=== PATIENT | female | born 1930 | race Caucasian/White ===

== ENCOUNTER 2017-05-03 09:48 | Inpatient (IN) | payer OTHER, MEDICARE ==
[~2017-05-03] VITALS: Ht 149.9 cm; Wt 62.9 kg
[~2017-05-03 09:48] MED LIST: ASCA500 PO; ASPI325T4 PO; CHOL100027 PO; CITRACAL PO; CRANPOW PO; CZR50 PO; FURO20TA PO; HYDCR1 TOP; HYDR2.5T PO; KOMBIGLYZE PO; METO100T44 PO; MULT-506 PO; OMEP20CA9 PO; SULF800T23 PO; ZNTT/150 PO; [UNRECOGNIZED DRUG - OTHER] PO; [UNRECOGNIZED DRUG - OTHER] TOP
[2017-05-03] MEDS ORDERED: SODIUM CHLORIDE 0.9% 1000ML 1,000 ML IV STA (10:29)
[2017-05-03] MEDS ORDERED: ACETAMINOPHEN 500 MG TAB PO STA (10:29)
--- NOTE | 2017-05-03 10:30 | EMERGENCY ROOM VISIT NOTE ---
History Report prepared by Marcelino: Kyle Nguyễn Under the Supervision of: Dr. Les Candelaria M.D. First contact with patient: 10:08 Chief Complaint: FALL Stated Complaint: FALL/KNEE PAIN History of Present Illness The patient is an 87 year old female who presents to the Emergency Room with complaints of a sudden mechanical fall that occurred last night. Per the nursing staff, the patient fell and then laid in the bathroom all night. The patient states that she has pain in her knees, but notes that she has a history of arthritis in her knees. The patient says that she laid on her left shoulder overnight after landing on that shoulder onto the floor. She adds that she has a history of rotator cuff surgery on that shoulder, and normally has pain with movement of the shoulder, but what is abnormal today is that she has pain in the shoulder without movement. She notes that she also hit the left side of the back of her head on the fall during the fall as well, and has a laceration there , per the nursing staff. Per the patient's family, the patient has had a bladder infection for 6 weeks, and has been having to go to the bathroom multiple times overnight. The patient had a recent ultrasound which revealed hydronephrosis, and the family is trying to get the patient in to see a urologist later this month. She was noted to have a fever again this week, and she recently had her antibiotic changed. Per the patient's family, the patient looks "more yellow" in appearance today. The patient adds that her back hurts and her abdomen feels "full". She is not on any blood thinners. Source of History: patient, family, nursing staff Onset: Last night Position: other (global - fall) Quality: other (mechanical) Timing: other (sudden) Associated Symptoms: + fevers (this week), + back pain, + urinary symptoms ( for 6 weeks), No abdominal pain (but feels full) Note: Associated symptoms: Left shoulder pain. Bilateral knee pain. Head laceration. Looks "more yellow" today. Review of Systems See HPI for pertinent positives and negatives. A total of ten systems were reviewed and were otherwise negative. Past Medical & Surgical Medical Problems: (1) Diab Kia Wo Compl, Type Ii Or Unspec Type, Not Uncntrld (2) Hyperlipidemia Nec/Nos (3) Hypertension Nos (4) Methicillin Resistant Staphylococcus Aureus Elsewhere/Nos (5) Osteoarthros Nos-Unspec (6) Osteoporosis Nos (7) Urin Tract Infection Nos Family History Family history omitted secondary to patient's advanced age. Social History Smoking Status: Never Smoker Alcohol Use: none Housing Status: assisted living Occupation Status: retired Current/Historical Medications Scheduled Artificial Tear Solution (Artificial Tears), 1 DROPS OP QID Ascorbic Acid (Ascorbic Acid), 500 MG PO DAILY Aspirin (Aspirin Ec), 81 MG PO DAILY Atenolol (Tenormin), 25 MG PO BID Cholecalciferol (Vitamin D3), 1 TAB PO DAILY Cranberry (Vaccinium Macrocarp (Cranberry), 1 CAP PO TID Cyclosporine (Ophth) (Restasis), 1 DROP OPB BID Digoxin (Digoxin), 1 TAB PO HS Estrogens, Conjugated (Premarin), 0.625 MG TOP HS Losartan Potassium (Cozaar), 50 MG PO DAILY Metoprolol Succ (Toprol Xl) (Toprol-Xl ), 1.5 TAB PO BID Multivitamin (Multivitamin), 1 TAB PO DAILY Phenazopyridine HCl (Phenazopyridine HCl), 1 TAB PO TID Ranitidine Hcl (Zantac), 150 MG PO HS Saxagliptin-Metformin HCl (Kombiglyze Xr), 1 TAB PO QPM Sulfa/Trimethoprim (Bactrim Ds 800MG/160MG), 1 TAB PO BID Scheduled PRN Diphenoxylate/Atropine (Lomotil), 1 TAB PO BID PRN for Diarrhea [Cheratussin Ac], 10 ML PO Q4H PRN for Cough Allergies Coded Allergies: Cephalosporins (Verified Allergy, Intermediate, KEFLEX = HIVES, 05/03/17) Penicillins (Verified Allergy, Mild, HIVES, 05/03/17) JACKY Inhibitors (Verified Allergy, Unknown, Unknown, 05/03/17) Adhesives (Verified Allergy, Unknown, 0, 05/03/17) Amoxicillin (Verified Allergy, Unknown, Unknown, 05/03/17) CI Pigment Blue 63 (Verified Allergy, Unknown, Unknown, 05/03/17) Cephalexin (Verified Allergy, Unknown, Unknown, 05/03/17) Duloxetine (Verified Allergy, Unknown, Unknown, 05/03/17) Gabapentin (Verified Allergy, Unknown, Unknown, 05/03/17) Lisinopril (Verified Allergy, Unknown, Unknown, 05/03/17) Penicillin V (Verified Allergy, Unknown, ., 05/03/17) Simvastatin (Verified Allergy, Unknown, Unknown, 05/03/17) Yellow Dyes (Non-tartrazine) (Verified Allergy, Unknown, Unknown, 05/03/17) PER PATIENT, SHE EATS YELLOW CANDY Dairy (Verified Adverse Reaction, Unknown, diarrhea, 05/03/17) Lettuce (Verified Adverse Reaction, Unknown, diarrhea, 05/03/17) "salads" Physical Exam Vital Signs Date Time Temp Pulse Resp B/P (MAP) Pulse Ox O2 Delivery O2 Flow Rate FiO2 05/03/17 15:29 71 14 101/54 94 Room Air 05/03/17 14:00 72 18 96/41 93 Room Air 05/03/17 13:04 78 20 99/55 94 Room Air 05/03/17 11:49 62 16 115/53 95 Room Air 05/03/17 11:27 88 05/03/17 09:50 36.7 94 18 132/69 95 Room Air Physical Exam GENERAL: Awake, alert, uncomfortable-appearing, in no distress HENT: Linear abrasion to posterior scalp. Oropharynx dry mm, otherwise unremarkable. EYES: Normal conjunctiva. Sclera non-icteric. NECK: Supple. No nuchal rigidity. FROM. No JVD. RESPIRATORY: Clear to auscultation. CARDIAC: Regular rate, normal rhythm. Extremities warm and well perfused. Pulses equal. ABDOMEN: Soft, non-distended. Mild suprapubic discomfort but no tenderness, no peritoneal signs. No rebound or guarding. No masses. RECTAL: Deferred. BACK: Mild CTLspine tenderness, no stepoff. MUSCULOSKELETAL: Mild tenderness and erythema to the left shoulder with mild pain with range of motion, but otherwise full range of motion. LOWER EXTREMITIES: Tenderness with passive and active range of motion of the left knee with mild effusion. Full range of motion of hips bilaterally. NEURO: Normal sensorium. No sensory or motor deficits noted. SKIN: No rash or jaundice noted. Medical Decision & Procedures ER Provider Diagnostic Interpretation: Radiology results as stated below per my review and radiologist interpretation: CT OF THE ABDOMEN AND PELVIS WITH CONTRAST CLINICAL HISTORY: Pain following fall. COMPARISON STUDY: CT of the abdomen and pelvis October 05, 2009 and abdominal ultrasound April 30, 2017. TECHNIQUE: Following IV administration of 92 mL of Optiray-320, axial images of the abdomen and pelvis were obtained from the lung bases to the proximal femurs. Images were reviewed in the axial, sagittal, and coronal planes. IV contrast was administered without complication. A dose lowering technique was utilized adhering to the principles of ALARA. FINDINGS: There is no evidence of traumatic injury to the liver, spleen, adrenal glands, kidneys or pancreas. A few left renal cysts are noted. A subcapsular hypodense right hepatic lobe lesion is unchanged since CT of October 05, 2009. This is benign. No hemoperitoneum or pneumoperitoneum is present. Dilatation of the left renal pelvis is similar to exam of October 05, 2009. Of note, there is marked asymmetric wall thickening of the right aspect of the bladder. There is gas within the bladder as well as calcifications along the right aspect of the bladder wall. There is mild infiltration adjacent to the bladder. No abdominal or pelvic lymphadenopathy is present. There is no acute lumbar spine or pelvic fracture. IMPRESSION: 1. No acute traumatic findings within the abdomen or pelvis. 2. Asymmetric right bladder wall thickening with associated calcifications. This could be due to a urothelial malignancy or urinary tract infection. This could be correlated with cystoscopy. Minimal infiltration adjacent to the bladder. Trace gas within the bladder which may be related to recent instrumentation. 3. Moderate dilatation of the left renal pelvis which is similar to exam of October 05, 2009 and is likely chronic. Electronically signed by: Giuseppe Clemens M.D. 05/03/2017 12:40 PM Dictated Date/Time: 05/03/2017 12:[address] OF THE CERVICAL SPINE WITHOUT CONTRAST CLINICAL HISTORY: Neck pain following fall. COMPARISON STUDY: No previous studies for comparison. TECHNIQUE: Helical axial images of the cervical spine were obtained without IV contrast. Sagittal and coronal reconstructions were viewed. A dose lowering technique was utilized adhering to the principles of ALARA. FINDINGS: Alignment of the cervical spine is anatomic. The craniocervical junction is intact. There is no acute cervical spine fracture. There is severe multilevel degenerative disc disease and facet arthrosis of the cervical spine. There is no prevertebral edema. Chest CT will be reported separately. IMPRESSION: 1. No acute cervical spine fracture or subluxation. 2. Severe multilevel degenerative disc disease and facet arthrosis of the cervical spine. Electronically signed by: Giuseppe Clemens M.D. 05/03/2017 12:20 PM Dictated Date/Time: 05/03/2017 12:[address] OF THE CHEST WITH IV CONTRAST CLINICAL HISTORY: Fall. COMPARISON STUDY: Chest radiograph May 28, 2012 and May 03, 2017. TECHNIQUE: Following IV administration of 92 mL of Optiray-320, helical axial images of the chest were obtained. Sagittal and coronal reconstructions were viewed as well as maximal intensity projections on an independent 3-D workstation. A dose lowering technique was utilized adhering to the principles of ALARA. FINDINGS: There is no evidence of traumatic injury to the thoracic aorta. The heart is moderately enlarged. A large hiatal hernia is noted. No pneumothorax or pleural effusion is present. Lungs are suboptimally assessed due to respiratory motion. Groundglass opacities within the lower lobe suggest atelectasis. No acute thoracic spine or rib fracture is identified although sensitivity for detection of rib fractures is diminished given motion artifact on this exam. There is no thoracic lymphadenopathy. The abdomen and pelvis will be reported separately. IMPRESSION: 1. No acute traumatic findings within the chest however sensitivity for detection of rib fractures diminished given motion artifact. 2. Large hiatal hernia. Electronically signed by: Giuseppe Clemens M.D. 05/03/2017 12:28 PM Dictated Date/Time: 05/03/2017 12:20 PM CHEST ONE VIEW PORTABLE CLINICAL HISTORY: Weakness. Fall. COMPARISON STUDY: Chest radiograph May 28, 2012. FINDINGS: A large hiatal hernia is noted. Cardiomegaly is unchanged. There is no pneumothorax or pleural effusion. Mild left basilar opacity suggest atelectasis. IMPRESSION: 1. No acute findings. 2. Large hiatal hernia. Electronically signed by: Giuseppe Clemens M.D. 05/03/2017 11:48 AM Dictated Date/Time: 05/03/2017 11:[address] OF THE HEAD WITHOUT CONTRAST CLINICAL HISTORY: Fall with head injury. COMPARISON STUDY: Head CT March 29, 2011 and MRI of the brain March 31, 2011. TECHNIQUE: Helical axial images of the head were obtained without IV contrast. Automated exposure control was utilized for the study. A dose lowering technique was utilized adhering to the principles of ALARA. FINDINGS: No acute intracranial hemorrhage, midline shift or mass affect is present. Ventricular system is stable. Basilar cisterns are patent. There are no extra-axial collections. White matter hypodensity suggests small vessel disease. 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 There is a small left posterior scalp contusion with no calvarial fracture. Right sphenoid sinus is partially opacified. This is unchanged and likely chronic. IMPRESSION: 1. No acute intracranial findings. 2. Small left posterior scalp contusion with no calvarial fracture. Electronically signed by: Giuseppe Clemens M.D. 05/03/2017 12:16 PM Dictated Date/Time: 05/03/2017 12:13 PM L HUMERUS MIN 2 VIEWS ROUTINE CLINICAL HISTORY: Left arm pain following fall. COMPARISON: None FINDINGS: Elevation of the left humeral head is chronic. Alignment of the left elbow is anatomic. There is spurring of the olecranon at the insertion of the triceps. There is no acute fracture of the left humerus. There is no left elbow joint effusion. IMPRESSION: No acute fracture of the left humerus. Electronically signed by: Giuseppe Clemens M.D. 05/03/2017 11:51 AM Dictated Date/Time: 05/03/2017 11:49 AM L KNEE 3 VIEWS CLINICAL HISTORY: Left knee pain following fall. COMPARISON: None FINDINGS: Alignment of the left knee is anatomic. There is no fracture or joint effusion. There is extensive chondrocalcinosis with marked patellofemoral compartment joint space narrowing. IMPRESSION: 1. No acute fracture. 2. 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 Electronically signed by: Giuseppe Clemens M.D. 05/03/2017 11:53 AM Dictated Date/Time: 05/03/2017 11:52 AM R KNEE 3 VIEWS CLINICAL HISTORY: Right knee pain following fall. COMPARISON: None FINDINGS: Alignment of the right knee is anatomic. There is no fracture or definite joint effusion. There is extensive chondrocalcinosis. There is marked joint space narrowing within the patellofemoral compartment. IMPRESSION: 1. No acute fracture. 2. 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 Electronically signed by: Giuseppe Clemens M.D. 05/03/2017 11:52 AM Dictated Date/Time: 05/03/2017 11:[address] CLINICAL HISTORY: Pain following fall. COMPARISON STUDY: No previous studies for comparison. FINDINGS: Mild rightward curvature of the lumbar spine is noted. No acute lumbar spine fracture is identified. There is moderate to severe multilevel degenerative disc disease and facet arthrosis of the lumbar spine. IMPRESSION: 1. No lumbar spine fracture or subluxation. 2. Mild dextroscoliosis of the lumbar spine. 3. Moderate to severe multilevel degenerative disc disease and facet arthrosis of the lumbar spine. Electronically signed by: Giuseppe Clemens M.D. 05/03/2017 12:41 PM Dictated Date/Time: 05/03/2017 12:40 PM L SHOULDER MIN 2 VIEWS ROUTINE CLINICAL HISTORY: Left shoulder pain following fall. COMPARISON: None FINDINGS: No acute fracture is identified. There is evidence for a previous suspected distal left clavicular resection. There is moderate arthritis of the left shoulder. There is elevation of the left humeral head. IMPRESSION: No acute fracture or dislocation of the left shoulder. Electronically signed by: Giuseppe Clemens M.D. 05/03/2017 11:49 AM Dictated Date/Time: 05/03/2017 11:[address] CLINICAL HISTORY: Pain following fall. COMPARISON STUDY: No previous studies for comparison. FINDINGS: Vertebral body heights are maintained. There is no acute thoracic spine fracture or subluxation. There is moderate multilevel disc space narrowing with osteophytosis of the thoracic spine. There is moderate multilevel facet arthrosis. Mild leftward curvature of the thoracolumbar junction is noted. IMPRESSION: No acute thoracic spine fracture or subluxation. Electronically signed by: Giuseppe Clemens M.D. 05/03/2017 12:31 PM Dictated Date/Time: 05/03/2017 12:28 PM Laboratory Results 05/03/17 10:45 Test 05/03/17 10:45 05/03/17 11:35 Anion Gap 8.0 mmol/L (3-11) Est Creatinine Clear Calc Drug Dose 38.0 ml/min Estimated GFR () 76.9 Estimated GFR (Non- 66.4 BUN/Creatinine Ratio 14.1 (10-20) Calcium Level 8.3 mg/dl (8.5-10.1) Total Bilirubin 0.7 mg/dl (0.2-1) Direct Bilirubin 0.2 mg/dl (0-0.2) Aspartate Amino Transf (AST/SGOT) 31 U/L (15-37) Alanine Aminotransferase (ALT/SGPT) 22 U/L (12-78) Alkaline Phosphatase 83 U/L (45-117) Total Creatine Kinase 96 U/L (26-192) Troponin I < 0.015 ng/ml (0-0.045) Total Protein 6.8 gm/dl (6.4-8.2) Albumin 3.2 gm/dl (3.4-5.0) Lipase 91 U/L (73-393) Urine Color YELLOW Urine Appearance CLEAR (CLEAR) Urine pH 7.5 (4.5-7.5) Urine Specific [place] 1.018 (1.000-1.030) Urine Protein NEG (NEG) Urine Glucose (UA) 3+ (NEG) Urine Ketones 1+ (NEG) Urine Occult Blood 3+ (NEG) Urine Nitrite NEG (NEG) Urine Bilirubin NEG (NEG) Urine Urobilinogen NEG (NEG) Urine Leukocyte Esterase SMALL (NEG) Urine WBC (Auto) >30 /hpf (0-5) Urine RBC (Auto) >30 /hpf (0-4) Urine Hyaline Casts (Auto) 5-10 /lpf (0-5) Urine Epithelial Cells (Auto) 5-10 /lpf (0-5) Urine Bacteria (Auto) 2+ (NEG) Urine Yeast (Auto) (NONE PRSENT) Laboratory results reviewed by me Medications Administered Medications (Trade) Dose Ordered Sig/Zoë Route Start Time Stop Time Status Last Admin Dose Admin Sodium Chloride 1,000 ml @ 999 mls/hr Q1H1M STAT IV 05/03/17 10:29 05/03/17 11:29 DC 05/03/17 11:14 999 MLS/HR Acetaminophen (Tylenol Tab) 1,000 mg NOW STAT PO 05/03/17 10:29 05/03/17 10:35 DC 05/03/17 11:40 1,000 MG Aztreonam 2000 mg/ Dextrose 110 ml @ 110 mls/hr NOW STAT IV 05/03/17 14:22 05/03/17 15:21 DC 05/03/17 14:43 110 MLS/HR Vancomycin HCl 1500 mg/Sodium Chloride 530 ml @ 200 mls/hr NOW STAT IV 05/03/17 14:23 05/03/17 17:01 DC 05/03/17 15:28 200 MLS/HR Sodium Chloride 1,000 ml @ 125 mls/hr Q8H IV 05/03/17 16:30 06/02/17 16:29 05/03/17 18:40 80 MLS/HR Acetaminophen (Tylenol Tab) 650 mg Q4H PRN PO 05/03/17 16:30 06/02/17 16:29 05/03/17 20:58 650 MG Procedure Location: occipital scalp Total length: 10cm Complexity: simple Verbal consent was obtained after the risks and benefits were explained, including but not limited to bleeding, scarring, infection, pain, and bone/joint /nerve damage. At this time, the risks of the procedure are less than the risks of NOT performing the procedure. A time out was taken and the correct patient and site identified. The skin was prepped with betadine. The target area was anesthetized with 1 ml of 1% lidocaine with epinephrine. Copious irrigation was performed using NS. The skin was re-prepped with betadine and a sterile field set. The wound was explored for foreign bodies and none found. Examination revealed no injury to deep structures such as tendons, bone, or significant blood vessels. Debridement was not performed. The wound edges were approximated using 7, mady. Hemostasis and excellent approximation was achieved. Detailed wound care instructions and signs and symptoms of infection reviewed with the patient. No complications and the patient tolerated the procedure well. ECG Indication: other (trauma) Rate (beats per minute): 87 Rhythm: sinus rhythm (with marked sinus arrhythmia) Findings: no acute ischemic change, other (normal axis) Change: no significant change (from 05/28/12) ED Course 1018: The patient was evaluated in room B6. A complete history and physical exam was performed. 1029: Ordered Tylenol Tab 1000 mg PO, NSS 1000 ml @ 999 mls/hr IV. 1415: Upon reexamination, the patient was resting comfortably. I discussed the test results and treatment plan with her and her family. They expressed understanding and agreement. The patient will be evaluated for further management. 1422: Ordered Aztreonam 2000 mg/Dextrose 110 ml @ 110 mls/hr IV. 1423: Ordered Vancomycin HCl 1000 mg/Sodium Chloride 530 ml @ 200 mls/hr IV. 1429: I discussed the patient with Dr. Armand Terry pastor - he will evaluate the patient for further treatment. Medical Decision I reviewed the patient's past medical history, medications, and the nursing notes as described above. Etiologies such as fracture, dislocation, intra-abdominal, pneumothorax, intrathoracic , intracranial, neurologic, as well as other traumatic pathologies were entertained. The patient is a 87-year-old woman who presents emergency department after a presumed mechanical fall when the patient had severe knee pain the setting of chronic arthritis falling and hitting the back of her head and laying on her left side overnight per history of present illness. The patient had CT scans of her head chest abdomen pelvis as well as CTL spine were negative for acute findings. Patient did have a positive UTI c/w bladder wall thickening on CT . Patient has an extensive history of antibiotic allergies thus case was discussed with pharmacy and recommending aztreonam and vancomycin. WBC 12 and lactate 2.2. Lactate most likely elevated 2/2 prolonged down-time. CPK unremarkable. Will need trending labs and continued IVF hydration. Patient otherwise hemodynamically stable. Linear abrasion to occipital scalp with persistent oozing thus stapled for additional hemostasis with good effect. Case discussed with Mara Wyman hospitalist, who will admit the patient for further management. Medication Reconcilliation Current Medication List: was personally reviewed by me Blood Pressure Screening Patient's blood pressure: Normal blood pressure Consults Time Called: 1420 Consulting Physician: Dr. Armand Terry pastor Returned Call: [phone] I discussed the patient with Dr. Armand Terry pastor - he will evaluate the patient for further treatment. Impression Primary Impression: UTI (urinary tract infection) Additional Impression: Elevated lactic acid level Critical Care I have personally spent greater than 35 minutes of critical care time in the direct management of this patient. This includes bedside care, interpretation of diagnostic studies, and testing, discussion with consultants, patient, and family members, and other required patient management activities. This 35 minutes is in excess of all separately billable procedures. Scribe Attestation The scribe's documentation has been prepared under my direction and personally reviewed by me in its entirety. I confirm that the note above accurately reflects all work, treatment, procedures, and medical decision making performed by me. Departure Information Dispostion Being Evaluated By Hospitalist Referrals Flores Cosme M.D. (PCP) Patient Instructions My [facility] Problem Qualifiers
[2017-05-03] MEDS ORDERED: OPTIRAY 320 IV PRN (10:45)
[2017-05-03 11:00] LABS: HEMATOCRIT 39.2 % (37-47); MEAN CORPUSCULAR HEMOGLOBIN 28.9 pg (25-34); MEAN CORPUSCULAR HGB CONC 33.7 g/dl (32-36); MEAN PLATELET VOLUME 9.4 fL (7.4-10.4); PLATELET COUNT 123 K/uL (130-400); RED BLOOD COUNT 4.56 M/uL (4.2-5.4); WHITE BLOOD COUNT 12.38 K/uL (4.8-10.8)
[2017-05-03 11:19] LABS: BASO % 0.1 %; BASO ABS # 0.01 K/uL (0-0.2); COMPLETE YES; EOS % 0.5 %; IG% 0.2 %; LYMPH % 4.2 %; LYMPH ABS # 0.52 K/uL (1.2-3.4); MONO % 4.4 %; NEUT % 90.6 %
[2017-05-03 11:22] LABS: ALT/SGPT 22 U/L (12-78); BLOOD UREA NITROGEN 11 mg/dl (7-18); BUN/CREATININE RATIO 14.1 (10-20); CALCIUM 8.3 mg/dl (8.5-10.1); CARBON DIOXIDE 28 mmol/L (21-32); CHLORIDE 96 mmol/L (98-107); CREATININE 0.79 mg/dl (0.60-1.20); GLUCOSE 239 mg/dl (70-99); POTASSIUM 3.6 mmol/L (3.5-5.1); SODIUM 132 mmol/L (136-145)
[2017-05-03 11:27] LABS: ALKALINE PHOSPHATASE 83 U/L (45-117); AST/SGOT 31 U/L (15-37)
[2017-05-03] MEDS ORDERED: FURO-85 PO (11:34)
[2017-05-03] MEDS ORDERED: ATEN-173 PO (11:34)
[2017-05-03] MEDS ORDERED: MULT-506 PO (11:34)
[2017-05-03] MEDS ORDERED: PRLSR20 PO (11:34)
[2017-05-03] MEDS ORDERED: ASCO500T16 PO (11:34)
[2017-05-03] MEDS ORDERED: RANI150T3 PO (11:34)
[2017-05-03] MEDS ORDERED: CRAN500C2 PO (11:34)
[2017-05-03] MEDS ORDERED: CHERATUSSIN AC PO (11:34)
[2017-05-03] MEDS ORDERED: PHEN-1043 PO (11:34)
[2017-05-03] MEDS ORDERED: METO100T44 PO (11:34)
[2017-05-03] MEDS ORDERED: SAXA1TAB5 PO (11:34)
[2017-05-03] MEDS ORDERED: ASPI81TA28 PO (11:34)
[2017-05-03] MEDS ORDERED: CHOL1000 PO (11:34)
[2017-05-03] MEDS ORDERED: LOSA100T65 PO (11:34)
--- NOTE | 2017-05-03 11:49 | DIAGNOSTIC IMAGING REPORT ---
CHEST ONE VIEW PORTABLE CLINICAL HISTORY: Weakness. Fall. COMPARISON STUDY: Chest radiograph May 28, 2012. FINDINGS: A large hiatal hernia is noted. Cardiomegaly is unchanged. There is no pneumothorax or pleural effusion. Mild left basilar opacity suggest atelectasis. IMPRESSION: 1. No acute findings. 2. Large hiatal hernia. Electronically signed by: Giuseppe Clemens M.D. 05/03/2017 11:48 AM Dictated Date/Time: 05/03/2017 11:45 AM
--- NOTE | 2017-05-03 11:50 | DIAGNOSTIC IMAGING REPORT ---
L SHOULDER MIN 2 VIEWS ROUTINE CLINICAL HISTORY: Left shoulder pain following fall. COMPARISON: None FINDINGS: No acute fracture is identified. There is evidence for a previous suspected distal left clavicular resection. There is moderate arthritis of the left shoulder. There is elevation of the left humeral head. IMPRESSION: No acute fracture or dislocation of the left shoulder. Electronically signed by: Giuseppe Clemens M.D. 05/03/2017 11:49 AM Dictated Date/Time: 05/03/2017 11:48 AM
--- NOTE | 2017-05-03 11:52 | DIAGNOSTIC IMAGING REPORT ---
L HUMERUS MIN 2 VIEWS ROUTINE CLINICAL HISTORY: Left arm pain following fall. COMPARISON: None FINDINGS: Elevation of the left humeral head is chronic. Alignment of the left elbow is anatomic. There is spurring of the olecranon at the insertion of the triceps. There is no acute fracture of the left humerus. There is no left elbow joint effusion. IMPRESSION: No acute fracture of the left humerus. Electronically signed by: Giuseppe Clemens M.D. 05/03/2017 11:51 AM Dictated Date/Time: 05/03/2017 11:49 AM
[2017-05-03 11:53] LABS: URINE APPEARANCE CLEAR (CLEAR); URINE BILIRUBIN NEG (NEG); URINE COLOR YELLOW; URINE NITRITE NEG (NEG); URINE PH 7.5 (4.5-7.5); URINE SPECIFIC GRAVITY 1.018 (1.000-1.030); UROBILINOGEN NEG (NEG)
--- NOTE | 2017-05-03 11:53 | DIAGNOSTIC IMAGING REPORT ---
R KNEE 3 VIEWS CLINICAL HISTORY: Right knee pain following fall. COMPARISON: None FINDINGS: Alignment of the right knee is anatomic. There is no fracture or definite joint effusion. There is extensive chondrocalcinosis. There is marked joint space narrowing within the patellofemoral compartment. IMPRESSION: 1. No acute fracture. 2. 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 Electronically signed by: Giuseppe Clemens M.D. 05/03/2017 11:52 AM Dictated Date/Time: 05/03/2017 11:51 AM
--- NOTE | 2017-05-03 11:54 | DIAGNOSTIC IMAGING REPORT ---
L KNEE 3 VIEWS CLINICAL HISTORY: Left knee pain following fall. COMPARISON: None FINDINGS: Alignment of the left knee is anatomic. There is no fracture or joint effusion. There is extensive chondrocalcinosis with marked patellofemoral compartment joint space narrowing. IMPRESSION: 1. No acute fracture. 2. 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 Electronically signed by: Giuseppe Clemens M.D. 05/03/2017 11:53 AM Dictated Date/Time: 05/03/2017 11:52 AM
[2017-05-03 12:07] LABS: MANUAL MICROSCOPIC REQUIRED? NO; REVIEW REQ? YES; SULFASALICYLIC ACID NEG (NEG)
--- NOTE | 2017-05-03 12:17 | DIAGNOSTIC IMAGING REPORT ---
CT OF THE HEAD WITHOUT CONTRAST CLINICAL HISTORY: Fall with head injury. COMPARISON STUDY: Head CT March 29, 2011 and MRI of the brain March 31, 2011. TECHNIQUE: Helical axial images of the head were obtained without IV contrast. Automated exposure control was utilized for the study. A dose lowering technique was utilized adhering to the principles of ALARA. FINDINGS: No acute intracranial hemorrhage, midline shift or mass affect is present. Ventricular system is stable. Basilar cisterns are patent. There are no extra-axial collections. White matter hypodensity suggests small vessel disease. 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 There is a small left posterior scalp contusion with no calvarial fracture. Right sphenoid sinus is partially opacified. This is unchanged and likely chronic. IMPRESSION: 1. No acute intracranial findings. 2. Small left posterior scalp contusion with no calvarial fracture. Electronically signed by: Giuseppe Clemens M.D. 05/03/2017 12:16 PM Dictated Date/Time: 05/03/2017 12:13 PM
--- NOTE | 2017-05-03 12:21 | DIAGNOSTIC IMAGING REPORT ---
CT OF THE CERVICAL SPINE WITHOUT CONTRAST CLINICAL HISTORY: Neck pain following fall. COMPARISON STUDY: No previous studies for comparison. TECHNIQUE: Helical axial images of the cervical spine were obtained without IV contrast. Sagittal and coronal reconstructions were viewed. A dose lowering technique was utilized adhering to the principles of ALARA. FINDINGS: Alignment of the cervical spine is anatomic. The craniocervical junction is intact. There is no acute cervical spine fracture. There is severe multilevel degenerative disc disease and facet arthrosis of the cervical spine. There is no prevertebral edema. Chest CT will be reported separately. IMPRESSION: 1. No acute cervical spine fracture or subluxation. 2. Severe multilevel degenerative disc disease and facet arthrosis of the cervical spine. Electronically signed by: Giuseppe Clemens M.D. 05/03/2017 12:20 PM Dictated Date/Time: 05/03/2017 12:16 PM
--- NOTE | 2017-05-03 12:29 | DIAGNOSTIC IMAGING REPORT ---
CT OF THE CHEST WITH IV CONTRAST CLINICAL HISTORY: Fall. COMPARISON STUDY: Chest radiograph May 28, 2012 and May 03, 2017. TECHNIQUE: Following IV administration of 92 mL of Optiray-320, helical axial images of the chest were obtained. Sagittal and coronal reconstructions were viewed as well as maximal intensity projections on an independent 3-D workstation. A dose lowering technique was utilized adhering to the principles of ALARA. FINDINGS: There is no evidence of traumatic injury to the thoracic aorta. The heart is moderately enlarged. A large hiatal hernia is noted. No pneumothorax or pleural effusion is present. Lungs are suboptimally assessed due to respiratory motion. Groundglass opacities within the lower lobe suggest atelectasis. No acute thoracic spine or rib fracture is identified although sensitivity for detection of rib fractures is diminished given motion artifact on this exam. There is no thoracic lymphadenopathy. The abdomen and pelvis will be reported separately. IMPRESSION: 1. No acute traumatic findings within the chest however sensitivity for detection of rib fractures diminished given motion artifact. 2. Large hiatal hernia. Electronically signed by: Giuseppe Clemens M.D. 05/03/2017 12:28 PM Dictated Date/Time: 05/03/2017 12:20 PM
--- NOTE | 2017-05-03 12:32 | DIAGNOSTIC IMAGING REPORT ---
THORACIC SPINE CT CLINICAL HISTORY: Pain following fall. COMPARISON STUDY: No previous studies for comparison. FINDINGS: Vertebral body heights are maintained. There is no acute thoracic spine fracture or subluxation. There is moderate multilevel disc space narrowing with osteophytosis of the thoracic spine. There is moderate multilevel facet arthrosis. Mild leftward curvature of the thoracolumbar junction is noted. IMPRESSION: No acute thoracic spine fracture or subluxation. Electronically signed by: Giuseppe Clemens M.D. 05/03/2017 12:31 PM Dictated Date/Time: 05/03/2017 12:28 PM
--- NOTE | 2017-05-03 12:41 | DIAGNOSTIC IMAGING REPORT ---
CT OF THE ABDOMEN AND PELVIS WITH CONTRAST CLINICAL HISTORY: Pain following fall. COMPARISON STUDY: CT of the abdomen and pelvis October 05, 2009 and abdominal ultrasound April 30, 2017. TECHNIQUE: Following IV administration of 92 mL of Optiray-320, axial images of the abdomen and pelvis were obtained from the lung bases to the proximal femurs. Images were reviewed in the axial, sagittal, and coronal planes. IV contrast was administered without complication. A dose lowering technique was utilized adhering to the principles of ALARA. FINDINGS: There is no evidence of traumatic injury to the liver, spleen, adrenal glands, kidneys or pancreas. A few left renal cysts are noted. A subcapsular hypodense right hepatic lobe lesion is unchanged since CT of October 05, 2009. This is benign. No hemoperitoneum or pneumoperitoneum is present. Dilatation of the left renal pelvis is similar to exam of October 05, 2009. Of note, there is marked asymmetric wall thickening of the right aspect of the bladder. There is gas within the bladder as well as calcifications along the right aspect of the bladder wall. There is mild infiltration adjacent to the bladder. No abdominal or pelvic lymphadenopathy is present. There is no acute lumbar spine or pelvic fracture. IMPRESSION: 1. No acute traumatic findings within the abdomen or pelvis. 2. Asymmetric right bladder wall thickening with associated calcifications. This could be due to a urothelial malignancy or urinary tract infection. This could be correlated with cystoscopy. Minimal infiltration adjacent to the bladder. Trace gas within the bladder which may be related to recent instrumentation. 3. Moderate dilatation of the left renal pelvis which is similar to exam of October 05, 2009 and is likely chronic. Electronically signed by: Giuseppe Clemens M.D. 05/03/2017 12:40 PM Dictated Date/Time: 05/03/2017 12:31 PM
--- NOTE | 2017-05-03 12:43 | DIAGNOSTIC IMAGING REPORT ---
LUMBAR SPINE CT CLINICAL HISTORY: Pain following fall. COMPARISON STUDY: No previous studies for comparison. FINDINGS: Mild rightward curvature of the lumbar spine is noted. No acute lumbar spine fracture is identified. There is moderate to severe multilevel degenerative disc disease and facet arthrosis of the lumbar spine. IMPRESSION: 1. No lumbar spine fracture or subluxation. 2. Mild dextroscoliosis of the lumbar spine. 3. Moderate to severe multilevel degenerative disc disease and facet arthrosis of the lumbar spine. Electronically signed by: Giuseppe Clemens M.D. 05/03/2017 12:41 PM Dictated Date/Time: 05/03/2017 12:40 PM
[2017-05-03] MEDS ORDERED: CYCL0.052 OPB (13:02)
[2017-05-03] MEDS ORDERED: ARTISOL12 OP (13:02)
[2017-05-03] MEDS ORDERED: PRMVC VAGRING (13:02)
[2017-05-03] MEDS ORDERED: LOSA50TA6 PO (13:02)
[2017-05-03] MEDS ORDERED: LNX25 PO (13:02)
[2017-05-03] MEDS ORDERED: DIPH-416 PO (13:02)
[2017-05-03] MEDS ORDERED: AZTREONAM 2000 MG in DEXTROSE 5% 100 ML IV STA (14:22)
[2017-05-03] MEDS ORDERED: VANCOMYCIN INJ 1,500 MG in SODIUM CHLORIDE 0.9% 500ML 500 ML IV STA (14:23)
[2017-05-03] MEDS ORDERED: GLUCOSE 10 TABS/TUBE PO PRN (16:30)
[2017-05-03] MEDS ORDERED: GLUCAGON FOR INJ 1 MG VIAL SQ PRN (16:30)
[2017-05-03] MEDS ORDERED: DEXTROSE 50% 50 ML SYR IV PRN (16:30)
[2017-05-03] MEDS ORDERED: DIPHENOXYLATE/ATROPINE 2.5/0.025MG TAB PO PRN (16:30)
[2017-05-03] MEDS ORDERED: GLUCOSE 40% GEL 15 GM TUBE PO PRN (16:30)
[2017-05-03 16:55] VITALS: BP 117/76; PULSE 73; TEMP 36.7; O2SAT 97; Ht 149.9 cm; Wt 62.9 kg
[2017-05-03 17:03] LABS: BASO % 0.3 %; BASO ABS # 0.03 K/uL (0-0.2); COMPLETE YES; EOS % 2.2 %; HEMATOCRIT 36.6 % (37-47); IG% 0.2 %; LYMPH % 8.7 %; LYMPH ABS # 0.99 K/uL (1.2-3.4); MEAN CELL VOLUME 86.3 fL (80-100); MEAN CORPUSCULAR HEMOGLOBIN 29.7 pg (25-34); MEAN CORPUSCULAR HGB CONC 34.4 g/dl (32-36); MEAN PLATELET VOLUME 9.2 fL (7.4-10.4); MONO % 9.6 %; PLATELET COUNT 133 K/uL (130-400); RED BLOOD COUNT 4.24 M/uL (4.2-5.4); WHITE BLOOD COUNT 11.42 K/uL (4.8-10.8)
[2017-05-03] MEDS ORDERED: LIDOCAINE/EPINEPHRINE 1% 20 ML VIAL ONE (17:22)
[2017-05-03] MEDS: SODIUM CHLORIDE 0.9% 1000ML 1,000 ML IV SCH (18:40)
--- NOTE | 2017-05-03 18:58 | Pharmacy Progress Note ---
Pharmacy Abx Initial Consult Date of Service May 03, 2017. Pharmacy Dosing Scope Date of Consult: 05/03/17 Consultation requested by: Dr. Acuna Pharmacy is consulted to initiate vancomycin IV dosing therapy, order appropriate labs and adjust drug dose/frequency. Subjective The patient is a 87 year old female admitted on May 03, 2017 at 16:32. Objective Height (Feet): 4 Height (Inches): 11.00 Weight (Kilograms): 58.100 Vital Signs (Past 12Hrs) Vital Signs Past 12 Hours Date Time Temp Pulse Resp B/P (MAP) Pulse Ox O2 Delivery O2 Flow Rate FiO2 05/03/17 17:59 70 16 117/60 96 05/03/17 16:55 36.7 73 18 117/76 97 Room Air 05/03/17 16:52 69 18 109/59 97 Room Air 05/03/17 15:29 71 14 101/54 94 Room Air 05/03/17 14:00 72 18 96/41 93 Room Air 05/03/17 13:04 78 20 99/55 94 Room Air 05/03/17 11:49 62 16 115/53 95 Room Air 05/03/17 11:27 88 05/03/17 09:50 36.7 94 18 132/69 95 Room Air Lab Results (24Hrs) Laboratory Tests (24 Hours) Test 05/03/17 10:45 05/03/17 16:54 Total Creatine Kinase 96 U/L (26-192) Lactic Acid Level 3.5 mmol/L (0.4-2.0) *H White Blood Count 11.42 K/uL (4.8-10.8) H Red Blood Count 4.24 M/uL (4.2-5.4) Hemoglobin 12.6 g/dL (12.0-16.0) Hematocrit 36.6 % (37-47) L Mean Corpuscular Volume 86.3 fL (80-100) Mean Corpuscular Hemoglobin 29.7 pg (25-34) Mean Corpuscular Hemoglobin Concent 34.4 g/dl (32-36) Platelet Count 133 K/uL (130-400) Mean Platelet Volume 9.2 fL (7.4-10.4) Neutrophils (%) (Auto) 79.0 % Lymphocytes (%) (Auto) 8.7 % Monocytes (%) (Auto) 9.6 % Eosinophils (%) (Auto) 2.2 % Basophils (%) (Auto) 0.3 % Neutrophils # (Auto) 9.03 K/uL (1.4-6.5) H Lymphocytes # (Auto) 0.99 K/uL (1.2-3.4) L Monocytes # (Auto) 1.10 K/uL (0.11-0.59) H Eosinophils # (Auto) 0.25 K/uL (0-0.5) Basophils # (Auto) 0.03 K/uL (0-0.2) Micro Results Date/Time Source Procedure Growth Status 05/03/17 11:35 Urine,Catheterized Urine Culture Pending Received Risk Factors for Resistance * Resident in a shelter or extended-care facility * History of infection with a multidrug-resistant organism: MRSA * Antimicrobial use within the last 90 days (currently on Bactrim PO) Assessment & Plan Assessment 87 year old female admitted with UTI. She has a PMH of DM and currently has hydronephrosis. Plan vancomycin for treatment of complicated UTI Vancomycin IV * Loading dose: 1500 mg (26 mg/kg) * Maintenance dose: 1000 mg IV (17 mg/kg) every 18 hours * Goal trough level for UTI complicated : 10 to 15 mcg/mL (may be as high as 15- 20 mcg/mL if MRSA is isolated) * Trough/Random level ordered for 05/05/17 (prior to third dose to ensure no accumulation) * A less than traditional dose has been selected due to likelihood of underdosing in elderly, thin females. Pharmacy will continue to follow and will adjust dose/frequency as necessary. Thank you.
[2017-05-03] MEDS ORDERED: VANCOMYCIN CONSULT ACTIVE PRN (19:00)
[2017-05-03] MEDS ORDERED: NON-FORMULARY MEDICATION (Cranberry (Vaccinium Macrocarp (Cranberry) 1 CAP) PO SCH (20:00)
[2017-05-03] MEDS: INSULIN ASPART 100 UNITS/ML 3 ML PEN SC SCH (20:48)
[2017-05-03] MEDS: AZTREONAM IV 2,000 MG in DEXTROSE 5% 100ML 100 ML IV SCH (20:49)
[2017-05-03] MEDS: METOPROLOL SUCC 50MG EXT REL TAB PO SCH (20:50)
[2017-05-03] MEDS: RANITIDINE HCL 150 MG TAB PO SCH (20:50)
[2017-05-03] MEDS: ARTIFICIAL TEARS OP SOLN OP SCH ×2 (20:51)
[2017-05-03] MEDS: PHENAZOPYRIDINE HCL 200 MG TAB PO SCH (20:51)
[2017-05-03] MEDS: DIGOXIN 0.25 MG TAB PO SCH (20:51)
[2017-05-03] MEDS: ACETAMINOPHEN 325 MG TAB PO PRN (20:58)
[2017-05-03 21:01] VITALS: BP 132/82; PULSE 81
--- NOTE | 2017-05-03 21:56 | History and Physical ---
History & Physical Date & Time of Service: May 03, 2017 at 21:07 Chief Complaint: Elevated Lactic Acid Level, Uti Primary Care Physician: Flores Cosme M.D. History of Present Illness Source: patient, family, clinic records, hospital records This is an 87 year old female with a PMH of HTN, valvular heart disease, Sjogren 's syndrome, DM2, osteoarthritis, and a 6 week history of recurrent UTI symptoms - presents secondary to a fall. Patient states that she is at [facility] - she attempted to get up last evening due to urinary frequency. States that her knees felt weak and painful and because of that, she fell and hit the back of her head. She states that she did not want to bother anyone and did not get up right away. She is unsure of how long she was laying down on the ground for. When she was found she had a laceration on the back of her head and she had L shoulder pain. She was sent to the ER for further evaluation. Upon presentation, she had no acute fractures. Laceration on the scalp noted. She has some trouble with L shoulder movement due to pain. Denies b/l knee pain currently. Main complaint currently is urinary frequency and dysuria x 6weeks. 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 (5) Osteoarthros Nos-Unspec Status: Chronic (6) Osteoporosis Nos Status: Chronic (7) Urin Tract Infection Nos Status: Resolved Social History Smoking Status: Never Smoker Occupational Status: retired Immunizations History of Influenza Vaccine: Yes Influenza Vaccine Date: Mar 07, 2009 History of Tetanus Vaccine?: Unknown History of Pneumococcal: Yes History of Hepatitis B Vaccine: No Multi-Drug Resistant Organisms History of MDRO: Yes Type of MDRO: MRSA Allergies Coded Allergies: Cephalosporins (Verified Allergy, Intermediate, KEFLEX = HIVES, 05/03/17) Penicillins (Verified Allergy, Mild, HIVES, 05/03/17) JACKY Inhibitors (Verified Allergy, Unknown, Unknown, 05/03/17) Adhesives (Verified Allergy, Unknown, 0, 05/03/17) Amoxicillin (Verified Allergy, Unknown, Unknown, 05/03/17) CI Pigment Blue 63 (Verified Allergy, Unknown, Unknown, 05/03/17) Cephalexin (Verified Allergy, Unknown, Unknown, 05/03/17) Duloxetine (Verified Allergy, Unknown, Unknown, 05/03/17) Gabapentin (Verified Allergy, Unknown, Unknown, 05/03/17) Lisinopril (Verified Allergy, Unknown, Unknown, 05/03/17) Penicillin V (Verified Allergy, Unknown, ., 05/03/17) Simvastatin (Verified Allergy, Unknown, Unknown, 05/03/17) Yellow Dyes (Non-tartrazine) (Verified Allergy, Unknown, Unknown, 05/03/17) PER PATIENT, SHE EATS YELLOW CANDY Dairy (Verified Adverse Reaction, Unknown, diarrhea, 05/03/17) Lettuce (Verified Adverse Reaction, Unknown, diarrhea, 05/03/17) "salads" Home Medications Scheduled Artificial Tear Solution (Artificial Tears), 1 DROPS OP QID Ascorbic Acid (Ascorbic Acid), 500 MG PO DAILY Aspirin (Aspirin Ec), 81 MG PO DAILY Atenolol (Tenormin), 25 MG PO BID Cholecalciferol (Vitamin D3), 1 TAB PO DAILY Cranberry (Vaccinium Macrocarp (Cranberry), 1 CAP PO TID Cyclosporine (Ophth) (Restasis), 1 DROP OPB BID Digoxin (Digoxin), 1 TAB PO HS Estrogens, Conjugated (Premarin), 0.625 MG TOP HS Losartan Potassium (Cozaar), 50 MG PO DAILY Metoprolol Succ (Toprol Xl) (Toprol-Xl ), 1.5 TAB PO BID Multivitamin (Multivitamin), 1 TAB PO DAILY Phenazopyridine HCl (Phenazopyridine HCl), 1 TAB PO TID Ranitidine Hcl (Zantac), 150 MG PO HS Saxagliptin-Metformin HCl (Kombiglyze Xr), 1 TAB PO QPM Sulfa/Trimethoprim (Bactrim Ds 800MG/160MG), 1 TAB PO BID Scheduled PRN Diphenoxylate/Atropine (Lomotil), 1 TAB PO BID PRN for Diarrhea [Cheratussin Ac], 10 ML PO Q4H PRN for Cough Review of Systems Constitutional: + weakness, No fever, No chills Eyes: No worsening of vision ENT: No hearing loss Respiratory: No cough, No sputum, No wheezing, No shortness of breath, No dyspnea on exertion, No dyspnea at rest, No hemoptysis Cardiovascular: No chest pain, No edema, No palpitations Abdomen: No pain, No nausea, No vomiting, No diarrhea, No constipation, No GI bleeding Musculoskeletal: + joint pain (b/l knee, L shoulder) Genitourinary - Female: + dysuria, + urinary frequency, + urinary urgency, + urinary incontinence, No urinary retention, No hematuria Neurologic: + weakness, + balance problems, No numbness/tingling, No vertigo Psychiatric: No depression symptoms Endocrine: No fatigue Hematologic / Lymphatic: No abnormal bleeding/bruising Integumentary: No rash Allergic / Immunologic: No environmental allergies, No seasonal allergies Physical Exam Vital Signs Date Time Temp Pulse Resp B/P (MAP) Pulse Ox O2 Delivery O2 Flow Rate FiO2 05/03/17 21:01 81 132/82 (99) 05/03/17 20:51 70 05/03/17 17:59 70 16 117/60 96 05/03/17 16:55 36.7 73 18 117/76 97 Room Air 05/03/17 16:52 69 18 109/59 97 Room Air 05/03/17 15:29 71 14 101/54 94 Room Air 05/03/17 14:00 72 18 96/41 93 Room Air 05/03/17 13:04 78 20 99/55 94 Room Air 05/03/17 11:49 62 16 115/53 95 Room Air 05/03/17 11:27 88 05/03/17 09:50 36.7 94 18 132/69 95 Room Air General Appearance: no apparent distress Head: normocephalic, + pertinent finding (+posterior scalp laceration) Eyes: normal inspection, PERRL, EOMI ENT: normal ENT inspection, hearing grossly normal Neck: supple Respiratory/Chest: chest non-tender, lungs clear, normal breath sounds, no respiratory distress, no accessory muscle use Cardiovascular: regular rate, rhythm, + systolic murmur (+4/6 systolic ejection murmur) Abdomen/GI: normal bowel sounds, non tender, soft Back: normal inspection, no CVA tenderness, no muscle spasm, normal range of motion Extremities/Musculoskelatal: normal inspection, no calf tenderness, normal capillary refill, no pedal edema, normal range of motion Neurologic/Psych: outreach educator II-XII nml as tested, no motor/sensory deficits, alert, normal mood/affect, oriented x 3 Skin: normal color Lymphatic: no adenopathy Diagnostics Laboratory Results Results Past 24 Hours Test 05/03/17 10:45 05/03/17 11:00 05/03/17 11:35 05/03/17 16:54 Range/Units White Blood Count 12.38 11.42 4.8-10.8 K/uL Red Blood Count 4.56 4.24 4.2-5.4 M/uL Hemoglobin 13.2 12.6 12.0-16.0 g/dL Hematocrit 39.2 36.6 37-47 % Mean Corpuscular Volume 86.0 86.3 80-100 fL Mean Corpuscular Hemoglobin 28.9 29.7 25-34 pg Mean Corpuscular Hemoglobin Concent 33.7 34.4 32-36 g/dl Platelet Count 123 133 130-400 K/uL Mean Platelet Volume 9.4 9.2 7.4-10.4 fL Neutrophils (%) (Auto) 90.6 79.0 % Lymphocytes (%) (Auto) 4.2 8.7 % Monocytes (%) (Auto) 4.4 9.6 % Eosinophils (%) (Auto) 0.5 2.2 % Basophils (%) (Auto) 0.1 0.3 % Neutrophils # (Auto) 11.21 9.03 1.4-6.5 K/uL Lymphocytes # (Auto) 0.52 0.99 1.2-3.4 K/uL Monocytes # (Auto) 0.55 1.10 0.11-0.59 K/uL Eosinophils # (Auto) 0.06 0.25 0-0.5 K/uL Basophils # (Auto) 0.01 0.03 0-0.2 K/uL RDW Standard Deviation 43.7 44.2 36.4-46.3 fL RDW Coefficient of Variation 14.0 14.0 11.5-14.5 % Immature Granulocyte % (Auto) 0.2 0.2 % Immature Granulocyte # (Auto) 0.03 0.02 0.00-0.02 K/uL Sodium Level 132 136-145 mmol/L Potassium Level 3.6 3.5-5.1 mmol/L Chloride Level 96 98-107 mmol/L Carbon Dioxide Level 28 21-32 mmol/L Anion Gap 8.0 3-11 mmol/L Blood Urea Nitrogen 11 7-18 mg/dl Creatinine 0.79 0.60-1.20 mg/dl Est Creatinine Clear Calc Drug Dose 38.0 ml/min Estimated GFR () 76.9 Estimated GFR (Non- 66.4 BUN/Creatinine Ratio 14.1 10-20 Random Glucose 239 70-99 mg/dl Calcium Level 8.3 8.5-10.1 mg/dl Total Bilirubin 0.7 0.2-1 mg/dl Direct Bilirubin 0.2 0-0.2 mg/dl Aspartate Amino Transf (AST/SGOT) 31 15-37 U/L Alanine Aminotransferase (ALT/SGPT) 22 12-78 U/L Alkaline Phosphatase 83 45-117 U/L Total Creatine Kinase 96 26-192 U/L Troponin I < 0.015 0-0.045 ng/ml Total Protein 6.8 6.4-8.2 gm/dl Albumin 3.2 3.4-5.0 gm/dl Lipase 91 73-393 U/L Lactic Acid Level 2.2 3.5 0.4-2.0 mmol/L Urine Color YELLOW Urine Appearance CLEAR CLEAR Urine pH 7.5 4.5-7.5 Urine Specific [place] 1.018 1.000-1.030 Urine Protein NEG NEG Urine Glucose (UA) 3+ NEG Urine Ketones 1+ NEG Urine Occult Blood 3+ NEG Urine Nitrite NEG NEG Urine Bilirubin NEG NEG Urine Urobilinogen NEG NEG Urine Leukocyte Esterase SMALL NEG Urine WBC (Auto) >30 0-5 /hpf Urine RBC (Auto) >30 0-4 /hpf Urine Hyaline Casts (Auto) 5-10 0-5 /lpf Urine Epithelial Cells (Auto) 5-10 0-5 /lpf Urine Bacteria (Auto) 2+ NEG Urine Yeast (Auto) NONE PRSENT Test 05/03/17 20:18 Range/Units Bedside Glucose 176 70-90 mg/dl Microbiology Results 05/03/17 Urine Culture, Received Pending Diagnostic Radiology CT OF THE ABDOMEN AND PELVIS WITH CONTRAST CLINICAL HISTORY: Pain following fall. COMPARISON STUDY: CT of the abdomen and pelvis October 05, 2009 and abdominal ultrasound April 30, 2017. TECHNIQUE: Following IV administration of 92 mL of Optiray-320, axial images of the abdomen and pelvis were obtained from the lung bases to the proximal femurs. Images were reviewed in the axial, sagittal, and coronal planes. IV contrast was administered without complication. A dose lowering technique was utilized adhering to the principles of ALARA. FINDINGS: There is no evidence of traumatic injury to the liver, spleen, adrenal glands, kidneys or pancreas. A few left renal cysts are noted. A subcapsular hypodense right hepatic lobe lesion is unchanged since CT of October 05, 2009. This is benign. No hemoperitoneum or pneumoperitoneum is present. Dilatation of the left renal pelvis is similar to exam of October 05, 2009. Of note, there is marked asymmetric wall thickening of the right aspect of the bladder. There is gas within the bladder as well as calcifications along the right aspect of the bladder wall. There is mild infiltration adjacent to the bladder. No abdominal or pelvic lymphadenopathy is present. There is no acute lumbar spine or pelvic fracture. IMPRESSION: 1. No acute traumatic findings within the abdomen or pelvis. 2. Asymmetric right bladder wall thickening with associated calcifications. This could be due to a urothelial malignancy or urinary tract infection. This could be correlated with cystoscopy. Minimal infiltration adjacent to the bladder. Trace gas within the bladder which may be related to recent instrumentation. 3. Moderate dilatation of the left renal pelvis which is similar to exam of October 05, 2009 and is likely chronic. CHEST ONE VIEW PORTABLE CLINICAL HISTORY: Weakness. Fall. COMPARISON STUDY: Chest radiograph May 28, 2012. FINDINGS: A large hiatal hernia is noted. Cardiomegaly is unchanged. There is no pneumothorax or pleural effusion. Mild left basilar opacity suggest atelectasis. IMPRESSION: 1. No acute findings. 2. Large hiatal hernia. CT OF THE CHEST WITH IV CONTRAST CLINICAL HISTORY: Fall. COMPARISON STUDY: Chest radiograph May 28, 2012 and May 03, 2017. TECHNIQUE: Following IV administration of 92 mL of Optiray-320, helical axial images of the chest were obtained. Sagittal and coronal reconstructions were viewed as well as maximal intensity projections on an independent 3-D workstation. A dose lowering technique was utilized adhering to the principles of ALARA. FINDINGS: There is no evidence of traumatic injury to the thoracic aorta. The heart is moderately enlarged. A large hiatal hernia is noted. No pneumothorax or pleural effusion is present. Lungs are suboptimally assessed due to respiratory motion. Groundglass opacities within the lower lobe suggest atelectasis. No acute thoracic spine or rib fracture is identified although sensitivity for detection of rib fractures is diminished given motion artifact on this exam. There is no thoracic lymphadenopathy. The abdomen and pelvis will be reported separately. IMPRESSION: 1. No acute traumatic findings within the chest however sensitivity for detection of rib fractures diminished given motion artifact. 2. Large hiatal hernia. CT OF THE HEAD WITHOUT CONTRAST CLINICAL HISTORY: Fall with head injury. COMPARISON STUDY: Head CT March 29, 2011 and MRI of the brain March 31, 2011. TECHNIQUE: Helical axial images of the head were obtained without IV contrast. Automated exposure control was utilized for the study. A dose lowering technique was utilized adhering to the principles of ALARA. FINDINGS: No acute intracranial hemorrhage, midline shift or mass affect is present. Ventricular system is stable. Basilar cisterns are patent. There are no extra-axial collections. White matter hypodensity suggests small vessel disease. 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 There is a small left posterior scalp contusion with no calvarial fracture. Right sphenoid sinus is partially opacified. This is unchanged and likely chronic. IMPRESSION: 1. No acute intracranial findings. 2. Small left posterior scalp contusion with no calvarial fracture. EKG Sinus rhythm with marked sinus arrhythmia ST & T wave abnormality, consider inferior ischemia Impression Assessment and Plan This is an 87 year old female with a PMH of HTN, valvular heart disease, Sjogren 's syndrome, DM2, osteoarthritis, and a 6 week history of recurrent UTI symptoms - presents secondary to a fall. status post Fall patient presented with fall due to b/l knee weakness and joint pain imaging of the cervical, thoracic, lumbar spine - no acute fractures no acute humeral/shoulder disease b/l knee radiographs suggest possible pseudogout at this time, I'll order PT/OT CM discharge planning for possible rehab at [facility] Recurrent UTI patient has had urinary frequency, which may have contributed to her fall she has to get up multiple times at night to urinate as per patient, she had an appointment with [facility] later this month; but would like to see them now has failed multiple outpatient abx. will start Azactam and Vancomycin due to multiple allergies possible cystoscopy as outpatient; urology consulted continue IVFs and check lactic acid q4 hours for now Posterior Scalp Laceration patient has seven mady placed by ED physician otherwise, Head CT negative Valvular Heart Disease significant murmur noted on exam patient is on digoxin - no rhythm disorders found on hx. - possibly for heart failure secondary to valvular disease will continue current medications DM2 hold oral agents, start sliding scale HTN continue metoprolol, if BP stable, may consider tapering this off to prevent syncopal episodes DVT ppx SCDs (posterior scalp laceration) FULL CODE Advanced Directives Existing Living Will: Yes Existing Power of Chief Internal Auditor: Yes VTE Prophylaxis VTE Risk Assessment Done? Y/N: Yes Risk Level: Moderate
[2017-05-04] VITALS (10 sets, daily range): BP systolic 83–120; BP diastolic 50–68; PULSE 64–142; TEMP 36.4–37; O2SAT 91–96
[2017-05-04] MEDS: SODIUM CHLORIDE 0.9% 1000ML 1,000 ML IV SCH ×2 (03:48→15:29)
[2017-05-04] MEDS: AZTREONAM IV 2,000 MG in DEXTROSE 5% 100ML 100 ML IV SCH ×3 (03:49→20:20)
[2017-05-04 04:16] LABS: HEMATOCRIT 35.9 % (37-47); MEAN CELL VOLUME 86.5 fL (80-100); MEAN CORPUSCULAR HEMOGLOBIN 29.2 pg (25-34); MEAN CORPUSCULAR HGB CONC 33.7 g/dl (32-36); MEAN PLATELET VOLUME 9.4 fL (7.4-10.4); PLATELET COUNT 133 K/uL (130-400); RED BLOOD COUNT 4.15 M/uL (4.2-5.4); WHITE BLOOD COUNT 12.18 K/uL (4.8-10.8)
[2017-05-04 04:35] LABS: BUN/CREATININE RATIO 14.7 (10-20); CALCIUM 7.9 mg/dl (8.5-10.1); CREATININE 0.71 mg/dl (0.60-1.20); MAGNESIUM 1.6 mg/dl (1.8-2.4); POTASSIUM 4.1 mmol/L (3.5-5.1)
[2017-05-04 05:01] LABS: BASO % 0.1 %; BASO ABS # 0.01 K/uL (0-0.2); COMPLETE YES; EOS % 4.2 %; IG% 0.3 %; LYMPH % 11.3 %; LYMPH ABS # 1.38 K/uL (1.2-3.4); MONO % 7.2 %; NEUT % 76.9 %
[2017-05-04] MEDS: ACETAMINOPHEN 325 MG TAB PO PRN ×3 (08:15→17:15)
[2017-05-04] MEDS: PHENAZOPYRIDINE HCL 200 MG TAB PO SCH ×3 (08:15→20:23)
[2017-05-04] MEDS: LOSARTAN POTASSIUM 50 MG TAB PO SCH (08:16)
[2017-05-04] MEDS: MULTIVITAMIN TAB PO SCH (08:16)
[2017-05-04] MEDS: ASPIRIN 81 MG ECTAB PO SCH (08:17)
[2017-05-04] MEDS: ARTIFICIAL TEARS OP SOLN OP SCH ×8 (09:07→20:22)
[2017-05-04] MEDS: METOPROLOL SUCC 50MG EXT REL TAB PO SCH ×2 (09:07→20:22)
[2017-05-04] MEDS: INSULIN ASPART 100 UNITS/ML 3 ML PEN SC SCH ×4 (09:11→20:32)
[2017-05-04] MEDS: VANCOMYCIN INJ 1,000 MG in SODIUM CHLORIDE 0.9% 250ML 250 ML IV SCH (10:32)
--- NOTE | 2017-05-04 13:26 | Urology Consultation ---
History General Date of Service: May 04, 2017. Chief Complaint: UTI, Frequent UTI, Fall with AMS Primary Care Physician: Flores Cosme M.D. Pt seen a urologist before?: No History of Present Illness Patient had fallen early yesterday morning. had AMS with LUTS and possibly UTI. Now improved voiding. Tolerating antibiotics. Severe left leg pain radiating to lower leg. Trouble ambulating. Monitoring closely and assisted ambulation to get around. Previously had a few years or intermittent frequent UTIs improved since starting herbal treatments. Had signifcant issues with latest UTIs, but improved during this hospitalization. Trauma imaging after fall shows thickening and calcification of right bladder wall suspicious appearance with chronic left sided hydro, unchanged from previous imaging. Laboratory Labs were reviewed and are within normal limits unless listed below. Labs are available in the chart and at [facility] Problem List Medical Problems: (1) Elevated lactic acid level Status: Acute (2) UTI (urinary tract infection) Status: Acute Past History diabetes, hypertension, osteoporosis Additional Comments: Fam, Surg, Med, and Soc history reviewed and pertinent values documented. Please see H&P for full report. Social History Hx Tobacco Use In Past Year?: No Occupation status: retired Immunizations History of Influenza Vaccine: Yes Influenza Vaccine Date: Mar 07, 2009 History of Tetanus Vaccine?: Unknown History of Pneumococcal: Yes History of Hepatitis B Vaccine: No History of MDRO Yes Type of MDRO: MRSA Allergies Coded Allergies: Cephalosporins (Verified Allergy, Intermediate, KEFLEX = HIVES, 05/03/17) Penicillins (Verified Allergy, Mild, HIVES, 05/03/17) JACKY Inhibitors (Verified Allergy, Unknown, Unknown, 05/03/17) Adhesives (Verified Allergy, Unknown, 0, 05/03/17) Amoxicillin (Verified Allergy, Unknown, Unknown, 05/03/17) CI Pigment Blue 63 (Verified Allergy, Unknown, Unknown, 05/03/17) Cephalexin (Verified Allergy, Unknown, Unknown, 05/03/17) Duloxetine (Verified Allergy, Unknown, Unknown, 05/03/17) Gabapentin (Verified Allergy, Unknown, Unknown, 05/03/17) Lisinopril (Verified Allergy, Unknown, Unknown, 05/03/17) Penicillin V (Verified Allergy, Unknown, ., 05/03/17) Simvastatin (Verified Allergy, Unknown, Unknown, 05/03/17) Yellow Dyes (Non-tartrazine) (Verified Allergy, Unknown, Unknown, 05/03/17) PER PATIENT, SHE EATS YELLOW CANDY Dairy (Verified Adverse Reaction, Unknown, diarrhea, 05/03/17) Lettuce (Verified Adverse Reaction, Unknown, diarrhea, 05/03/17) "salads" Medications Home Medications: Home Meds and Scripts Medications Dose Route/Sig Max Daily Dose Days Date Category Dose Instructions Artificial Tears (Artificial Tear Solution) 1 Negar Negar 1 Drops OP QID 05/03/17 Reported Lomotil (Diphenoxylate HCl/Atropine) Tab 1 Tab PO BID PRN 05/03/17 Reported Restasis (Cyclosporine (Ophth)) 0.05 % Emu 1 Drop OPB BID 05/03/17 Reported Premarin (Estrogens, Conjugated) 14 Appln/30 Gm Cr 0.625 Mg TOP HS 05/03/17 Reported Cozaar (Losartan Potassium) 50 Mg Tab 50 Mg PO DAILY 05/03/17 Reported Digoxin 0.25 Mg Tab 1 Tab PO HS 05/03/17 Reported Bactrim Ds 800MG/160MG (Trimethoprim/Sulfamethoxazole) Tab 1 Tab PO BID 7 05/03/17 Reported ENDS 05-09-17 Kombiglyze Xr (Saxagliptin-Metformin HCl) 1 Tab Tab 1 Tab PO QPM 05/03/17 Reported (ONGLYZA BRAND) Cranberry (Cranberry (Vaccinium Macrocarp) 500 Mg Cap 1 Cap PO TID 05/03/17 Reported Toprol-Xl (Metoprolol Succinate) 100 Mg Tabcr 1.5 Tab PO BID 05/03/17 Reported Zantac (Ranitidine HCl) 150 Mg Tab 150 Mg PO HS 05/03/17 Reported Multivitamin (Multivitamins) Tab 1 Tab PO DAILY 05/03/17 Reported Vitamin D3 (Cholecalciferol) 1,000 Unit Tab 1 Tab PO DAILY 05/03/17 Reported Ascorbic Acid 500 Mg Tab 500 Mg PO DAILY 05/03/17 Reported Aspirin Ec (Aspirin) 81 Mg Tab 81 Mg PO DAILY 05/03/17 Reported [Cheratussin Ac] 10 Ml PO Q4H PRN 05/03/17 Reported Phenazopyridine HCl 200 Mg Tab 1 Tab PO TID 05/03/17 Reported NEEDED Tenormin (Atenolol) 25 Mg Tab 25 Mg PO BID 05/03/17 Reported NEEDED FOR HEART PALPITATIONS Inpatient Medications: Current Inpatient Medications Medications (Trade) Dose Ordered Sig/Zoë Route Start Time Stop Time Status Last Admin Dose Admin Ioversol (Optiray 320) 100 ml UD PRN IV 05/03/17 10:45 05/07/17 10:44 Aztreonam 2000 mg/ Dextrose 110 ml @ 100 mls/hr Q8H IV 05/03/17 20:00 05/13/17 16:29 05/04/17 12:57 100 MLS/HR Vancomycin HCl 1000 mg/Sodium Chloride 270 ml @ 125 mls/hr Q18H IV 05/04/17 10:00 05/13/17 23:59 05/04/17 10:32 125 MLS/HR Sodium Chloride 1,000 ml @ 125 mls/hr Q8H IV 05/03/17 16:30 06/02/17 16:29 05/04/17 03:48 125 MLS/HR Aspirin (Ecotrin Tab) 81 mg DAILY PO 05/04/17 08:00 06/03/17 08:59 05/04/17 08:17 81 MG Digoxin (Lanoxin Tab) 0.25 mg DAILY@1600 PO 05/03/17 21:00 06/02/17 20:59 05/03/17 20:51 0.25 MG Diphenoxylate HCl/ Atropine (Lomotil Tab) 1 tab BID PRN PO 05/03/17 16:30 06/02/17 16:29 Losartan Potassium (coZAAR TAB) 50 mg DAILY PO 05/04/17 08:00 06/03/17 08:59 05/04/17 08:16 50 MG Metoprolol Succinate (Toprol Xl Tab) 150 mg BID PO 05/03/17 20:00 06/02/17 20:59 05/04/17 09:07 150 MG Multivitamins (Multivitamin Tab) 1 tab DAILY PO 05/04/17 08:00 06/03/17 08:59 05/04/17 08:16 1 TAB Phenazopyridine HCl (Pyridium Tab) 200 mg TID PO 05/03/17 20:00 06/02/17 20:59 05/04/17 08:15 200 MG Ranitidine HCl (zANTac TAB) 150 mg HS PO 05/03/17 21:00 06/02/17 20:59 05/03/17 20:50 150 MG Artificial Tears (Artificial Tears) 1 drops QID OP 05/03/17 20:00 06/02/17 20:59 05/04/17 12:55 1 DROPS Acetaminophen (Tylenol Tab) 650 mg Q4H PRN PO 05/03/17 16:30 06/02/17 16:29 05/04/17 12:56 650 MG Insulin Aspart (novoLOG ASPART) SLIDING SCALE If C... ACHS SC 05/03/17 21:00 06/02/17 20:59 05/04/17 13:05 1 UNITS Glucose (Glucose 40% Gel) 15-30 GRAMS 15 GRAMS... UD PRN PO 05/03/17 16:30 06/02/17 16:29 Glucose (Glucose Chew Tab) 4-8 Tablets 4 Tabl... UD PRN PO 05/03/17 16:30 06/02/17 16:29 Dextrose (Dextrose 50% 50ML Syringe) 25-50ML OF 50% DW IV FOR... UD PRN IV 05/03/17 16:30 06/02/17 16:29 Glucagon (Glucagon Inj) 1 mg UD PRN SQ 05/03/17 16:30 06/02/17 16:29 Vancomycin HCl (Consult) 1 ea UD PRN N/A 05/03/17 19:00 06/02/17 18:59 Review of Systems Review of Systems All Other Systems: Reviewed and Negative (All reviewed. Pertinent pos and negs in HPI) Physical Exam Vital Signs: Vital Signs Past 12 Hours Date Time Temp Pulse Resp B/P (MAP) Pulse Ox O2 Delivery O2 Flow Rate FiO2 05/04/17 08:15 Room Air 05/04/17 07:36 37.0 78 20 120/68 (85) 93 Nasal Cannula 3.0 Physical Exam: General Appearance: WD/WN, no apparent distress Eyes: bilateral eyes normal inspection ENT: normal ENT inspection Neck: no JVD Respiratory/Chest: no respiratory distress, no accessory muscle use Cardiovascular: regular rate, rhythm Gastrointestinal: Abdomen: normal abdomen Extremities: normal inspection, no pedal edema, no calf tenderness Neurologic/Psychiatric: consumer educator II-XII nml as tested, no motor/sensory deficits, alert, normal mood/affect, oriented x 3 Skin: normal color, warm/dry Lymphatic: no adenopathy Assessment & Plan Assessment & Plan 1. UTI 2. History of frequent UTI 3. Left [place], chronic 4. Bladder Lesion on imaging 5. Fall with injury left lower extremity. Patient has cystoscopy planned in few weeks. Currently supportive care from recent fall with injury and poor ambulation. On abx for UTI and other issues. WIll likely need biopsy/resection and assessment of bladder. Will schedule this after improvement of acute issues. Currently denies hematuria. Voiding well per patient without incontinence or other issues. Agree with supportive care and plan for outpatient workup.
[2017-05-04] MEDS ORDERED: DIGOXIN IV 125 MCG in SYRINGE 9.5 ML IV ONE ×2 (17:00→22:45)
[2017-05-04 17:41] LABS: HEMATOCRIT 36.7 % (37-47); MEAN CELL VOLUME 86.2 fL (80-100); MEAN CORPUSCULAR HEMOGLOBIN 28.6 pg (25-34); MEAN CORPUSCULAR HGB CONC 33.2 g/dl (32-36); MEAN PLATELET VOLUME 9.5 fL (7.4-10.4); PLATELET COUNT 142 K/uL (130-400); RED BLOOD COUNT 4.26 M/uL (4.2-5.4); WHITE BLOOD COUNT 16.41 K/uL (4.8-10.8)
[2017-05-04 17:51] LABS: INR 1.1 (0.9-1.1); PARTIAL THROMBOPLASTIN RATIO 1.2; PROTHROMBIN TIME (PATIENT) 11.4 SECONDS (9.0-12.0)
[2017-05-04] MEDS: DIGOXIN 0.25 MG TAB PO SCH (17:59)
[2017-05-04 18:05] LABS: BUN/CREATININE RATIO 19.4 (10-20); CALCIUM 7.4 mg/dl (8.5-10.1); CREATININE 0.74 mg/dl (0.60-1.20); MAGNESIUM 1.5 mg/dl (1.8-2.4); POTASSIUM 3.2 mmol/L (3.5-5.1)
[2017-05-04] MEDS ORDERED: POTASSIUM CHLORIDE 20 MEQ TABCR PO STA (18:07)
[2017-05-04] MEDS ORDERED: METOPROLOL TARTRATE 1 MG/ML VIAL IV ONE (18:15)
--- NOTE | 2017-05-04 18:36 | Progress Note ---
Medicine Progress Note Date & Time of Visit: May 04, 2017 at 18:13 . Subjective Noted to be tachycardic at 16:15. Experiencing some upper back pain which she attributes to the fall. No chest pain or palpitations. No cough or SOB. Has some hiccoughs. No nausea, vomiting, diarrhea. No dysuria. . Objective Last 8 Hrs Date Time Temp Pulse Resp B/P (MAP) Pulse Ox O2 Delivery O2 Flow Rate FiO2 05/04/17 17:50 36.5 124 16 97/60 (72) 92 Nasal Cannula 2.0 05/04/17 17:27 36.6 142 22 91 3.0 05/04/17 16:59 142 05/04/17 16:15 139 98/66 (77) 05/04/17 16:15 Room Air 05/04/17 15:08 36.6 64 22 83/56 (65) 91 Room Air Physical Exam: General- lying in bed, annoyed by hiccoughs, no distress Neck- + JVD Lungs- clear to auscultation; no respiratory distress Heart- irregular, tachycardic, III/ systolic murmur base + LSB, no gallop appreciated Abdomen- + BS, soft, nontender Extremities- no pretibial edema or calf tenderness Neuro- alert . Laboratory Results: Last 24 Hours Test 05/03/17 20:18 05/03/17 23:50 05/04/17 04:05 05/04/17 07:56 Bedside Glucose 176 mg/dl Lactic Acid Level 1.5 mmol/L 1.8 mmol/L 1.4 mmol/L White Blood Count 12.18 K/uL Red Blood Count 4.15 M/uL Hemoglobin 12.1 g/dL Hematocrit 35.9 % Mean Corpuscular Volume 86.5 fL Mean Corpuscular Hemoglobin 29.2 pg Mean Corpuscular Hemoglobin Concent 33.7 g/dl Platelet Count 133 K/uL Mean Platelet Volume 9.4 fL Neutrophils (%) (Auto) 76.9 % Lymphocytes (%) (Auto) 11.3 % Monocytes (%) (Auto) 7.2 % Eosinophils (%) (Auto) 4.2 % Basophils (%) (Auto) 0.1 % Neutrophils # (Auto) 9.36 K/uL Lymphocytes # (Auto) 1.38 K/uL Monocytes # (Auto) 0.88 K/uL Eosinophils # (Auto) 0.51 K/uL Basophils # (Auto) 0.01 K/uL RDW Standard Deviation 44.8 fL RDW Coefficient of Variation 14.1 % Immature Granulocyte % (Auto) 0.3 % Immature Granulocyte # (Auto) 0.04 K/uL Red Blood Cell Morphology Unremarkable Sodium Level 133 mmol/L Potassium Level 4.1 mmol/L Chloride Level 102 mmol/L Carbon Dioxide Level 27 mmol/L Anion Gap 4.0 mmol/L Blood Urea Nitrogen 11 mg/dl Creatinine 0.71 mg/dl Est Creatinine Clear Calc Drug Dose 41.7 ml/min Estimated GFR () 87.5 Estimated GFR (Non- 75.5 BUN/Creatinine Ratio 14.7 Random Glucose 157 mg/dl Calcium Level 7.9 mg/dl Magnesium Level 1.6 mg/dl Test 05/04/17 08:03 05/04/17 11:24 05/04/17 16:41 05/04/17 17:29 Bedside Glucose 182 mg/dl 171 mg/dl 221 mg/dl White Blood Count 16.41 K/uL Red Blood Count 4.26 M/uL Hemoglobin 12.2 g/dL Hematocrit 36.7 % Mean Corpuscular Volume 86.2 fL Mean Corpuscular Hemoglobin 28.6 pg Mean Corpuscular Hemoglobin Concent 33.2 g/dl RDW Standard Deviation 44.9 fL RDW Coefficient of Variation 14.2 % Platelet Count 142 K/uL Mean Platelet Volume 9.5 fL Prothrombin Time 11.4 SECONDS Prothromb Time International Ratio 1.1 Activated Partial Thromboplast Time 30.7 SECONDS Partial Thromboplastin Ratio 1.2 Sodium Level 130 mmol/L Potassium Level 3.2 mmol/L Chloride Level 100 mmol/L Carbon Dioxide Level 22 mmol/L Anion Gap 8.0 mmol/L Blood Urea Nitrogen 14 mg/dl Creatinine 0.74 mg/dl Est Creatinine Clear Calc Drug Dose 40.0 ml/min Estimated GFR () 83.2 Estimated GFR (Non- 71.8 BUN/Creatinine Ratio 19.4 Random Glucose 203 mg/dl Calcium Level 7.4 mg/dl Magnesium Level 1.5 mg/dl Total Creatine Kinase 105 U/L Creatine Kinase MB 1.1 ng/ml Creatine Kinase MB Ratio 1.0 Troponin I 0.016 ng/ml Diagnostic Imaging: EKG performed at 16:27 reviewed and demonstrated AF at 140 / minute, slight ST depression inferolaterally, inverted and biphasic T-waves inferolaterally. . Assessment & Plan URINARY TRACT INFECTION / CHRONIC LEFT HYDRONEPHROSIS / BLADDER LESION Urine culture growing gram negative bacilli and alpha Strep. Urology consulted. Continue IV vancomycin and aztreonam. Eventual cystoscopy anticipated. ATRIAL FIBRILLATION WITH RAPID VENTRICULAR RESPONSE Apparent prior history of AF. Now in AF with vent rate of 140 / min. K and Mg low. Transferred to telemetry unit for monitoring. Correct hypokalemia and hypomagnesemia. IV digoxin and metoprolol for rate control. No anticoagulation due to hematuria and closed head injury. HYPOKALEMIA K = 3.2. Replace. Follow. HYPOMAGNESEMIA Mg = 1.5. Replace. Follow. DM TYPE 2 Random glucose as high as 221. Check Hgb A1C. Lantus / NovoLog per protocol. SCALP LACERATION [place] to be removed in 7 days. FALL PT / OT. VTE PROPHYLAXIS No anticoagulants because of hematuria. SCD's. Ambulate as able. DISPOSITION Expected return to [facility] under the care of Dr. Cosme. Arvin Strauss given update by phone. . Consultants: Urology- Dr. Jin. . Current Inpatient Medications: Current Inpatient Medications Medications (Trade) Dose Ordered Sig/Zoë Route Start Time Stop Time Status Last Admin Dose Admin Ioversol (Optiray 320) 100 ml UD PRN IV 05/03/17 10:45 05/07/17 10:44 Aztreonam 2000 mg/ Dextrose 110 ml @ 100 mls/hr Q8H IV 05/03/17 20:00 05/13/17 16:29 05/04/17 12:57 100 MLS/HR Vancomycin HCl 1000 mg/Sodium Chloride 270 ml @ 125 mls/hr Q18H IV 05/04/17 10:00 05/13/17 23:59 05/04/17 10:32 125 MLS/HR Aspirin (Ecotrin Tab) 81 mg DAILY PO 05/04/17 08:00 06/03/17 08:59 05/04/17 08:17 81 MG Digoxin (Lanoxin Tab) 0.25 mg DAILY@1600 PO 05/03/17 21:00 06/02/17 20:59 Future Hold 05/03/17 20:51 0.25 MG Diphenoxylate HCl/ Atropine (Lomotil Tab) 1 tab BID PRN PO 05/03/17 16:30 06/02/17 16:29 Losartan Potassium (coZAAR TAB) 50 mg DAILY PO 05/04/17 08:00 06/03/17 08:59 05/04/17 08:16 50 MG Metoprolol Succinate (Toprol Xl Tab) 150 mg BID PO 05/03/17 20:00 06/02/17 20:59 05/04/17 09:07 150 MG Multivitamins (Multivitamin Tab) 1 tab DAILY PO 05/04/17 08:00 06/03/17 08:59 05/04/17 08:16 1 TAB Phenazopyridine HCl (Pyridium Tab) 200 mg TID PO 05/03/17 20:00 06/02/17 20:59 05/04/17 14:34 200 MG Ranitidine HCl (zANTac TAB) 150 mg HS PO 05/03/17 21:00 06/02/17 20:59 05/03/17 20:50 150 MG Artificial Tears (Artificial Tears) 1 drops QID OP 05/03/17 20:00 06/02/17 20:59 05/04/17 17:20 1 DROPS Acetaminophen (Tylenol Tab) 650 mg Q4H PRN PO 05/03/17 16:30 06/02/17 16:29 05/04/17 17:15 650 MG Insulin Aspart (novoLOG ASPART) SLIDING SCALE If C... ACHS SC 05/03/17 21:00 06/02/17 20:59 05/04/17 18:02 6 UNITS Glucose (Glucose 40% Gel) 15-30 GRAMS 15 GRAMS... UD PRN PO 05/03/17 16:30 06/02/17 16:29 Glucose (Glucose Chew Tab) 4-8 Tablets 4 Tabl... UD PRN PO 05/03/17 16:30 06/02/17 16:29 Dextrose (Dextrose 50% 50ML Syringe) 25-50ML OF 50% DW IV FOR... UD PRN IV 05/03/17 16:30 06/02/17 16:29 Glucagon (Glucagon Inj) 1 mg UD PRN SQ 05/03/17 16:30 06/02/17 16:29 Vancomycin HCl (Consult) 1 ea UD PRN N/A 05/03/17 19:00 06/02/17 18:59 Metoprolol Tartrate (Lopressor Iv) 2.5 mg NOW ONCE IV 05/04/17 18:15 05/04/17 18:16 UNV Magnesium Sulfate 1 gm/Prmx 100 ml @ 100 mls/hr NOW STAT IV 05/04/17 18:06 05/04/17 19:05 UNV Potassium Chloride (Klor-Con M10) 40 meq NOW STAT PO 05/04/17 18:07 05/04/17 18:08 UNV
[2017-05-04] MEDS ORDERED: MAGNESIUM SULFATE 1GM / D5W 1 GM in PREMIXED IN D5W 100 ML IV ONE (19:00)
[2017-05-04] MEDS ORDERED: SODIUM CHLORIDE 0.9% IV SCH (20:00)
[2017-05-04] MEDS ORDERED: POTASSIUM CHLORIDE IV SCH (20:00)
[2017-05-04] MEDS: RANITIDINE HCL 150 MG TAB PO SCH (20:23)
[2017-05-04] MEDS: INSULIN GLARGINE SOLOSTAR 100 UNITS/ML 3 ML PEN SC SCH (20:33)
--- NOTE | 2017-05-04 20:37 | DIAGNOSTIC IMAGING REPORT ---
CHEST ONE VIEW PORTABLE HISTORY: 87 years-old Female atrial fib acute atrial fibrillation COMPARISON: Chest CT and chest radiograph 05/03/2017 TECHNIQUE: Portable AP view of the chest FINDINGS: Cardiac silhouette is again mildly enlarged. Large hiatal hernia. No overt pulmonary edema. Subsegmental bibasilar right perihilar opacities are noted. No pneumothorax or pleural effusion. Bones of the chest appear grossly intact. IMPRESSION: 1. Cardiomegaly without overt pulmonary edema. 2. Hazy right perihilar and bibasilar opacities suggest atelectasis or less likely pneumonitis. 3. Large hiatal hernia. The above report was generated using voice recognition software. It may contain grammatical, syntax or spelling errors. Electronically signed by: Paoc Paul M.D. 05/04/2017 8:35 PM Dictated Date/Time: 05/04/2017 8:33 PM
[2017-05-04] MEDS: TRAMADOL HCL 50 MG TAB PO PRN (20:39)
[2017-05-04] MEDS ORDERED: ALUMINUM/MAGNESIUM/SIMETH (MAALOX MAX) 30 ML UDC PO PRN (22:15)
[2017-05-04] MEDS: HYDROmorphone INJ 0.5 MG/0.5 ML SYR IV PRN (22:58)
[2017-05-05] VITALS (10 sets, daily range): BP systolic 111–129; BP diastolic 48–71; PULSE 70–83; TEMP 36.3–36.9; O2SAT 92–97
[2017-05-05] MEDS ORDERED: VANCOMYCIN TROUGH ONE (03:30)
[2017-05-05 04:00] LABS: BUN/CREATININE RATIO 26.8 (10-20); CALCIUM 7.6 mg/dl (8.5-10.1); CREATININE 0.6 mg/dl (0.60-1.20); MAGNESIUM 1.9 mg/dl (1.8-2.4); POTASSIUM 3.6 mmol/L (3.5-5.1)
[2017-05-05] MEDS: HYDROmorphone INJ 0.5 MG/0.5 ML SYR IV PRN ×5 (04:00→22:30)
[2017-05-05 04:05] LABS: CKMB/CK RATIO 1.7 (0-3.0)
[2017-05-05] MEDS: AZTREONAM IV 2,000 MG in DEXTROSE 5% 100ML 100 ML IV SCH ×3 (04:59→20:23)
[2017-05-05] MEDS: VANCOMYCIN INJ 1,000 MG in SODIUM CHLORIDE 0.9% 250ML 250 ML IV SCH ×2 (05:54→12:15)
[2017-05-05 07:32] LABS: ESTIMATED AVERAGE GLUCOSE 180 mg/dl; HA1C FLAG Normal (Normal)
[2017-05-05] MEDS: ARTIFICIAL TEARS OP SOLN OP SCH ×8 (08:05→20:23)
[2017-05-05] MEDS: METOPROLOL SUCC 50MG EXT REL TAB PO SCH ×2 (08:05→20:25)
[2017-05-05] MEDS: INSULIN GLARGINE SOLOSTAR 100 UNITS/ML 3 ML PEN SC SCH ×2 (08:08→21:14)
[2017-05-05] MEDS: INSULIN ASPART 100 UNITS/ML 3 ML PEN SC SCH ×4 (08:08→21:13)
[2017-05-05] MEDS: ASPIRIN 81 MG ECTAB PO SCH (08:36)
[2017-05-05] MEDS: DIGOXIN 0.25 MG TAB PO SCH (08:36)
[2017-05-05] MEDS: LOSARTAN POTASSIUM 50 MG TAB PO SCH (08:36)
[2017-05-05] MEDS: PHENAZOPYRIDINE HCL 200 MG TAB PO SCH ×3 (08:36→20:24)
[2017-05-05] MEDS: MULTIVITAMIN TAB PO SCH (08:37)
--- NOTE | 2017-05-05 10:01 | Progress Note ---
Subjective Date of Service: May 05, 2017. Subjective Pt evaluation today including: conversation w/ patient, chart review, lab review Voiding: no voiding problems 87 yo female with bladder mass. UC&S growing e coli. Chao sensitive. Currently on Vancomycin and aztreonam. She reports Pyridium has helped with her dysuria. Gross hematuria last week has resolved. She notes an episode of chest pain last night. This has resolved. ? indigestion. Chest x-ray showing possible atelactasis. Problem List Medical Problems: (1) Elevated lactic acid level Status: Acute (2) UTI (urinary tract infection) Status: Acute Review of Systems Constitutional: No fever, No chills Respiratory: No shortness of breath Cardiac: No chest pain Abdomen: No pain, No nausea, No vomiting Female : No dysuria, No hematuria Heme: No abnormal bleeding/bruising Objective Vital Signs Date Time Temp Pulse Resp B/P (MAP) Pulse Ox O2 Delivery O2 Flow Rate FiO2 05/05/17 08:36 83 05/05/17 08:00 92 Nasal Cannula 3.0 30 05/05/17 07:53 36.8 82 20 115/48 (70) 92 Nasal Cannula 3.0 05/05/17 04:00 36.9 77 22 111/56 (74) 96 Nasal Cannula 8.0 30 Humidified Oxygen 05/05/17 04:00 96 Nasal Cannula 3.0 05/05/17 00:00 96 Nasal Cannula 3.0 05/04/17 23:51 36.4 78 18 106/50 (68) 94 Nasal Cannula 3.0 05/04/17 22:57 85 05/04/17 20:00 96 Nasal Cannula 3.0 05/04/17 19:17 36.6 103 22 84/50 (61) 92 Nasal Cannula 2.0 05/04/17 19:01 114 93/63 05/04/17 17:50 36.5 124 16 97/60 (72) 92 Nasal Cannula 2.0 05/04/17 17:27 36.6 142 22 91 3.0 05/04/17 16:59 142 05/04/17 16:15 139 98/66 (77) 05/04/17 16:15 Room Air 05/04/17 15:08 36.6 64 22 83/56 (65) 91 Room Air Physical Exam General Appearance: no apparent distress Eyes: normal inspection ENT: hearing grossly normal Neck: no JVD Respiratory/Chest: no respiratory distress, no accessory muscle use Cardiovascular: no JVD Extremities: normal inspection Neurologic/Psychiatric: alert, normal mood/affect, oriented x 3 Skin: normal color Laboratory Results Last 24 Hours Test 05/04/17 11:24 05/04/17 16:41 05/04/17 17:29 05/04/17 20:22 Bedside Glucose 171 mg/dl 221 mg/dl 221 mg/dl White Blood Count 16.41 K/uL Red Blood Count 4.26 M/uL Hemoglobin 12.2 g/dL Hematocrit 36.7 % Mean Corpuscular Volume 86.2 fL Mean Corpuscular Hemoglobin 28.6 pg Mean Corpuscular Hemoglobin Concent 33.2 g/dl RDW Standard Deviation 44.9 fL RDW Coefficient of Variation 14.2 % Platelet Count 142 K/uL Mean Platelet Volume 9.5 fL Prothrombin Time 11.4 SECONDS Prothromb Time International Ratio 1.1 Activated Partial Thromboplast Time 30.7 SECONDS Partial Thromboplastin Ratio 1.2 Sodium Level 130 mmol/L Potassium Level 3.2 mmol/L Chloride Level 100 mmol/L Carbon Dioxide Level 22 mmol/L Anion Gap 8.0 mmol/L Blood Urea Nitrogen 14 mg/dl Creatinine 0.74 mg/dl Est Creatinine Clear Calc Drug Dose 40.0 ml/min Estimated GFR () 83.2 Estimated GFR (Non- 71.8 BUN/Creatinine Ratio 19.4 Random Glucose 203 mg/dl Calcium Level 7.4 mg/dl Magnesium Level 1.5 mg/dl Total Creatine Kinase 105 U/L Creatine Kinase MB 1.1 ng/ml Creatine Kinase MB Ratio 1.0 Troponin I 0.016 ng/ml Test 05/05/17 03:26 05/05/17 06:38 Sodium Level 132 mmol/L Potassium Level 3.6 mmol/L Chloride Level 102 mmol/L Carbon Dioxide Level 24 mmol/L Anion Gap 6.0 mmol/L Blood Urea Nitrogen 16 mg/dl Creatinine 0.60 mg/dl Est Creatinine Clear Calc Drug Dose 49.3 ml/min Estimated GFR () 93.7 Estimated GFR (Non- 80.8 BUN/Creatinine Ratio 26.8 Random Glucose 179 mg/dl Calcium Level 7.6 mg/dl Magnesium Level 1.9 mg/dl Total Creatine Kinase 66 U/L Creatine Kinase MB 1.1 ng/ml Creatine Kinase MB Ratio 1.7 Troponin I 0.019 ng/ml Vancomycin Level Trough 6.6 mcg/ml Digoxin Level 1.5 ng/ml Bedside Glucose 174 mg/dl Assessment and Plan A/P: Bladder mass, UTI Recommend transitioning the pt to 2 weeks of oral abx such as Cipro or Bactrim DS prior to d/c home. Will plan for outpatient f/u with Dr. Louis next week on 05-12 to schedule TURBT for her bladder mass. No further management at this time. Recall PRN issues. Thanks for allowing us to participate in this pt's care.
[2017-05-05 11:30] LABS: BUN/CREATININE RATIO 31.6 (10-20); CALCIUM 7.8 mg/dl (8.5-10.1); CREATININE 0.55 mg/dl (0.60-1.20); MAGNESIUM 1.9 mg/dl (1.8-2.4); POTASSIUM 3.7 mmol/L (3.5-5.1)
--- NOTE | 2017-05-05 11:34 | Pharmacy Progress Note ---
Pharmacy Abx Dose Short Note Date of Service May 05, 2017. Assessment & Plan Assessment 87 year old female receiving vancomycin/azactam for treatment of UTI. 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 It is noted per Dr. Greco note that patient will most likely be transitioned to PO abx such as bactrim or cipro upon discharge. Day # 3 of antimicrobial therapy. Plan Vancomycin * Trough level of 6.6 mcg/mL is subtherapeutic, but most likely not at steady state * Change to 1000 mg IV every 14 hours * Goal trough level for UTI : 10 to 15 mcg/mL * Trough or random level will be ordered tomorrow as necessary Pharmacy will continue to follow and will adjust dose/frequency as necessary. Thank you.
--- NOTE | 2017-05-05 13:11 | ECHOCARDIOGRAM REPORT ---
*NOTICE TO RECEIVING LIBERTARIAN AGENCY This information is strictly Confidential and protected under [place] law. [place] law prohibits you from making any further disclosure of this information unless further disclosure is expressly permitted by the written consent of the person to whom it pertains or is authorized by law. A general authorization for the release of medical or other information is not sufficient for this purpose. Hospital accepts no responsibility if the information is made available to any other person, INCLUDING THE PATIENT. Interpretation Summary * Name: QUINTON ANGELO Study Date: 05/05/2017 07:06 AM BP: 111/56 mmHg * Patient Location: C.2E\S\E210\S\1 HR: 77 * : 1930 (M/d/yyyy) Gender: Female Height: 59 in * Age: 87 yrs Ethnicity: CA Weight: 128 lb * Ordering Physician: Barber Bhakta * Referring Physician: Self, Referred * Performed By: Beverly Castaneda RDCS * * Reason For Study: Murmurs, atrial fibrillation * BSA: 1.5 m2 * -- Conclusions -- * The left ventricle is normal in size. * There is mild concentric left ventricular hypertrophy. * The left ventricular wall motion is normal. * Ejection Fraction = 65-70%. * The left atrium is mildly dilated. * The aortic valve leaflets are moderately calcified * Moderate to severe valvular aortic stenosis. * There is mild mitral regurgitation. * There is trace tricuspid regurgitation. * Right ventricular systolic pressure is elevated at 40-50mmHg. Procedure Details * A complete two-dimensional transthoracic echocardiogram was performed (2D, M-mode, Doppler and color flow Doppler). Left Ventricle * The left ventricle is normal in size. * There is mild concentric left ventricular hypertrophy. * Ejection Fraction = 65-70%. * Left ventricular systolic function is normal. * The left ventricular wall motion is normal. Right Ventricle * The right ventricle is normal in size and function. Atria * The left atrium is mildly dilated. * Right atrial size is normal. * No ASD detected; PFO is not assessed. Mitral Valve * There is moderate mitral annular calcification. * There is no mitral valve stenosis. * There is mild mitral regurgitation. Tricuspid Valve * The tricuspid valve is normal. * There is no tricuspid stenosis. * There is trace tricuspid regurgitation. * Right ventricular systolic pressure is elevated at 40-50mmHg. Aortic Valve * The aortic valve is trileaflet. * The aortic valve leaflets are moderately calcified * Moderate to severe valvular aortic stenosis. * No aortic regurgitation is present. Pulmonic Valve * The pulmonic valve is not well visualized. Great Vessels * The aortic root is normal size. Pericardium/Pleural * There is no pericardial effusion. Great Vessels * Dilated inferior vena cava with reduced collapsability with sniff indicates an elevated right atrial pressure of 15 mmHg MMode 2D Measurements and Calculations IVSd 1.1 cm LVIDd 3.0 cm LVIDs 2.0 cm LVPWd 0.99 cm IVS/LVPW 1.1 FS 34.3 % EDV(Teich) 35.0 ml ESV(Teich) 12.3 ml EF(Teich) 64.9 % EDV(cubed) 27.0 ml ESV(cubed) 7.7 ml EF(cubed) 71.6 % LV mass(C)d 84.7 grams LV mass(C)dI 55.5 grams/m\S\2 SV(Teich) 22.7 ml SI(Teich) 14.9 ml/m\S\2 SV(cubed) 19.3 ml SI(cubed) 12.7 ml/m\S\2 Ao root diam 2.9 cm Ao root area 6.4 cm\S\2 ACS 0.98 cm LA dimension 2.7 cm asc Aorta Diam 2.8 cm LA/Ao 0.96 LVOT diam 2.0 cm LVOT area 3.2 cm\S\2 LVAd ap4 19.3 cm\S\2 LVLd ap4 6.8 cm EDV(MOD-sp4) 45.6 ml EDV(sp4-el) 46.9 ml LVAs ap4 9.3 cm\S\2 LVLs ap4 4.9 cm ESV(MOD-sp4) 15.0 ml ESV(sp4-el) 15.0 ml EF(MOD-sp4) 67.1 % EF(sp4-el) 68.0 % LVAd ap2 19.5 cm\S\2 LVLd ap2 7.0 cm EDV(MOD-sp2) 45.6 ml EDV(sp2-el) 46.1 ml LVAs ap2 10.5 cm\S\2 LVLs ap2 5.7 cm ESV(MOD-sp2) 16.3 ml ESV(sp2-el) 16.4 ml EF(MOD-sp2) 64.3 % EF(sp2-el) 64.4 % LVLd %diff 3.0 % EDV(MOD-bp) 45.8 ml LVLs %diff 13.2 % ESV(MOD-bp) 16.7 ml EF(MOD-bp) 63.6 % SV(MOD-sp4) 30.6 ml SI(MOD-sp4) 20.0 ml/m\S\2 SV(MOD-sp2) 29.3 ml SI(MOD-sp2) 19.2 ml/m\S\2 SV(MOD-bp) 29.1 ml SI(MOD-bp) 19.1 ml/m\S\2 SV(sp4-el) 31.9 ml SI(sp4-el) 20.9 ml/m\S\2 SV(sp2-el) 29.7 ml SI(sp2-el) 19.5 ml/m\S\2 Doppler Measurements and Calculations MV E max jorgito 147.7 cm/sec MV A max jorgito 109.9 cm/sec MV E/A 1.3 MV dec time 0.21 sec Ao V2 max 323.6 cm/sec Ao max PG 41.9 mmHg Ao max PG (full) 37.9 mmHg Ao V2 mean 224.0 cm/sec Ao mean PG 23.4 mmHg Ao V2 VTI 67.1 cm KASSIE(V,A) 0.98 cm\S\2 KASSIE(V,D) 0.98 cm\S\2 LV V1 max PG 4.0 mmHg LV V1 max 100.1 cm/sec SV(Ao) 428.1 ml SI(Ao) 280.7 ml/m\S\2 PA V2 max 95.0 cm/sec PA max PG 3.6 mmHg PA acc slope 1278.1 cm/sec\S\2 PA acc time 0.06 sec TR max jorgito 304.8 cm/sec PA pr(Accel) 50.5 mmHg
[2017-05-05] MEDS: ALUMINUM/MAGNESIUM/SIMETH (MAALOX MAX) 30 ML UDC PO PRN ×2 (16:20→20:23)
[2017-05-05] MEDS: OXYCODONE HCL IR 5 MG TAB (IMMEDIATE RELEASE) PO PRN (16:39)
[2017-05-05] MEDS ORDERED: LANSOPRAZOLE SOLUTAB 30 MG PO ONE (17:15)
--- NOTE | 2017-05-05 20:19 | Progress Note ---
Medicine Progress Note Date & Time of Visit: May 05, 2017 at 16:15 . Subjective Converted to NSR last night. No chest pain or SOB. Experiencing indigestion- chronic problem. No nausea or vomiting. No diarrhea. Experiencing urinary frequency and incontinence. No dysuria. Uncomfortable due to injuries from fall. . Objective Last 8 Hrs Date Time Temp Pulse Resp B/P (MAP) Pulse Ox O2 Delivery O2 Flow Rate FiO2 05/05/17 16:00 92 Nasal Cannula 3.0 05/05/17 15:50 36.3 81 16 123/58 (79) 94 Nasal Cannula 3.0 Physical Exam: General- lying in bed, no acute distress Neck- + JVD Lungs- clear to auscultation; no respiratory distress Heart- RRR, III/ systolic murmur base + LSB, no gallop appreciated Abdomen- + BS, soft, nontender Extremities- no pretibial edema or calf tenderness Neuro- alert . Laboratory Results: Last 24 Hours Test 05/04/17 20:22 05/05/17 03:26 05/05/17 06:38 05/05/17 10:57 Bedside Glucose 221 mg/dl 174 mg/dl Sodium Level 132 mmol/L 129 mmol/L Potassium Level 3.6 mmol/L 3.7 mmol/L Chloride Level 102 mmol/L 100 mmol/L Carbon Dioxide Level 24 mmol/L 23 mmol/L Anion Gap 6.0 mmol/L 6.0 mmol/L Blood Urea Nitrogen 16 mg/dl 17 mg/dl Creatinine 0.60 mg/dl 0.55 mg/dl Est Creatinine Clear Calc Drug Dose 49.3 ml/min 56.0 ml/min Estimated GFR () 93.7 96.4 Estimated GFR (Non- 80.8 83.2 BUN/Creatinine Ratio 26.8 31.6 Random Glucose 179 mg/dl 208 mg/dl Calcium Level 7.6 mg/dl 7.8 mg/dl Magnesium Level 1.9 mg/dl 1.9 mg/dl Total Creatine Kinase 66 U/L Creatine Kinase MB 1.1 ng/ml Creatine Kinase MB Ratio 1.7 Troponin I 0.019 ng/ml Vancomycin Level Trough 6.6 mcg/ml Digoxin Level 1.5 ng/ml Test 05/05/17 11:14 05/05/17 16:34 Bedside Glucose 202 mg/dl 272 mg/dl Date/Time Source Procedure Growth Status 12/10/17 20:45 Nasal MRSA DNA Surveillance Screen - Final Specimen Negative for MRSA by DNA Probe Complete Other Studies: EKG performed at 08:20 reviewed and demonstrated NSR at 80 / minute, PAC's, T- wave flattening inferolaterally. . Assessment & Plan URINARY TRACT INFECTION (present on admission) / CHRONIC LEFT HYDRONEPHROSIS / BLADDER LESION Initially received IV vancomycin and aztreonam. Urine culture growing E coli and alpha Strep. Urology consulted. Eventual cystoscopy anticipated. DC vancomycin. Continue aztreonam. Tentatively transition to oral therapy tomorrow. Allergic to penicillin and cephalosporins. Will opt for ciprofloxacin 250 mg BID. ATRIAL FIBRILLATION WITH RAPID VENTRICULAR RESPONSE History of AF and SVT. Developed AF with vent rate of 140 / min yesterday. K and Mg low. Received KCl and MgSO4, IV digoxin. Converted to NSR. Continue metoprolol. No anticoagulation due to hematuria and closed head injury. AORTIC STENOSIS Has systolic murmur. Echo demonstrates moderate - severe aortic stenosis. HYPOKALEMIA K as low as 3.2. Received replacement. K today = 3.7. Follow. HYPOMAGNESEMIA Mg as low as 1.5. Replaced. Mg today = 1.9. Follow. DM TYPE 2 Random glucose as high as 221. Hgb A1C = 7.9. FBS today = 174. Lantus / NovoLog per protocol. SCALP LACERATION Janes to be removed in 7 days. FALL PT / OT. GERD Has frequent symptoms, worse since ranitidine dose decreased. Continue ranitidine HS. Add morning dose of PPI. URINARY FREQUENCY / INCONTINENCE Hope to avoid Valerio catheter if able. Symptoms should improve with treatment of UTI. VTE PROPHYLAXIS No anticoagulants because of hematuria. SCD's. Ambulate as able. DISPOSITION Expected return to [facility] under the care of Dr. Cosme. Usually resides in personal care. Will probably need short term skilled care at [facility] before returning to personal care. Urology follow-up with Dr. Louis. Son Carlos A visiting and given update. . Consultants: Urology- Dr. Jin. . Procedures: CT head CT cervical / thoracic / lumbar spine CT chest CT abdomen + pelvis echo cardiac monitoring IV meds PT OT . Current Inpatient Medications: Current Inpatient Medications Medications (Trade) Dose Ordered Sig/Zoë Route Start Time Stop Time Status Last Admin Dose Admin Ioversol (Optiray 320) 100 ml UD PRN IV 05/03/17 10:45 05/07/17 10:44 Aztreonam 2000 mg/ Dextrose 110 ml @ 100 mls/hr Q8H IV 05/03/17 20:00 05/13/17 16:29 05/05/17 11:53 100 MLS/HR Aspirin (Ecotrin Tab) 81 mg DAILY PO 05/04/17 08:00 06/03/17 08:59 05/05/17 08:36 81 MG Digoxin (Lanoxin Tab) 0.25 mg DAILY@1600 PO 05/03/17 21:00 06/02/17 20:59 Future Hold 05/05/17 08:36 0.25 MG Diphenoxylate HCl/ Atropine (Lomotil Tab) 1 tab BID PRN PO 05/03/17 16:30 06/02/17 16:29 Losartan Potassium (coZAAR TAB) 50 mg DAILY PO 05/04/17 08:00 06/03/17 08:59 05/05/17 08:36 50 MG Metoprolol Succinate (Toprol Xl Tab) 150 mg BID PO 05/03/17 20:00 06/02/17 20:59 05/05/17 08:05 150 MG Multivitamins (Multivitamin Tab) 1 tab DAILY PO 05/04/17 08:00 06/03/17 08:59 05/05/17 08:37 1 TAB Phenazopyridine HCl (Pyridium Tab) 200 mg TID PO 05/03/17 20:00 06/02/17 20:59 05/05/17 14:01 200 MG Ranitidine HCl (zANTac TAB) 150 mg HS PO 05/03/17 21:00 06/02/17 20:59 05/04/17 20:23 150 MG Artificial Tears (Artificial Tears) 1 drops QID OP 05/03/17 20:00 06/02/17 20:59 05/05/17 16:50 1 DROPS Acetaminophen (Tylenol Tab) 650 mg Q4H PRN PO 05/03/17 16:30 06/02/17 16:29 05/04/17 17:15 650 MG Insulin Aspart (novoLOG ASPART) SLIDING SCALE If C... ACHS SC 05/03/17 21:00 06/02/17 20:59 05/05/17 16:50 7 UNITS Glucose (Glucose 40% Gel) 15-30 GRAMS 15 GRAMS... UD PRN PO 05/03/17 16:30 06/02/17 16:29 Glucose (Glucose Chew Tab) 4-8 Tablets 4 Tabl... UD PRN PO 05/03/17 16:30 06/02/17 16:29 Dextrose (Dextrose 50% 50ML Syringe) 25-50ML OF 50% DW IV FOR... UD PRN IV 05/03/17 16:30 06/02/17 16:29 Glucagon (Glucagon Inj) 1 mg UD PRN SQ 05/03/17 16:30 06/02/17 16:29 Vancomycin HCl (Consult) 1 ea UD PRN N/A 05/03/17 19:00 06/02/17 18:59 Insulin Glargine (Lantus Solostar Pen) 10 units BID SC 05/04/17 21:00 06/03/17 20:59 05/05/17 08:08 10 UNITS Tramadol HCl (Ultram Tab) 25 mg Q4H PRN PO 05/04/17 19:30 06/03/17 19:29 05/04/17 20:39 25 MG Hydromorphone HCl (Dilaudid Inj) 0.25 mg Q2H PRN IV 05/04/17 22:15 05/18/17 22:14 05/05/17 11:53 0.25 MG Oxycodone HCl (Roxicodone Immediate Rel Tab) 5 mg Q6H PRN PO 05/04/17 22:15 05/18/17 22:14 05/05/17 16:39 5 MG Vancomycin HCl 1000 mg/Sodium Chloride 270 ml @ 125 mls/hr Q14H IV 05/05/17 12:00 05/15/17 11:59 05/05/17 12:15 125 MLS/HR Al Hydrox/Mg Hydrox/Simethicone (Maalox Max Susp) 15 ml Q4H PRN PO 05/05/17 16:15 06/03/17 22:14 05/05/17 16:20 15 ML
[2017-05-05] MEDS: RANITIDINE HCL 150 MG TAB PO SCH (20:24)
[2017-05-06] VITALS (8 sets, daily range): BP systolic 99–121; BP diastolic 47–68; PULSE 73–90; TEMP 36.3–36.8; O2SAT 90–97
[2017-05-06] MEDS: VANCOMYCIN INJ 1,000 MG in SODIUM CHLORIDE 0.9% 250ML 250 ML IV SCH (02:17)
[2017-05-06] MEDS: HYDROmorphone INJ 0.5 MG/0.5 ML SYR IV PRN (02:33)
[2017-05-06 06:28] LABS: HEMATOCRIT 32.6 % (37-47); MEAN CELL VOLUME 86.9 fL (80-100); MEAN CORPUSCULAR HEMOGLOBIN 28.5 pg (25-34); MEAN CORPUSCULAR HGB CONC 32.8 g/dl (32-36); MEAN PLATELET VOLUME 9.5 fL (7.4-10.4); PLATELET COUNT 162 K/uL (130-400); RED BLOOD COUNT 3.75 M/uL (4.2-5.4); WHITE BLOOD COUNT 14.06 K/uL (4.8-10.8)
[2017-05-06 06:51] LABS: BUN/CREATININE RATIO 35.7 (10-20); CALCIUM 8.3 mg/dl (8.5-10.1); CREATININE 0.51 mg/dl (0.60-1.20); MAGNESIUM 2.1 mg/dl (1.8-2.4)
[2017-05-06] MEDS: PHENAZOPYRIDINE HCL 200 MG TAB PO SCH ×3 (09:09→20:48)
[2017-05-06] MEDS: MULTIVITAMIN TAB PO SCH (09:09)
[2017-05-06] MEDS: ASPIRIN 81 MG ECTAB PO SCH (09:09)
[2017-05-06] MEDS: ARTIFICIAL TEARS OP SOLN OP SCH ×8 (09:11→20:47)
[2017-05-06] MEDS: INSULIN ASPART 100 UNITS/ML 3 ML PEN SC SCH ×4 (09:14→20:53)
[2017-05-06] MEDS: INSULIN GLARGINE SOLOSTAR 100 UNITS/ML 3 ML PEN SC SCH (09:14)
[2017-05-06] MEDS: OXYCODONE HCL IR 5 MG TAB (IMMEDIATE RELEASE) PO PRN (09:37)
[2017-05-06] MEDS: MAGNESIUM OXIDE 400 MG TAB PO SCH ×2 (09:41→20:48)
[2017-05-06] MEDS: CIPROFLOXACIN 250 MG TAB PO SCH ×2 (09:41→20:48)
[2017-05-06] MEDS: PANTOprazole SOD 40 MG TAB PO SCH (09:41)
[2017-05-06] MEDS ORDERED: CALCIUM CARBONATE 500 MG CHEWABLE PO PRN (10:15)
[2017-05-06] MEDS ORDERED: PHARMACY GLYCEMIC MGMT CONSULT SCH (10:41)
--- NOTE | 2017-05-06 10:45 | Progress Note ---
Medicine Progress Note Date & Time of Visit: May 06, 2017 at 10:20. Subjective 87 yo F s/p fall on her L side prior to arrival and found to have a UTI. -generalized pain all over -generalized abdominal pain 2/2/ vomiting up her pills this morning. She reports significant heartburn. Denies nausea currently -no diarrhea -no fever or chills -states that UTI symptoms have cleared up -very stiff overall and requiring max assist to transfer in room. -Cards team evaluating her for RVR overnight and for her severe . Objective Last 8 Hrs Date Time Temp Pulse Resp B/P (MAP) Pulse Ox O2 Delivery O2 Flow Rate FiO2 05/06/17 08:00 Nasal Cannula 2.0 05/06/17 07:59 36.5 73 18 112/47 (68) 94 Nasal Cannula 2.0 05/06/17 04:00 97 Nasal Cannula 3.0 05/06/17 03:49 36.3 74 16 112/54 (73) 94 Nasal Cannula 3.0 Physical Exam: GEN: WNWD, in mild distress 2/2 pain, alert and appropriate HEENT: NC/AT, normal sclerae, MMM CARDIO: reg rate, 3/6 ROBERT LUNGS: CTA bilaterally-diminished breath sounds throughout, no crackles, rales or wheezes ABD: soft, generalized tenderness to palpation, non-distended, no rebound or guarding, +BS EXTREMITY: RP and DP palpable 2+ bilat, no LE swelling or edema, extremities are warm and well-perfused. Significant restriction in ROM of L knee, R knee flexion OK. No overt knee effusion noted. LLE calf TTP noted. NEURO: CN 2-12 grossly intact, sensation intact throughout MUSC: 5/5 strength throughout, no gross focal deficits. Somewhat limited exam 2 /2 pain/stiffness SKIN: warm and dry Laboratory Results: 05/06/17 06:10 05/06/17 06:10 Test 05/03/17 10:45 05/03/17 11:35 05/04/17 04:05 05/04/17 07:56 Total Bilirubin 0.7 mg/dl (0.2-1) Direct Bilirubin 0.2 mg/dl (0-0.2) Aspartate Amino Transf (AST/SGOT) 31 U/L (15-37) Alanine Aminotransferase (ALT/SGPT) 22 U/L (12-78) Alkaline Phosphatase 83 U/L (45-117) Total Protein 6.8 gm/dl (6.4-8.2) Albumin 3.2 gm/dl (3.4-5.0) Lipase 91 U/L (73-393) Urine Color YELLOW Urine Appearance CLEAR (CLEAR) Urine pH 7.5 (4.5-7.5) Urine Specific [place] 1.018 (1.000-1.030) Urine Protein NEG (NEG) Urine Glucose (UA) 3+ (NEG) Urine Ketones 1+ (NEG) Urine Occult Blood 3+ (NEG) Urine Nitrite NEG (NEG) Urine Bilirubin NEG (NEG) Urine Urobilinogen NEG (NEG) Urine Leukocyte Esterase SMALL (NEG) Urine WBC (Auto) >30 /hpf (0-5) Urine RBC (Auto) >30 /hpf (0-4) Urine Hyaline Casts (Auto) 5-10 /lpf (0-5) Urine Epithelial Cells (Auto) 5-10 /lpf (0-5) Urine Bacteria (Auto) 2+ (NEG) Urine Yeast (Auto) (NONE PRSENT) Immature Granulocyte % (Auto) 0.3 % White Blood Count 12.18 K/uL (4.8-10.8) Red Blood Count 4.15 M/uL (4.2-5.4) Hemoglobin 12.1 g/dL (12.0-16.0) Hematocrit 35.9 % (37-47) Mean Corpuscular Volume 86.5 fL (80-100) Mean Corpuscular Hemoglobin 29.2 pg (25-34) Mean Corpuscular Hemoglobin Concent 33.7 g/dl (32-36) Platelet Count 133 K/uL (130-400) Mean Platelet Volume 9.4 fL (7.4-10.4) Neutrophils (%) (Auto) 76.9 % Lymphocytes (%) (Auto) 11.3 % Monocytes (%) (Auto) 7.2 % Eosinophils (%) (Auto) 4.2 % Basophils (%) (Auto) 0.1 % Neutrophils # (Auto) 9.36 K/uL (1.4-6.5) Lymphocytes # (Auto) 1.38 K/uL (1.2-3.4) Monocytes # (Auto) 0.88 K/uL (0.11-0.59) Eosinophils # (Auto) 0.51 K/uL (0-0.5) Basophils # (Auto) 0.01 K/uL (0-0.2) Immature Granulocyte # (Auto) 0.04 K/uL (0.00-0.02) Red Blood Cell Morphology Unremarkable Estimated Average Glucose 180 mg/dl Hemoglobin A1c 7.9 % (4.5-5.6) Lactic Acid Level 1.4 mmol/L (0.4-2.0) Test 05/04/17 17:29 05/05/17 03:26 05/06/17 06:10 05/06/17 06:49 Prothrombin Time 11.4 SECONDS (9.0-12.0) Prothromb Time International Ratio 1.1 (0.9-1.1) Activated Partial Thromboplast Time 30.7 SECONDS (21.0-31.0) Partial Thromboplastin Ratio 1.2 Total Creatine Kinase 66 U/L (26-192) Creatine Kinase MB 1.1 ng/ml (0.5-3.6) Creatine Kinase MB Ratio 1.7 (0-3.0) Troponin I 0.019 ng/ml (0-0.045) Vancomycin Level Trough 6.6 mcg/ml (SEE COMMENT) Digoxin Level 1.5 ng/ml (0.8-2.0) Red Blood Count 3.75 M/uL (4.2-5.4) Mean Corpuscular Volume 86.9 fL (80-100) Mean Corpuscular Hemoglobin 28.5 pg (25-34) Mean Corpuscular Hemoglobin Concent 32.8 g/dl (32-36) RDW Standard Deviation 45.9 fL (36.4-46.3) RDW Coefficient of Variation 14.5 % (11.5-14.5) Mean Platelet Volume 9.5 fL (7.4-10.4) Anion Gap 4.0 mmol/L (3-11) Est Creatinine Clear Calc Drug Dose 59.6 ml/min Estimated GFR () 98.8 Estimated GFR (Non- 85.3 BUN/Creatinine Ratio 35.7 (10-20) Calcium Level 8.3 mg/dl (8.5-10.1) Magnesium Level 2.1 mg/dl (1.8-2.4) Bedside Glucose 183 mg/dl (70-90) Date/Time Source Procedure Growth Status 05/04/17 20:45 Nasal MRSA DNA Surveillance Screen - Final Specimen Negative for MRSA by DNA Probe Complete 05/03/17 11:35 Urine,Catheterized Urine Culture - Final Escherichia Coli Alpha Strep. Not Enterococcus Complete Last 24 Hours Test 05/05/17 10:57 05/05/17 11:14 05/05/17 16:34 05/05/17 20:30 Sodium Level 129 mmol/L Potassium Level 3.7 mmol/L Chloride Level 100 mmol/L Carbon Dioxide Level 23 mmol/L Anion Gap 6.0 mmol/L Blood Urea Nitrogen 17 mg/dl Creatinine 0.55 mg/dl Est Creatinine Clear Calc Drug Dose 56.0 ml/min Estimated GFR () 96.4 Estimated GFR (Non- 83.2 BUN/Creatinine Ratio 31.6 Random Glucose 208 mg/dl Calcium Level 7.8 mg/dl Magnesium Level 1.9 mg/dl Bedside Glucose 202 mg/dl 272 mg/dl 214 mg/dl Test 05/06/17 06:10 05/06/17 06:49 White Blood Count 14.06 K/uL Red Blood Count 3.75 M/uL Hemoglobin 10.7 g/dL Hematocrit 32.6 % Mean Corpuscular Volume 86.9 fL Mean Corpuscular Hemoglobin 28.5 pg Mean Corpuscular Hemoglobin Concent 32.8 g/dl RDW Standard Deviation 45.9 fL RDW Coefficient of Variation 14.5 % Platelet Count 162 K/uL Mean Platelet Volume 9.5 fL Sodium Level 130 mmol/L Potassium Level 4.0 mmol/L Chloride Level 100 mmol/L Carbon Dioxide Level 26 mmol/L Anion Gap 4.0 mmol/L Blood Urea Nitrogen 18 mg/dl Creatinine 0.51 mg/dl Est Creatinine Clear Calc Drug Dose 59.6 ml/min Estimated GFR () 98.8 Estimated GFR (Non- 85.3 BUN/Creatinine Ratio 35.7 Random Glucose 178 mg/dl Calcium Level 8.3 mg/dl Magnesium Level 2.1 mg/dl Bedside Glucose 183 mg/dl Assessment & Plan 87 yo F s/p fall on her L side prior to arrival and found to have a UTI. 1. UTI-present on admission. Initially received Vanc and Aztreonam. UCx growing E coli and alpha strep. Abx changed to Cipro BID. Chronic L hydronephrosis also noted on imaging and evidence of a bladder wall thickening which is concerning for urothelial malignancy. Urology has been consulted and will follow with cystoscopy as outpatient. 2. Afib with RVR-pt with a history of AF and SVT who went into RVR this admission. She is on digoxin. Cards consulted and planning to switch to amio. Cont Toprol and Losartan. Cont cardiac monitoring for now. Not on anticoagulation as outpatient. 3. Aortic stenosis-systolic murmur on exam. Per TTE, mod-sev present. Apprec Cards input. 4. Electrolyte abnormality-hypoK and hypoMg both resolved today with replacement. 5. DMII-glucose elevated >180 as inpatient. Consulting glycemic pharmacist for assistance. A1C 7.9. Cont Lantus/Novolog ISS with carb coverage with any changes per pharmacist. Of note, pt reports not eating much. 6. Scalp laceration-instructions for mady to be removed in 7 days. Wound looks clean, dry and without erythema. 7. s/p fall-poss related to UTI presence vs OA of knees. Pt having increased pain and stiffness in her L knee this morning with restricted ROM. Started scheduled Tylenol to be punctuated with Tramadol as needed. She is likely very sore from her fall. 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 If pain persists with immobility, may need to consider soft tissue injury from her fall. For now, will cont with good pain control round the clock and keep attempting PT/OT daily. 8. Leg pain-L calf very tender, however, L knee is tender and stiff. No overt effusion is present. Will obtain LE U/s to rule out DVT and start scheduled Tylenol as above. Of note, she is frequently falling asleep while I speak to her and recently had some narcotics. I am using the Tylenol to minimize the narcotic use. 9. GERD-pt with breakthrough heartburn presently. Stopping ranitidine for issues with tachyphylaxis. PPI was started daily overnight which I agree with. Tums for breakthrough as this is something that works for her at home. DVT proph-Lovenox Full Code Dispo-Expected return to [facility] under the care of Dr. Cosme. Usually resides in personal care. Will probably need short term skilled care at [facility] before returning to personal care. Urology follow-up with Dr. Louis. Alma Estevez DO [facility] Hospitalist Consultants: Urology- Dr. Jin. LinnetteShady Current Inpatient Medications: Current Inpatient Medications Medications (Trade) Dose Ordered Sig/Zoë Route Start Time Stop Time Status Last Admin Dose Admin Ioversol (Optiray 320) 100 ml UD PRN IV 05/03/17 10:45 05/07/17 10:44 Aspirin (Ecotrin Tab) 81 mg DAILY PO 05/04/17 08:00 06/03/17 08:59 05/06/17 09:09 81 MG Digoxin (Lanoxin Tab) 0.25 mg DAILY@1600 PO 05/03/17 21:00 06/02/17 20:59 Future hold 05/05/17 08:36 0.25 MG Diphenoxylate HCl/ Atropine (Lomotil Tab) 1 tab BID PRN PO 05/03/17 16:30 06/02/17 16:29 Losartan Potassium (coZAAR TAB) 50 mg DAILY PO 05/04/17 08:00 06/03/17 08:59 05/05/17 08:36 50 MG Metoprolol Succinate (Toprol Xl Tab) 150 mg BID PO 05/03/17 20:00 06/02/17 20:59 05/05/17 20:25 150 MG Multivitamins (Multivitamin Tab) 1 tab DAILY PO 05/04/17 08:00 06/03/17 08:59 05/06/17 09:09 1 TAB Phenazopyridine HCl (Pyridium Tab) 200 mg TID PO 05/03/17 20:00 06/02/17 20:59 05/06/17 09:09 200 MG Ranitidine HCl (zANTac TAB) 150 mg HS PO 05/03/17 21:00 06/02/17 20:59 05/05/17 20:24 150 MG Artificial Tears (Artificial Tears) 1 drops QID OP 05/03/17 20:00 06/02/17 20:59 05/06/17 09:11 1 DROPS Acetaminophen (Tylenol Tab) 650 mg Q4H PRN PO 05/03/17 16:30 06/02/17 16:29 05/04/17 17:15 650 MG Insulin Aspart (novoLOG ASPART) SLIDING SCALE If C... ACHS SC 05/03/17 21:00 06/02/17 20:59 05/06/17 09:14 2 UNITS Glucose (Glucose 40% Gel) 15-30 GRAMS 15 GRAMS... UD PRN PO 05/03/17 16:30 06/02/17 16:29 Glucose (Glucose Chew Tab) 4-8 Tablets 4 Tabl... UD PRN PO 05/03/17 16:30 06/02/17 16:29 Dextrose (Dextrose 50% 50ML Syringe) 25-50ML OF 50% DW IV FOR... UD PRN IV 05/03/17 16:30 06/02/17 16:29 Glucagon (Glucagon Inj) 1 mg UD PRN SQ 05/03/17 16:30 06/02/17 16:29 Insulin Glargine (Lantus Solostar Pen) 10 units BID SC 05/04/17 21:00 06/03/17 20:59 05/06/17 09:14 10 UNITS Tramadol HCl (Ultram Tab) 25 mg Q4H PRN PO 05/04/17 19:30 06/03/17 19:29 05/04/17 20:39 25 MG Hydromorphone HCl (Dilaudid Inj) 0.25 mg Q2H PRN IV 05/04/17 22:15 05/18/17 22:14 05/06/17 02:33 0.25 MG Oxycodone HCl (Roxicodone Immediate Rel Tab) 5 mg Q6H PRN PO 05/04/17 22:15 05/18/17 22:14 05/06/17 09:37 5 MG Al Hydrox/Mg Hydrox/Simethicone (Maalox Max Susp) 15 ml Q4H PRN PO 05/05/17 16:15 06/03/17 22:14 05/05/17 20:23 15 ML Ciprofloxacin (Ciprofloxacin Tab) 250 mg BID PO 05/06/17 09:00 05/11/17 08:59 05/06/17 09:41 250 MG Magnesium Oxide (Mag-Ox Tab) 400 mg BID PO 05/06/17 09:00 06/05/17 08:59 05/06/17 09:41 400 MG Pantoprazole Sodium (Protonix Tab) 40 mg QAM PO 05/06/17 09:00 1/11/18 08:59 05/06/17 09:41 40 MG Enteral Nutritional Formula (Boost Glucose Control) 1 can BIDM PO 05/06/17 16:45 06/05/17 16:44 UNV
[2017-05-06] MEDS: LOSARTAN POTASSIUM 50 MG TAB PO SCH (10:59)
[2017-05-06] MEDS: METOPROLOL SUCC 50MG EXT REL TAB PO SCH ×2 (10:59→20:57)
--- NOTE | 2017-05-06 11:01 | Cardiology Consultation ---
Cardiology Consultation Date of Consultation: May 06, 2017 Requesting Physician: Livia Attending Gas Desulfurizer: Shady (Brent Hickman PA-C) History of Present Illness Ms. Scanlon is a very pleasant 87 year old female who is being seen at the request of Dr. Bhakta. Reasons for cardiology consultation include symptomatic paroxysmal atrial fibrillation with a rapid ventricular response and aortic stenosis. Ms. Scanlon was admitted through the emergency room on 05/03/2017 after a fall in the evening of 05/02/2017 with resultant scalp laceration requiring mady. Workup as revealed a UTI with chronic left hydronephrosis and a bladder lesion with eventual cystoscopy. Yesterday she was observed to be in atrial fibrillation with a rapid ventricular response, symptomatic, in the setting of hypokalemia and hypomagnesemia. Potassium and magnesium were supplemented and was she given IV digoxin with conversion back to sinus rhythm. Echocardiography this admission has revealed moderate to severe aortic stenosis with normal left ventricular systolic function, mild concentric left ventricular hypertrophy. The patient notes a longstanding history of paroxysmal tachypalpitations. History today is suggestive of SVT and PAF. She is chronically prescribed Toprol XL 150 mg twice a day along with digoxin 250 mcg/day and PRN atenolol. She does not recall ever seeing a Gas Desulfurizer. She denies history of CAD, NC, or CHF. (Brent Hickman PA-C) Past Medical/Surgical History Problem List: Medical Problems: (1) Diab Kia Wo Compl, Type Ii Or Unspec Type, Not Uncntrld (2) Hyperlipidemia Nec/Nos (3) Hypertension Nos (4) Methicillin Resistant Staphylococcus Aureus Elsewhere/Nos (5) Osteoarthros Nos-Unspec (6) Osteoporosis Nos (7) Urin Tract Infection Nos (Brent Hickman PA-C) Family History Father with CAD. Mother young with lung cancer. (Brent Hickman PA-C) Social History Nonsmoker. Occasional alcoholic drink. No illegal drug use. more than 30 years ago. One son who resides in [place]. Retired [employer]. Resident of [facility] x 13 years. (Brent Hickman PA-C) Review Of Systems General: No current fever or chills. HEENT: + Headache. + Head trauma. Cardiovascular: Mild chest pain and dyspnea associated with tachypalpitations. JUNG. + Peripheral edema. No orthopnea or PND. No syncope. Pulmonary: No hemoptysis. Gastrointestinal: GERD. + Nausea. No vomiting. Skin: No rash. Musculoskeletal: Severe diffuse arthritic pain. Rheumatological: Sjogren syndrome. Endocrine: T2DM. Neuropathy Neurological: Denies history of TIA, CVA, or seizures Complete review of systems is as stated above, negative, or noncontributory. (Brent Hickman PA-C) Allergies Coded Allergies: Cephalosporins (Verified Allergy, Intermediate, KEFLEX = HIVES, 05/03/17) Penicillins (Verified Allergy, Mild, HIVES, 05/03/17) JACKY Inhibitors (Verified Allergy, Unknown, Unknown, 05/03/17) Adhesives (Verified Allergy, Unknown, 0, 05/03/17) Amoxicillin (Verified Allergy, Unknown, Unknown, 05/03/17) CI Pigment Blue 63 (Verified Allergy, Unknown, Unknown, 05/03/17) Cephalexin (Verified Allergy, Unknown, Unknown, 05/03/17) Duloxetine (Verified Allergy, Unknown, Unknown, 05/03/17) Gabapentin (Verified Allergy, Unknown, Unknown, 05/03/17) Lisinopril (Verified Allergy, Unknown, Unknown, 05/03/17) Penicillin V (Verified Allergy, Unknown, ., 05/03/17) Simvastatin (Verified Allergy, Unknown, Unknown, 05/03/17) Yellow Dyes (Non-tartrazine) (Verified Allergy, Unknown, Unknown, 05/03/17) PER PATIENT, SHE EATS YELLOW CANDY Dairy (Verified Adverse Reaction, Unknown, diarrhea, 05/03/17) Lettuce (Verified Adverse Reaction, Unknown, diarrhea, 05/03/17) "salads" Medications Reported Home Medications Medications Dose Route/Sig Max Daily Dose Days Date Category Dose Instructions Artificial Tears (Artificial Tear Solution) 1 Negar Negar 1 Drops OP QID 05/03/17 Reported Lomotil (Diphenoxylate HCl/Atropine) Tab 1 Tab PO BID PRN 05/03/17 Reported Restasis (Cyclosporine (Ophth)) 0.05 % Emu 1 Drop OPB BID 05/03/17 Reported Premarin (Estrogens, Conjugated) 14 Appln/30 Gm Cr 0.625 Mg TOP HS 05/03/17 Reported Cozaar (Losartan Potassium) 50 Mg Tab 50 Mg PO DAILY 05/03/17 Reported Digoxin 0.25 Mg Tab 1 Tab PO HS 05/03/17 Reported Bactrim Ds 800MG/160MG (Trimethoprim/Sulfamethoxazole) Tab 1 Tab PO BID 7 05/03/17 Reported ENDS 05-09-17 Kombiglyze Xr (Saxagliptin-Metformin HCl) 1 Tab Tab 1 Tab PO QPM 05/03/17 Reported (ONGLYZA BRAND) Cranberry (Cranberry (Vaccinium Macrocarp) 500 Mg Cap 1 Cap PO TID 05/03/17 Reported Toprol-Xl (Metoprolol Succinate) 100 Mg Tabcr 1.5 Tab PO BID 05/03/17 Reported Zantac (Ranitidine HCl) 150 Mg Tab 150 Mg PO HS 05/03/17 Reported Multivitamin (Multivitamins) Tab 1 Tab PO DAILY 05/03/17 Reported Vitamin D3 (Cholecalciferol) 1,000 Unit Tab 1 Tab PO DAILY 05/03/17 Reported Ascorbic Acid 500 Mg Tab 500 Mg PO DAILY 05/03/17 Reported Aspirin Ec (Aspirin) 81 Mg Tab 81 Mg PO DAILY 05/03/17 Reported [Cheratussin Ac] 10 Ml PO Q4H PRN 05/03/17 Reported Phenazopyridine HCl 200 Mg Tab 1 Tab PO TID 05/03/17 Reported NEEDED Tenormin (Atenolol) 25 Mg Tab 25 Mg PO BID 05/03/17 Reported NEEDED FOR HEART PALPITATIONS (Brent Hickman PA-C) Physical Exam Vital Signs (Last 8hrs): Last 8 Hrs Date Time Temp Pulse Resp B/P (MAP) Pulse Ox O2 Delivery O2 Flow Rate FiO2 05/06/17 08:00 Nasal Cannula 2.0 05/06/17 07:59 36.5 73 18 112/47 (68) 94 Nasal Cannula 2.0 05/06/17 04:00 97 Nasal Cannula 3.0 05/06/17 03:49 36.3 74 16 112/54 (73) 94 Nasal Cannula 3.0 General Appearance: Alert and Oriented x3. NAD. HEENT: Normocephalic PER. EOMI. Conjunctiva and sclera clear Neck: Transmitted systolic murmur versus bilateral carotid bruits. No JVD. No HJD. Respiratory: Diminished but clear to auscultation bilaterally. No w/r/r. Cardiovascular: Regular at 84 bpm. Grade III/ systolic ejection murmur. No diastolic murmur. No rub. PMI is nondisplaced. Abdomen: Normal bowel sounds, soft nontender. no abdominal bruits. Extremities: Mild edema. Chronic changes. No clubbing. No cyanosis. Distal pulses 1/4 bilaterally. Neuro: No focal deficits. Psychiatric: Normal affect. (Brent Hickman PA-C) Data Last 24 Hours Test 05/05/17 10:57 05/05/17 11:14 05/05/17 16:34 05/05/17 20:30 Sodium Level 129 mmol/L Potassium Level 3.7 mmol/L Chloride Level 100 mmol/L Carbon Dioxide Level 23 mmol/L Anion Gap 6.0 mmol/L Blood Urea Nitrogen 17 mg/dl Creatinine 0.55 mg/dl Est Creatinine Clear Calc Drug Dose 56.0 ml/min Estimated GFR () 96.4 Estimated GFR (Non- 83.2 BUN/Creatinine Ratio 31.6 Random Glucose 208 mg/dl Calcium Level 7.8 mg/dl Magnesium Level 1.9 mg/dl Bedside Glucose 202 mg/dl 272 mg/dl 214 mg/dl Test 05/06/17 06:10 05/06/17 06:49 White Blood Count 14.06 K/uL Red Blood Count 3.75 M/uL Hemoglobin 10.7 g/dL Hematocrit 32.6 % Mean Corpuscular Volume 86.9 fL Mean Corpuscular Hemoglobin 28.5 pg Mean Corpuscular Hemoglobin Concent 32.8 g/dl RDW Standard Deviation 45.9 fL RDW Coefficient of Variation 14.5 % Platelet Count 162 K/uL Mean Platelet Volume 9.5 fL Sodium Level 130 mmol/L Potassium Level 4.0 mmol/L Chloride Level 100 mmol/L Carbon Dioxide Level 26 mmol/L Anion Gap 4.0 mmol/L Blood Urea Nitrogen 18 mg/dl Creatinine 0.51 mg/dl Est Creatinine Clear Calc Drug Dose 59.6 ml/min Estimated GFR () 98.8 Estimated GFR (Non- 85.3 BUN/Creatinine Ratio 35.7 Random Glucose 178 mg/dl Calcium Level 8.3 mg/dl Magnesium Level 2.1 mg/dl Bedside Glucose 183 mg/dl EKG dated and timed 03-MAY-2017 @ 11:05:41: Sinus rhythm at 87 bpm with premature atrial complexes, ST & T wave abnormality, consider inferior ischemia. When compared with ECG of 28-MAY-2012 16:49, non-specific change in ST segment in Inferior leads. T wave inversion now evident in Inferior leads. T wave inversion now evident in Anterior leads. QT/QTc: 318/382 ms. EKG dated and timed 04-MAY-2017 @ 16:27:05: Atrial fibrillation with rapid ventricular response (143 bpm). Low voltage QRS. Nonspecific ST and T wave abnormality. When compared with ECG of 03-MAY-2017 11:05, atrial fibrillation has replaced sinus rhythm. Vent. rate has increased BY 56 BPM. T wave inversion no longer evident in Anterior leads. EKG dated and timed 05-MAY-2017 @ 08:20:52: Sinus rhythm at 81 bpm with occasional premature atrial complexes, low voltage QRS, nonspecific ST and T wave abnormality. When compared with ECG of 04-MAY-2017 16:27, sinus rhythm has replaced atrial fibrillation. Vent. rate has decreased BY 62 BPM. Nonspecific T wave abnormality, worse in Anterior leads. May 05, 2017 TTE Interpretation Summary ([facility], Dr. Caruso): The left ventricle is normal in size. There is mild concentric left ventricular hypertrophy. The left ventricular wall motion is normal. Ejection Fraction = 65- 70%. The left atrium is mildly dilated. The aortic valve leaflets are moderately calcified. Moderate to severe valvular aortic stenosis. There is mild mitral regurgitation. There is trace tricuspid regurgitation. Right ventricular systolic pressure is elevated at 40-50mmHg Telemetry: Currently sinus at 88 bpm. Paroxysmal atrial fibrillation and probably atrial flutter at 150 bpm observed. No significant bradyarrhythmias or pauses. (Brent Hickman PA-C) Assessment & Plan Symptomatic paroxysmal atrial fibrillation and probable atrial flutter with a rapid ventricular response Risks of anticoagulation, at least currently, are greater than the benefit despite the CHADS2 Score of 3 out of 6. Patient with significant arthritis, ambulatory dysfunction, recent mechanical fall with resultant scalp laceration, and hematuria with a bladder lesion with pending evaluation. Moderate to severe senile calcific aortic valve stenosis Preserved left ventricular systolic function Hypertension RECOMMENDATIONS/PLAN: Continue Toprol XL at 150 mg twice a day Check baseline LFT's and TFT's Add oral amiodarone for rate and rhythm control. Benefits, use, and risks discussed with patient and son. No anticoagulation at this point. See above, current risks are greater than the benefit. Discontinue digoxin, hopefully aided GI symptoms, given the addition of amiodarone Reduce Losartan dosing given intermittent hypotension, moderate to severe aortic stenosis Maintain telemetry EKG in the AM (Brent Hickman PA-C) Patient seen and examined. Plan as above discussed in detail with patient and son. History of paroxysmal atrial fibrillation with breakthrough events with rapid ventricular response rates despite extensive drug regimen. In the setting of identified aortic stenosis, will plan on trialing antiarrhythmic regimen as above, Likely titrate down metoprolol as well Don Caruso MD (Don Caruso,MMeghan.)
[2017-05-06] MEDS: ACETAMINOPHEN 500 MG TAB PO SCH ×2 (13:03→20:49)
--- NOTE | 2017-05-06 14:05 | DIAGNOSTIC IMAGING REPORT ---
BILATERAL LOWER EXTREMITY VENOUS DOPPLER HISTORY: Acute pain of the lower extremities with concern for deep venous thrombosis immobility,pain in calves, concern for DVT COMPARISON STUDY: None. FINDINGS: There is normal compressibility, flow, and augmentation within the bilateral lower extremity deep venous systems. There is limited visualization of the bilateral calf veins. IMPRESSION: No sonographic evidence of deep venous thrombosis within the right or left lower extremity. Electronically signed by: Paco Paul M.D. 05/06/2017 2:03 PM Dictated Date/Time: 05/06/2017 2:02 PM
[2017-05-06] MEDS: AMIODARONE 200 MG TAB PO SCH ×2 (14:28→20:48)
--- NOTE | 2017-05-06 14:36 | Pharmacy Progress Note ---
Glycemic Control Intl Consult Date of Service May 06, 2017. Scope Glycemic Pharmacist consulted by Alma Estevez on 05/06/17 for glycemic control and to write orders per [facility] inpatient glycemic control protocol Objective Weight (Kilograms): 61.500 Accuchecks BSG (last 24hrs): Test 05/05/17 16:34 05/05/17 20:30 05/06/17 06:10 05/06/17 06:49 Bedside Glucose 272 mg/dl (70-90) 214 mg/dl (70-90) 183 mg/dl (70-90) Random Glucose 178 mg/dl (70-99) Test 05/06/17 11:35 Bedside Glucose 206 mg/dl (70-90) Laboratory Data (last 24hrs) Test 05/06/17 06:10 Anion Gap 4.0 mmol/L BUN/Creatinine Ratio 35.7 Blood Urea Nitrogen 18 mg/dl Creatinine 0.51 mg/dl Potassium Level 4.0 mmol/L Sodium Level 130 mmol/L White Blood Count 14.06 K/uL HbA1c Test 05/04/17 04:05 Hemoglobin A1c 7.9 % (4.5-5.6) H Recent Pertinent Medications Outpatient Anti-diabetic Regimen: * saxagliptin/metformin nightly The patient is currently receiving: * Basal insulin: Lantus 10 units every 12 hours * Correctional Insulin: Novolog Correction per scale ACHS Goal Range: Low 100 mg/dL - High 160 mg/dL Correction Factor: 25 mg/dL/unit * Prandial insulin: Per carb ratio of 1 unit per 15 grams CHO consumed Risk Factors for Insulin Resistance: * Infection: recurrent utis * Diet: Was on a regular diet, switched to Type II diet Assessment & Plan ASSESSMENT: * Patient getting ~20 units basal, 15 units prandial per day with mealtime hyperglycemia. Will tighten goal range and carb ratio coverage and add a lantus scale. PLAN FOR INPATIENT GLYCEMIC CONTROL: * Holding outpatient oral diabetes medications * Basal insulin with LANTUS scale SQ * If BSG >200 give 13 units * If BSG < 200 give 10 units * Correctional Insulin with NOVOLOG / REGULAR per scale ACHS or Q6hrs while NPO * Goal Range: Low 100 mg/dL - High 140 mg/dL * Correction Factor: 25 mg/dL/unit * Nutritional / Prandial insulin per carb ratio of 1 unit per 13 grams CHO consumed * Please note that the plan above was derived based on current level of insulin resistance and hospital stress. These recommendations are appropriate for inpatient admission only. Plan of care upon discharge will need to be reassessed to avoid potential outpatient hypo/hyperglycemia. Thank you.
[2017-05-06] MEDS: BOOST GLUCOSE CONTROL PO SCH (16:45)
[2017-05-06] MEDS ORDERED: INSULIN GLARGINE SOLOSTAR 100 UNITS/ML 3 ML PEN SC SCH (21:00)
[2017-05-07] VITALS (7 sets, daily range): BP systolic 93–134; BP diastolic 46–80; PULSE 63–74; TEMP 36.2–36.7; O2SAT 90–96
[2017-05-07] MEDS: ACETAMINOPHEN 500 MG TAB PO SCH ×3 (05:45→21:00)
[2017-05-07 06:12] LABS: HEMATOCRIT 32.8 % (37-47); MEAN CELL VOLUME 87.2 fL (80-100); MEAN CORPUSCULAR HEMOGLOBIN 28.7 pg (25-34); MEAN CORPUSCULAR HGB CONC 32.9 g/dl (32-36); MEAN PLATELET VOLUME 9.3 fL (7.4-10.4); PLATELET COUNT 172 K/uL (130-400); RED BLOOD COUNT 3.76 M/uL (4.2-5.4); WHITE BLOOD COUNT 11.83 K/uL (4.8-10.8)
[2017-05-07 07:04] LABS: BUN/CREATININE RATIO 31.7 (10-20); CALCIUM 8.2 mg/dl (8.5-10.1); CREATININE 0.48 mg/dl (0.60-1.20); POTASSIUM 3.7 mmol/L (3.5-5.1)
--- NOTE | 2017-05-07 08:50 | Cardiology Follow-Up ---
Subjective General Date of Service: May 07, 2017. Chief Complaint: PAF Pt evaluation today including: conversation w/ patient, physical exam, chart review, lab review, review of studies, review of inpatient medication list History of Present Illness Patient seen and examined. Chart, medications, and telemetry reviewed Didn't sleep well last night. Tired this AM. + (Chronic) indigestion. + (Chronic ) Knee pain. Urinary incontinence. No chest pain. No palpitations. No new or worsening dyspnea. EKG dated and timed 07-MAY-2017 @ 07:01:01 revealed normal sinus rhythm at 67 bpm with nonspecific T wave abnormality, and a QT/QTc of 358/378 ms. Telemetry: Sinus at 62 bpm. Very rare atrial and ventricular ectopy. No significant bradycardia. No pauses. No atrial fibrillation/flutter. Allergies Coded Allergies: Cephalosporins (Verified Allergy, Intermediate, KEFLEX = HIVES, 05/03/17) Penicillins (Verified Allergy, Mild, HIVES, 05/03/17) JACKY Inhibitors (Verified Allergy, Unknown, Unknown, 05/03/17) Adhesives (Verified Allergy, Unknown, 0, 05/03/17) Amoxicillin (Verified Allergy, Unknown, Unknown, 05/03/17) CI Pigment Blue 63 (Verified Allergy, Unknown, Unknown, 05/03/17) Cephalexin (Verified Allergy, Unknown, Unknown, 05/03/17) Duloxetine (Verified Allergy, Unknown, Unknown, 05/03/17) Gabapentin (Verified Allergy, Unknown, Unknown, 05/03/17) Lisinopril (Verified Allergy, Unknown, Unknown, 05/03/17) Penicillin V (Verified Allergy, Unknown, ., 05/03/17) Simvastatin (Verified Allergy, Unknown, Unknown, 05/03/17) Yellow Dyes (Non-tartrazine) (Verified Allergy, Unknown, Unknown, 05/03/17) PER PATIENT, SHE EATS YELLOW CANDY Lactose. (Verified Adverse Reaction, Unknown, GI SYMPTOMS, 05/07/17) Social History Hx Tobacco Use In Past Year?: No Hx Alcohol Use - Type And Amou: Yes (rum and coke) Hx Substance Use - Type And Am: No Problem List Medical Problems: (1) Elevated lactic acid level Status: Acute (2) UTI (urinary tract infection) Status: Acute Physical Exam Vital Signs Last Vital Signs Documentation Date Time Temp Pulse Resp B/P (MAP) Pulse Ox O2 Delivery O2 Flow Rate FiO2 05/07/17 07:40 36.7 65 22 134/64 (87) 95 Nasal Cannula 2.0 05/05/17 08:00 30 Physical Exam Constitutional: Level of Distress: NAD Psychiatric: Mental Status: lethargic Orientation: to time, to place, to person Memory: recent memory normal, remote memory normal Head: normocephalic, atraumatic Eyes: Pupils: PERRLA ENMT: pertinent finding (Mucous membranes are dry) Neck: pertinent finding (Normal JVP. No HJR) Lungs: Respiratory effort: no dyspnea Auscultation: no wheezing, no rales/crackles, no rhonchi, deminished air movement Cardiovascular: Heart Auscultation: RRR, no rubs, II/ ROBERT Peripheral Pulses: Radial Pulse: normal on the left, normal on the right Dorsalis Pedis Pulse: decreased on the left, decreased on the right Abdomen: Bowel Sounds: normal Inspection & Palpation: soft Liver: non-tender Extremities: no cyanosis, no clubbing, edema (Minimal) Neurologic: Cranial Nerves: grossly intact Assessment and Plan Assessment and Plan Symptomatic paroxysmal atrial fibrillation (and possible atrial flutter) with a rapid ventricular response. CHADS2 Score of 3 out of 6. Moderate to severe senile calcific aortic valve stenosis Preserved left ventricular systolic function Hypertension Patient with significant arthritis, ambulatory dysfunction, recent mechanical fall with resultant scalp laceration, and hematuria/bladder lesion. RECOMMENDATIONS/PLAN: Decrease metoprolol succinate to 100 mg twice a day Continue amiodarone as presently prescribed, discharging on 200 mg twice a day when a suitable candidate. Anticoagulation risks, currently, are felt to be greater than the benefit. Note: Digoxin discontinued this admission. Losartan dosing reduced this admission given the intermittent hypotension and aortic stenosis. Cardiology follow-up in [place] ([facility], Later [facility]). Patient seen and examined. Arrhythmias improved , plan as above. Don Caruso MD Laboratory Results Last 24 Hours Test 05/06/17 11:17 05/06/17 11:35 05/06/17 16:00 05/06/17 20:04 Thyroid Stimulating Hormone (TSH) 1.060 uIu/ml Bedside Glucose 206 mg/dl 229 mg/dl 205 mg/dl Test 05/07/17 05:53 05/07/17 07:06 White Blood Count 11.83 K/uL Red Blood Count 3.76 M/uL Hemoglobin 10.8 g/dL Hematocrit 32.8 % Mean Corpuscular Volume 87.2 fL Mean Corpuscular Hemoglobin 28.7 pg Mean Corpuscular Hemoglobin Concent 32.9 g/dl RDW Standard Deviation 46.8 fL RDW Coefficient of Variation 14.7 % Platelet Count 172 K/uL Mean Platelet Volume 9.3 fL Sodium Level 133 mmol/L Potassium Level 3.7 mmol/L Chloride Level 100 mmol/L Carbon Dioxide Level 27 mmol/L Anion Gap 6.0 mmol/L Blood Urea Nitrogen 15 mg/dl Creatinine 0.48 mg/dl Est Creatinine Clear Calc Drug Dose 64.3 ml/min Estimated GFR () 100.8 Estimated GFR (Non- 87.0 BUN/Creatinine Ratio 31.7 Random Glucose 163 mg/dl Calcium Level 8.2 mg/dl Chemistry Specimen Hemolysis Bedside Glucose 161 mg/dl
[2017-05-07] MEDS ORDERED: INSULIN GLARGINE SOLOSTAR 100 UNITS/ML 3 ML PEN SC ONE (09:00)
[2017-05-07] MEDS ORDERED: LOSARTAN POTASSIUM 50 MG TAB PO SCH (09:00)
[2017-05-07] MEDS: ARTIFICIAL TEARS OP SOLN OP SCH ×10 (09:39→20:51)
[2017-05-07] MEDS: AMIODARONE 200 MG TAB PO SCH ×3 (09:40→20:52)
[2017-05-07] MEDS: METOPROLOL SUCC 50MG EXT REL TAB PO SCH (09:40)
[2017-05-07] MEDS: PHENAZOPYRIDINE HCL 200 MG TAB PO SCH ×3 (09:40→20:51)
[2017-05-07] MEDS: CIPROFLOXACIN 250 MG TAB PO SCH ×2 (09:42→20:52)
[2017-05-07] MEDS: BOOST GLUCOSE CONTROL PO SCH ×3 (09:43→16:57)
[2017-05-07] MEDS: PANTOprazole SOD 40 MG TAB PO SCH (09:44)
[2017-05-07] MEDS: MULTIVITAMIN TAB PO SCH (09:44)
[2017-05-07] MEDS: ASPIRIN 81 MG ECTAB PO SCH (09:44)
[2017-05-07] MEDS: MAGNESIUM OXIDE 400 MG TAB PO SCH ×2 (09:46→20:51)
[2017-05-07] MEDS: INSULIN ASPART 100 UNITS/ML 3 ML PEN SC SCH ×4 (09:59→20:56)
[2017-05-07] MEDS: ENOXAPARIN 40 MG/0.4 ML SYR SQ SCH (10:00)
--- NOTE | 2017-05-07 10:12 | Progress Note ---
Medicine Progress Note Date & Time of Visit: May 07, 2017 at 10:03. Subjective 87 yo F s/p fall on her L side prior to arrival and found to have a UTI. Pt reports less soreness in her upper body and back today. She also reports some improvement in her L knee pain on the scheduled Tylenol. Tolerating PO. She is very fatigued today as she didn't get much sleep overnight. She is in sinus rhythm today and started amio yesterday with no issues. Per Cards they will decrease her BB today. -denies chest pain, shortness of breath Objective Last 8 Hrs Date Time Temp Pulse Resp B/P (MAP) Pulse Ox O2 Delivery O2 Flow Rate FiO2 05/07/17 08:00 Nasal Cannula 2.0 05/07/17 07:40 36.7 65 22 134/64 (87) 95 Nasal Cannula 2.0 05/07/17 04:00 Nasal Cannula 2.0 05/07/17 03:19 36.5 66 20 110/61 (77) 96 Nasal Cannula 2.0 Physical Exam: GEN: WNWD, NAD, alert and appropriate HEENT: scalp lac small, mady in place, no drainage or surrounding erythema, normal sclerae, MMM CARDIO: reg rate, 3/6 ROBERT LUNGS: CTA bilaterally-diminished breath sounds throughout, no crackles, rales or wheezes ABD: soft, generalized tenderness to palpation, non-distended, no rebound or guarding, +BS EXTREMITY: RP and DP palpable 2+ bilat, no LE swelling or edema, extremities are warm and well-perfused. Significant restriction in ROM of L knee, R knee flexion OK. No overt knee effusion noted. LLE calf TTP noted. NEURO: CN 2-12 grossly intact, sensation intact throughout [facility]: general deconditioning. SKIN: warm and dry Laboratory Results: 05/07/17 05:53 05/07/17 05:53 Test 05/03/17 10:45 05/03/17 11:35 05/04/17 04:05 05/04/17 07:56 Total Bilirubin 0.7 mg/dl (0.2-1) Direct Bilirubin 0.2 mg/dl (0-0.2) Aspartate Amino Transf (AST/SGOT) 31 U/L (15-37) Alanine Aminotransferase (ALT/SGPT) 22 U/L (12-78) Alkaline Phosphatase 83 U/L (45-117) Total Protein 6.8 gm/dl (6.4-8.2) Albumin 3.2 gm/dl (3.4-5.0) Lipase 91 U/L (73-393) Urine Color YELLOW Urine Appearance CLEAR (CLEAR) Urine pH 7.5 (4.5-7.5) Urine Specific [place] 1.018 (1.000-1.030) Urine Protein NEG (NEG) Urine Glucose (UA) 3+ (NEG) Urine Ketones 1+ (NEG) Urine Occult Blood 3+ (NEG) Urine Nitrite NEG (NEG) Urine Bilirubin NEG (NEG) Urine Urobilinogen NEG (NEG) Urine Leukocyte Esterase SMALL (NEG) Urine WBC (Auto) >30 /hpf (0-5) Urine RBC (Auto) >30 /hpf (0-4) Urine Hyaline Casts (Auto) 5-10 /lpf (0-5) Urine Epithelial Cells (Auto) 5-10 /lpf (0-5) Urine Bacteria (Auto) 2+ (NEG) Urine Yeast (Auto) (NONE PRSENT) Immature Granulocyte % (Auto) 0.3 % White Blood Count 12.18 K/uL (4.8-10.8) Red Blood Count 4.15 M/uL (4.2-5.4) Hemoglobin 12.1 g/dL (12.0-16.0) Hematocrit 35.9 % (37-47) Mean Corpuscular Volume 86.5 fL (80-100) Mean Corpuscular Hemoglobin 29.2 pg (25-34) Mean Corpuscular Hemoglobin Concent 33.7 g/dl (32-36) Platelet Count 133 K/uL (130-400) Mean Platelet Volume 9.4 fL (7.4-10.4) Neutrophils (%) (Auto) 76.9 % Lymphocytes (%) (Auto) 11.3 % Monocytes (%) (Auto) 7.2 % Eosinophils (%) (Auto) 4.2 % Basophils (%) (Auto) 0.1 % Neutrophils # (Auto) 9.36 K/uL (1.4-6.5) Lymphocytes # (Auto) 1.38 K/uL (1.2-3.4) Monocytes # (Auto) 0.88 K/uL (0.11-0.59) Eosinophils # (Auto) 0.51 K/uL (0-0.5) Basophils # (Auto) 0.01 K/uL (0-0.2) Immature Granulocyte # (Auto) 0.04 K/uL (0.00-0.02) Red Blood Cell Morphology Unremarkable Estimated Average Glucose 180 mg/dl Hemoglobin A1c 7.9 % (4.5-5.6) Lactic Acid Level 1.4 mmol/L (0.4-2.0) Test 05/04/17 17:29 05/05/17 03:26 05/06/17 06:10 05/06/17 11:17 Prothrombin Time 11.4 SECONDS (9.0-12.0) Prothromb Time International Ratio 1.1 (0.9-1.1) Activated Partial Thromboplast Time 30.7 SECONDS (21.0-31.0) Partial Thromboplastin Ratio 1.2 Total Creatine Kinase 66 U/L (26-192) Creatine Kinase MB 1.1 ng/ml (0.5-3.6) Creatine Kinase MB Ratio 1.7 (0-3.0) Troponin I 0.019 ng/ml (0-0.045) Vancomycin Level Trough 6.6 mcg/ml (SEE COMMENT) Digoxin Level 1.5 ng/ml (0.8-2.0) Magnesium Level 2.1 mg/dl (1.8-2.4) Thyroid Stimulating Hormone (TSH) 1.060 uIu/ml (0.300-4.500) Test 05/07/17 05:53 05/07/17 07:06 Red Blood Count 3.76 M/uL (4.2-5.4) Mean Corpuscular Volume 87.2 fL (80-100) Mean Corpuscular Hemoglobin 28.7 pg (25-34) Mean Corpuscular Hemoglobin Concent 32.9 g/dl (32-36) RDW Standard Deviation 46.8 fL (36.4-46.3) RDW Coefficient of Variation 14.7 % (11.5-14.5) Mean Platelet Volume 9.3 fL (7.4-10.4) Anion Gap 6.0 mmol/L (3-11) Est Creatinine Clear Calc Drug Dose 64.3 ml/min Estimated GFR () 100.8 Estimated GFR (Non- 87.0 BUN/Creatinine Ratio 31.7 (10-20) Calcium Level 8.2 mg/dl (8.5-10.1) Chemistry Specimen Hemolysis Bedside Glucose 161 mg/dl (70-90) Date/Time Source Procedure Growth Status 05/04/17 20:45 Nasal MRSA DNA Surveillance Screen - Final Specimen Negative for MRSA by DNA Probe Complete 05/03/17 11:35 Urine,Catheterized Urine Culture - Final Escherichia Coli Alpha Strep. Not Enterococcus Complete Last 24 Hours Test 05/06/17 11:17 05/06/17 11:35 05/06/17 16:00 05/06/17 20:04 Thyroid Stimulating Hormone (TSH) 1.060 uIu/ml Bedside Glucose 206 mg/dl 229 mg/dl 205 mg/dl Test 05/07/17 05:53 05/07/17 07:06 White Blood Count 11.83 K/uL Red Blood Count 3.76 M/uL Hemoglobin 10.8 g/dL Hematocrit 32.8 % Mean Corpuscular Volume 87.2 fL Mean Corpuscular Hemoglobin 28.7 pg Mean Corpuscular Hemoglobin Concent 32.9 g/dl RDW Standard Deviation 46.8 fL RDW Coefficient of Variation 14.7 % Platelet Count 172 K/uL Mean Platelet Volume 9.3 fL Sodium Level 133 mmol/L Potassium Level 3.7 mmol/L Chloride Level 100 mmol/L Carbon Dioxide Level 27 mmol/L Anion Gap 6.0 mmol/L Blood Urea Nitrogen 15 mg/dl Creatinine 0.48 mg/dl Est Creatinine Clear Calc Drug Dose 64.3 ml/min Estimated GFR () 100.8 Estimated GFR (Non- 87.0 BUN/Creatinine Ratio 31.7 Random Glucose 163 mg/dl Calcium Level 8.2 mg/dl Chemistry Specimen Hemolysis Bedside Glucose 161 mg/dl Assessment & Plan 87 yo F s/p fall on her L side prior to arrival and found to have a UTI. Pt reports less soreness in her upper body and back today. She also reports some improvement in her L knee pain on the scheduled Tylenol. Tolerating PO. She is very fatigued today as she didn't get much sleep overnight. She is in sinus rhythm today and started amio yesterday with no issues. Per Cards they will decrease her BB today. 1. UTI-present on admission. Initially received Vanc and Aztreonam. UCx growing E coli and alpha strep. Abx changed to Cipro BID. Chronic L hydronephrosis also noted on imaging and evidence of a bladder wall thickening which is concerning for urothelial malignancy. Urology has been consulted and will follow with cystoscopy as outpatient. 2. Afib with RVR-pt with a history of AF and SVT who went into RVR this admission. She is currently in sinus rhythm today. Dig was stopped yesterday and amio was started. Cont Toprol at reduced dose and Losartan. Cont cardiac monitoring for now. Not on anticoagulation as outpatient. 3. Aortic stenosis-systolic murmur on exam. Per TTE, mod-sev present. Apprec Cards input. 4. DMII- A1C 7.9. Cont Lantus/Novolog ISS with carb coverage. Improved control overnight. Apprec pharmacist management. 5. Scalp laceration-instructions for mady to be removed in 7 days. Wound looks clean, dry and without erythema. 6. s/p fall-poss related to UTI presence vs OA of knees. Pt having increased pain and stiffness in her L knee this morning with restricted ROM. Started scheduled Tylenol to be punctuated with Tramadol as needed. She is likely very sore from her fall and this is improved today. 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 If pain persists with immobility, may need to consider soft tissue injury from her fall. For now, will cont with good pain control round the clock and keep attempting PT/OT daily. 7. Leg pain-L calf very tender, however, L knee is tender and stiff. No overt effusion is present. Will obtain LE U/s to rule out DVT and start scheduled Tylenol as above. Of note, she is frequently falling asleep while I speak to her and recently had some narcotics. I am using the Tylenol to minimize the narcotic use. 8. GERD-pt with breakthrough heartburn presently. Stopped ranitidine for issues with tachyphylaxis. PPI was started daily. Tums or Maalox for breakthrough as this is something that works for her at home. Nurse will assist with instructing patient to sit upright for at least 30 minutes after eating. DVT proph-Lovenox Full Code Dispo-Expected return to [facility] under the care of Dr. Cosme. Usually resides in personal care. Will probably need short term skilled care at [facility] before returning to personal care. Urology follow-up with Dr. Louis for consideration of outpatient cystoscopy. [facility] Consultants: Urology- Dr. Jin. [place] Current Inpatient Medications: Current Inpatient Medications Medications (Trade) Dose Ordered Sig/Zoë Route Start Time Stop Time Status Last Admin Dose Admin Ioversol (Optiray 320) 100 ml UD PRN IV 05/03/17 10:45 05/07/17 10:44 Aspirin (Ecotrin Tab) 81 mg DAILY PO 05/04/17 08:00 06/03/17 08:59 05/07/17 09:44 81 MG Diphenoxylate HCl/ Atropine (Lomotil Tab) 1 tab BID PRN PO 05/03/17 16:30 06/02/17 16:29 Multivitamins (Multivitamin Tab) 1 tab DAILY PO 05/04/17 08:00 06/03/17 08:59 05/07/17 09:44 1 TAB Phenazopyridine HCl (Pyridium Tab) 200 mg TID PO 05/03/17 20:00 06/02/17 20:59 05/07/17 09:40 200 MG Artificial Tears (Artificial Tears) 1 drops QID OP 05/03/17 20:00 06/02/17 20:59 05/07/17 09:39 1 DROPS Insulin Aspart (novoLOG ASPART) SLIDING SCALE If C... ACHS SC 05/03/17 21:00 06/02/17 20:59 05/07/17 09:59 6 UNITS Glucose (Glucose 40% Gel) 15-30 GRAMS 15 GRAMS... UD PRN PO 05/03/17 16:30 06/02/17 16:29 Glucose (Glucose Chew Tab) 4-8 Tablets 4 Tabl... UD PRN PO 05/03/17 16:30 06/02/17 16:29 Dextrose (Dextrose 50% 50ML Syringe) 25-50ML OF 50% DW IV FOR... UD PRN IV 05/03/17 16:30 06/02/17 16:29 Glucagon (Glucagon Inj) 1 mg UD PRN SQ 05/03/17 16:30 06/02/17 16:29 Tramadol HCl (Ultram Tab) 25 mg Q4H PRN PO 05/04/17 19:30 06/03/17 19:29 05/04/17 20:39 25 MG Hydromorphone HCl (Dilaudid Inj) 0.25 mg Q2H PRN IV 05/04/17 22:15 05/18/17 22:14 05/06/17 02:33 0.25 MG Al Hydrox/Mg Hydrox/Simethicone (Maalox Max Susp) 15 ml Q4H PRN PO 05/05/17 16:15 06/03/17 22:14 05/05/17 20:23 15 ML Ciprofloxacin (Ciprofloxacin Tab) 250 mg BID PO 05/06/17 09:00 05/11/17 08:59 05/07/17 09:42 250 MG Magnesium Oxide (Mag-Ox Tab) 400 mg BID PO 05/06/17 09:00 06/05/17 08:59 05/07/17 09:46 400 MG Pantoprazole Sodium (Protonix Tab) 40 mg QAM PO 05/06/17 09:00 06/05/17 08:59 05/07/17 09:44 40 MG Enteral Nutritional Formula (Boost Glucose Control) 1 can BIDM PO 05/06/17 16:45 06/05/17 16:44 05/07/17 09:43 1 CAN Calcium Carbonate (Tums Chew Tab) 500 mg QID PRN PO 05/06/17 10:15 06/05/17 10:14 Acetaminophen (Tylenol Tab) 1,000 mg Q8 PO 05/06/17 14:00 06/05/17 13:59 05/07/17 05:45 1,000 MG Enoxaparin Sodium (Lovenox Inj) 40 mg QAM SQ 05/07/17 09:00 06/06/17 08:59 05/07/17 10:00 40 MG Miscellaneous Information (Consult Glycemic Management Pharmacy) 1 ea UD N/A 05/06/17 10:41 06/05/17 10:40 Losartan Potassium (coZAAR TAB) 25 mg DAILY PO 05/07/17 09:00 06/03/17 08:59 05/07/17 09:45 25 MG Amiodarone HCl (Cordarone Tab) 200 mg TID PO 05/06/17 14:00 06/05/17 13:59 05/07/17 09:40 200 MG Insulin Glargine (Lantus Solostar Pen) SEE PROTOCOL BID SC 05/06/17 21:00 06/05/17 20:59 Future Hold 05/06/17 20:53 13 UNITS Metoprolol Succinate (Toprol Xl Tab) 100 mg BID PO 05/07/17 21:00 06/02/17 20:59 05/07/17 09:40 100 MG
[2017-05-07] MEDS ORDERED: POLYETHYLENE (MIRALAX) 17 GM PACK PO ONE (12:22)
[2017-05-07] MEDS ORDERED: POLYETHYLENE (MIRALAX) 17 GM PACK PO PRN (12:30)
--- NOTE | 2017-05-07 13:40 | Pharmacy Progress Note ---
Glycemic: Assessment & Plan Date of Service May 07, 2017. Assessment & Plan The patient is currently receiving 40 units of insulin per day. BSGs ranging 161 - 229 mg/dl over the past 24hrs. Increased basal needs last night and this morning. Lunch BSG noted to be elevated, but breakfast appeared to be given late and lunch sugar drawn early, thus likely falsely elevated. Will tighten carb ratio slightly. * Basal insulin: Lantus 10 units if BSG <180; 13 units if BSG > 180 * Correctional Insulin: Novolog Correction per scale ACHS Goal Range: Low 100 mg/dL - High 140 mg/dL Correction Factor: 25 mg/dL/unit * Prandial insulin: Per carb ratio of 1 unit per 12 grams CHO consumed Pharmacy will continue to monitor patient daily and write orders per [facility] inpatient glycemic control protocol. Thanks. * Please note that the plan above was derived based on current level of insulin resistance and hospital stress. These recommendations are appropriate for inpatient admission only. Plan of care upon discharge will need to be reassessed to avoid potential outpatient hypo/hyperglycemia.
[2017-05-07] MEDS: TRAMADOL HCL 50 MG TAB PO PRN ×2 (16:57→21:04)
[2017-05-07] MEDS ORDERED: INSULIN GLARGINE SOLOSTAR 100 UNITS/ML 3 ML PEN SC SCH (21:00)
[2017-05-08] VITALS (9 sets, daily range): BP systolic 73–132; BP diastolic 55–75; PULSE 63–75; TEMP 36.4–36.8; O2SAT 90–96
[2017-05-08] MEDS: ACETAMINOPHEN 500 MG TAB PO SCH ×3 (06:05→22:16)
[2017-05-08] MEDS: ARTIFICIAL TEARS OP SOLN OP SCH ×8 (09:01→21:02)
[2017-05-08] MEDS: BOOST GLUCOSE CONTROL PO SCH ×3 (09:01→17:00)
[2017-05-08] MEDS: AMIODARONE 200 MG TAB PO SCH ×2 (09:01→21:04)
[2017-05-08] MEDS: METOPROLOL SUCC 50MG EXT REL TAB PO SCH ×2 (09:02→21:03)
[2017-05-08] MEDS: ASPIRIN 81 MG ECTAB PO SCH (09:02)
[2017-05-08] MEDS: ENOXAPARIN 40 MG/0.4 ML SYR SQ SCH (09:02)
[2017-05-08] MEDS: MAGNESIUM OXIDE 400 MG TAB PO SCH ×2 (09:03→21:04)
[2017-05-08] MEDS: PANTOprazole SOD 40 MG TAB PO SCH (09:03)
[2017-05-08] MEDS: MULTIVITAMIN TAB PO SCH (09:03)
[2017-05-08] MEDS: PHENAZOPYRIDINE HCL 200 MG TAB PO SCH ×2 (09:04→14:00)
[2017-05-08] MEDS: CIPROFLOXACIN 250 MG TAB PO SCH ×2 (09:04→21:02)
[2017-05-08] MEDS: INSULIN GLARGINE SOLOSTAR 100 UNITS/ML 3 ML PEN SC SCH ×2 (09:10→21:14)
[2017-05-08] MEDS: INSULIN ASPART 100 UNITS/ML 3 ML PEN SC SCH ×4 (09:10→21:00)
--- NOTE | 2017-05-08 09:14 | Cardiology Follow-Up ---
Subjective General Date of Service: May 08, 2017. Chief Complaint: PAF Pt evaluation today including: conversation w/ patient, physical exam, chart review, lab review, review of studies, review of inpatient medication list History of Present Illness Patient seen and examined. Chart, medications, and telemetry reviewed Coughing spell last night. Slept better. Chronic knee pain. Denies chest pain, palpitations, new or worsening dyspnea. Telemetry: Sinus. Very rare ectopy in singles only. No significant bradycardia. No pauses. No further atrial fibrillation/flutter. EKG: Pending. Allergies Coded Allergies: Cephalosporins (Verified Allergy, Intermediate, KEFLEX = HIVES, 05/03/17) Penicillins (Verified Allergy, Mild, HIVES, 05/03/17) JACKY Inhibitors (Verified Allergy, Unknown, Unknown, 05/03/17) Adhesives (Verified Allergy, Unknown, 0, 05/03/17) Amoxicillin (Verified Allergy, Unknown, Unknown, 05/03/17) CI Pigment Blue 63 (Verified Allergy, Unknown, Unknown, 05/03/17) Cephalexin (Verified Allergy, Unknown, Unknown, 05/03/17) Duloxetine (Verified Allergy, Unknown, Unknown, 05/03/17) Gabapentin (Verified Allergy, Unknown, Unknown, 05/03/17) Lisinopril (Verified Allergy, Unknown, Unknown, 05/03/17) Penicillin V (Verified Allergy, Unknown, ., 05/03/17) Simvastatin (Verified Allergy, Unknown, Unknown, 05/03/17) Yellow Dyes (Non-tartrazine) (Verified Allergy, Unknown, Unknown, 05/03/17) PER PATIENT, SHE EATS YELLOW CANDY Lactose. (Verified Adverse Reaction, Unknown, GI SYMPTOMS, 05/07/17) Social History Hx Tobacco Use In Past Year?: No Hx Alcohol Use - Type And Amou: Yes (rum and coke) Hx Substance Use - Type And Am: No Problem List Medical Problems: (1) Elevated lactic acid level Status: Acute (2) UTI (urinary tract infection) Status: Acute Physical Exam Vital Signs Last Vital Signs Documentation Date Time Temp Pulse Resp B/P (MAP) Pulse Ox O2 Delivery O2 Flow Rate FiO2 05/08/17 08:00 Room Air 05/08/17 07:34 36.5 63 17 109/55 (73) 96 2.0 05/05/17 08:00 30 Physical Exam Constitutional: Level of Distress: NAD Psychiatric: Mental Status: lethargic Orientation: to time, to place, to person Memory: recent memory normal, remote memory normal Head: normocephalic, atraumatic Eyes: Pupils: PERRLA ENMT: pertinent finding (Mucous membranes are dry) Neck: pertinent finding (Normal JVP. No HJR) Lungs: Respiratory effort: no dyspnea Auscultation: no wheezing, no rales/crackles, no rhonchi, deminished air movement Cardiovascular: Heart Auscultation: RRR, no rubs, II/ ROBERT Peripheral Pulses: Radial Pulse: normal on the left, normal on the right Dorsalis Pedis Pulse: decreased on the left, decreased on the right Abdomen: Bowel Sounds: normal Inspection & Palpation: soft Liver: non-tender Extremities: no cyanosis, no clubbing, edema (Minimal) Neurologic: Cranial Nerves: grossly intact Assessment and Plan Assessment and Plan Symptomatic paroxysmal atrial fibrillation (and possible atrial flutter) with a rapid ventricular response. CHADS2 Score of 3 out of 6. Moderate to severe senile calcific aortic valve stenosis Preserved left ventricular systolic function History of hypertension with intermittent hypotension observed throughout her hospitalization. Patient with significant arthritis, ambulatory dysfunction, recent mechanical fall with resultant scalp laceration, and hematuria/bladder lesion. RECOMMENDATIONS/PLAN: Discontinue Losartan secondary to intermittent hypotension, aortic stenosis Decrease amiodarone to 200 mg twice a day Continue Toprol XL at 100 mg twice a day (dose reduced this admission) Anticoagulation risks, currently, are felt to be greater than the benefit. Notes: Digoxin, Losartan, and PRN Atenolol discontinued this admission. Toprol XL reduced this admission. Cardiology follow-up in [place] on 05/15/2017 @ 11:45 PM Patient seen and examined, rhythm stable plans as above with outpatient follow arranged Discussed in detail with patient and son Don Caruso MD Laboratory Results Last 24 Hours Test 05/07/17 10:33 05/07/17 15:50 05/07/17 20:16 05/08/17 06:18 Bedside Glucose 215 mg/dl 152 mg/dl 173 mg/dl 127 mg/dl
--- NOTE | 2017-05-08 14:30 | Pharmacy Progress Note ---
Glycemic: Assessment & Plan Date of Service May 08, 2017. Assessment & Plan The patient is currently receiving 42 units of insulin per day. BSGs ranging 127 - 215 mg/dl over the past 24hrs. Patient doing well with ~23 units of lantus. Will schedule a fixed dose rather than scale. * Basal insulin: Lantus 11 units every 12 hours * Correctional Insulin: Novolog Correction per scale ACHS Goal Range: Low 100 mg/dL - High 140 mg/dL Correction Factor: 25 mg/dL/unit * Prandial insulin: Per carb ratio of 1 unit per 12 grams CHO consumed Pharmacy will continue to monitor patient daily and write orders per [facility] inpatient glycemic control protocol. Thanks. * Please note that the plan above was derived based on current level of insulin resistance and hospital stress. These recommendations are appropriate for inpatient admission only. Plan of care upon discharge will need to be reassessed to avoid potential outpatient hypo/hyperglycemia.
--- NOTE | 2017-05-08 21:46 | Progress Note ---
Medicine Progress Note Date & Time of Visit: May 08, 2017 at 15:37. Subjective 87 yo F s/p fall on her L side prior to arrival and found to have a UTI. Pt is drastically improved today with improved control of pain that is minimal. She states the Tylenol is helping. She was able to complete PT today and is up and out of bed and in good spirits. She is tolerating PO. She denies UTI symptoms. Family is present. Cards meds adjusted with good response and no concerning events on telemetry overnight. Objective Last 8 Hrs Date Time Temp Pulse Resp B/P (MAP) Pulse Ox O2 Delivery O2 Flow Rate FiO2 05/08/17 12: 36.5 64 20 99/60 (73) 92 Room Air 05/08/17 08:00 Room Air Physical Exam: GEN: WNWD, NAD, alert and appropriate HEENT: scalp lac small, mady in place, no drainage or surrounding erythema, normal sclerae, MMM CARDIO: reg rate, 3/6 ROBERT LUNGS: CTA bilaterally-diminished breath sounds throughout, no crackles, rales or wheezes ABD: soft, generalized tenderness to palpation, non-distended, no rebound or guarding, +BS EXTREMITY: RP and DP palpable 2+ bilat, no LE swelling or edema, extremities are warm and well-perfused. Improved ROM of L knee, R knee flexion OK. No overt knee effusion noted. NEURO: CN 2-12 grossly intact, sensation intact throughout MUSC: general deconditioning. SKIN: warm and dry Laboratory Results: 05/07/17 05:53 05/07/17 05:53 Test 05/03/17 10:45 05/03/17 11:35 05/04/17 04:05 05/04/17 07:56 Total Bilirubin 0.7 mg/dl (0.2-1) Direct Bilirubin 0.2 mg/dl (0-0.2) Aspartate Amino Transf (AST/SGOT) 31 U/L (15-37) Alanine Aminotransferase (ALT/SGPT) 22 U/L (12-78) Alkaline Phosphatase 83 U/L (45-117) Total Protein 6.8 gm/dl (6.4-8.2) Albumin 3.2 gm/dl (3.4-5.0) Lipase 91 U/L (73-393) Urine Color YELLOW Urine Appearance CLEAR (CLEAR) Urine pH 7.5 (4.5-7.5) Urine Specific Garrett 1.018 (1.000-1.030) Urine Protein NEG (NEG) Urine Glucose (UA) 3+ (NEG) Urine Ketones 1+ (NEG) Urine Occult Blood 3+ (NEG) Urine Nitrite NEG (NEG) Urine Bilirubin NEG (NEG) Urine Urobilinogen NEG (NEG) Urine Leukocyte Esterase SMALL (NEG) Urine WBC (Auto) >30 /hpf (0-5) Urine RBC (Auto) >30 /hpf (0-4) Urine Hyaline Casts (Auto) 5-10 /lpf (0-5) Urine Epithelial Cells (Auto) 5-10 /lpf (0-5) Urine Bacteria (Auto) 2+ (NEG) Urine Yeast (Auto) (NONE PRSENT) Immature Granulocyte % (Auto) 0.3 % White Blood Count 12.18 K/uL (4.8-10.8) Red Blood Count 4.15 M/uL (4.2-5.4) Hemoglobin 12.1 g/dL (12.0-16.0) Hematocrit 35.9 % (37-47) Mean Corpuscular Volume 86.5 fL (80-100) Mean Corpuscular Hemoglobin 29.2 pg (25-34) Mean Corpuscular Hemoglobin Concent 33.7 g/dl (32-36) Platelet Count 133 K/uL (130-400) Mean Platelet Volume 9.4 fL (7.4-10.4) Neutrophils (%) (Auto) 76.9 % Lymphocytes (%) (Auto) 11.3 % Monocytes (%) (Auto) 7.2 % Eosinophils (%) (Auto) 4.2 % Basophils (%) (Auto) 0.1 % Neutrophils # (Auto) 9.36 K/uL (1.4-6.5) Lymphocytes # (Auto) 1.38 K/uL (1.2-3.4) Monocytes # (Auto) 0.88 K/uL (0.11-0.59) Eosinophils # (Auto) 0.51 K/uL (0-0.5) Basophils # (Auto) 0.01 K/uL (0-0.2) Immature Granulocyte # (Auto) 0.04 K/uL (0.00-0.02) Red Blood Cell Morphology Unremarkable Estimated Average Glucose 180 mg/dl Hemoglobin A1c 7.9 % (4.5-5.6) Lactic Acid Level 1.4 mmol/L (0.4-2.0) Test 05/04/17 17:29 05/05/17 03:26 05/06/17 06:10 05/06/17 11:17 Prothrombin Time 11.4 SECONDS (9.0-12.0) Prothromb Time International Ratio 1.1 (0.9-1.1) Activated Partial Thromboplast Time 30.7 SECONDS (21.0-31.0) Partial Thromboplastin Ratio 1.2 Total Creatine Kinase 66 U/L (26-192) Creatine Kinase MB 1.1 ng/ml (0.5-3.6) Creatine Kinase MB Ratio 1.7 (0-3.0) Troponin I 0.019 ng/ml (0-0.045) Vancomycin Level Trough 6.6 mcg/ml (SEE COMMENT) Digoxin Level 1.5 ng/ml (0.8-2.0) Magnesium Level 2.1 mg/dl (1.8-2.4) Thyroid Stimulating Hormone (TSH) 1.060 uIu/ml (0.300-4.500) Test 05/07/17 05:53 05/08/17 20:01 Red Blood Count 3.76 M/uL (4.2-5.4) Mean Corpuscular Volume 87.2 fL (80-100) Mean Corpuscular Hemoglobin 28.7 pg (25-34) Mean Corpuscular Hemoglobin Concent 32.9 g/dl (32-36) RDW Standard Deviation 46.8 fL (36.4-46.3) RDW Coefficient of Variation 14.7 % (11.5-14.5) Mean Platelet Volume 9.3 fL (7.4-10.4) Anion Gap 6.0 mmol/L (3-11) Est Creatinine Clear Calc Drug Dose 64.3 ml/min Estimated GFR () 100.8 Estimated GFR (Non- 87.0 BUN/Creatinine Ratio 31.7 (10-20) Calcium Level 8.2 mg/dl (8.5-10.1) Chemistry Specimen Hemolysis Bedside Glucose 139 mg/dl (70-90) Date/Time Source Procedure Growth Status 05/04/17 20:45 Nasal MRSA DNA Surveillance Screen - Final Specimen Negative for MRSA by DNA Probe Complete 05/03/17 11:35 Urine,Catheterized Urine Culture - Final Escherichia Coli Alpha Strep. Not Enterococcus Complete Last 24 Hours Test 05/07/17 15:50 05/07/17 20:16 05/08/17 06:18 05/08/17 11:01 Bedside Glucose 152 mg/dl 173 mg/dl 127 mg/dl 177 mg/dl Assessment & Plan 87 yo F s/p fall on her L side prior to arrival and found to have a UTI. Pt is drastically improved today with improved control of pain that is minimal. She states the Tylenol is helping. She was able to complete PT today and is up and out of bed and in good spirits. She is tolerating PO. She denies UTI symptoms. Family is present. Cards meds adjusted with good response and no concerning events on telemetry overnight. 1. UTI-present on admission. Initially received Vanc and Aztreonam. UCx growing E coli and alpha strep. Abx changed to Cipro BID. Chronic L hydronephrosis also noted on imaging and evidence of a bladder wall thickening which is concerning for urothelial malignancy. Urology has been consulted and will follow with cystoscopy as outpatient. Will DC pyridium at this time. 2. Afib with RVR-pt with a history of AF and SVT who went into RVR this admission. She continues in sinus rhythm today. Dig d/c'd, amio started, toprol reduced. Not on anticoagulation as an outpatient. 3. Aortic stenosis-systolic murmur on exam. Per TTE, mod-sev present. Monitor periodically as outpatient. 4. DMII- A1C 7.9. Cont Lantus/Novolog ISS with carb coverage. Improved control overnight. Apprec pharmacist management. 5. Scalp laceration-instructions for mady to be removed in 7 days. Wound looks clean, dry and without erythema. May wash hair. 6. s/p fall-poss related to UTI presence vs OA of knees. Improved pain and ROM in her legs. Cont scheduled Tylenol to be punctuated with Tramadol as needed. She is likely very sore from her fall and this is improved today. 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 f/u as outpatient. PT/OT 7. Leg pain-improved. 8. GERD- Stopped ranitidine for issues with tachyphylaxis. PPI was started daily. Heartburn has resolved. Cont PPI and instructed pt to remain upright at least 30 minutes after meals. DVT proph-Lovenox Full Code Dispo-Expected return to [facility] under the care of Dr. Cosme. Usually resides in personal care. Will need short term skilled care at [facility] before returning to personal care. Urology follow-up with Dr. Louis for consideration of outpatient cystoscopy. Alma Estevez DO [facility] Hospitalist Consultants: Urology- Dr. Jin. [facility] Current Inpatient Medications: Current Inpatient Medications Medications (Trade) Dose Ordered Sig/Zoë Route Start Time Stop Time Status Last Admin Dose Admin Aspirin (Ecotrin Tab) 81 mg DAILY PO 05/04/17 08:00 06/03/17 08:59 05/08/17 09:02 81 MG Diphenoxylate HCl/ Atropine (Lomotil Tab) 1 tab BID PRN PO 05/03/17 16:30 06/02/17 16:29 Multivitamins (Multivitamin Tab) 1 tab DAILY PO 05/04/17 08:00 06/03/17 08:59 05/08/17 09:03 1 TAB Phenazopyridine HCl (Pyridium Tab) 200 mg TID PO 05/03/17 20:00 06/02/17 20:59 05/08/17 09:04 200 MG Artificial Tears (Artificial Tears) 1 drops QID OP 05/03/17 20:00 06/02/17 20:59 05/08/17 12:12 1 DROPS Insulin Aspart (novoLOG ASPART) SLIDING SCALE If C... ACHS SC 05/03/17 21:00 06/02/17 20:59 05/08/17 12:15 7 UNITS Glucose (Glucose 40% Gel) 15-30 GRAMS 15 GRAMS... UD PRN PO 05/03/17 16:30 06/02/17 16:29 Glucose (Glucose Chew Tab) 4-8 Tablets 4 Tabl... UD PRN PO 05/03/17 16:30 06/02/17 16:29 Dextrose (Dextrose 50% 50ML Syringe) 25-50ML OF 50% DW IV FOR... UD PRN IV 05/03/17 16:30 06/02/17 16:29 Glucagon (Glucagon Inj) 1 mg UD PRN SQ 05/03/17 16:30 06/02/17 16:29 Tramadol HCl (Ultram Tab) 25 mg Q4H PRN PO 05/04/17 19:30 06/03/17 19:29 05/07/17 21:04 25 MG Hydromorphone HCl (Dilaudid Inj) 0.25 mg Q2H PRN IV 05/04/17 22:15 05/18/17 22:14 05/06/17 02:33 0.25 MG Al Hydrox/Mg Hydrox/Simethicone (Maalox Max Susp) 15 ml Q4H PRN PO 05/05/17 16:15 06/03/17 22:14 05/05/17 20:23 15 ML Ciprofloxacin (Ciprofloxacin Tab) 250 mg BID PO 05/06/17 09:00 05/11/17 08:59 05/08/17 09:04 250 MG Magnesium Oxide (Mag-Ox Tab) 400 mg BID PO 05/06/17 09:00 06/05/17 08:59 05/08/17 09:03 400 MG Pantoprazole Sodium (Protonix Tab) 40 mg QAM PO 05/06/17 09:00 06/05/17 08:59 05/08/17 09:03 40 MG Enteral Nutritional Formula (Boost Glucose Control) 1 can BIDM PO 05/06/17 16:45 06/05/17 16:44 05/08/17 09:01 1 CAN Calcium Carbonate (Tums Chew Tab) 500 mg QID PRN PO 05/06/17 10:15 06/05/17 10:14 Acetaminophen (Tylenol Tab) 1,000 mg Q8 PO 05/06/17 14:00 06/05/17 13:59 05/08/17 06:05 1,000 MG Enoxaparin Sodium (Lovenox Inj) 40 mg QAM SQ 05/07/17 09:00 06/06/17 08:59 05/08/17 09:02 40 MG Miscellaneous Information (Consult Glycemic Management Pharmacy) 1 ea UD N/A 05/06/17 10:41 06/05/17 10:40 Metoprolol Succinate (Toprol Xl Tab) 100 mg BID PO 05/07/17 21:00 06/02/17 20:59 05/08/17 09:02 100 MG Polyethylene (Miralax Powder Packet) 17 gm DAILY PRN PO 05/07/17 12:30 06/06/17 12:29 Insulin Glargine (Lantus Solostar Pen) 11 units BID SC 05/08/17 09:00 06/07/17 08:59 05/08/17 09:10 11 UNITS Amiodarone HCl (Cordarone Tab) 200 mg BID PO 05/08/17 21:00 06/05/17 13:59
[2017-05-09] MEDS: ACETAMINOPHEN 500 MG TAB PO SCH (05:44)
[2017-05-09 07:39] VITALS: BP 141/63; PULSE 71; TEMP 36.6; O2SAT 90
[2017-05-09] MEDS: ARTIFICIAL TEARS OP SOLN OP SCH ×4 (07:40→12:34)
[2017-05-09] MEDS: MULTIVITAMIN TAB PO SCH (07:41)
[2017-05-09] MEDS: PANTOprazole SOD 40 MG TAB PO SCH (07:41)
[2017-05-09] MEDS: ASPIRIN 81 MG ECTAB PO SCH (07:41)
[2017-05-09] MEDS: CIPROFLOXACIN 250 MG TAB PO SCH (07:41)
[2017-05-09] MEDS: MAGNESIUM OXIDE 400 MG TAB PO SCH (07:42)
[2017-05-09] MEDS: AMIODARONE 200 MG TAB PO SCH (07:42)
[2017-05-09] MEDS: BOOST GLUCOSE CONTROL PO SCH (07:43)
[2017-05-09] MEDS: METOPROLOL SUCC 50MG EXT REL TAB PO SCH (07:43)
[2017-05-09] MEDS: ENOXAPARIN 40 MG/0.4 ML SYR SQ SCH (09:13)
[2017-05-09] MEDS: INSULIN ASPART 100 UNITS/ML 3 ML PEN SC SCH ×2 (09:18→12:33)
[2017-05-09] MEDS: INSULIN GLARGINE SOLOSTAR 100 UNITS/ML 3 ML PEN SC SCH (09:19)
--- NOTE | 2017-05-09 09:48 | Cardiology Follow-Up ---
Subjective General Date of Service: May 09, 2017. Chief Complaint: PAF Pt evaluation today including: conversation w/ patient, physical exam, chart review, lab review, review of studies, review of inpatient medication list History of Present Illness Patient seen and examined in 289 Bed 2. Chart and medications reviewed. Denies chest pain, palpitations, new or worsening dyspnea. Allergies Coded Allergies: Cephalosporins (Verified Allergy, Intermediate, KEFLEX = HIVES, 05/03/17) Penicillins (Verified Allergy, Mild, HIVES, 05/03/17) JACKY Inhibitors (Verified Allergy, Unknown, Unknown, 05/03/17) Adhesives (Verified Allergy, Unknown, 0, 05/03/17) Amoxicillin (Verified Allergy, Unknown, Unknown, 05/03/17) CI Pigment Blue 63 (Verified Allergy, Unknown, Unknown, 05/03/17) Cephalexin (Verified Allergy, Unknown, Unknown, 05/03/17) Duloxetine (Verified Allergy, Unknown, Unknown, 05/03/17) Gabapentin (Verified Allergy, Unknown, Unknown, 05/03/17) Lisinopril (Verified Allergy, Unknown, Unknown, 05/03/17) Penicillin V (Verified Allergy, Unknown, ., 05/03/17) Simvastatin (Verified Allergy, Unknown, Unknown, 05/03/17) Yellow Dyes (Non-tartrazine) (Verified Allergy, Unknown, Unknown, 05/03/17) PER PATIENT, SHE EATS YELLOW CANDY Lactose. (Verified Adverse Reaction, Unknown, GI SYMPTOMS, 05/07/17) Social History Hx Tobacco Use In Past Year?: No Hx Alcohol Use - Type And Amou: Yes (rum and coke) Hx Substance Use - Type And Am: No Problem List Medical Problems: (1) Elevated lactic acid level Status: Acute (2) UTI (urinary tract infection) Status: Acute Physical Exam Vital Signs Last Vital Signs Documentation Date Time Temp Pulse Resp B/P (MAP) Pulse Ox O2 Delivery O2 Flow Rate FiO2 05/09/17 07:39 36.6 71 22 141/63 (89) 90 Room Air 05/08/17 07:34 2.0 05/05/17 08:00 30 Physical Exam Constitutional: Level of Distress: NAD Psychiatric: Mental Status: active & alert Orientation: to time, to place, to person Memory: recent memory normal, remote memory normal Head: normocephalic, atraumatic Eyes: Pupils: PERRLA Neck: pertinent finding (Normal JVP. No HJR) Lungs: Respiratory effort: no dyspnea Auscultation: breath sounds normal, no wheezing, no rales/crackles, no rhonchi Cardiovascular: Heart Auscultation: RRR, no rubs, II/ ROBERT Peripheral Pulses: Radial Pulse: normal on the left, normal on the right Dorsalis Pedis Pulse: decreased on the left, decreased on the right Abdomen: Bowel Sounds: normal Inspection & Palpation: soft Liver: non-tender Extremities: no cyanosis, no edema, no clubbing Neurologic: Cranial Nerves: grossly intact Assessment and Plan Assessment and Plan Symptomatic paroxysmal atrial fibrillation (and possible atrial flutter) with a rapid ventricular response. CHADS2 Score of 3 out of 6. Moderate to severe senile calcific aortic valve stenosis Preserved left ventricular systolic function History of hypertension with intermittent hypotension observed throughout her hospitalization. Highest SBP reading this admission was 141 (thus far). Patient with arthritis, ambulatory dysfunction, recent mechanical fall with resultant scalp laceration, and hematuria/bladder lesion. RECOMMENDATIONS/PLAN: Continue Toprol XL at 100 mg twice a day (dose reduced this admission) Continue amiodarone at 200 mg twice a day, likely decreasing to once a day in ~ 1 month (new medication this admission) Anticoagulation risks are currently felt to be greater than the benefit. Losartan discontinued secondary to hypotension, aortic stenosis this admission Digoxin and PRN Atenolol discontinued this admission. Cardiology follow-up in [place] on 05/15/2017 @ 11:45 PM Will sign off. Please call if any questions or concerns. Laboratory Results Last 24 Hours Test 05/08/17 11:01 05/08/17 15:57 05/08/17 20:01 05/09/17 07:17 Bedside Glucose 177 mg/dl 103 mg/dl 139 mg/dl 122 mg/dl
[2017-05-09] MEDS ORDERED: TPRSR50 PO (11:33)
[2017-05-09] MEDS ORDERED: CRD200 PO (11:33)
[2017-05-09] MEDS ORDERED: PRT40 PO (11:33)
[2017-05-09] MEDS ORDERED: CIPR250T3 PO (11:33)
[2017-05-09] MEDS ORDERED: ACET-24 PO (11:33)
[2017-05-09] MEDS ORDERED: ULT50X PO (11:33)
--- NOTE | 2017-05-09 11:39 | Discharge Instructions ---
Discharge Instructions Date of Service May 09, 2017. Admission Reason for Admission: Elevated Lactic Acid Level, Uti Discharge Discharge Diagnosis / Problem: UTI, s/p [facility] Discharge Goals Goal(s): Prevent Disease Progression Activity Recommendations Activity Limitations: per Instructions/Follow-up section . Instructions / Follow-Up Instructions / Follow-Up Please take all medications as instructed, noting several changes listed. You have been switched to Protonix for control of your heartburn. It is important to take this medication every day. This is not a medication to take as needed for it to be effective. You have a follow-up appointment with [facility] Cardiology at the [place] location on 05/15 @ 1145am. It is recommended that you follow-up with Dr. Cosme within one week of discharge from rehab as a hospital follow-up. It will be important to re- evaluate the efficacy of the new medications you have been put on, as well as addressing any further issues with pain or restrictions with your left knee. Janes will need to be removed from your incision site within 7-10 days of being placed. A provider or approved staff member at [facility] may help with this. It is recommended that you follow-up with Urology as an outpatient for consideration of a cystoscopy based on the bladder wall findings on imaging while you were hospitalized. It was a pleasure taking care of you! Call if you have any questions or problems. You can reach a [facility] hospitalist on duty at [facility] 24 hours a day by calling [phone]. Take care of yourself. Alma Estevez, [facility] Hospitalist Current Hospital Diet Patient's current hospital diet: Diabetes Type 2 Diet, Low Lactose Diet Discharge Diet Recommended Diet: Diabetes Type 2 Diet, Low Lactose Diet Procedures Procedures Performed: None. Pending Studies Studies pending at discharge: no Laboratory Results Hemoglobin A1c Test 05/04/17 04:05 Range/Units Estimated Average Glucose 180 mg/dl Hemoglobin A1c 7.9 H 4.5-5.6 % Medical Emergencies . Who to Call and When: Medical Emergencies: If at any time you feel your situation is an emergency, please call 911 immediately. . Non-Emergent Contact Non-Emergency issues call your: Primary Care Provider . . "Provider Documentation" section prepared by Alma Estevez. . VTE Core Measure Inpt VTE Proph given/why not?: Enoxaparin (Lovenox)SQ
--- NOTE | 2017-05-09 11:44 | Discharge Summary ---
Discharge Summary Date of Service May 09, 2017. Discharge Summary Admission Date: May 03, 2017 at 16:32 Discharge Date: May 09, 2017 Discharge Disposition: long term facility Principal Diagnosis: s/p mechanical fall E coli UTI Afib with RVR Aortic stenosis DMII Scalp laceration s/p fall L knee pain GERD Procedures: None. Vaccinations: None. Consultations: Urology- Dr. Jin. Sarika Pending Studies/Follow-Up: see instructions below. Medication Reconciliation New Medications: Acetaminophen (Sb Non-Aspirin Extra Stre) 500 Mg Tab 1000 MG PO Q8 for 7 Days, #42 TAB Amiodarone HCl (Amiodarone HCl) 200 Mg Tab 200 MG PO BID for 30 Days, #60 TAB 1 Refill Ciprofloxacin (Cipro) 250 Mg Tab 250 MG PO BID for 1 Day, #1 TAB Last dose to be given at 2100 on 05/09 Metoprolol Succinate (Metoprolol Succinate ER) 50 Mg Tabcr 100 MG PO BID for 30 Days, #120 TAB 1 Refill Pantoprazole (Pantoprazole Sodium) 40 Mg Tab 40 MG PO QAM for 30 Days, #30 TAB 3 Refills Tramadol HCl (Tramadol HCl) 50 Mg Tab 50 MG PO Q6H PRN for Pain for 7 Days, #28 TAB Continued Medications: Artificial Tear Solution (Artificial Tears) 1 Negar Negar 1 DROPS OP QID, ML Ascorbic Acid (Ascorbic Acid) 500 Mg Tab 500 MG PO DAILY, TAB Aspirin (Aspirin Ec) 81 Mg Tab 81 MG PO DAILY Cholecalciferol (Vitamin D3) 1,000 Unit Tab 1 TAB PO DAILY, TAB Cranberry (Vaccinium Macrocarp (Cranberry) 500 Mg Cap 1 CAP PO TID Cyclosporine (Ophth) (Restasis) 0.05 % Emu 1 DROP OPB BID, BTL Diphenoxylate/Atropine (Lomotil) Tab 1 TAB PO BID PRN for Diarrhea, TAB Estrogens, Conjugated (Premarin) 14 Appln/30 Gm Cr 0.625 MG TOP HS Multivitamin (Multivitamin) Tab 1 TAB PO DAILY, TAB Phenazopyridine HCl (Phenazopyridine HCl) 200 Mg Tab 1 TAB PO TID NEEDED Saxagliptin-Metformin HCl (Kombiglyze Xr) 1 Tab Tab 1 TAB PO QPM (ONGLYZA BRAND) [Cheratussin Ac] () 10 ML PO Q4H PRN for Cough Discontinued Medications: Atenolol (Tenormin) 25 Mg Tab 25 MG PO BID, TAB NEEDED FOR HEART PALPITATIONS Digoxin (Digoxin) 0.25 Mg Tab 1 TAB PO HS Losartan Potassium (Cozaar) 50 Mg Tab 50 MG PO DAILY, TAB Metoprolol Succ (Toprol Xl) (Toprol-Xl ) 100 Mg Tabcr 1.5 TAB PO BID, TAB Ranitidine Hcl (Zantac) 150 Mg Tab 150 MG PO HS, TAB Sulfa/Trimethoprim (Bactrim Ds 800MG/160MG) Tab 1 TAB PO BID for 7 Days, #14 TAB ENDS 05-09-17 Admission Information HPI (per Admitting provider): This is an 87 year old female with a PMH of HTN, valvular heart disease, Sjogren 's syndrome, DM2, osteoarthritis, and a 6 week history of recurrent UTI symptoms - presents secondary to a fall. Patient states that she is at [facility] - she attempted to get up last evening due to urinary frequency. States that her knees felt weak and painful and because of that, she fell and hit the back of her head. She states that she did not want to bother anyone and did not get up right away. She is unsure of how long she was laying down on the ground for. When she was found she had a laceration on the back of her head and she had L shoulder pain. She was sent to the ER for further evaluation. Upon presentation, she had no acute fractures. Laceration on the scalp noted. She has some trouble with L shoulder movement due to pain. Denies b/l knee pain currently. Main complaint currently is urinary frequency and dysuria x 6weeks. Physical Exam (per Admitting): General Appearance: no apparent distress Head: normocephalic, + pertinent finding (+posterior scalp laceration) Eyes: normal inspection, PERRL, EOMI ENT: normal ENT inspection, hearing grossly normal Neck: supple Respiratory/Chest: chest non-tender, lungs clear, normal breath sounds, no respiratory distress, no accessory muscle use Cardiovascular: regular rate, rhythm, + systolic murmur (+4/6 systolic ejection murmur) Abdomen/GI: normal bowel sounds, non tender, soft Back: normal inspection, no CVA tenderness, no muscle spasm, normal range of motion Extremities/Musculoskelatal: normal inspection, no calf tenderness, normal capillary refill, no pedal edema, normal range of motion Neurologic/Psych: internet e commerce specialist II-XII nml as tested, no motor/sensory deficits, alert , normal mood/affect, oriented x 3 Skin: normal color Lymphatic: no adenopathy Hospital Course 87 yo F who suffered a fall and laid in her bathroom overnight presented to the ER and found to have a UTI (with reported UTI symptoms for 6 weeks prior) as well as knee pain. Xrays were performed and no acute fracture or dislocation was present. Aztreonam and Vancomycin were started. During her presumed mechanical fall, she had hit her head. She had CT scans of her head, chest, abdomen, pelvis and her C-spine all negative for acute findings. She did have bladder wall thickening on CT which will require outpatient Urology follow-up for consideration of cystoscopy. Urology did see her as an inpatient. WBC was 12 and lactate was 2/2 with lactate thought elevated 2/2 the prolonged time she was lying on the floor overnight. CPK was unremarkable. IVF hydration was started. She was otherwise hemodynamically stable. A linear abrasion was found on her occipital scalp wtih persistent oozing and was thus stapled fro additional hemostasis with good effect. She was admitted to the hospitalist service. For the next few days she remained bedridden because of soreness in her upper body and back as well as pain and swelling in her L knee. Scheduled Tylenol was started and after about 24 hours, she started to recover and perform with PT staff. She continued to ambulate and feel well the following day. She did have some noted atrial fibrillation with RVR which was symptomatic in the setting of hypokalemia and hypomagnesemia shortly after admission. Electrolytes were supplemented and she was given IV digoxin with conversion back to sinus rhythm. Echocardiography this admission revealed a mos -severe aortic stenosis with normal LV systolic function and mild concentric LVH. She was known to have a history of paroxysmal tachypalpitations suggestive of SVT and PAF. Cardiology was consulted and medications were adjusted to include starting amiodarone, decreasing Torpol XL, losartan discontinued 2/2 hypotension, and discontinuation of digoxin and PRN atenolol. On day of discharge she was mentating at baseline and was ambulating well. She was hemodynamically stable and was tolerating PO, Her L knee was improved regariding TTP and increased ROM and there was no erythema or effusion present. Her physical exam was otherwise unremarkable. She was sent to SNF for rehab in stable condition with close PCP, Cardiology and Urology follow-up. Total time spent on discharge = 60 minutes This includes examination of the patient, discharge planning, medication reconciliation, and communication with other providers. Discharge Instructions [facility] [address] [place] [address] Discharge Medical Patient Name: Mariel Scanlon Unit Number: [id number] Date of : 1930 Patient Status: Admitted Inpatient Attending Doctor: Alma Estevez DO DI: Medical v4 Discharge Instructions Date of Service May 09, 2017. Admission Reason for Admission: Elevated Lactic Acid Level, Uti Discharge Discharge Diagnosis / Problem: UTI, s/p mech fall Discharge Goals Goal(s): Prevent Disease Progression Activity Recommendations Activity Limitations: per Instructions/Follow-up section . Instructions / Follow-Up Instructions / Follow-Up Please take all medications as instructed, noting several changes listed. You have been switched to Protonix for control of your heartburn. It is important to take this medication every day. This is not a medication to take as needed for it to be effective. You have a follow-up appointment with [facility] Cardiology at the [place] location on 05/15 @ 1145am. It is recommended that you follow-up with Dr. Cosme within one week of discharge from rehab as a hospital follow-up. It will be important to re- evaluate the efficacy of the new medications you have been put on, as well as addressing any further issues with pain or restrictions with your left knee. [place] will need to be removed from your incision site within 7-10 days of being placed. A provider or approved staff member at [facility] may help with this. It is recommended that you follow-up with Urology as an outpatient for consideration of a cystoscopy based on the bladder wall findings on imaging while you were hospitalized. It was a pleasure taking care of you! Call if you have any questions or problems. You can reach a [facility] hospitalist on duty at [facility] 24 hours a day by calling [phone]. Take care of yourself. Alma Estevez DO [facility] Hospitalist Current Hospital Diet Patient's current hospital diet: Diabetes Type 2 Diet, Low Lactose Diet Discharge Diet Recommended Diet: Diabetes Type 2 Diet, Low Lactose Diet Procedures Procedures Performed: None. Pending Studies Studies pending at discharge: no Laboratory Results Hemoglobin A1c Test 05/04/17 04:05 Range/Units Estimated Average Glucose 180 mg/dl Hemoglobin A1c 7.9 H 4.5-5.6 % Medical Emergencies . Who to Call and When: Medical Emergencies: If at any time you feel your situation is an emergency, please call 911 immediately. . Non-Emergent Contact Non-Emergency issues call your: Primary Care Provider . . "Provider Documentation" section prepared by Alma Estevez. . VTE Core Measure Inpt VTE Proph given/why not?: Enoxaparin (Lovenox)SQ Additional Copies To Flores Cosme M.D.
[2017-05-09 12:11] VITALS: BP 141/63; PULSE 71; TEMP 36.6; O2SAT 90
== END 2017-05-09 13:40 | DRG 690 ==
LOC: EDBD 09:48 → C.EDB 09:49 → C.MS4W 16:32 → EDBEDREQ 17:15 → ENRESERV 17:25 → C.2E 05-04 17:40 → ENRESERV 05-08 15:57 → C.MED 05-08 16:36
PROVIDERS: ADMIT Family Medicine; ATTEND Hospitalist
PROC: 0HQ0XZZ Repair Scalp Skin, External Approach (ICD-10-PCS; principal; 2017-05-03)
DX: N39.0 Urinary tract infection, site not specified (principal); I48.92 Unspecified atrial flutter; B96.20 Unspecified Escherichia coli [E. coli] as the cause of diseases classified elsewhere; B95.4 Other streptococcus as the cause of diseases classified elsewhere; S01.01XA Laceration without foreign body of scalp, initial encounter; M25.512 Pain in left shoulder; N13.39 Other hydronephrosis; N32.9 Bladder disorder, unspecified; I35.0 Nonrheumatic aortic (valve) stenosis; M25.561 Pain in right knee; M25.562 Pain in left knee; I48.0 Paroxysmal atrial fibrillation; E87.6 Hypokalemia; E83.42 Hypomagnesemia; E11.9 Type 2 diabetes mellitus without complications; I11.9 Hypertensive heart disease without heart failure; E78.5 Hyperlipidemia, unspecified; K21.9 Gastro-esophageal reflux disease without esophagitis; M81.0 Age-related osteoporosis without current pathological fracture; Z79.899 Other long term (current) drug therapy; Z79.84 Long term (current) use of oral hypoglycemic drugs; Z79.82 Long term (current) use of aspirin; Z87.440 Personal history of urinary (tract) infections; Z86.14 Personal history of Methicillin resistant Staphylococcus aureus infection; W18.39XA Other fall on same level, initial encounter; Y92.192 Bathroom in other specified residential institution as the place of occurrence of the external cause; Y93.E8 Activity, other personal hygiene; Y99.8 Other external cause status

== ENCOUNTER 2017-05-12 16:02 | Inpatient (IN) | payer OTHER, MEDICARE ==
[~2017-05-12] VITALS: Ht 149.9 cm; Wt 56.8 kg
[~2017-05-12 16:02] MED LIST changes: +ACET-24 PO; +ARTISOL12 OP; -ASCA500 PO; +ASCO500T16 PO; -ASPI325T4 PO; +ASPI81TA28 PO; +CHERATUSSIN AC PO; +CHOL1000 PO; -CHOL100027 PO; +CIPR250T3 PO; -CITRACAL PO; +CRAN500C2 PO; -CRANPOW PO; +CRD200 PO; +CYCL0.052 OPB; -CZR50 PO; +DIPH-416 PO; -FURO20TA PO; -HYDCR1 TOP; -HYDR2.5T PO; -KOMBIGLYZE PO; -METO100T44 PO; -OMEP20CA9 PO; +PHEN-1043 PO; +PRMVC VAGRING; +PRT40 PO; +SAXA1TAB5 PO; -SULF800T23 PO; +TPRSR50 PO; +ULT50X PO; -ZNTT/150 PO; -[UNRECOGNIZED DRUG - OTHER] PO; -[UNRECOGNIZED DRUG - OTHER] TOP
[2017-05-12] MEDS ORDERED: METOPROLOL TARTRATE 1 MG/ML VIAL IV STA (16:22)
--- NOTE | 2017-05-12 16:43 | EMERGENCY ROOM VISIT NOTE ---
History Report prepared by Marcelino: Antony Constantino Under the Supervision of: Dr. Cristian Calabrese M.D. First contact with patient: 16:15 Chief Complaint: TACHYCARDIA Stated Complaint: FAST HEART RATE 125+, SWELLING IN LEGS, SOB History of Present Illness The patient is an 87 year old female who presents to the Emergency Room with complaints of worsening leg swelling beginning 3 days ago. Per daughter, the patient had a recent urinary infection. She notes that the patient fell one night while she was getting up to go to the bathroom. She reports that the patient was admitted to the hospital following the fall, and was discharged 3 days ago. The patient states that she noticed her legs swelling the night that she was discharged, and that the swelling has been worsening since. She also complains of SOB and heart racing, and notes that it feels like "something is pressing up against her." Per daughter, the patient saw a electro mechanical designer, Mr. Hickman, while she was in the hospital, and was given medication with improvement of her atrial fibrillation symptoms. She reports that the patient was seen by the urologist today, and was told to come to the emergency department. She states that the patient was put on amiodarone after being discharged from the hospital, which is a new medication for the patient. The patient states that she has a history of atrial fibrillation but does not take any blood thinners or water pills. She reports that she gained 15 pounds of fluid. Source of History: patient, family Onset: 3 days ago Position: leg (bilateral) Quality: other (edema) Timing: worsening Associated Symptoms: + SOB ("someone is pressing up against her") Note: She also complains of heart racing. Review of Systems See HPI for pertinent positives & negatives. A total of 10 systems reviewed and were otherwise negative. Past Medical & Surgical Medical Problems: (1) Atrial fibrillation (2) Diab Kia Wo Compl, Type Ii Or Unspec Type, Not Uncntrld (3) Hyperlipidemia Nec/Nos (4) Hypertension Nos (5) Methicillin Resistant Staphylococcus Aureus Elsewhere/Nos (6) Osteoarthros Nos-Unspec (7) Osteoporosis Nos (8) Urin Tract Infection Nos Family History No pertinent family history stated. Social History Smoking Status: Never Smoker Alcohol Use: none Marital Status: Housing Status: assisted living Occupation Status: retired Current/Historical Medications Scheduled Amiodarone Hcl (Cordarone), 200 MG PO BID Artificial Tear Solution (Artificial Tears), 1 DROPS OP QID Ascorbic Acid (Ascorbic Acid), 500 MG PO DAILY Aspirin (Aspirin Ec), 81 MG PO DAILY Cholecalciferol (Vitamin D3), 1,000 UNITS PO DAILY Cranberry (Vaccinium Macrocarp (Cranberry), 500 MG PO TID Cyclosporine (Ophth) (Restasis), 1 DROP OPB BID Estrogens, Conjugated (Premarin), 0.625 MG VAGRING HS Metoprolol Succinate (Metoprolol Succinate ER), 100 MG PO BID Multivitamin (Multivitamin), 1 TAB PO DAILY Pantoprazole (Protonix), 40 MG PO DAILY Phenazopyridine HCl (Phenazopyridine HCl), 1 TAB PO TID Saxagliptin-Metformin HCl (Kombiglyze Xr), 1 TAB PO QPM [Onglyza], 5 MG PO AMPM Scheduled PRN Acetaminophen (Tylenol), 500 MG PO Q8 PRN for Pain or Fever Diphenoxylate/Atropine (Lomotil), 1 TAB PO BID PRN for Diarrhea Tramadol HCl (Tramadol HCl), 50 MG PO Q6H PRN for Pain [Cheratussin Ac], 10 ML PO Q4H PRN for Cough Allergies Coded Allergies: Cephalosporins (Verified Allergy, Intermediate, KEFLEX = HIVES, 05/03/17) Penicillins (Verified Allergy, Mild, HIVES, 05/03/17) JACKY Inhibitors (Verified Allergy, Unknown, Unknown, 05/03/17) Adhesives (Verified Allergy, Unknown, 0, 05/03/17) Amoxicillin (Verified Allergy, Unknown, Unknown, 05/03/17) CI Pigment Blue 63 (Verified Allergy, Unknown, Unknown, 05/03/17) Cephalexin (Verified Allergy, Unknown, Unknown, 05/03/17) Duloxetine (Verified Allergy, Unknown, Unknown, 05/03/17) Gabapentin (Verified Allergy, Unknown, Unknown, 05/03/17) Lisinopril (Verified Allergy, Unknown, Unknown, 05/03/17) Penicillin V (Verified Allergy, Unknown, ., 05/03/17) Simvastatin (Verified Allergy, Unknown, Unknown, 05/03/17) Yellow Dyes (Non-tartrazine) (Verified Allergy, Unknown, Unknown, 05/03/17) PER PATIENT, SHE EATS YELLOW CANDY Lactose. (Verified Adverse Reaction, Unknown, GI SYMPTOMS, 05/07/17) Physical Exam Vital Signs Date Time Temp Pulse Resp B/P (MAP) Pulse Ox O2 Delivery O2 Flow Rate FiO2 05/12/17 17:40 65 140/63 94 Room Air 05/12/17 17:31 64 24 93 05/12/17 17:26 63 18 119/64 95 05/12/17 17:02 63 17 92 05/12/17 16:39 66 05/12/17 16:32 95 Room Air 05/12/17 16:32 66 18 124/65 95 Room Air 05/12/17 16:31 124/65 05/12/17 16:15 94 Room Air 05/12/17 16:10 36.4 116 18 120/60 94 Room Air Physical Exam GENERAL: Patient is in no acute distress. HEENT: No acute trauma, normocephalic atraumatic, mucous membranes moist, no nasal congestion, no scleral icterus. NECK: No stridor, no adenopathy, no meningismus, trachea is midline. LUNGS: Scattered crackles throughout both lung ram, no wheezing, breath sounds equal. HEART: 2/6 systolic murmur, regular rhythm, normal rate. ABDOMEN: Soft, nontender, bowel sounds positive, no hernias, no peritonitis. EXTREMITIES: No cyanosis, full range of motion of all the joints without pain or difficulty, no signs for acute trauma. Mild bilateral pedal edema. NEUROLOGIC: Oriented x 3, no acute motor or sensory deficits, no focal weakness. SKIN: No rash, no jaundice, no diaphoresis. Medical Decision & Procedures ER Provider Diagnostic Interpretation: Radiology results as stated below per my review and radiologist interpretation: CHEST ONE VIEW PORTABLE FINDINGS: Atherosclerosis of aortic arch. Cardiac silhouette mildly enlarged, unchanged. Stable slight interval decrease in pulmonary vascular prominence. However, interval increase in bibasilar opacities and bilateral small pleural effusions. No pneumothorax. Osseous structures normal. Hiatal hernia may be present. IMPRESSION: 1. Cardiomegaly with increased bibasilar opacities and small bilateral pleural effusions. This is concerning for developing pulmonary edema or aspiration. Electronically signed by: Carlos A Acevedo M.D. 05/12/2017 5:17 PM Laboratory Results 05/12/17 16:45 Red Blood Count 4.00, Mean Corpuscular Volume 87.8, Mean Corpuscular Hemoglobin 28.8, Mean Corpuscular Hemoglobin Concent 32.8, Mean Platelet Volume 8.6, Neutrophils (%) (Auto) 68.1, Lymphocytes (%) (Auto) 16.9, Monocytes (%) (Auto) 9.7, Eosinophils (%) (Auto) 3.5, Basophils (%) (Auto) 0.2, Neutrophils # (Auto) 8.27, Lymphocytes # (Auto) 2.05, Monocytes # (Auto) 1.18, Eosinophils # (Auto) 0.42, Basophils # (Auto) 0.03 05/12/17 16:45 Test 05/12/17 16:45 05/12/17 18:10 White Blood Count 12.14 K/uL (4.8-10.8) Red Blood Count 4.00 M/uL (4.2-5.4) Hemoglobin 11.5 g/dL (12.0-16.0) Hematocrit 35.1 % (37-47) Mean Corpuscular Volume 87.8 fL (80-100) Mean Corpuscular Hemoglobin 28.8 pg (25-34) Mean Corpuscular Hemoglobin Concent 32.8 g/dl (32-36) Platelet Count 321 K/uL (130-400) Mean Platelet Volume 8.6 fL (7.4-10.4) Neutrophils (%) (Auto) 68.1 % Lymphocytes (%) (Auto) 16.9 % Monocytes (%) (Auto) 9.7 % Eosinophils (%) (Auto) 3.5 % Basophils (%) (Auto) 0.2 % Neutrophils # (Auto) 8.27 K/uL (1.4-6.5) Lymphocytes # (Auto) 2.05 K/uL (1.2-3.4) Monocytes # (Auto) 1.18 K/uL (0.11-0.59) Eosinophils # (Auto) 0.42 K/uL (0-0.5) Basophils # (Auto) 0.03 K/uL (0-0.2) RDW Standard Deviation 47.3 fL (36.4-46.3) RDW Coefficient of Variation 15.0 % (11.5-14.5) Immature Granulocyte % (Auto) 1.6 % Immature Granulocyte # (Auto) 0.19 K/uL (0.00-0.02) Prothrombin Time 10.5 SECONDS (9.0-12.0) Prothromb Time International Ratio 1.0 (0.9-1.1) Activated Partial Thromboplast Time 25.3 SECONDS (21.0-31.0) Partial Thromboplastin Ratio 1.0 Anion Gap 8.0 mmol/L (3-11) Est Creatinine Clear Calc Drug Dose 51.8 ml/min Estimated GFR () 94.7 Estimated GFR (Non- 81.7 BUN/Creatinine Ratio 20.3 (10-20) Calcium Level 8.4 mg/dl (8.5-10.1) Magnesium Level 1.8 mg/dl (1.8-2.4) Total Bilirubin 0.7 mg/dl (0.2-1) Aspartate Amino Transf (AST/SGOT) 48 U/L (15-37) Alanine Aminotransferase (ALT/SGPT) 38 U/L (12-78) Alkaline Phosphatase 91 U/L (45-117) Troponin I < 0.015 ng/ml (0-0.045) Pro-B-Type Natriuretic Peptide 3612 pg/ml (0-1800) Total Protein 6.1 gm/dl (6.4-8.2) Albumin 2.6 gm/dl (3.4-5.0) Globulin 3.5 gm/dl (2.5-4.0) Albumin/Globulin Ratio 0.7 (0.9-2) Chemistry Specimen Hemolysis Laboratory results reviewed by me. Medications Administered Medications (Trade) Dose Ordered Sig/Zoë Route Start Time Stop Time Status Last Admin Dose Admin Furosemide (Lasix Inj) 40 mg NOW STAT IV 05/12/17 17:29 05/12/17 17:30 DC 05/12/17 17:42 40 MG ECG Indication: tachycardia Rate (beats per minute): 109 Rhythm: other (rapid afib) Findings: no acute ischemic change, no ectopy, other (Nonspecific T wave change diffusely ) ED Course 1618: The patient was evaluated in room C6. A complete history and physical exam was performed. 1631: I spoke to Dr. Raya - Cardiology, [facility]. He suggests that the patient stay in the hospital while her medication is changed. 1729: Furosemide 40mg IV 1742: Upon reexamination the patient is stable. I discussed results and treatment plan with the patient and her daughter. She and her family verbalizes agreement and understanding. I spoke with Dr. Patel [facility]. We discussed the patient's results and findings. The patient will be evaluated by Dr. Patel for further management. Medical Decision Differential diagnoses include: rapid afib, SVT, dehydration, electrolyte imbalance, renal failure, and CHF. There is a mild leukocytosis, this could be consistent with infection or the stress of her situation. No worrisome anemia. No significant electrolyte abnormality, kidney failure or hepatitis. There is no coagulopathy. EKG shows a rapid A. fib, no acute ischemia. Cardiac enzyme testing 1 is not consistent with acute cardiac injury. Chest x-ray shows some mild CHF. BNP is elevated consistent with fluid overload. The patient presents with leg edema, palpitations and some mild chest tightness/ shortness of breath. She was in A. fib upon arrival but spontaneously converted to a sinus rhythm during the time of my evaluation. The patient received IV Lasix. She has remained in a sinus rhythm. I did speak with Dr. Raya of cardiology, he recommended a hospital stay. I spoke with the on-call hospitalist and case management. The patient is aware of all her findings. Medication Reconcilliation Current Medication List: was personally reviewed by me Blood Pressure Screening Patient's blood pressure: Normal blood pressure Blood pressure disposition: Did not require urgent referral Consults Time Called: 1730 Consulting Physician: Dr. Patel - [facility] Returned Call: [phone] Discussed the patient's case. The patient will be evaluated for further management. Impression Primary Impression: Rapid atrial fibrillation Additional Impressions: Pedal edema CHF (congestive heart failure) Scribe Attestation The scribe's documentation has been prepared under my direction and personally reviewed by me in its entirety. I confirm that the note above accurately reflects all work, treatment, procedures, and medical decision making performed by me. Departure Information Dispostion Being Evaluated By Hospitalist Referrals Flores Cosme M.D. (PCP) Patient Instructions My [facility] Problem Qualifiers
[2017-05-12 17:00] LABS: BASO % 0.2 %; BASO ABS # 0.03 K/uL (0-0.2); COMPLETE YES; EOS % 3.5 %; HEMATOCRIT 35.1 % (37-47); IG% 1.6 %; LYMPH % 16.9 %; LYMPH ABS # 2.05 K/uL (1.2-3.4); MEAN CELL VOLUME 87.8 fL (80-100); MEAN CORPUSCULAR HEMOGLOBIN 28.8 pg (25-34); MEAN CORPUSCULAR HGB CONC 32.8 g/dl (32-36); MEAN PLATELET VOLUME 8.6 fL (7.4-10.4); MONO % 9.7 %; NEUT % 68.1 %; PLATELET COUNT 321 K/uL (130-400); WHITE BLOOD COUNT 12.14 K/uL (4.8-10.8)
[2017-05-12 17:11] LABS: PROTHROMBIN TIME (PATIENT) 10.5 SECONDS (9.0-12.0)
--- NOTE | 2017-05-12 17:18 | DIAGNOSTIC IMAGING REPORT ---
CHEST ONE VIEW PORTABLE CLINICAL HISTORY: 87 years-old Female presenting with EVALUATE RESPIRATORY DISTRESS.DYSPNEA. TECHNIQUE: Portable upright AP view of the chest was obtained. COMPARISON: 05/04/2017. FINDINGS: Atherosclerosis of aortic arch. Cardiac silhouette mildly enlarged, unchanged. Stable slight interval decrease in pulmonary vascular prominence. However, interval increase in bibasilar opacities and bilateral small pleural effusions. No pneumothorax. Osseous structures normal. Hiatal hernia may be present. IMPRESSION: 1. Cardiomegaly with increased bibasilar opacities and small bilateral pleural effusions. This is concerning for developing pulmonary edema or aspiration. Electronically signed by: Carlos A Acevedo M.D. 05/12/2017 5:17 PM Dictated Date/Time: 05/12/2017 5:15 PM
[2017-05-12 17:24] LABS: BLOOD UREA NITROGEN 12 mg/dl (7-18); CREATININE 0.58 mg/dl (0.60-1.20); GLUCOSE 177 mg/dl (70-99)
[2017-05-12 17:25] LABS: ALT/SGPT 38 U/L (12-78); BUN/CREATININE RATIO 20.3 (10-20); CALCIUM 8.4 mg/dl (8.5-10.1); CARBON DIOXIDE 27 mmol/L (21-32); CHLORIDE 102 mmol/L (98-107); MAGNESIUM 1.8 mg/dl (1.8-2.4); POTASSIUM 4.1 mmol/L (3.5-5.1); SODIUM 137 mmol/L (136-145)
[2017-05-12 17:28] LABS: ALB/GLOB RATIO 0.7 (0.9-2); ALKALINE PHOSPHATASE 91 U/L (45-117); AST/SGOT 48 U/L (15-37)
[2017-05-12] MEDS ORDERED: FUROSEMIDE 40 MG/4 ML VIAL IV STA (17:29)
[2017-05-12] MEDS ORDERED: AMIO200T4 PO (17:53)
[2017-05-12] MEDS ORDERED: METO100T44 PO (18:04)
[2017-05-12] MEDS ORDERED: TPRSR/100 PO (18:04)
[2017-05-12] MEDS ORDERED: ONGLYZA PO (18:09)
[2017-05-12] MEDS ORDERED: PANT40TA PO (18:11)
[2017-05-12] MEDS ORDERED: ACET-1256 PO (18:16)
[2017-05-12] MEDS ORDERED: TRAM-10 PO (18:19)
[2017-05-12 18:22] LABS: URINE APPEARANCE CLEAR (CLEAR); URINE BILIRUBIN NEG (NEG); URINE COLOR YELLOW; URINE EPITHELIAL CELL AUTO 20-30 /lpf (0-5); URINE NITRITE NEG (NEG); URINE PH 8.5 (4.5-7.5); URINE SPECIFIC GRAVITY 1.008 (1.000-1.030); UROBILINOGEN NEG (NEG); ZZUR CULT IF INDIC CLEAN CATCH NO
[2017-05-12 18:24] LABS: MANUAL MICROSCOPIC REQUIRED? NO; REVIEW REQ? NO
[2017-05-12] MEDS ORDERED: GLUCOSE 10 TABS/TUBE PO PRN (20:30)
[2017-05-12] MEDS ORDERED: GLUCOSE 40% GEL 15 GM TUBE PO PRN (20:30)
[2017-05-12] MEDS ORDERED: DEXTROSE 50% 50 ML SYR IV PRN (20:30)
[2017-05-12] MEDS ORDERED: TRAMADOL HCL 50 MG TAB PO PRN (20:30)
[2017-05-12] MEDS ORDERED: GLUCAGON FOR INJ 1 MG VIAL SQ PRN (20:30)
[2017-05-12 21:00] VITALS: BP 131/60; PULSE 63; TEMP 36.4; O2SAT 95; Ht 149.9 cm; Wt 56.8 kg
[2017-05-12] MEDS: INSULIN ASPART 100 UNITS/ML 3 ML PEN SC SCH (21:00)
--- NOTE | 2017-05-12 21:13 | History and Physical ---
History & Physical Date & Time of Service: May 12, 2017 at 20:00 Chief Complaint: Acute Exacerbation Of Congestive Heart Failure Primary Care Physician: Flores Cosme M.D. History of Present Illness Source: patient, family (son at bedside) This is an 87yo F [facility] resident with a PMH of paroxysmal A Fib, DM II, HTN , osteoarthritis and osteoporosis who presents with palpitations x 3 days. Patient was recently admitted from May.03- after patient fell 2/2 UTI. Patient sustained an occipital lac that was stapled but CT head was unremarkable. During admission, had episodes of symptomatic A Fib with RVR 2/2 electrolyte abnormalities. An echo was performed which showed moderate-severe aortic stenosis, normal LV systolic function and mild concentric LVH. FAROOQ Hickman evaluated patient and the following medication adjustments were made: amiodarone was initiated, Toprol XL was decreased, losartan was discontinued (2/ 2 hypotension), and digoxin and PRN atenolol were discontinued. Additionally, patient was found to have bladder wall thickening on CT, for which an out- patient cystoscopy was recommended. Patient was discharged to [facility] for rehab with scheduled follow-up with [facility] urology and [facility] cardiology. Over the last few days, patient endorses intermittent bouts of palpitations with associated SOB. Has also noticed a significant increase in LE swelling over the past few days with a reported 12 pound weight gain. Denies increased fluid or salt in her diet. Denies a history of CHF and does not take PO lasix. Has been taking amiodarone and metoprolol as per discharge instructions but was also given PRN atenolol at [facility] during the last 3 days without resolution of palpitations (which was discontinued at discharge per cardio note). Patient was at out-patient urology appt for cystoscopy today when she was found to be in symptomatic A Fib with a HR of 125. Was sent to ED for further evaluation. Currently, patient denies any lightheadedness, headache, fever, chills, CP, palpitations, abd pain, nausea, vomiting, dysuria. 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 Social History Smoking Status: Never Smoker Alcohol Use: none Marital Status: Housing status: half-way (in SNF rehab currently but resided in assisted living before ) Occupational Status: retired Immunizations History of Influenza Vaccine: Yes Influenza Vaccine Date: Mar 07, 2009 History of Tetanus Vaccine?: Unknown History of Pneumococcal: Yes History of Hepatitis B Vaccine: No Multi-Drug Resistant Organisms History of MDRO: Yes Type of MDRO: MRSA Allergies Coded Allergies: Cephalosporins (Verified Allergy, Intermediate, KEFLEX = HIVES, 05/03/17) Penicillins (Verified Allergy, Mild, HIVES, 05/03/17) JACKY Inhibitors (Verified Allergy, Unknown, Unknown, 05/03/17) Adhesives (Verified Allergy, Unknown, 0, 05/03/17) Amoxicillin (Verified Allergy, Unknown, Unknown, 05/03/17) CI Pigment Blue 63 (Verified Allergy, Unknown, Unknown, 05/03/17) Cephalexin (Verified Allergy, Unknown, Unknown, 05/03/17) Duloxetine (Verified Allergy, Unknown, Unknown, 05/03/17) Gabapentin (Verified Allergy, Unknown, Unknown, 05/03/17) Lisinopril (Verified Allergy, Unknown, Unknown, 05/03/17) Penicillin V (Verified Allergy, Unknown, ., 05/03/17) Simvastatin (Verified Allergy, Unknown, Unknown, 05/03/17) Yellow Dyes (Non-tartrazine) (Verified Allergy, Unknown, Unknown, 05/03/17) PER PATIENT, SHE EATS YELLOW CANDY Lactose. (Verified Adverse Reaction, Unknown, GI SYMPTOMS, 05/07/17) Home Medications Scheduled Amiodarone Hcl (Cordarone), 200 MG PO BID Artificial Tear Solution (Artificial Tears), 1 DROPS OP QID Ascorbic Acid (Ascorbic Acid), 500 MG PO DAILY Aspirin (Aspirin Ec), 81 MG PO DAILY Cholecalciferol (Vitamin D3), 1,000 UNITS PO DAILY Cranberry (Vaccinium Macrocarp (Cranberry), 500 MG PO TID Cyclosporine (Ophth) (Restasis), 1 DROP OPB BID Estrogens, Conjugated (Premarin), 0.625 MG VAGRING HS Metoprolol Succinate (Metoprolol Succinate ER), 100 MG PO BID Multivitamin (Multivitamin), 1 TAB PO DAILY Pantoprazole (Protonix), 40 MG PO DAILY [Onglyza], 5 MG PO AMPM Scheduled PRN Acetaminophen (Tylenol), 500 MG PO Q8 PRN for Pain or Fever Tramadol (Ultram), 50 MG PO Q8H PRN for Pain [Cheratussin Ac], 10 ML PO Q4H PRN for Cough Review of Systems Ten systems reviewed and negative except as noted in the HPI. Physical Exam Vital Signs Date Time Temp Pulse Resp B/P (MAP) Pulse Ox O2 Delivery O2 Flow Rate FiO2 05/12/17 20:37 66 17 128/53 91 05/12/17 19:35 64 18 131/59 92 Room Air 05/12/17 17:40 65 140/63 94 Room Air 05/12/17 17:31 64 24 93 05/12/17 17:26 63 18 119/64 95 05/12/17 17:02 63 17 92 05/12/17 16:39 66 05/12/17 16:32 95 Room Air 05/12/17 16:32 66 18 124/65 95 Room Air 05/12/17 16:31 124/65 05/12/17 16:15 94 Room Air 05/12/17 16:10 36.4 116 18 120/60 94 Room Air General Appearance: WD/WN, no apparent distress Head: normocephalic, atraumatic Eyes: normal inspection, PERRL, sclerae normal ENT: normal ENT inspection, hearing grossly normal, pharynx normal (moist mucous membranes ) Neck: supple, thyroid normal, trachea midline Respiratory/Chest: chest non-tender, normal breath sounds, no respiratory distress, no accessory muscle use, + crackles (bibasilar crackles ) Cardiovascular: regular rate, rhythm, + JVD, + systolic murmur (3/6 systolic ejection murmur heard throughout precordium ) Abdomen/GI: non tender, soft, no organomegaly Back: normal inspection Extremities/Musculoskelatal: no calf tenderness, + pertinent finding (2+ pitting edema bilaterally to knees with some excoriation noted on R anterior juarez. ) Neurologic/Psych: no motor/sensory deficits, alert, normal mood/affect, oriented x 3 Skin: normal color, warm/dry Diagnostics Laboratory Results Results Past 24 Hours Test 05/12/17 16:45 05/12/17 18:10 Range/Units White Blood Count 12.14 4.8-10.8 K/uL Red Blood Count 4.00 4.2-5.4 M/uL Hemoglobin 11.5 12.0-16.0 g/dL Hematocrit 35.1 37-47 % Mean Corpuscular Volume 87.8 80-100 fL Mean Corpuscular Hemoglobin 28.8 25-34 pg Mean Corpuscular Hemoglobin Concent 32.8 32-36 g/dl Platelet Count 321 130-400 K/uL Mean Platelet Volume 8.6 7.4-10.4 fL Neutrophils (%) (Auto) 68.1 % Lymphocytes (%) (Auto) 16.9 % Monocytes (%) (Auto) 9.7 % Eosinophils (%) (Auto) 3.5 % Basophils (%) (Auto) 0.2 % Neutrophils # (Auto) 8.27 1.4-6.5 K/uL Lymphocytes # (Auto) 2.05 1.2-3.4 K/uL Monocytes # (Auto) 1.18 0.11-0.59 K/uL Eosinophils # (Auto) 0.42 0-0.5 K/uL Basophils # (Auto) 0.03 0-0.2 K/uL RDW Standard Deviation 47.3 36.4-46.3 fL RDW Coefficient of Variation 15.0 11.5-14.5 % Immature Granulocyte % (Auto) 1.6 % Immature Granulocyte # (Auto) 0.19 0.00-0.02 K/uL Prothrombin Time 10.5 9.0-12.0 SECONDS Prothromb Time International Ratio 1.0 0.9-1.1 Activated Partial Thromboplast Time 25.3 21.0-31.0 SECONDS Partial Thromboplastin Ratio 1.0 Sodium Level 137 136-145 mmol/L Potassium Level 4.1 3.5-5.1 mmol/L Chloride Level 102 98-107 mmol/L Carbon Dioxide Level 27 21-32 mmol/L Anion Gap 8.0 3-11 mmol/L Blood Urea Nitrogen 12 7-18 mg/dl Creatinine 0.58 0.60-1.20 mg/dl Est Creatinine Clear Calc Drug Dose 51.8 ml/min Estimated GFR () 94.7 Estimated GFR (Non- 81.7 BUN/Creatinine Ratio 20.3 10-20 Random Glucose 177 70-99 mg/dl Calcium Level 8.4 8.5-10.1 mg/dl Magnesium Level 1.8 1.8-2.4 mg/dl Total Bilirubin 0.7 0.2-1 mg/dl Aspartate Amino Transf (AST/SGOT) 48 15-37 U/L Alanine Aminotransferase (ALT/SGPT) 38 12-78 U/L Alkaline Phosphatase 91 45-117 U/L Troponin I < 0.015 0-0.045 ng/ml Pro-B-Type Natriuretic Peptide 3612 0-1800 pg/ml Total Protein 6.1 6.4-8.2 gm/dl Albumin 2.6 3.4-5.0 gm/dl Globulin 3.5 2.5-4.0 gm/dl Albumin/Globulin Ratio 0.7 0.9-2 Chemistry Specimen Hemolysis Urine Color YELLOW Urine Appearance CLEAR CLEAR Urine pH 8.5 4.5-7.5 Urine Specific [place] 1.008 1.000-1.030 Urine Protein NEG NEG Urine Glucose (UA) NEG NEG Urine Ketones NEG NEG Urine Occult Blood 2+ NEG Urine Nitrite NEG NEG Urine Bilirubin NEG NEG Urine Urobilinogen NEG NEG Urine Leukocyte Esterase TRACE NEG Urine WBC (Auto) 5-10 0-5 /hpf Urine RBC (Auto) >30 0-4 /hpf Urine Hyaline Casts (Auto) 1-5 0-5 /lpf Urine Epithelial Cells (Auto) 20-30 0-5 /lpf Urine Bacteria (Auto) NEG NEG Diagnostic Radiology CXR: IMPRESSION: 1. Cardiomegaly with increased bibasilar opacities and small bilateral pleural effusions. This is concerning for developing pulmonary edema or aspiration. EKG Initial EKG at 16:22: Atrial fibrillation with rapid ventricular response at 109 bpm Nonspecific T wave abnormality Repeat EKG at 16:57: Normal sinus rhythm Nonspecific T wave abnormality Impression Assessment and Plan This is an 87yo F [facility] resident with a PMH of paroxysmal A Fib, DM II, HTN , HLD, osteoarthritis and osteoporosis who presents with palpitations x 3 days. Paroxysmal A Fib: -Initially in symptomatic A Fib with a HR of 109 -Resolved spontaneously -Was evaluated by Dr. Raya in ED -Increased amiodarone to 400mg BID -Cardio consulted for further recs -Continue home dose Toprol -Electrolytes all wnl -Monitor on telemetry Acute on chronic diastolic CHF: -Last echo (05/05/17) with moderate-severe , normal LV systolic function, mild concentric LVH -Likely 2/2 atrial fibrillation over the past few days -Endorses SOB, 15 pound weight gain -Given 40mg IV lasix in ED -Plan to continue 40mg IV daily -Cardio consulted -Low Na diet, strict Is&Os, daily weights Bladder wall thickening on CT abd/pelvis: -Noted on previous admission -Planned for out-patient cystoscopy to evaluate for mass -Was unable to have procedure today 2/2 A Fib -Was told she will have it performed while in-patient -Consulted [facility] DM II: -Hgb a1c of 8.2 in Feb 2017 -Held home agents -SSI while in-patient -BG checks AC HS HTN: -Normotensive -Cont metoprolol OA: -Cont tramadol PRN Osteoporosis: -Cont Vit D DVT Ppx: Heparin SQ Code status: DNR per discussion with patient PCP: Ba Dispo: Discharge planning ordered for return to [facility]. Patient seen in collaboration with Dr. Gardner. Please see addendum. Agree with above h and p. Briefly 87F presents with palpitations and weight gain and lower extremity edema. a/p PAF converted spontaneously amiodarone dose increased home Toprol xl cardiology consulted Acute diastolic chf iv Lasix close monitor Level of Care Telemetry Resuscitation Status DO NOT RESUSCITATE VTE Prophylaxis VTE Risk Assessment Done? Y/N: Yes Risk Level: Moderate Given or contraindicated: Unfractionated heparin SQ Social Service Consult Lives in [facility]
[2017-05-12] MEDS: RESTASIS~ORDER AWAITING ACTION SCH (21:30)
[2017-05-12] MEDS: AMIODARONE 200 MG TAB PO SCH (21:49)
[2017-05-12] MEDS: HEPARIN SOD 5000 UNIT/0.5 ML CARP SQ SCH (21:51)
[2017-05-12] MEDS: ARTIFICIAL TEARS OP SOLN OPB SCH ×2 (21:56)
[2017-05-12] MEDS: METOPROLOL SUCC 50MG EXT REL TAB PO SCH (22:00)
[2017-05-12 23:53] VITALS: BP 121/67; PULSE 62; TEMP 36.5; O2SAT 97
[2017-05-13] VITALS (7 sets, daily range): BP systolic 107–161; BP diastolic 57–79; PULSE 59–69; TEMP 36.6–37; O2SAT 92–95
[2017-05-13 06:49] LABS: HEMATOCRIT 32.7 % (37-47); MEAN CELL VOLUME 88.1 fL (80-100); MEAN CORPUSCULAR HEMOGLOBIN 28.8 pg (25-34); MEAN CORPUSCULAR HGB CONC 32.7 g/dl (32-36); MEAN PLATELET VOLUME 8.6 fL (7.4-10.4); PLATELET COUNT 286 K/uL (130-400); RED BLOOD COUNT 3.71 M/uL (4.2-5.4); WHITE BLOOD COUNT 11.11 K/uL (4.8-10.8)
[2017-05-13 06:56] LABS: PROTHROMBIN TIME (PATIENT) 10.7 SECONDS (9.0-12.0)
[2017-05-13 07:22] LABS: BUN/CREATININE RATIO 21.5 (10-20); CALCIUM 8.3 mg/dl (8.5-10.1); CREATININE 0.54 mg/dl (0.60-1.20); MAGNESIUM 1.8 mg/dl (1.8-2.4); POTASSIUM 3.5 mmol/L (3.5-5.1)
[2017-05-13] MEDS: INSULIN ASPART 100 UNITS/ML 3 ML PEN SC SCH ×4 (07:50→20:27)
[2017-05-13] MEDS: HEPARIN SOD 5000 UNIT/0.5 ML CARP SQ SCH ×2 (07:51→21:04)
[2017-05-13] MEDS: RESTASIS~ORDER AWAITING ACTION SCH ×3 (08:00→16:00)
[2017-05-13] MEDS: ARTIFICIAL TEARS OP SOLN OPB SCH ×8 (08:54→20:56)
[2017-05-13] MEDS: FUROSEMIDE INJ 40 MG in SYRINGE 0 ML IV SCH (08:54)
[2017-05-13] MEDS: ASPIRIN 81 MG ECTAB PO SCH (08:55)
[2017-05-13] MEDS: PANTOprazole SOD 40 MG TAB PO SCH (08:55)
[2017-05-13] MEDS: CHOLECALCIFEROL 1000 INTER.UNIT TAB PO SCH (08:55)
[2017-05-13] MEDS: METOPROLOL SUCC 50MG EXT REL TAB PO SCH ×2 (08:55→21:00)
[2017-05-13] MEDS: ASCORBIC ACID 500 MG TAB PO SCH (08:55)
[2017-05-13] MEDS: AMIODARONE 200 MG TAB PO SCH ×2 (08:55→20:57)
--- NOTE | 2017-05-13 09:35 | CARDIOLOGY CONSULTATION ---
DATE OF CONSULTATION: 05/13/2017 DATE OF CONSULTATION: 05/13/2017 CONSULTATION REQUESTED BY: Dr. Calabrese. REASON FOR CONSULTATION: Atrial fibrillation with rapid ventricular response. HISTORY OF PRESENT ILLNESS: Mrs. Scanlon is a very pleasant 87-year-old woman who presented to [facility] Emergency Department on 05/12/2017 from her urologist's office where she reported to be in atrial fibrillation with rapid ventricular response. The patient was recently admitted to [facility] on May 03 to the for a complicated urinary tract infection, new onset paroxysmal atrial fibrillation. At that time the patient was seen by cardiology and started on amiodarone for rhythm control. She was also deemed not a Coumadin candidate due to recurrent falls. She was then discharged back to her long term, but she states that once returning to the long term she started having recurrent episodes of palpitations. She states that she would just feel her heart fluttering in her chest. This would be associated with some shortness of breath, but again the symptoms seemed to wax and wane over the next few days. During the same time she also developed lower extremity edema and gained approximately 15 pounds of fluid. Again she was seen as an outpatient by Dr. Louis on the , she was found to be in AFib and transported to [facility]. I discussed the case with Dr. Calabrese in the Emergency Room Department, the patient spontaneously converted in the ER; however I recommended she be admitted for antiarrhythmic titration and I increased her amiodarone to 400 mg b.i.d. The patient states that since being admitted, she feels much better. She has not had any recurrent palpitations or shortness of breath. She has been given a dose of Lasix and diuresed well and overall she feels well. PAST SURGICAL HISTORY: Denies. PAST MEDICAL ILLNESSES: 1. Diabetes. 2. Paroxysmal atrial fibrillation, deemed not a Coumadin candidate due to recurrent falls. 3. Hyperlipidemia. 4. Hypertension. 5. Osteoarthritis. 6. Osteoporosis. 7. Recurrent urinary tract infections. FAMILY HISTORY: Noncontributory given the patient's age. SOCIAL HISTORY: The patient denies any alcohol, tobacco or recreational drug use. She is for 30 years. 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 She currently resides at [facility] for the last 13 years. REVIEW OF SYSTEMS: As per HPI, all other review of systems reviewed and negative at this time. ALLERGIES: 1. CEPHALOSPORINS. 2. PENICILLIN. 3. JACKY INHIBITORS. 4. ADHESIVES. 5. AMOXICILLIN. 6. PIGMENT BLUE 63. 7. CEPHALOSPORINS. 8. DULOXETINE. 9. GABAPENTIN. 10. LISINOPRIL. 11. PENICILLIN V. 12. SIMVASTATIN. 13. YELLOW DYES. 14. DAIRY. 15. LETTUCE. PHYSICAL EXAMINATION: VITALS: Temperature 36.9, pulse 62, respiratory rate 12, blood pressure 125/73. GENERAL: Awake, alert, oriented x3 in no acute distress. HEAD, EYES, EARS, NOSE, AND THROAT: Normocephalic, atraumatic. Pupils equal, round, and reactive to light and accommodation. Extraocular muscles intact. Anicteric sclerae. Moist mucous membranes. NECK: No JVD, no bruit. CARDIOVASCULAR: Regular. Positive S4. Normal S1 and S2. No S3. A harsh 4/6 mid to late systolic ejection murmur greatest at the right sternal border second intercostal space with radiation to the bilateral carotids. No rubs. PULMONARY: Clear to auscultation bilaterally. No rales, rhonchi, or wheezing. ABDOMEN: Bowel sounds x4, soft. No rebound, guarding, tenderness. No organomegaly. EXTREMITIES: Trace bilateral lower extremity pitting edema. No clubbing or cyanosis. +2 pedal pulses bilaterally. SKIN: Warm and dry. TEST RESULTS: A 2D echocardiogram performed 05/05/2017 was read as normal left ventricular cavity size with mild concentric LVH, normal LV systolic function, EF 65-70%, mild left atrial enlargement, moderate aortic calcifications with moderate to severe valvular aortic stenosis, mild mitral regurgitation, trace tricuspid regurgitation, right ventricular systolic pressure is elevated at 40-50 mmHg. A 12-lead EKG performed in the Emergency Department upon arrival independently reviewed at this time shows atrial fibrillation with rapid ventricular response at 109 beats per minute. Follow-up EKG showed normal sinus rhythm. Telemetry monitoring since admission shows normal sinus rhythm without significant ectopy or arrhythmias, no recurrences of atrial fibrillation. LABORATORY STUDIES OF SIGNIFICANCE: Sodium 136, potassium 3.5, BUN 12, creatinine 0.5, magnesium of 1.8. IMPRESSIONS: 1. Symptomatic paroxysmal atrial fibrillation with rapid ventricular response. 2. Acute decompensated diastolic heart failure secondary to #1. 3. Moderate to severe aortic stenosis. RECOMMENDATIONS: It was my pleasure to see Mrs. Scanlon in reevaluation today. From a cardiac standpoint, given her symptoms with the atrial fibrillation I believe the most prudent course of action will be to maintain her on higher dose of amiodarone for the time being and continue her on her high dose Lopressor for rhythm control, again the patient is not an anticoagulation candidate, so should be maintained on aspirin only. Her electrolytes will be followed and corrected as necessary and I will give her potassium. She was given a dose of IV Lasix today and will follow her volume status clinically. We will continue to monitor her overnight and likely discharge to the long term in the a.m. should she be maintained in normal sinus rhythm.
[2017-05-13] MEDS ORDERED: MAGNESIUM OXIDE 400 MG TAB PO ONE (10:00)
[2017-05-13] MEDS ORDERED: POTASSIUM CHLORIDE 10 MEQ TABCR PO ONE (10:00)
--- NOTE | 2017-05-13 13:15 | Progress Note ---
Subjective Date of Service: May 13, 2017. Subjective Pt evaluation today including: conversation w/ patient, physical exam, chart review, lab review Voiding: no voiding problems Considerably improved overnight - tachycardia has resolved - dramatic improvement in the swelling of her lower extremities - denies hematuria or dysuria Problem List Medical Problems: (1) Elevated lactic acid level Status: Acute (2) UTI (urinary tract infection) Status: Acute Review of Systems Constitutional: No see HPI, No fever, No chills, No sweats, No weight loss, No weakness, No fatigue, No problem reported Objective Vital Signs Date Time Temp Pulse Resp B/P (MAP) Pulse Ox O2 Delivery O2 Flow Rate FiO2 05/13/17 12:00 Room Air 05/13/17 11:17 36.7 63 17 114/69 (84) 95 Room Air 05/13/17 10:21 69 94 05/13/17 08:00 Room Air 05/13/17 07:01 36.9 62 18 125/73 (90) 92 Room Air 05/13/17 04:10 36.9 69 17 161/79 (106) 92 Room Air 05/13/17 04:00 Room Air 05/13/17 00:00 Room Air 05/12/17 23:53 36.5 62 17 121/67 (85) 97 Room Air 05/12/17 21:00 36.4 63 18 131/60 95 Room Air 05/12/17 21:00 95 Room Air 05/12/17 20:37 66 17 128/53 91 05/12/17 19:35 64 18 131/59 92 Room Air 05/12/17 17:40 65 140/63 94 Room Air 05/12/17 17:31 64 24 93 05/12/17 17:26 63 18 119/64 95 05/12/17 17:02 63 17 92 05/12/17 16:39 66 05/12/17 16:32 95 Room Air 05/12/17 16:32 66 18 124/65 95 Room Air 05/12/17 16:31 124/65 05/12/17 16:15 94 Room Air 05/12/17 16:10 36.4 116 18 120/60 94 Room Air Physical Exam General Appearance: no apparent distress Eyes: normal inspection ENT: hearing grossly normal Neck: no adenopathy Respiratory/Chest: no respiratory distress, no accessory muscle use Cardiovascular: + pertinent finding (still with moderate edema. non-tachy) Abdomen: non tender, soft Extremities: normal inspection Neurologic/Psychiatric: no motor/sensory deficits, alert, normal mood/affect, oriented x 3 Skin: warm/dry Lymphatic: no adenopathy Laboratory Results Last 24 Hours Test 05/12/17 16:45 05/12/17 18:10 05/12/17 21:46 05/13/17 06:19 White Blood Count 12.14 K/uL Red Blood Count 4.00 M/uL Hemoglobin 11.5 g/dL Hematocrit 35.1 % Mean Corpuscular Volume 87.8 fL Mean Corpuscular Hemoglobin 28.8 pg Mean Corpuscular Hemoglobin Concent 32.8 g/dl Platelet Count 321 K/uL Mean Platelet Volume 8.6 fL Neutrophils (%) (Auto) 68.1 % Lymphocytes (%) (Auto) 16.9 % Monocytes (%) (Auto) 9.7 % Eosinophils (%) (Auto) 3.5 % Basophils (%) (Auto) 0.2 % Neutrophils # (Auto) 8.27 K/uL Lymphocytes # (Auto) 2.05 K/uL Monocytes # (Auto) 1.18 K/uL Eosinophils # (Auto) 0.42 K/uL Basophils # (Auto) 0.03 K/uL RDW Standard Deviation 47.3 fL RDW Coefficient of Variation 15.0 % Immature Granulocyte % (Auto) 1.6 % Immature Granulocyte # (Auto) 0.19 K/uL Prothrombin Time 10.5 SECONDS Prothromb Time International Ratio 1.0 Activated Partial Thromboplast Time 25.3 SECONDS Partial Thromboplastin Ratio 1.0 Sodium Level 137 mmol/L Potassium Level 4.1 mmol/L Chloride Level 102 mmol/L Carbon Dioxide Level 27 mmol/L Anion Gap 8.0 mmol/L Blood Urea Nitrogen 12 mg/dl Creatinine 0.58 mg/dl Est Creatinine Clear Calc Drug Dose 51.8 ml/min Estimated GFR () 94.7 Estimated GFR (Non- 81.7 BUN/Creatinine Ratio 20.3 Random Glucose 177 mg/dl Calcium Level 8.4 mg/dl Magnesium Level 1.8 mg/dl Total Bilirubin 0.7 mg/dl Aspartate Amino Transf (AST/SGOT) 48 U/L Alanine Aminotransferase (ALT/SGPT) 38 U/L Alkaline Phosphatase 91 U/L Troponin I < 0.015 ng/ml Pro-B-Type Natriuretic Peptide 3612 pg/ml Total Protein 6.1 gm/dl Albumin 2.6 gm/dl Globulin 3.5 gm/dl Albumin/Globulin Ratio 0.7 Chemistry Specimen Hemolysis Urine Color YELLOW Urine Appearance CLEAR Urine pH 8.5 Urine Specific [place] 1.008 Urine Protein NEG Urine Glucose (UA) NEG Urine Ketones NEG Urine Occult Blood 2+ Urine Nitrite NEG Urine Bilirubin NEG Urine Urobilinogen NEG Urine Leukocyte Esterase TRACE Urine WBC (Auto) 5-10 /hpf Urine RBC (Auto) >30 /hpf Urine Hyaline Casts (Auto) 1-5 /lpf Urine Epithelial Cells (Auto) 20-30 /lpf Urine Bacteria (Auto) NEG Bedside Glucose 150 mg/dl 156 mg/dl Test 05/13/17 06:24 05/13/17 11:26 White Blood Count 11.11 K/uL Red Blood Count 3.71 M/uL Hemoglobin 10.7 g/dL Hematocrit 32.7 % Mean Corpuscular Volume 88.1 fL Mean Corpuscular Hemoglobin 28.8 pg Mean Corpuscular Hemoglobin Concent 32.7 g/dl RDW Standard Deviation 47.1 fL RDW Coefficient of Variation 15.1 % Platelet Count 286 K/uL Mean Platelet Volume 8.6 fL Prothrombin Time 10.7 SECONDS Prothromb Time International Ratio 1.0 Activated Partial Thromboplast Time 26.6 SECONDS Partial Thromboplastin Ratio 1.0 Sodium Level 136 mmol/L Potassium Level 3.5 mmol/L Chloride Level 102 mmol/L Carbon Dioxide Level 29 mmol/L Anion Gap 5.0 mmol/L Blood Urea Nitrogen 12 mg/dl Creatinine 0.54 mg/dl Est Creatinine Clear Calc Drug Dose 55.5 ml/min Estimated GFR () 97.0 Estimated GFR (Non- 83.7 BUN/Creatinine Ratio 21.5 Random Glucose 144 mg/dl Calcium Level 8.3 mg/dl Magnesium Level 1.8 mg/dl Bedside Glucose 121 mg/dl Assessment and Plan CT findings highly concerning for bladder malignancy - she continues to have many competing co-morbidities that make a procedure under anesthesia somewhat suboptimal - we have discussed different options - I will plan for cystoscopy today (no anesthesia) - if there is a clear visual diagnosis of cancer and the cancer is determined to be unresectable, I will plan to communicate my findings to oncology and recommend treatment - if there is resectable cancer, we will consider the risks of a f/u procedure under anesthesia to try to address this - no need to be NPO - plan for cysto later today
--- NOTE | 2017-05-13 15:59 | [facility] Operative Report ---
Operative Report Operative Date May 13, 2017. Pre-Operative Diagnosis Hematuria Post-Operative Diagnosis Hematuria Procedure(s) Performed Flexible Cystoscopy Surgeon Dr. 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 Scanlon was brought to the operating room and placed in supine position where she was sterilely prepped and draped. Passed a flexible cystoscope performed a full inspection of the bladder. Of note, she is status post radiation and has a moderately contracted bladder. There was a large somewhat sessile tumor arising from the right lateral wall as well as the anterior wall of the bladder. There were calcifications protruding into the lumen of the bladder from the most superficial aspect of this tumor. There was healthy- appearing bladder wall around the lateral aspects of this tumor. It does not seem to involve the ureteral orifices. This may be largely resectable. At that time I withdrew the scope and concluded the case. She was taken back to her room in stable condition having tolerated the procedure very well. I attest to the content of the Intraoperative Record and any orders documented therein. Any exceptions are noted below.
--- NOTE | 2017-05-13 18:58 | Progress Note ---
Internal Med Progress Note Date of Service: May 13, 2017. Provider Documentation: SUBJECTIVE: feeling much better sob much improved slept fine afebrile ambulated in room fine OBJECTIVE: Vital Signs-as noted below Exam: General-alert and oriented. not in distress ENT-Normal hearing Neck-no neck masses Lungs-Cta b/l no wheezing or crackles Heart-S1 and S2 heard regular No murmurs Abdomen-Soft Bowel sounds present Non tender No distension Extremities-lower extremity edema improving No erythema Neuro-alert and awake moves extremities Lab data as noted below. ASSESSMENT & PLAN: This is an 87yo F [facility] resident with a PMH of paroxysmal A Fib, DM II, HTN , HLD, osteoarthritis and osteoporosis who presents with palpitations x 3 days. 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 HTN: on metoprolol OA: Cont tramadol PRN Osteoporosis: Vit D DVT Ppx: Heparin SQ Code status: DNR PCP: Ba Dispo: Discharge planning ordered for return to [facility] possible in 1-2 days Vital Signs: Date Time Temp Pulse Resp B/P (MAP) Pulse Ox O2 Delivery O2 Flow Rate FiO2 05/13/17 18:52 37.0 61 18 120/66 (84) 93 Room Air 05/13/17 16:17 36.6 59 18 107/57 (74) 94 Room Air 05/13/17 16:10 Room Air 05/13/17 15:51 64 16 97 Room Air 05/13/17 15:48 70 20 97 Room Air 05/13/17 15:45 68 18 97 Room Air 05/13/17 15:42 68 18 96 Room Air 05/13/17 12:00 Room Air 05/13/17 11:17 36.7 63 17 114/69 (84) 95 Room Air 05/13/17 10:21 69 94 05/13/17 08:00 Room Air 05/13/17 07:01 36.9 62 18 125/73 (90) 92 Room Air 05/13/17 04:10 36.9 69 17 161/79 (106) 92 Room Air 05/13/17 04:00 Room Air 05/13/17 00:00 Room Air 05/12/17 23:53 36.5 62 17 121/67 (85) 97 Room Air 05/12/17 21:00 36.4 63 18 131/60 95 Room Air 05/12/17 21:00 95 Room Air 05/12/17 20:37 66 17 128/53 91 05/12/17 19:35 64 18 131/59 92 Room Air Lab Results: Results Past 24 Hours Test 05/12/17 21:46 05/13/17 06:19 05/13/17 06:24 05/13/17 11:26 Range/Units Bedside Glucose 150 156 121 70-90 mg/dl White Blood Count 11.11 4.8-10.8 K/uL Red Blood Count 3.71 4.2-5.4 M/uL Hemoglobin 10.7 12.0-16.0 g/dL Hematocrit 32.7 37-47 % Mean Corpuscular Volume 88.1 80-100 fL Mean Corpuscular Hemoglobin 28.8 25-34 pg Mean Corpuscular Hemoglobin Concent 32.7 32-36 g/dl RDW Standard Deviation 47.1 36.4-46.3 fL RDW Coefficient of Variation 15.1 11.5-14.5 % Platelet Count 286 130-400 K/uL Mean Platelet Volume 8.6 7.4-10.4 fL Prothrombin Time 10.7 9.0-12.0 SECONDS Prothromb Time International Ratio 1.0 0.9-1.1 Activated Partial Thromboplast Time 26.6 21.0-31.0 SECONDS Partial Thromboplastin Ratio 1.0 Sodium Level 136 136-145 mmol/L Potassium Level 3.5 3.5-5.1 mmol/L Chloride Level 102 98-107 mmol/L Carbon Dioxide Level 29 21-32 mmol/L Anion Gap 5.0 3-11 mmol/L Blood Urea Nitrogen 12 7-18 mg/dl Creatinine 0.54 0.60-1.20 mg/dl Est Creatinine Clear Calc Drug Dose 55.5 ml/min Estimated GFR () 97.0 Estimated GFR (Non- 83.7 BUN/Creatinine Ratio 21.5 10-20 Random Glucose 144 70-99 mg/dl Calcium Level 8.3 8.5-10.1 mg/dl Magnesium Level 1.8 1.8-2.4 mg/dl Test 05/13/17 16:08 Range/Units Bedside Glucose 161 70-90 mg/dl
[2017-05-13] MEDS: POTASSIUM CHLORIDE 10 MEQ TABCR PO SCH (20:58)
[2017-05-14] MEDS: RESTASIS~ORDER AWAITING ACTION SCH
[2017-05-14 03:10] VITALS: BP 142/72; PULSE 61; TEMP 36.7; O2SAT 95
[2017-05-14 03:11] VITALS: BP 160/83; PULSE 56; TEMP 36.5; O2SAT 94
[2017-05-14] MEDS: INSULIN ASPART 100 UNITS/ML 3 ML PEN SC SCH ×2 (08:04→12:08)
[2017-05-14] MEDS: HEPARIN SOD 5000 UNIT/0.5 ML CARP SQ SCH (08:05)
[2017-05-14] MEDS: FUROSEMIDE INJ 40 MG in SYRINGE 0 ML IV SCH (08:06)
[2017-05-14] MEDS: ASCORBIC ACID 500 MG TAB PO SCH (08:07)
[2017-05-14] MEDS: POTASSIUM CHLORIDE 10 MEQ TABCR PO SCH (08:07)
[2017-05-14] MEDS: METOPROLOL SUCC 50MG EXT REL TAB PO SCH (08:07)
[2017-05-14] MEDS: PANTOprazole SOD 40 MG TAB PO SCH (08:07)
[2017-05-14] MEDS: CHOLECALCIFEROL 1000 INTER.UNIT TAB PO SCH (08:08)
[2017-05-14] MEDS: ARTIFICIAL TEARS OP SOLN OPB SCH ×4 (08:08→12:08)
[2017-05-14] MEDS: AMIODARONE 200 MG TAB PO SCH (08:08)
[2017-05-14] MEDS: ASPIRIN 81 MG ECTAB PO SCH (08:08)
[2017-05-14 08:22] LABS: BASO % 0.4 %; BASO ABS # 0.04 K/uL (0-0.2); COMPLETE YES; EOS % 4.3 %; HEMATOCRIT 35.6 % (37-47); IG% 1.1 %; LYMPH % 14.8 %; LYMPH ABS # 1.64 K/uL (1.2-3.4); MEAN CORPUSCULAR HEMOGLOBIN 28.8 pg (25-34); MEAN CORPUSCULAR HGB CONC 32.3 g/dl (32-36); MEAN PLATELET VOLUME 8.7 fL (7.4-10.4); NEUT % 68.4 %; PLATELET COUNT 299 K/uL (130-400); WHITE BLOOD COUNT 11.11 K/uL (4.8-10.8)
[2017-05-14 08:41] LABS: BUN/CREATININE RATIO 17.2 (10-20); CALCIUM 8.7 mg/dl (8.5-10.1); CREATININE 0.78 mg/dl (0.60-1.20); POTASSIUM 4.7 mmol/L (3.5-5.1)
[2017-05-14 08:54] VITALS: BP_SYST 120; BP_SYST 98; BP_DIAS 66; BP_DIAS 75; PULSE 84; PULSE 87; TEMP 36.7; O2SAT 95; O2SAT 96
[2017-05-14] MEDS ORDERED: MAGNESIUM OXIDE 400 MG TAB PO SCH (09:00)
--- NOTE | 2017-05-14 09:43 | Progress Note ---
Subjective Date of Service: May 14, 2017. Subjective Pt evaluation today including: conversation w/ patient, conversation w/ family , chart review, lab review Voiding: no voiding problems 87 yo female s/p cystoscopy. 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 Pt denies pain this morning. Voiding large amounts d/t diuretics, but denies any hematuria or dysuria. BLE has improved dramatically per the pt. Problem List Medical Problems: (1) Elevated lactic acid level Status: Acute (2) UTI (urinary tract infection) Status: Acute Review of Systems Constitutional: No fever, No chills Respiratory: No shortness of breath Cardiac: No chest pain Abdomen: No pain, No nausea, No vomiting Female : + urinary frequency, No dysuria, No hematuria Heme: No abnormal bleeding/bruising Objective Vital Signs Date Time Temp Pulse Resp B/P (MAP) Pulse Ox O2 Delivery O2 Flow Rate FiO2 05/14/17 08:54 36.7 87 18 120/75 (90) 95 05/14/17 08:00 Room Air 05/14/17 04:00 Room Air 05/14/17 03:11 36.5 56 22 160/83 (108) 94 Room Air 05/14/17 03:10 36.7 61 18 142/72 (95) 95 Room Air 05/14/17 00:01 Room Air 05/13/17 23:34 36.7 61 18 128/70 (89) 95 Room Air 05/13/17 20:00 Room Air 05/13/17 18:52 37.0 61 18 120/66 (84) 93 Room Air 05/13/17 16:17 36.6 59 18 107/57 (74) 94 Room Air 05/13/17 16:10 Room Air 05/13/17 15:51 64 16 97 Room Air 05/13/17 15:48 70 20 97 Room Air 05/13/17 15:45 68 18 97 Room Air 05/13/17 15:42 68 18 96 Room Air 05/13/17 12:00 Room Air 05/13/17 11:17 36.7 63 17 114/69 (84) 95 Room Air 05/13/17 10:21 69 94 Physical Exam General Appearance: no apparent distress Eyes: normal inspection ENT: hearing grossly normal Neck: no JVD Respiratory/Chest: no respiratory distress, no accessory muscle use Cardiovascular: no JVD Extremities: normal inspection Neurologic/Psychiatric: alert, normal mood/affect, oriented x 3 Skin: normal color Laboratory Results Last 24 Hours Test 05/13/17 11:26 05/13/17 16:08 05/13/17 20:03 05/14/17 06:41 Bedside Glucose 121 mg/dl 161 mg/dl 156 mg/dl 137 mg/dl Test 05/14/17 07:48 White Blood Count 11.11 K/uL Red Blood Count 4.00 M/uL Hemoglobin 11.5 g/dL Hematocrit 35.6 % Mean Corpuscular Volume 89.0 fL Mean Corpuscular Hemoglobin 28.8 pg Mean Corpuscular Hemoglobin Concent 32.3 g/dl Platelet Count 299 K/uL Mean Platelet Volume 8.7 fL Neutrophils (%) (Auto) 68.4 % Lymphocytes (%) (Auto) 14.8 % Monocytes (%) (Auto) 11.0 % Eosinophils (%) (Auto) 4.3 % Basophils (%) (Auto) 0.4 % Neutrophils # (Auto) 7.61 K/uL Lymphocytes # (Auto) 1.64 K/uL Monocytes # (Auto) 1.22 K/uL Eosinophils # (Auto) 0.48 K/uL Basophils # (Auto) 0.04 K/uL RDW Standard Deviation 48.2 fL RDW Coefficient of Variation 15.0 % Immature Granulocyte % (Auto) 1.1 % Immature Granulocyte # (Auto) 0.12 K/uL Sodium Level 137 mmol/L Potassium Level 4.7 mmol/L Chloride Level 102 mmol/L Carbon Dioxide Level 29 mmol/L Anion Gap 6.0 mmol/L Blood Urea Nitrogen 14 mg/dl Creatinine 0.78 mg/dl Est Creatinine Clear Calc Drug Dose 37.6 ml/min Estimated GFR () 78.1 Estimated GFR (Non- 67.4 BUN/Creatinine Ratio 17.2 Random Glucose 176 mg/dl Calcium Level 8.7 mg/dl Magnesium Level 2.0 mg/dl Assessment and Plan POD #1 s/p cystoscopy AFVSS. Pt doing well this morning. Will plan for outpatient TURBT after the holidays. No need for surgical intervention while inpatient. Will arrange f/u. No further intervention at this time. Recall PRN issues. Thanks for allowing us to participate in this pt's care.
[2017-05-14] MEDS ORDERED: DIPHENOXYLATE/ATROPINE 2.5/0.025MG TAB PO ONE (10:30)
--- NOTE | 2017-05-14 11:39 | Cardiology Follow-Up ---
Subjective Subjective Date of Service: May 14, 2017. Pt evaluation today including: conversation w/ patient, physical exam, chart review, lab review, review of studies, review of inpatient medication list Additional Details: Pt seen and examined, with son at bedside. States that she's feeling well, no recurrence of palpitations and lower extremity edema resolved. Denies cp, sob, lightheadedness or dizziness. Tele reviewed: sinus rhythm without arrhythmia or significant ectopy. Problem List Medical Problems: (1) Elevated lactic acid level Status: Acute (2) UTI (urinary tract infection) Status: Acute Review of Systems Constitutional: No fever, No chills Respiratory: No see HPI, No cough, No sputum, No wheezing, No shortness of breath, No dyspnea on exertion, No dyspnea at rest, No hemoptysis, No problem reported Cardiac: No see HPI, No chest pain, No orthopnea, No PND, No edema, No claudication, No palpitations, No problem reported Abdomen: No pain, No nausea, No vomiting Female : + urinary frequency, No dysuria, No hematuria Heme: No abnormal bleeding/bruising Objective Vital Signs Last Vital Signs Documentation Date Time Temp Pulse Resp B/P (MAP) Pulse Ox O2 Delivery O2 Flow Rate FiO2 05/14/17 08:54 36.7 87 18 120/75 (90) 95 05/14/17 08:00 Room Air Physical Exam: General Appearance: WD/WN, no apparent distress Eyes: bilateral eyes normal inspection, bilateral eyes PERRL, bilateral eyes EOMI ENT: normal ENT inspection, hearing grossly normal, pharynx normal Neck: supple, no adenopathy, thyroid normal, no JVD, no carotid bruits, trachea midline Respiratory/Chest: chest non-tender, lungs clear, normal breath sounds, no respiratory distress, no accessory muscle use Cardiovascular: regular rate, rhythm, no edema, no JVD, no murmur, + gallop/S4 Abdomen: normal bowel sounds, non tender, soft, no organomegaly Extremities: normal range of motion, non-tender, normal inspection, no pedal edema, no calf tenderness Neurologic/Psychiatric: 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 Paroxysmal atrial fibrillation has remained in sinus with higher dose of amiodarone will d/c to home on amio 400mg bid for 1 week then 400mg daily f/u with Dr. Caruso as outpatient no anticoagulation given fall risk ok to d/c to home from cardiac standpoint.
[2017-05-14 11:42] VITALS: BP 115/60; PULSE 57; TEMP 36.4; O2SAT 96
[2017-05-14] MEDS ORDERED: CRD200 PO (13:14)
[2017-05-14] MEDS ORDERED: TRAM-10 PO (13:14)
[2017-05-14] MEDS ORDERED: FURO-85 PO (13:14)
[2017-05-14] MEDS ORDERED: POTA10CA28 PO (13:14)
--- NOTE | 2017-05-14 13:18 | Discharge Instructions ---
Discharge Instructions Date of Service May 14, 2017. Admission Reason for Admission: Acute Exacerbation Of Congestive Heart Failure Discharge Discharge Diagnosis / Problem: acute diastolic chf, a fib Discharge Goals Goal(s): Decrease discomfort, Improve function Activity Recommendations Activity Level: Up Ad Jocelynn Therapies: Physical Therapy, Occupational Therapy . Additional Information Patient informed of condition: Yes Advance Directives: Yes DNR: Yes Level of Care: Skilled Communicable Disease: No Prognosis: Stable Valerio Catheter: No Instructions / Follow-Up Instructions / Follow-Up FOLLOWUP WITH FAMILY DOCTOR IN ONE WEEK FOLLOWUP WITH CARDIOLOGY IN 2-3 WEEKS. FOLLOWUP WITH UROLOGY SCHEDULED. TO TAKE AMIODARONE 400MG PO TWICE DAILY FOR ONE WEEK THEN TO TAKE AMIODARONE 400MG PO ONCE DAILY UNTIL FURTHER INSTRUCTIONS FROM CARDIOLOGY. TO MONITOR FOR WEIGHT GAIN OR EDEMA. LASIX 20MG PO DAILY NEEDED FOR WEIGHT GAIN/EDEMA. TO TAKE POTASSIUM SUPPLEMENT WHEN TAKING LASIX. FOLLOW BLOOD SUGARS Current Hospital Diet Patient's current hospital diet: Diabetes Type 2 Diet, Low Sodium Diet (2gm Na) Discharge Diet Recommended Diet: AHA Diet (Heart Healthy), Diabetes Type 2 Diet Procedures Procedures Performed: Flexible Cystoscopy Pending Studies Studies pending at discharge: no Physician Orders On Transfer Special Precautions: FALL AND ASPIRATION PRECAUTIONS Vital Signs: EVERY 8HRS Additional Orders: Call your Primary Care doctor if any of the following symptoms or problems start or get worse: * Shortness of breath or difficulty breathing * Wake up at night short of breath * Chest pain * Cough * Swelling of your hands, feet, or legs * More fatigued or tired with your normal activity * Palpitations - sudden fast heart beats WEIGHT * Weigh yourself every morning after using the bathroom. * Use the same scale. * Wear the same amount of clothing. * Write your weight down on a chart. * Call your Primary Care doctor if you gain more than 2-3 pounds in 1-2 days. MEDICATIONS * Use this discharge instruction sheet for medication instructions. * Take your medications at the time your doctor ordered. * Do not skip a dose of your medicines. * If you miss a dose of medicine, take it as soon as possible, but DO NOT DOUBLE A DOSE. * Read your medicine information when you get home. * Know all of the side effects of your medicine. If in doubt, ask your pharmacist * Call your Primary Care doctor's office if you have any side effects. * Be sure all of your doctors know what medicine and herbs you take (including cold, flu, and herbal medicine). Take the following with you to your follow-up doctor appointments: * Weight Chart * Medication List * List of questions Do not drink excessive alcohol, beer or wine. Laboratory Results Hemoglobin A1c Test 05/04/17 04:05 Range/Units Estimated Average Glucose 180 mg/dl Hemoglobin A1c 7.9 H 4.5-5.6 % Medical Emergencies . Who to Call and When: Medical Emergencies: If at any time you feel your situation is an emergency, please call 911 immediately. . Non-Emergent Contact Non-Emergency issues call your: Primary Care Provider . . "Provider Documentation" section prepared by Girma Gardner. . Core Measure Problem Core Measures: None
--- NOTE | 2017-05-14 13:22 | Progress Note ---
Internal Med Progress Note Date of Service: May 14, 2017. Provider Documentation: SUBJECTIVE: sitting on the chair comfortably leg swelling much improved eating fine slept fine moved bowels ok for discharge OBJECTIVE: Vital Signs-as noted below Exam: General-alert and oriented. not in distress ENT-Normal hearing Neck-no neck masses Lungs-Cta b/l no wheezing or crackles Heart-S1 and S2 heard regular No murmurs Abdomen-Soft Bowel sounds present Non tender No distension Extremities-lower extremity edema improving No erythema Neuro-alert and awake moves extremities Lab data as noted below. ASSESSMENT & PLAN: This is an 87yo F [facility] resident with a PMH of paroxysmal A Fib, DM II, HTN , HLD, osteoarthritis and osteoporosis who presents with palpitations x 3 days. Paroxysmal A Fib: Initially in symptomatic A Fib with a HR of 109 Resolved spontaneously Increased amiodarone to 400mg BID Continue home dose Toprol discharge on amiodarone 400mg po twice daily for one week then 400mg once daily and followup with cardiology for further recommendations stable Acute on chronic diastolic CHF: Last echo (05/05/17) with moderate-severe , ormal LV systolic function, mild concentric LVH Likely 2/2 atrial fibrillation over the past few days on iv lasix 40mg daily i/o and daily weight appreciate cardiology inputs improved to d/c on lasix prn f/u with pcp and cardiology Bladder wall thickening on CT abd/pelvis: urology following DM II: Hgb a1c of 8.2 in Feb 2017 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 HTN: on metoprolol OA: Cont tramadol PRN Osteoporosis: Vit D DVT Ppx: Heparin SQ Code status: DNR PCP: Ba Dispo: Discharge to [facility] today f/u with PCP and Cardiology Vital Signs: Date Time Temp Pulse Resp B/P (MAP) Pulse Ox O2 Delivery O2 Flow Rate FiO2 05/14/17 12:00 Room Air 05/14/17 11:42 36.4 57 20 115/60 (78) 96 Room Air 05/14/17 08:54 36.7 87 18 120/75 (90) 95 05/14/17 08:00 Room Air 05/14/17 04:00 Room Air 05/14/17 03:11 36.5 56 22 160/83 (108) 94 Room Air 05/14/17 03:10 36.7 61 18 142/72 (95) 95 Room Air 05/14/17 00:01 Room Air 05/13/17 23:34 36.7 61 18 128/70 (89) 95 Room Air 05/13/17 20:00 Room Air 05/13/17 18:52 37.0 61 18 120/66 (84) 93 Room Air 05/13/17 16:17 36.6 59 18 107/57 (74) 94 Room Air 05/13/17 16:10 Room Air 05/13/17 15:51 64 16 97 Room Air 05/13/17 15:48 70 20 97 Room Air 05/13/17 15:45 68 18 97 Room Air 05/13/17 15:42 68 18 96 Room Air Lab Results: Results Past 24 Hours Test 05/13/17 16:08 05/13/17 20:03 05/14/17 06:41 05/14/17 07:48 Range/Units Bedside Glucose 161 156 137 70-90 mg/dl White Blood Count 11.11 4.8-10.8 K/uL Red Blood Count 4.00 4.2-5.4 M/uL Hemoglobin 11.5 12.0-16.0 g/dL Hematocrit 35.6 37-47 % Mean Corpuscular Volume 89.0 80-100 fL Mean Corpuscular Hemoglobin 28.8 25-34 pg Mean Corpuscular Hemoglobin Concent 32.3 32-36 g/dl Platelet Count 299 130-400 K/uL Mean Platelet Volume 8.7 7.4-10.4 fL Neutrophils (%) (Auto) 68.4 % Lymphocytes (%) (Auto) 14.8 % Monocytes (%) (Auto) 11.0 % Eosinophils (%) (Auto) 4.3 % Basophils (%) (Auto) 0.4 % Neutrophils # (Auto) 7.61 1.4-6.5 K/uL Lymphocytes # (Auto) 1.64 1.2-3.4 K/uL Monocytes # (Auto) 1.22 0.11-0.59 K/uL Eosinophils # (Auto) 0.48 0-0.5 K/uL Basophils # (Auto) 0.04 0-0.2 K/uL RDW Standard Deviation 48.2 36.4-46.3 fL RDW Coefficient of Variation 15.0 11.5-14.5 % Immature Granulocyte % (Auto) 1.1 % Immature Granulocyte # (Auto) 0.12 0.00-0.02 K/uL Sodium Level 137 136-145 mmol/L Potassium Level 4.7 3.5-5.1 mmol/L Chloride Level 102 98-107 mmol/L Carbon Dioxide Level 29 21-32 mmol/L Anion Gap 6.0 3-11 mmol/L Blood Urea Nitrogen 14 7-18 mg/dl Creatinine 0.78 0.60-1.20 mg/dl Est Creatinine Clear Calc Drug Dose 37.6 ml/min Estimated GFR () 78.1 Estimated GFR (Non- 67.4 BUN/Creatinine Ratio 17.2 10-20 Random Glucose 176 70-99 mg/dl Calcium Level 8.7 8.5-10.1 mg/dl Magnesium Level 2.0 1.8-2.4 mg/dl
[2017-05-14 13:23] VITALS: BP 115/60; PULSE 57; TEMP 36.4; O2SAT 96
--- NOTE | 2017-05-14 13:24 | Discharge Summary ---
Discharge Summary Date of Service May 14, 2017. 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 Cardiomegaly with increased bibasilar opacities and small bilateral pleural effusions. This is concerning for developing pulmonary edema or aspiration. Consultations: CARDIOLOGY Medication Reconciliation New Medications: Furosemide (Lasix) 20 Mg Tab 20 MG PO DAILY PRN for EDEMA/WEIGHT GAIN, #30 TAB 1 Refill Potassium Chloride (Micro-K Ext Rel) 10 Meq Capcr 10 MEQ PO DAILY PRN for WHEN TAKING LASIX, #30 CAP 1 Refill Amiodarone HCl (Amiodarone HCl) 200 Mg Tab 400 MG PO UD, #60 TAB 1 Refill AMIODARONE 400MG PO TWICE DAILY FOR ONE WEEK THEN AMIODARONE 400MG PO DAILY UNTIL FURTHER INSTRUCTIONS FROM CARDIOLOGY. Continued Medications: Acetaminophen (Tylenol) 500 Mg Tab 500 MG PO Q8 PRN for Pain or Fever, TAB NTE 3GM/24 HRS Artificial Tear Solution (Artificial Tears) 1 Negar Negar 1 DROPS OP QID Ascorbic Acid (Ascorbic Acid) 500 Mg Tab 500 MG PO DAILY, TAB Aspirin (Aspirin Ec) 81 Mg Tab 81 MG PO DAILY Cholecalciferol (Vitamin D3) 1,000 Unit Tab 1000 UNITS PO DAILY, TAB Cranberry (Vaccinium Macrocarp (Cranberry) 500 Mg Cap 500 MG PO TID Cyclosporine (Ophth) (Restasis) 0.05 % Emu 1 DROP OPB BID, BTL Estrogens, Conjugated (Premarin) 14 Appln/30 Gm Cr 0.625 MG VAGRING HS Metoprolol Succinate (Metoprolol Succinate ER) 100 Mg Tabcr 100 MG PO BID Multivitamin (Multivitamin) Tab 1 TAB PO DAILY, TAB Pantoprazole (Protonix) 40 Mg Tab 40 MG PO DAILY, TAB Tramadol (Ultram) 50 Mg Tab 50 MG PO Q8H PRN for Pain, #10 TAB (This prescription has been renewed) [Cheratussin Ac] () 10 ML PO Q4H PRN for Cough [Onglyza] () 5 MG PO AMPM Discontinued Medications: Amiodarone Hcl (Cordarone) 200 Mg Tab 200 MG PO BID, TAB Admission Information HPI (per Admitting provider): This is an 87yo F [facility] resident with a PMH of paroxysmal A Fib, DM II, HTN , osteoarthritis and osteoporosis who presents with palpitations x 3 days. Patient was recently admitted from May.03- after patient fell 2/2 UTI. Patient sustained an occipital lac that was stapled but CT head was unremarkable. During admission, had episodes of symptomatic A Fib with RVR 2/2 electrolyte abnormalities. An echo was performed which showed moderate-severe aortic stenosis, normal LV systolic function and mild concentric LVH. FAROOQ Hickman evaluated patient and the following medication adjustments were made: amiodarone was initiated, Toprol XL was decreased, losartan was discontinued (2/ 2 hypotension), and digoxin and PRN atenolol were discontinued. Additionally, patient was found to have bladder wall thickening on CT, for which an out- patient cystoscopy was recommended. Patient was discharged to [facility] for rehab with scheduled follow-up with [facility] urology and [facility] [address] cardiology. Over the last few days, patient endorses intermittent bouts of palpitations with associated SOB. Has also noticed a significant increase in LE swelling over the past few days with a reported 12 pound weight gain. Denies increased fluid or salt in her diet. Denies a history of CHF and does not take PO lasix. Has been taking amiodarone and metoprolol as per discharge instructions but was also given PRN atenolol at [facility] during the last 3 days without resolution of palpitations (which was discontinued at discharge per cardio note). Patient was at out-patient urology appt for cystoscopy today when she was found to be in symptomatic A Fib with a HR of 125. Was sent to ED for further evaluation. Currently, patient denies any lightheadedness, headache, fever, chills, CP, palpitations, abd pain, nausea, vomiting, dysuria. Physical Exam (per Admitting): General Appearance: WD/WN, no apparent distress Head: normocephalic, atraumatic Eyes: normal inspection, PERRL, sclerae normal ENT: normal ENT inspection, hearing grossly normal, pharynx normal (moist mucous membranes ) Neck: supple, thyroid normal, trachea midline Respiratory/Chest: chest non-tender, normal breath sounds, no respiratory distress, no accessory muscle use, + crackles (bibasilar crackles ) Cardiovascular: regular rate, rhythm, + JVD, + systolic murmur (3/6 systolic ejection murmur heard throughout precordium ) Abdomen/GI: non tender, soft, no organomegaly Back: normal inspection Extremities/Musculoskelatal: no calf tenderness, + pertinent finding (2+ pitting edema bilaterally to knees with some excoriation noted on R anterior juarez. ) Neurologic/Psych: no motor/sensory deficits, alert, normal mood/affect, oriented x 3 Skin: normal color, warm/dry Hospital Course This is an 87yo F [facility] resident with a PMH of paroxysmal A Fib, DM II, HTN , HLD, osteoarthritis and osteoporosis who presents with palpitations x 3 days. Paroxysmal A Fib: Initially in symptomatic A Fib with a HR of 109 Resolved spontaneously Increased amiodarone to 400mg BID Continue home dose Toprol discharge on amiodarone 400mg po twice daily for one week then 400mg once daily and followup with cardiology for further recommendations stable Acute on chronic diastolic CHF: Last echo (05/05/17) with moderate-severe , ormal LV systolic function, mild concentric LVH Likely 2/2 atrial fibrillation over the past few days on iv lasix 40mg daily i/o and daily weight appreciate cardiology inputs improved to d/c on lasix prn f/u with pcp and cardiology Bladder wall thickening on CT abd/pelvis: urology following DM II: Hgb a1c of 8.2 in Feb 2017 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 HTN: on metoprolol OA: Cont tramadol PRN Osteoporosis: Vit D DVT Ppx: Heparin SQ Code status: DNR PCP: Ba Dispo: Discharge to [facility] today f/u with PCP and Cardiology Total time spent on discharge = 40MINUTES This includes examination of the patient, discharge planning, medication reconciliation, and communication with other providers. Discharge Instructions Discharge Instructions Date of Service May 14, 2017. Admission Reason for Admission: Acute Exacerbation Of Congestive Heart Failure Discharge Discharge Diagnosis / Problem: acute diastolic chf, a fib Discharge Goals Goal(s): Decrease discomfort, Improve function Activity Recommendations Activity Level: Up Ad Jocelynn Therapies: Physical Therapy, Occupational Therapy . Additional Information Patient informed of condition: Yes Advance Directives: Yes DNR: Yes Level of Care: Skilled Communicable Disease: No Prognosis: Stable Valerio Catheter: No Instructions / Follow-Up Instructions / Follow-Up FOLLOWUP WITH FAMILY DOCTOR IN ONE WEEK FOLLOWUP WITH CARDIOLOGY IN 2-3 WEEKS. FOLLOWUP WITH UROLOGY SCHEDULED. TO TAKE AMIODARONE 400MG PO TWICE DAILY FOR ONE WEEK THEN TO TAKE AMIODARONE 400MG PO ONCE DAILY UNTIL FURTHER INSTRUCTIONS FROM CARDIOLOGY. TO MONITOR FOR WEIGHT GAIN OR EDEMA. LASIX 20MG PO DAILY NEEDED FOR WEIGHT GAIN/EDEMA. TO TAKE POTASSIUM SUPPLEMENT WHEN TAKING LASIX. FOLLOW BLOOD SUGARS Current Hospital Diet Patient's current hospital diet: Diabetes Type 2 Diet, Low Sodium Diet (2gm Na) Discharge Diet Recommended Diet: AHA Diet (Heart Healthy), Diabetes Type 2 Diet Procedures Procedures Performed: Flexible Cystoscopy Pending Studies Studies pending at discharge: no Physician Orders On Transfer Special Precautions: FALL AND ASPIRATION PRECAUTIONS Vital Signs: EVERY 8HRS Additional Orders: Call your Primary Care doctor if any of the following symptoms or problems start or get worse: * Shortness of breath or difficulty breathing * Wake up at night short of breath * Chest pain * Cough * Swelling of your hands, feet, or legs * More fatigued or tired with your normal activity * Palpitations - sudden fast heart beats WEIGHT * Weigh yourself every morning after using the bathroom. * Use the same scale. * Wear the same amount of clothing. * Write your weight down on a chart. * Call your Primary Care doctor if you gain more than 2-3 pounds in 1-2 days. MEDICATIONS * Use this discharge instruction sheet for medication instructions. * Take your medications at the time your doctor ordered. * Do not skip a dose of your medicines. * If you miss a dose of medicine, take it as soon as possible, but DO NOT DOUBLE A DOSE. * Read your medicine information when you get home. * Know all of the side effects of your medicine. If in doubt, ask your pharmacist * Call your Primary Care doctor's office if you have any side effects. * Be sure all of your doctors know what medicine and herbs you take (including cold, flu, and herbal medicine). Take the following with you to your follow-up doctor appointments: * Weight Chart * Medication List * List of questions Do not drink excessive alcohol, beer or wine. Laboratory Results Hemoglobin A1c Test 05/04/17 04:05 Range/Units Estimated Average Glucose 180 mg/dl Hemoglobin A1c 7.9 H 4.5-5.6 % Medical Emergencies . Who to Call and When: Medical Emergencies: If at any time you feel your situation is an emergency, please call 911 immediately. . Non-Emergent Contact Non-Emergency issues call your: Primary Care Provider . . "Provider Documentation" section prepared by Girma Gardner. . Core Measure Problem Core Measures: None
== END 2017-05-14 13:50 | DRG 308 ==
LOC: C.EDB 16:05 → C.2T 20:01 → ENRESERV 20:29
PROVIDERS: ADMIT Internal Medicine; ATTEND Internal Medicine
PROC: 0TJB8ZZ Inspection of Bladder, Via Natural or Artificial Opening Endoscopic (ICD-10-PCS; principal; 2017-05-13 13:30)
DX: I48.0 Paroxysmal atrial fibrillation (principal); I50.33 Acute on chronic diastolic (congestive) heart failure; N39.0 Urinary tract infection, site not specified; E11.9 Type 2 diabetes mellitus without complications; E78.5 Hyperlipidemia, unspecified; I10 Essential (primary) hypertension; Z86.14 Personal history of Methicillin resistant Staphylococcus aureus infection; M81.0 Age-related osteoporosis without current pathological fracture; Z79.82 Long term (current) use of aspirin; Z88.0 Allergy status to penicillin; M19.90 Unspecified osteoarthritis, unspecified site; Z87.440 Personal history of urinary (tract) infections; Z92.3 Personal history of irradiation

== ENCOUNTER 2017-06-16 11:41 | Inpatient (IN) | payer OTHER, MEDICARE ==
[2017-06-04 13:44] VITALS: BMI 25.0
--- NOTE | 2017-06-04 14:33 | PAT Medication Instructions ---
Service Date Jun 04, 2017. Current Home Medication List Acetaminophen (Tylenol), 500 MG PO Q8 PRN for Pain or Fever Amiodarone Hcl (Cordarone), 200 MG PO QAM Artificial Tear Solution (Artificial Tears), 1 DROPS OP QID Ascorbic Acid (Ascorbic Acid), 500 MG PO QAM Aspirin (Aspirin Ec), 81 MG PO QAM Cholecalciferol (Vitamin D3), 1,000 UNITS PO QAM Clotrimazole (Topical) (Lotrimin Af), 1 APPLN TOP QAM Cranberry (Vaccinium Macrocarp (Cranberry), 500 MG PO TID Cyclosporine (Ophth) (Restasis), 1 DROP OPB BID Diphenoxylate/Atropine (Lomotil), 1 TAB PO UD PRN for prn Estrogens, Conjugated (Premarin), 0.625 MG VAGRING HS Furosemide (Lasix), 20 MG PO UD PRN for weight gain Guaifenesin-Codeine (Codeine/Guaifenesin 100-10 mg/5Ml), 10 ML PO Q4 PRN for cough Hydrocortisone (Topical) (Hydrocortisone), 1 APPLN TOP QAM Melatonin (Kp Melatonin), 1 MG PO HS Metoprolol Succinate (Metoprolol Succinate ER), 100 MG PO BID Multivitamin (Multivitamin), 1 TAB PO QAM Pantoprazole (Protonix), 40 MG PO QAM Potassium Chloride (Potassium Chloride ER), 10 MEQ PO UD PRN for prn Skin Protectants, Misc. (Cerave), Unknown Dose TOP BID Tamsulosin HCl (Tamsulosin HCl), 1 CAP PO HS Tramadol (Ultram), 50 MG PO Q8H PRN for Pain [Onglyza], 5 MG PO BID Medication Instructions For Your Scheduled Surgery - Hold the following medications 5 days prior to surgery (per cardiology): Aspirin (Aspirin Ec), 81 MG PO QAM - Hold the following medications 24 hours prior to surgery: Hydrocortisone (Topical) (Hydrocortisone), 1 APPLN TOP QAM Clotrimazole (Topical) (Lotrimin Af), 1 APPLN TOP QAM Estrogens, Conjugated (Premarin), 0.625 MG VAGRING HS Skin Protectants, Misc. (Cerave), Unknown Dose TOP BID - Hold the following medications the morning of surgery: Ascorbic Acid (Ascorbic Acid), 500 MG PO QAM Cholecalciferol (Vitamin D3), 1,000 UNITS PO QAM Cyclosporine (Ophth) (Restasis), 1 DROP OPB BID Multivitamin (Multivitamin), 1 TAB PO QAM Cranberry (Vaccinium Macrocarp (Cranberry), 500 MG PO TID Diphenoxylate/Atropine (Lomotil), 1 TAB PO UD PRN for prn Furosemide (Lasix), 20 MG PO UD PRN for weight gain Potassium Chloride (Potassium Chloride ER), 10 MEQ PO UD PRN for prn Guaifenesin-Codeine (Codeine/Guaifenesin 100-10 mg/5Ml), 10 ML PO Q4 PRN for cough [Onglyza], 5 MG PO BID - Take the following medications the morning of surgery with a sip of water: Amiodarone Hcl (Cordarone), 200 MG PO QAM Metoprolol Succinate (Metoprolol Succinate ER), 100 MG PO BID Artificial Tear Solution (Artificial Tears), 1 DROPS OP QID Cyclosporine (Ophth) (Restasis), 1 DROP OPB BID Acetaminophen (Tylenol), 500 MG PO Q8 PRN for Pain or Fever (if needed, can be taken up to four hours before surgery) Tramadol (Ultram), 50 MG PO Q8H PRN for Pain (if needed) Pantoprazole (Protonix), 40 MG PO QAM - Take the following medications as scheduled the night before surgery: Metoprolol Succinate (Metoprolol Succinate ER), 100 MG PO BID Artificial Tear Solution (Artificial Tears), 1 DROPS OP QID Cyclosporine (Ophth) (Restasis), 1 DROP OPB BID Acetaminophen (Tylenol), 500 MG PO Q8 PRN for Pain or Fever (if needed) Tamsulosin HCl (Tamsulosin HCl), 1 CAP PO HS Melatonin (Kp Melatonin), 1 MG PO HS Tramadol (Ultram), 50 MG PO Q8H PRN for Pain (if needed) Cranberry (Vaccinium Macrocarp (Cranberry), 500 MG PO TID Diphenoxylate/Atropine (Lomotil), 1 TAB PO UD PRN for prn (if needed) Furosemide (Lasix), 20 MG PO UD PRN for weight gain (if needed) Potassium Chloride (Potassium Chloride ER), 10 MEQ PO UD PRN for prn (if needed) Guaifenesin-Codeine (Codeine/Guaifenesin 100-10 mg/5Ml), 10 ML PO Q4 PRN for cough (if needed) [Onglyza], 5 MG PO BID If you have any questions please call us at [phone] or [phone] or [phone]
--- NOTE | 2017-06-04 15:11 | DIAGNOSTIC IMAGING REPORT ---
CHEST 2 VIEWS ROUTINE HISTORY: pulmonary congestion on last CXR, pre-op COMPARISON: Chest 05/12/2017. FINDINGS: The pulmonary edema has resolved. No focal lung consolidations to suggest pneumonia. Moderate hiatus hernia, unchanged. Trace bilateral pleural effusions. Bibasilar linear densities suggestive of subsegmental atelectasis are scarring. The heart is borderline enlarged. IMPRESSION: 1. No acute process within the chest. Pulmonary edema has resolved in the interval. 2. Moderate hiatus hernia. 3. Trace bilateral pleural effusions have improved. Electronically signed by: Kyle Ramírez M.D. 06/04/2017 3:09 PM Dictated Date/Time: 06/04/2017 3:08 PM
[2017-06-04 15:25] LABS: BASO % 0.3 %; BASO ABS # 0.03 K/uL (0-0.2); EOS % 2.3 %; EOS ABS # 0.21 K/uL (0-0.5); HEMATOCRIT 37.1 % (37-47); IG# 0.02 K/uL (0.00-0.02); LYMPH % 15.6 %; LYMPH ABS # 1.41 K/uL (1.2-3.4); MEAN CELL VOLUME 87.3 fL (80-100); MEAN CORPUSCULAR HEMOGLOBIN 28.2 pg (25-34); MEAN CORPUSCULAR HGB CONC 32.3 g/dl (32-36); MEAN PLATELET VOLUME 9.2 fL (7.4-10.4); MONO % 9.2 %; MONO ABS # 0.83 K/uL (0.11-0.59); NEUT % 72.4 %; NEUT ABS # 6.53 K/uL (1.4-6.5); PLATELET COUNT 159 K/uL (130-400); RED CELL DISTRIBUTION WIDTH CV 14.5 % (11.5-14.5); RED CELL DISTRIBUTION WIDTH SD 46.2 fL (36.4-46.3); WHITE BLOOD COUNT 9.03 K/uL (4.8-10.8)
[~2017-06-16] VITALS: Ht 151.1 cm; Wt 58.7 kg
[2017-06-16] VITALS (7 sets, daily range): BP systolic 118–169; BP diastolic 52–76; PULSE 52–64; TEMP 36.1–37; O2SAT 95–98; Ht 151.1 cm; Wt 58.7 kg
[~2017-06-16 11:41] MED LIST changes: +ACET-1256 PO; -ACET-24 PO; +AMIO200T4 PO; -CHERATUSSIN AC PO; -CIPR250T3 PO; +CIPROFLOXACIN / D5W 400 MG IV SCH; +CLOT-51 TOP; -CRD200 PO; +FLM4 PO; +FURO-85 PO; +GUAI1SOL5 PO; +HYDR2.5O TOP; +LACTATED RINGER'S 1000ML 1,000 ML IV SCH; +MELA1TAB5 PO; +ONGLYZA PO; +PANT40TA PO; -PHEN-1043 PO; +POTA-65 PO; -PRT40 PO; -SAXA1TAB5 PO; +TPRSR/100 PO; -TPRSR50 PO; +TRAM-10 PO; -ULT50X PO; +[UNRECOGNIZED DRUG - CODE] TOP
[2017-06-16] MEDS ORDERED: EpHEDrine SULFATE INJ 50 MG/ML AMP IV PRN (12:30)
[2017-06-16] MEDS ORDERED: MEPERIDINE HCL 25 MG/ML CARP IV PRN (12:30)
[2017-06-16] MEDS ORDERED: ATROPINE SULFATE 0.1 MG/ML 5ML SYR IV PRN (12:30)
[2017-06-16] MEDS ORDERED: ONDANSETRON INJ 2 MG/ML 2 ML VIAL IV PRN ×2 (12:30→15:15)
[2017-06-16] MEDS ORDERED: HYDROmorphone INJ 2 MG/ML SYR/VIAL IV PRN (12:30)
[2017-06-16] MEDS ORDERED: LABETALOL HCL IV 5 MG/ML 20ML IV PRN (12:30)
[2017-06-16] MEDS ORDERED: NALOXONE HCL 0.4 MG/1 ML VIAL/CARP IV PRN (12:30)
[2017-06-16] MEDS ORDERED: FENTANYL CITRATE INJ 50 MCG/1 ML 2 ML VIAL IV PRN (12:30)
[2017-06-16] MEDS ORDERED: FLUMAZENIL 0.1 MG/1 ML 10 ML VIAL IV PRN (12:30)
[2017-06-16] MEDS ORDERED: PHENYLEPHRINE 100MCG/ML 5ML SYR IV PRN (12:30)
--- NOTE | 2017-06-16 12:32 | History & Physical Bridge Note ---
H&P Re-Evaluation Bridge Note: I have examined the patient, reviewed the History & Physical and in the interval since the performance of the History & Physical I have noted the following changes of clinical significance: No changes noted
[2017-06-16] MEDS ORDERED: FENTANYL CITRATE INJ 50 MCG/1 ML 2 ML VIAL ONE (12:38)
[2017-06-16] MEDS ORDERED: DEXAMETHASONE SOD INJ 4 MG/ML VIAL ONE (12:38)
[2017-06-16] MEDS ORDERED: PROPOFOL IV EMULSION 10 MG/ML 20 ML VIAL IV ONE (12:38)
[2017-06-16] MEDS ORDERED: ONDANSETRON INJ 2 MG/ML 2 ML VIAL ONE (12:38)
[2017-06-16] MEDS ORDERED: LIDOCAINE HCL 2% 2 ML VIAL (20MG/ML) ONE (12:38)
[2017-06-16] MEDS ORDERED: ROCURONIUM BROMIDE 10 MG/ML 5 ML VIAL IV ONE ×3 (13:32→14:55)
[2017-06-16] MEDS ORDERED: EpHEDrine SULFATE 50MG/5ML SYR ONE (13:45)
[2017-06-16] MEDS ORDERED: PHENYLEPHRINE HCL INJ 10 MG/ML VIAL ONE (13:45)
[2017-06-16] MEDS ORDERED: NEOSTIGMINE METHYLSULFATE 5 MG/5 ML SYR ONE (14:10)
--- NOTE | 2017-06-16 15:03 | [facility] Post Operative Brief Note ---
Immediate Operative Summary Operative Date Jun 16, 2017. 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 Jodi Louis Anode Rebuilder Surgeon(s) none Estimated Blood Loss 20ML Findings Consistent with Post-Op Diagnosis Specimens A: Bladder Tumor Drains 3 way soni catheter - 22F Anesthesia Type General Complication(s) none Disposition Disposition: Recovery Room / PACU
[2017-06-16] MEDS ORDERED: ACETAMINOPHEN 500 MG TAB PO PRN (15:15)
[2017-06-16] MEDS ORDERED: ACETAMINOPHEN/CODEINE 300/30MG TAB PO PRN (15:15)
[2017-06-16] MEDS ORDERED: GUAIFENESIN/CODEINE 200MG/20MG 10ML UDC PO PRN (15:15)
[2017-06-16] MEDS ORDERED: FUROSEMIDE 20 MG TAB PO PRN (15:15)
[2017-06-16] MEDS ORDERED: POTASSIUM CHLORIDE 10 MEQ TABCR PO PRN (15:15)
[2017-06-16] MEDS ORDERED: TRAMADOL HCL 50 MG TAB PO PRN (15:15)
[2017-06-16] MEDS ORDERED: ACETAMINOPHEN 325 MG TAB PO PRN (15:15)
--- NOTE | 2017-06-16 15:22 | [facility] Operative Report ---
Operative Report Operative Date Jun 16, 2017. 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 Jodi Louis Physical Security Engineer Surgeon(s) none Estimated Blood Loss 20ML Findings As per dictation Specimens A: Bladder Tumor Drains 3 way soni catheter - 22F Anesthesia Gen. Complication(s) None Disposition Recovery Room / PACU Indications Bladder tumor Description of Procedure The patient was identified in the preoperative holding area, appropriate informed consent reviewed and completed and she was transported to the operating suite. Upon arrival she received appropriate preoperative antibiotics in the form of ciprofloxacin. Adequate general anesthesia was achieved and she was placed in dorsal lithotomy position where she was sterilely prepped and draped in standard fashion. I began the case by passing a 24 Hungarian resectoscope with 30 lens and visual obturator. Immediately upon entering the bladder I encountered a white appearing fibrinous material that seemed to be originating from the right anterior and lateral young of the bladder. A portion of this material sloughed off from the simple friction of the scope. The remainder of the debris occupied approximately 50% of her bladder lumen. (8+cm across.) Exchanging the visual obturator for a resecting loop and working element, I was able to gently pull a portion of this fibrinous material off of the lateral wall. After clearing what I could in this fashion, I was able to better inspect the underlying tissue. She unfortunately appears to have a significant amount of bladder tumor originating from the right lateral and anterior wall. This has a more sessile than papillary appearance. There was a clear bladder margin appreciated on the posterior wall in the midline and on the anterior wall just across the midline. The dome of the bladder appeared to harbor significant disease as well. I began to carefully debulk as much of this tumor is possible. I worked sequentially in an organized fashion beginning at the posterior midline working medially to laterally. In the midst of the resection , I was able to identify the ureteral orifice which did appear to be spared. It was very apparent early on in the resection that full resection would be impossible and this would be a largely palliative, debulking surgery rather than a curative effort. With this in mind, I exercised extreme caution and attempted to maintain excellent hemostasis throughout. After approximately 1 hour of resection, the bladder lumen appeared dramatically more open and the tumor had been resected nearly flush with the right lateral wall. 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 The dome of the bladder was the only area where there was a readily visible contour deformity with tumor projecting into the bladder - however, I elected not to resect this area as I feared potential bleeding and felt that control would be challenging secondary to location. I carefully evacuated all tumor chips and reinspected for hemostasis. A hege amount of resected tumor was collected in a specimen cup and sent for routine pathology. I placed a 22F soni catheter (3-way) and concluded the case. She was extubated and taken to the PACU in stable condition. I attest to the content of the Intraoperative Record and any orders documented therein. Any exceptions are noted below.
--- NOTE | 2017-06-16 15:47 | Anesthesiology Progress Note ---
Anesthesia Post Op Note Date & Time Jun 16, 2017 at 15:47 Vital Signs Pain Intensity: 0 Vital Signs Past 12 Hours Date Time Temp Pulse Resp B/P (MAP) Pulse Ox O2 Delivery O2 Flow Rate FiO2 06/16/17 15:40 56 12 151/64 96 Nasal Cannula 2 06/16/17 15:30 56 14 137/71 97 Oxymask 6 06/16/17 15:20 57 15 149/71 98 Oxymask 6 06/16/17 15:13 36.5 60 16 157/67 98 Oxymask 6 06/16/17 12:23 37 64 20 169/71 (103) 98 Room Air Notes Mental Status: alert / awake / arousable, participated in evaluation Pt Amnestic to Procedure: Yes Nausea / Vomiting: adequately controlled Pain: adequately controlled Airway Patency, RR, SpO2: stable & adequate BP & HR: stable & adequate Hydration State: stable & adequate Anesthetic Complications: no major complications apparent
[2017-06-16 15:52] LABS: BASO % 0.2 %; BASO ABS # 0.02 K/uL (0-0.2); EOS % 1.2 %; EOS ABS # 0.12 K/uL (0-0.5); HEMATOCRIT 36.5 % (37-47); HEMOGLOBIN 11.9 g/dL (12.0-16.0); IG# 0.03 K/uL (0.00-0.02); LYMPH % 6.1 %; LYMPH ABS # 0.62 K/uL (1.2-3.4); MEAN CELL VOLUME 85.5 fL (80-100); MEAN CORPUSCULAR HEMOGLOBIN 27.9 pg (25-34); MONO % 2.3 %; MONO ABS # 0.23 K/uL (0.11-0.59); NEUT % 89.9 %; NEUT ABS # 9.18 K/uL (1.4-6.5); PLATELET COUNT 176 K/uL (130-400); RED CELL DISTRIBUTION WIDTH CV 14.3 % (11.5-14.5); RED CELL DISTRIBUTION WIDTH SD 44.9 fL (36.4-46.3)
[2017-06-16 16:14] LABS: CALCIUM 8.4 mg/dl (8.5-10.1); CREATININE 0.7 mg/dl (0.60-1.20); POTASSIUM 3.8 mmol/L (3.5-5.1)
[2017-06-16 16:43] LABS: MEAN CORPUSCULAR HGB CONC 32.6 g/dl (32-36)
[2017-06-16] MEDS: ARTIFICIAL TEARS OP SOLN OP SCH ×2 (17:43→21:26)
[2017-06-16] MEDS ORDERED: TAMSULOSIN HCL 0.4 MG CAP PO SCH (21:00)
[2017-06-16] MEDS: CIPROFLOXACIN / D5W 200 MG in PREMIXED IN D5W 100 ML IV SCH (21:27)
[2017-06-16] MEDS: METOPROLOL SUCC 50MG EXT REL TAB PO SCH (21:38)
[2017-06-17 03:58] VITALS: BP 111/67; PULSE 56; TEMP 36.7; O2SAT 98
[2017-06-17 07:55] VITALS: BP 132/66; PULSE 57; TEMP 36.8; O2SAT 97
[2017-06-17] MEDS ORDERED: ASCORBIC ACID 500 MG TAB PO SCH (09:00)
[2017-06-17] MEDS ORDERED: PANTOprazole SOD 40 MG TAB PO SCH (09:00)
[2017-06-17] MEDS ORDERED: ASPIRIN 81 MG ECTAB PO SCH (09:00)
[2017-06-17] MEDS: METOPROLOL SUCC 50MG EXT REL TAB PO SCH (09:00)
[2017-06-17] MEDS ORDERED: MULTIVITAMIN TAB PO SCH (09:00)
[2017-06-17] MEDS ORDERED: AMIODARONE 200 MG TAB PO SCH (09:00)
--- NOTE | 2017-06-17 09:09 | Progress Note ---
Subjective Date of Service: Jun 17, 2017. (Isa Traylor CRNP) Subjective Pt evaluation today including: conversation w/ patient, chart review, lab review Voiding: soni catheter in place (patent, draining light leon colored urine with slow CBI running) 87 yo female s/p TURBT. Pt denies any pain or n/v this morning. Soni draining light leon colored urine with slow CBI running. Labs pending. (Isa Traylor CRNP) Problem List Medical Problems: (1) Elevated lactic acid level Status: Acute (2) UTI (urinary tract infection) Status: Acute (Isa Traylor CRNP) Review of Systems Constitutional: No fever, No chills Respiratory: No shortness of breath Cardiac: No chest pain Abdomen: No pain, No nausea, No vomiting Female : + hematuria Heme: No abnormal bleeding/bruising (Isa Traylor CRNP) Objective Vital Signs Date Time Temp Pulse Resp B/P (MAP) Pulse Ox O2 Delivery O2 Flow Rate FiO2 06/17/17 07:55 36.8 57 16 132/66 (88) 97 Room Air 06/17/17 03:58 36.7 56 16 111/67 (82) 98 Nasal Cannula 2.0 06/16/17 23:35 Nasal Cannula 2.0 06/16/17 23:24 Nasal Cannula 2.0 06/16/17 22:55 36.6 58 16 123/52 (75) 97 Nasal Cannula 2.0 06/16/17 21:24 64 119/63 (81) 06/16/17 19:31 36.5 57 18 131/59 (83) 97 Nasal Cannula 2.0 06/16/17 18:20 36.4 60 18 118/56 (76) 96 Nasal Cannula 2.0 06/16/17 16:52 36.1 53 16 144/76 (98) 96 Nasal Cannula 2.0 06/16/17 16:20 36.4 52 16 132/74 (93) 95 Nasal Cannula 2.0 06/16/17 16:20 Nasal Cannula 2.0 06/16/17 16:00 54 12 122/81 96 Nasal Cannula 2 06/16/17 15:50 36.2 53 13 130/54 96 Nasal Cannula 2 06/16/17 15:40 56 12 151/64 96 Nasal Cannula 2 06/16/17 15:30 56 14 137/71 97 Oxymask 6 06/16/17 15:20 57 15 149/71 98 Oxymask 6 06/16/17 15:13 36.5 60 16 157/67 98 Oxymask 6 06/16/17 12:23 37 64 20 169/71 (103) 98 Room Air (Isa Traylor [employer]) Physical Exam General Appearance: no apparent distress Eyes: normal inspection ENT: hearing grossly normal Neck: no JVD Respiratory/Chest: no respiratory distress, no accessory muscle use Cardiovascular: no JVD Extremities: normal inspection Neurologic/Psychiatric: alert, normal mood/affect, oriented x 3 Skin: normal color (Isa Traylor, [employer]) Laboratory Results Last 24 Hours Test 06/16/17 12:07 06/16/17 15:20 06/16/17 15:40 06/16/17 17:04 Bedside Glucose 138 mg/dl 154 mg/dl 200 mg/dl White Blood Count 10.20 K/uL Red Blood Count 4.27 M/uL Hemoglobin 11.9 g/dL Hematocrit 36.5 % Mean Corpuscular Volume 85.5 fL Mean Corpuscular Hemoglobin 27.9 pg Mean Corpuscular Hemoglobin Concent 32.6 g/dl Platelet Count 176 K/uL Mean Platelet Volume 9.0 fL Neutrophils (%) (Auto) 89.9 % Lymphocytes (%) (Auto) 6.1 % Monocytes (%) (Auto) 2.3 % Eosinophils (%) (Auto) 1.2 % Basophils (%) (Auto) 0.2 % Neutrophils # (Auto) 9.18 K/uL Lymphocytes # (Auto) 0.62 K/uL Monocytes # (Auto) 0.23 K/uL Eosinophils # (Auto) 0.12 K/uL Basophils # (Auto) 0.02 K/uL RDW Standard Deviation 44.9 fL RDW Coefficient of Variation 14.3 % Immature Granulocyte % (Auto) 0.3 % Immature Granulocyte # (Auto) 0.03 K/uL Sodium Level 136 mmol/L Potassium Level 3.8 mmol/L Chloride Level 104 mmol/L Carbon Dioxide Level 28 mmol/L Anion Gap 4.0 mmol/L Blood Urea Nitrogen 15 mg/dl Creatinine 0.70 mg/dl Est Creatinine Clear Calc Drug Dose 43.1 ml/min Estimated GFR () 89.0 Estimated GFR (Non- 76.8 BUN/Creatinine Ratio 20.9 Random Glucose 176 mg/dl Calcium Level 8.4 mg/dl Test 06/16/17 20:38 06/17/17 08:09 Bedside Glucose 239 mg/dl (Isa Traylor CRNP) Assessment and Plan POD #1 s/p TURBT AFVSS. Will clamp CBI this morning. TOV later this morning if urine remains light leon to clear. Encourage use of IS. Encourage OOB to chair. Possible d/c back to [facility] after lunch if doing well this afternoon. Discharge planning: group home facility ([facility]) (Isa Traylor CRNP) Pt subjectively doing very well - urine has remained light pink despite the CBI being clamped for several hours - labs stable and appropriate - plan for voiding trial and dc home (Rock Louis M.D.)
[2017-06-17 09:11] LABS: BASO % 0.2 %; BASO ABS # 0.02 K/uL (0-0.2); EOS % 0.2 %; EOS ABS # 0.02 K/uL (0-0.5); HEMOGLOBIN 11.8 g/dL (12.0-16.0); IG# 0.03 K/uL (0.00-0.02); LYMPH ABS # 1.52 K/uL (1.2-3.4); MEAN CELL VOLUME 85.3 fL (80-100); MEAN CORPUSCULAR HGB CONC 32.8 g/dl (32-36); MEAN PLATELET VOLUME 9.4 fL (7.4-10.4); MONO % 9.4 %; MONO ABS # 1.19 K/uL (0.11-0.59); NEUT ABS # 9.89 K/uL (1.4-6.5); PLATELET COUNT 233 K/uL (130-400); RED CELL DISTRIBUTION WIDTH CV 14.3 % (11.5-14.5); RED CELL DISTRIBUTION WIDTH SD 45.1 fL (36.4-46.3); WHITE BLOOD COUNT 12.67 K/uL (4.8-10.8)
[2017-06-17] MEDS ORDERED: CIPR1TAB10 PO (09:14)
--- NOTE | 2017-06-17 09:20 | Discharge Instructions ---
Discharge Instructions Date of Service Jun 17, 2017. 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 ) . Current Hospital Diet Patient's current hospital diet: Regular Diet Discharge Diet Recommended Diet: Regular Diet Procedures Procedures Performed: CYSTOSCOPY, TRANSURETHRAL RESECTION OF BLADDER TUMOR (large) Pending Studies Studies pending at discharge: yes List of pending studies: bladder tumor Laboratory Results Hemoglobin A1c Test 05/04/17 04:05 Range/Units Estimated Average Glucose 180 mg/dl Hemoglobin A1c 7.9 H 4.5-5.6 % Medical Emergencies . Who to Call and When: Medical Emergencies: If at any time you feel your situation is an emergency, please call 911 immediately. . Non-Emergent Contact Non-Emergency issues call your: Urologist Call Non-Emergent contact if: temperature is above 101.5, your pain is not controlled, your pain is worsening, your pain is unusual for you, your pain is concerning you, you have any medication questions . . "Provider Documentation" section prepared by Isa Traylor. . VTE Core Measure Inpt VTE Proph given/why not?: SCD's [place] Drug Monitoring Program Search Results: patient reviewed within database, see additional documentation (Pt already on chronic tramadol. No further narcotic prescriptions provided at this time. )
[2017-06-17] MEDS: CIPROFLOXACIN / D5W 200 MG in PREMIXED IN D5W 100 ML IV SCH (09:31)
[2017-06-17] MEDS: ARTIFICIAL TEARS OP SOLN OP SCH (09:34)
[2017-06-17 09:35] VITALS: BP 102/58; PULSE 58
--- NOTE | 2017-06-17 09:42 | Clinical Documentation Query ---
CLINICAL DOCUMENTATION QUERY An 87 yo female admitted for a bladder neoplasm and s/p TURBT. In your clinical opinion is this patient being managed for: ( X ) Chronic diastolic CHF Pt is being managed for a bladder tumor; not CHF. ( ) Not Agree ( ) Other explanation of clinical findings (Please Explain) ( ) Unable to determine (Please Define) ( ) Need to Discuss The medical record reflects the following clinical findings, treatment, and risk factors. Clinical Indicators: Echo = Afib with mild concentric left ventricular hypertrophy; EF = 65-70% Treatment: Home Lasix 20mg PO, I&O Risk Factors: Age, HTN, Afib Please clarify and document your clinical opinion in the progress notes and discharge summary. Terms such as "probable", "suspected", "likely", "questionable", "possible", or "still to be ruled out" are acceptable. IF IN AGREEMENT, YOU MUST DOCUMENT ABOVE DIAGNOSTIC STATEMENT IN DAILY PROGRESS NOTES AND DISCHARGE SUMMARY. This document is not part of the patient's record. Thank You, Mary Gamez RN [phone]
--- NOTE | 2017-06-17 09:48 | Anesthesiology Progress Note ---
Anesthesia Post Op Note Date & Time Jun 17, 2017 at 09:48 Vital Signs Pain Intensity: 1.0 Vital Signs Past 12 Hours Date Time Temp Pulse Resp B/P (MAP) Pulse Ox O2 Delivery O2 Flow Rate FiO2 06/17/17 09:35 58 102/58 (73) 06/17/17 07:55 36.8 57 16 132/66 (88) 97 Room Air 06/17/17 03:58 36.7 56 16 111/67 (82) 98 Nasal Cannula 2.0 06/16/17 23:35 Nasal Cannula 2.0 06/16/17 23:24 Nasal Cannula 2.0 06/16/17 22:55 36.6 58 16 123/52 (75) 97 Nasal Cannula 2.0 Notes Mental Status: alert / awake / arousable Pt Amnestic to Procedure: Yes Nausea / Vomiting: adequately controlled Pain: adequately controlled Airway Patency, RR, SpO2: stable & adequate BP & HR: stable & adequate Hydration State: stable & adequate
[2017-06-17 10:13] LABS: CALCIUM 8.9 mg/dl (8.5-10.1); CREATININE 0.74 mg/dl (0.60-1.20); POTASSIUM 4.1 mmol/L (3.5-5.1)
[2017-06-17 14:38] VITALS: BP 102/58; PULSE 58; TEMP 36.8; O2SAT 97
== END 2017-06-17 15:45 | disposition home or self-care (01) | DRG 670 ==
LOC: C.ACU 11:41 → C.MSW 15:10 → ENRESERV 15:45 → C.MSW 18:36
PROVIDERS: ADMIT Urology; ATTEND Urology
PROC: 0TBB8ZZ Excision of Bladder, Via Natural or Artificial Opening Endoscopic (ICD-10-PCS; principal; 2017-06-16 13:20)
DX: C67.1 Malignant neoplasm of dome of bladder (principal); C67.2 Malignant neoplasm of lateral wall of bladder; Z79.82 Long term (current) use of aspirin; Z79.899 Other long term (current) drug therapy

== ENCOUNTER → 2017-07-18 | Outpatient (CLI) | payer OTHER, MEDICARE ==
[~2017-07-18] MED LIST changes: +CHOL100010 PO; +CIPR1TAB10 PO; -CIPROFLOXACIN / D5W 400 MG IV SCH; +CLC100 PO; +CLOT1CRE3 TOP; +HYDR-4956 TOP; -LACTATED RINGER'S 1000ML 1,000 ML IV SCH; +MELA1TAB4 PO; +METO-479 PO; +MRLP17X PO; +NITR-5 PO; +POLY99.0 OPB; +POTA10CA28 PO; -PRMVC VAGRING; +PSYL48.59 PO; +[UNRECOGNIZED DRUG - CODE] TOP
== END | disposition home or self-care (01) ==
LOC: C.LABSPEC 15:42
PROVIDERS: ATTEND Nurse Practitioner Adult Health
DX: N39.0 Urinary tract infection, site not specified (principal)

== ENCOUNTER 2017-07-20 12:20 | Emergency (ER) | payer OTHER, MEDICARE ==
[~2017-07-20] VITALS: Ht 149.9 cm; Wt 60.0 kg
[~2017-07-20 12:20] MED LIST changes: -CHOL100010 PO; -CLC100 PO; -CLOT1CRE3 TOP; -HYDR-4956 TOP; -MELA1TAB4 PO; -METO-479 PO; -MRLP17X PO; -NITR-5 PO; -POLY99.0 OPB; -POTA10CA28 PO; -PSYL48.59 PO; -[UNRECOGNIZED DRUG - CODE] TOP
[2017-07-20 12:23] VITALS: TEMP 36.8
--- NOTE | 2017-07-20 13:19 | EMERGENCY ROOM VISIT NOTE ---
History Report prepared by Marcelino: Adonay Conner Under the Supervision of: Dr. Maurizio Lovell M.D. First contact with patient: 12:55 Chief Complaint: URINARY SYMPTOMS Stated Complaint: UTI,SWELLING IN LEG,TIGHTNESS IN CHEST Nursing Triage Summary: bladder surgery in May patient states she has been dealing with a UTI x 2 weeks. finished first round of antibiotics on friday. called doctor and was prescribed 2nd round of antibiotics. patient states she has been feeling "aweful" for several weeks, increased leg swelling. "I have had a hard time getting ahold of doctors and I just dont feel good." had 1 dose of lasix yesterday morning for swelling. History of Present Illness The patient is a 87 year old white female with a past medical history of bladder resection in May 2017 and UTI in April 2017 who presents to the ED with a cc of constant urinary discomfort beginning 10 days ago. She rates her discomfort as an 8/10 in severity. She describes her urinary discomfort as a pressure. The patient reports she called Dr. Cosme over a week ago due to her urinary symptoms. She reports Dr. Cosme took a urinary sample and prescribed her Macrobid for a UTI. The patient states she has been taking it until two days ago when she finished. She reports Dr. Cosme ordered another culture two days ago, which came back positive. The patient states she was started on Macrobid again, which she reports she has been taking. She reports that her physician also gave her Lasix, which she took yesterday. Positive chest pressure , leg swelling, mild cough, SOB, decreased fluid intake. Negative chest pain, nausea, vomiting. Per the patient's report, she had a UTI in April that was dos santos sensitive to E. Coli on the . Source of History: patient Onset: 10 days ago Position: other (global) Symptom Intensity: 8/10 Quality: pressure Timing: constant Modifying Factors (Relieving): other (Macrobid) Associated Symptoms: + cough, + SOB, No chest pain, No nausea, No vomiting Review of Systems See HPI for pertinent positives and negatives. A total of ten systems were reviewed and were otherwise negative. Past Medical & Surgical Medical Problems: (1) Atrial fibrillation (2) Bladder cancer (3) DM II (diabetes mellitus, type II), controlled (4) Hyperlipidemia Nec/Nos (5) Hypertension Nos (6) Methicillin Resistant Staphylococcus Aureus Elsewhere/Nos (7) Osteoarthros Nos-Unspec (8) Osteoporosis Nos (9) Rapid atrial fibrillation Family History Patient reports no known family medical history. Social History Smoking Status: Never Smoker Alcohol Use: none Marital Status: Housing Status: assisted living Occupation Status: retired Current/Historical Medications Scheduled Amiodarone Hcl (Cordarone), 400 MG PO DAILY Ascorbic Acid (Ascorbic Acid), 500 MG PO DAILY Aspirin (Aspirin Ec), 81 MG PO DAILY Cholecalciferol (Vitamin D), 1,000 UNITS PO DAILY Clotrimazole Vaginal (Clotrimazole), 1 APPLN TOP DAILY Cyclosporine (Ophth) (Restasis), 1 DROP OPB BID Emollient (Cerave), 1 APPLN TOP BID Furosemide (Lasix), 20 MG PO EDEMA/WEIGHT GAIN Hydrocortisone (Rectal) (Hydrocortisone), 1 APPLN TOP DAILY Melatonin (Melatonin), 1 MG PO HS Metoprolol Succinate (Toprol Xl), 100 MG PO BID Multivitamin (Multivitamin), 1 TAB PO DAILY Nitrofurantoin Monohyd Macrocr (Macrobid), 100 MG PO BID Pantoprazole (Protonix), 40 MG PO DAILY Polyvinyl Alcohol (Artificial Tears), 1 DROP OPB QID Psyllium (Metamucil), 1 TBS PO MWF [Onglyza], 5 MG PO DAILY Scheduled PRN Acetaminophen (Tylenol), 500 MG PO Q8 PRN for Pain or Fever Diphenoxylate/Atropine (Lomotil), 1 TAB PO DAILY PRN for LOOSE STOOLS Guaifenesin-Codeine (Codeine/Guaifenesin 100-10 mg/5Ml), 10 ML PO Q4 PRN for Cough Potassium Chloride (Micro-K Ext Rel), 10 MEQ PO DAILY PRN for WITH LASIX Tramadol (Ultram), MG PO Q8H PRN for Severe Pain Allergies Coded Allergies: Cephalosporins (Verified Allergy, Intermediate, KEFLEX = HIVES, 07/20/17) Penicillins (Verified Allergy, Mild, HIVES, 07/20/17) FRANKLIN Inhibitors (Verified Allergy, Unknown, Unknown, 07/20/17) Adhesives (Verified Allergy, Unknown, rash, 07/20/17) Amoxicillin (Verified Allergy, Unknown, Unknown, 07/20/17) CI Pigment Blue 63 (Verified Allergy, Unknown, Unknown, 07/20/17) Cephalexin (Verified Allergy, Unknown, Unknown, 07/20/17) Duloxetine (Verified Allergy, Unknown, Unknown, 07/20/17) Gabapentin (Verified Allergy, Unknown, Unknown, 07/20/17) Lisinopril (Verified Allergy, Unknown, Unknown, 07/20/17) Penicillin V (Verified Allergy, Unknown, unknown, hives?, 07/20/17) Simvastatin (Verified Allergy, Unknown, Unknown, 07/20/17) Yellow Dyes (Non-tartrazine) (Verified Allergy, Unknown, Unknown, 07/20/17) PER PATIENT, SHE EATS YELLOW CANDY Lactose. (Verified Adverse Reaction, Unknown, GI SYMPTOMS, 07/20/17) pt reports allergic to all diary product - bloated and gas Physical Exam Vital Signs Date Time Temp Pulse Resp B/P (MAP) Pulse Ox O2 Delivery O2 Flow Rate FiO2 07/20/17 16:30 61 18 122/57 95 07/20/17 14:49 92 Room Air 07/20/17 14:30 63 20 115/47 92 Room Air 07/20/17 13:33 63 07/20/17 12:23 36.8 62 22 120/73 99 Room Air Physical Exam GENERAL: Awake, alert, well-appearing, NAD HENT: Normocephalic, atraumatic. EYES: Normal conjunctiva. Sclera non-icteric. NECK: Supple. No nuchal rigidity. FROM. RESPIRATORY: CTAB, no rhonchi, wheezing, crackles CARDIAC: RRR, no MRG ABDOMEN: Soft, mild suprapubic tenderness, BS+ MSK: No chest wall TTP, 2-3+ pitting edema, No CVA TTP. NEURO: GCS 15, CN 2-12 intact, moves all 4s on command SKIN: No rash or jaundice noted. Medical Decision & Procedures ER Provider Diagnostic Interpretation: X-ray: Per my interpretation, radiologist review. CHEST ONE VIEW PORTABLE CLINICAL HISTORY: Respiratory distress COMPARISON STUDY: 06/04/2017 FINDINGS: The heart is enlarged. There is a retrocardiac opacity consistent with a hiatal hernia. There is mild interstitial thickening. There is no lobar consolidation. There are trace pleural effusions. IMPRESSION: 1. Cardiomegaly and trace pleural effusions 2. Stable mild interstitial thickening 3. Hiatal hernia Electronically signed by: Rgio Whitney M.D. 07/20/2017 1:51 PM Dictated Date/Time: 07/20/2017 1:50 PM Laboratory Results 07/20/17 13:50 Red Blood Count 4.56, Mean Corpuscular Volume 76.5, Mean Corpuscular Hemoglobin 25.9, Mean Corpuscular Hemoglobin Concent 33.8, Mean Platelet Volume 8.7, Neutrophils (%) (Auto) 80.7, Lymphocytes (%) (Auto) 5.0, Monocytes (%) (Auto) 9.6, Eosinophils (%) (Auto) 3.9, Basophils (%) (Auto) 0.2, Neutrophils # (Auto) 9.57, Lymphocytes # (Auto) 0.59, Monocytes # (Auto) 1.14, Eosinophils # (Auto) 0.46, Basophils # (Auto) 0.02 07/20/17 13:50 Test 07/20/17 12:45 07/20/17 13:50 Urine Color YELLOW Urine Appearance CLOUDY (CLEAR) Urine pH 6.5 (4.5-7.5) Urine Specific [place] 1.011 (1.000-1.030) Urine Protein TRACE (NEG) Urine Glucose (UA) 2+ (NEG) Urine Ketones NEG (NEG) Urine Occult Blood 2+ (NEG) Urine Nitrite NEG (NEG) Urine Bilirubin NEG (NEG) Urine Urobilinogen NEG (NEG) Urine Leukocyte Esterase LARGE (NEG) Urine WBC (Auto) >30 /hpf (0-5) Urine RBC (Auto) 5-10 /hpf (0-4) Urine Hyaline Casts (Auto) 1-5 /lpf (0-5) Urine Epithelial Cells (Auto) 10-20 /lpf (0-5) Urine Bacteria (Auto) NEG (NEG) Urine Yeast (Auto) (NONE PRSENT) White Blood Count 11.85 K/uL (4.8-10.8) Red Blood Count 4.56 M/uL (4.2-5.4) Hemoglobin 11.8 g/dL (12.0-16.0) Hematocrit 34.9 % (37-47) Mean Corpuscular Volume 76.5 fL (80-100) Mean Corpuscular Hemoglobin 25.9 pg (25-34) Mean Corpuscular Hemoglobin Concent 33.8 g/dl (32-36) Platelet Count 308 K/uL (130-400) Mean Platelet Volume 8.7 fL (7.4-10.4) Neutrophils (%) (Auto) 80.7 % Lymphocytes (%) (Auto) 5.0 % Monocytes (%) (Auto) 9.6 % Eosinophils (%) (Auto) 3.9 % Basophils (%) (Auto) 0.2 % Neutrophils # (Auto) 9.57 K/uL (1.4-6.5) Lymphocytes # (Auto) 0.59 K/uL (1.2-3.4) Monocytes # (Auto) 1.14 K/uL (0.11-0.59) Eosinophils # (Auto) 0.46 K/uL (0-0.5) Basophils # (Auto) 0.02 K/uL (0-0.2) RDW Standard Deviation 41.0 fL (36.4-46.3) RDW Coefficient of Variation 14.6 % (11.5-14.5) Immature Granulocyte % (Auto) 0.6 % Immature Granulocyte # (Auto) 0.07 K/uL (0.00-0.02) Prothrombin Time 10.3 SECONDS (9.0-12.0) Prothromb Time International Ratio 1.0 (0.9-1.1) Activated Partial Thromboplast Time 28.0 SECONDS (21.0-31.0) Partial Thromboplastin Ratio 1.1 Anion Gap 8.0 mmol/L (3-11) Est Creatinine Clear Calc Drug Dose 34.6 ml/min Estimated GFR () 68.5 Estimated GFR (Non- 59.1 BUN/Creatinine Ratio 13.5 (10-20) Calcium Level 9.1 mg/dl (8.5-10.1) Total Bilirubin 0.7 mg/dl (0.2-1) Aspartate Amino Transf (AST/SGOT) 43 U/L (15-37) Alanine Aminotransferase (ALT/SGPT) 79 U/L (12-78) Alkaline Phosphatase 262 U/L (45-117) Total Creatine Kinase 31 U/L (26-192) Troponin I < 0.015 ng/ml (0-0.045) Pro-B-Type Natriuretic Peptide 887 pg/ml (0-1800) Total Protein 6.8 gm/dl (6.4-8.2) Albumin 3.0 gm/dl (3.4-5.0) Globulin 3.8 gm/dl (2.5-4.0) Albumin/Globulin Ratio 0.8 (0.9-2) Laboratory results reviewed by me Medications Administered Medications (Trade) Dose Ordered Sig/Zoë Route Start Time Stop Time Status Last Admin Dose Admin Furosemide (Lasix Inj) 40 mg NOW STAT IV 07/20/17 15:12 07/20/17 15:13 DC 07/20/17 15:53 40 MG ECG Per My Interpretation Indication: SOB/dyspnea Rate (beats per minute): 62 Rhythm: normal sinus Findings: T-wave inversion (Lead 3), other (Normal intervals, No other STS or TWI changes) ED Course 1307: The patient was evaluated in room C03. A complete history and physical exam was performed. 1625: I reevaluated the patient. Discussed results and discharge instructions: She verbalized understanding and agreement. The patient is ready for discharge. Medical Decision Triage Nursing notes reviewed. The patient is a 87 year old white female with a past medical history of bladder resection in May 2017 and UTI in April 2017 who presents to the ED with a cc of constant urinary discomfort beginning 10 days ago. The patient's presentation and history were concerning for etiologies such as renal colic, appendicitis, diverticulitis, mesenteric ischemia, aortic pathology , infections, inflammatory bowel disease, PUD, biliary pathology, UTI, as well as others were entertained. Patient was seen and evaluated at the bedside. Patient had been complaining of some abdominal discomfort, pressure and dysuria. Patient states that this was most recent after she did have a transurethral resection of a bladder tumor. This was completed by Dr. Louis last month. This is her second round of Macrobid. Patient did complain that she did have some mild shortness of breath as well. Patient did have blood work completed along with a chest x-ray and a urinalysis. The patient's urinalysis showed questionable infection. I did review prior sensitivities which showed pansensitive E. coli back in April. Patient was told to continue her Macrobid at this time. Her most recent urine cultures only showed skin cecily. Patient's chest x-ray did show some cardiomegaly with some trace pleural effusions. The patient did have some bilateral lower extremity edema. Patient was noted to have mild elevations in her liver enzymes which were new. Her mild liver dysfunction may be contributing to some of her lower extremity edema as the patient's BNP is not very elevated. She also did show a low albumin within the blood. She may have decreased oncotic pressure which would also contribute to this lower extremity edema. I did discuss this with the patient stated that they were nondiagnostic however they should be checked the next time she sees the physician. Patient was also told that she would benefit from having her legs wrapped in [place] wraps or compression stockings to help with the fluid retention. Patient's BNP and troponin are not elevated. Patient's EKG is unchanged. I do not believe that she is having ACS. Patient may have some shortness of breath due to some deconditioning and fatigue. This also may be due to increasing weight in her legs. Patient was given 40 IV of Lasix. I did state that the patient should continue to take her Lasix but should take it on a daily basis. I did discuss the patient's case with the case reviewer in order to see if we were able to increase her care at her living facility. She could be transitioned tomorrow. We also discussed the need for PT and OT. We discussed that if she has any worsening symptoms or worsening chest pain or shortness of breath that she should return for further evaluation and treatment. I believe the patient is suitable for outpatient discharge with planned increase in level of care at her assisted living facility tomorrow. All this information was relayed to both the patient as well as the family member. They were in agreement with the plan of care. Patient was given strict follow-up, discharge, and return precautions. All questions were answered. Patient was deemed suitable for outpatient follow-up at this time. Patient agreed with the plan of care and was safely discharged home. Medication Reconcilliation Current Medication List: was personally reviewed by me Blood Pressure Screening Patient's blood pressure: Normal blood pressure Impression Primary Impression: Symptoms involving urinary system Additional Impressions: Liver function abnormality Swelling of lower extremity Scribe Attestation The scribe's documentation has been prepared under my direction and personally reviewed by me in its entirety. I confirm that the note above accurately reflects all work, treatment, procedures, and medical decision making performed by me. Departure Information Dispostion Home / Self-Care Referrals Flores Cosme M.D. (PCP) Patient Instructions ED Leg Swelling Bilateral, My Josemanuel Antoine [facility] Additional Instructions Please return to the emergency department if you have worsening or recurrent symptoms not amenable to at-home treatment. Please call for a follow-up appointment with her primary care physician. Please take your medications as prescribed. If you have other concerns and/or complaints please feel free to also call your primary care physician's office or return the ED for further evaluation, management, and treatment. You were found to have an elevated blood pressure today (>120 sytolic or >90 diastolic). Per medicare guidelines, you need to follow up with this blood pressure screening with your Primary Care Physician (PCP). For a new PCP call [phone]. You received narcotic or benzodiazepene medication while in the emergency room today. This is an addictive medication that may cause drowziness as well as constipation. Do not drive, operate heavy machinery, or drink alcohol under the influence of this medication. Please avoid Tylenol and alcohol. He did have some mild elevations in your liver function tests. Please recheck these at a later date. Please take your Lasix daily. Take your medications as prescribed. You have been examined and treated today on an emergency basis only. This is not a substitute for, or an effort to provide, complete comprehensive medical care. It is impossible to recognize and treat all injuries or illnesses in a single emergency department visit. It is therefore important that you follow up closely with [facility], your PCP, and/or your specialist(s). Call as soon as possible for an appointment. Thank you for your time and consideration. I look forward to speaking with you again soon. Please don't hesitate to call us if you have any questions. Problem Qualifiers
[2017-07-20] MEDS ORDERED: FURO-85 PO (13:47)
[2017-07-20] MEDS ORDERED: TRAM-10 PO (13:47)
[2017-07-20] MEDS ORDERED: PSYL48.59 PO (13:47)
[2017-07-20] MEDS ORDERED: CHOL100010 PO (13:47)
--- NOTE | 2017-07-20 13:53 | DIAGNOSTIC IMAGING REPORT ---
CHEST ONE VIEW PORTABLE CLINICAL HISTORY: Respiratory distress COMPARISON STUDY: 06/04/2017 FINDINGS: The heart is enlarged. There is a retrocardiac opacity consistent with a hiatal hernia. There is mild interstitial thickening. There is no lobar consolidation. There are trace pleural effusions. IMPRESSION: 1. Cardiomegaly and trace pleural effusions 2. Stable mild interstitial thickening 3. Hiatal hernia Electronically signed by: Rigo Whitney M.D. 07/20/2017 1:51 PM Dictated Date/Time: 07/20/2017 1:50 PM
[2017-07-20 14:05] LABS: BASO % 0.2 %; BASO ABS # 0.02 K/uL (0-0.2); EOS % 3.9 %; EOS ABS # 0.46 K/uL (0-0.5); HEMATOCRIT 34.9 % (37-47); HEMOGLOBIN 11.8 g/dL (12.0-16.0); IG# 0.07 K/uL (0.00-0.02); LYMPH ABS # 0.59 K/uL (1.2-3.4); MEAN CELL VOLUME 76.5 fL (80-100); MEAN CORPUSCULAR HEMOGLOBIN 25.9 pg (25-34); MEAN CORPUSCULAR HGB CONC 33.8 g/dl (32-36); MEAN PLATELET VOLUME 8.7 fL (7.4-10.4); MONO % 9.6 %; MONO ABS # 1.14 K/uL (0.11-0.59); NEUT % 80.7 %; NEUT ABS # 9.57 K/uL (1.4-6.5); PLATELET COUNT 308 K/uL (130-400); RED CELL DISTRIBUTION WIDTH CV 14.6 % (11.5-14.5); WHITE BLOOD COUNT 11.85 K/uL (4.8-10.8)
[2017-07-20 14:23] LABS: ALT/SGPT 79 U/L (12-78); AST/SGOT 43 U/L (15-37); BLOOD UREA NITROGEN 12 mg/dl (7-18); CALCIUM 9.1 mg/dl (8.5-10.1); CARBON DIOXIDE 28 mmol/L (21-32); CREATININE 0.87 mg/dl (0.60-1.20); GLUCOSE 192 mg/dl (70-99); POTASSIUM 3.9 mmol/L (3.5-5.1); SODIUM 132 mmol/L (136-145)
[2017-07-20 14:27] VITALS: Ht 149.9 cm; Wt 60.0 kg
[2017-07-20 14:28] LABS: ALKALINE PHOSPHATASE 262 U/L (45-117); TOTAL PROTEIN 6.8 gm/dl (6.4-8.2)
[2017-07-20 14:49] VITALS: O2SAT 92
[2017-07-20] MEDS ORDERED: FUROSEMIDE 40 MG/4 ML VIAL IV STA (15:12)
[2017-07-20 16:30] VITALS: BP 122/57; PULSE 61; O2SAT 95
[2017-07-22] MEDS ORDERED: NITR-5 PO (13:47)
[2017-07-22] MEDS ORDERED: [UNRECOGNIZED DRUG - CODE] TOP (13:47)
[2017-07-22] MEDS ORDERED: CYCL0.052 OPB (13:47)
[2017-07-22] MEDS ORDERED: POLY99.0 OPB (13:47)
[2017-07-22] MEDS ORDERED: MELA1TAB4 PO (13:47)
[2017-07-22] MEDS ORDERED: MULT-506 PO (13:47)
[2017-07-22] MEDS ORDERED: POTA10CA28 PO (13:47)
[2017-07-22] MEDS ORDERED: ASPI81TA28 PO (13:47)
[2017-07-22] MEDS ORDERED: CLOT1CRE3 TOP (13:47)
[2017-07-22] MEDS ORDERED: DIPH-416 PO (13:47)
[2017-07-22] MEDS ORDERED: ONGLYZA PO (13:47)
[2017-07-22] MEDS ORDERED: HYDR-4956 TOP (13:47)
[2017-07-22] MEDS ORDERED: PANT40TA PO (13:47)
[2017-07-22] MEDS ORDERED: AMIO200T4 PO (13:47)
[2017-07-22] MEDS ORDERED: GUAI1SOL5 PO (13:47)
[2017-07-22] MEDS ORDERED: METO-479 PO (13:47)
[2017-07-22] MEDS ORDERED: ACET-1256 PO (13:47)
[2017-07-22] MEDS ORDERED: ASCO500T16 PO (13:47)
[2017-07-25] MEDS ORDERED: CLC100 PO (17:08)
[2017-07-25] MEDS ORDERED: MRLP17X PO (17:08)
== END 2017-07-20 16:30 | disposition home or self-care (01) ==
LOC: C.EDB 12:21 → C.EDC 16:30
DX: R39.89 Other symptoms and signs involving the genitourinary system (principal); R30.0 Dysuria; R10.9 Unspecified abdominal pain; R94.5 Abnormal results of liver function studies; R60.0 Localized edema; C67.9 Malignant neoplasm of bladder, unspecified; I48.91 Unspecified atrial fibrillation; E11.9 Type 2 diabetes mellitus without complications; E78.5 Hyperlipidemia, unspecified; I10 Essential (primary) hypertension; M19.90 Unspecified osteoarthritis, unspecified site; M81.0 Age-related osteoporosis without current pathological fracture; I51.7 Cardiomegaly; K44.9 Diaphragmatic hernia without obstruction or gangrene; R94.31 Abnormal electrocardiogram [ECG] [EKG]; Z86.14 Personal history of Methicillin resistant Staphylococcus aureus infection; Z79.82 Long term (current) use of aspirin; Z88.0 Allergy status to penicillin; Z88.1 Allergy status to other antibiotic agents; Z88.8 Allergy status to other drugs, medicaments and biological substances; Z91.048 Other nonmedicinal substance allergy status; Z88.9 Allergy status to unspecified drugs, medicaments and biological substances; Z91.011 Allergy to milk products

== ENCOUNTER 2017-07-22 14:35 | Inpatient (IN) | payer OTHER, MEDICARE ==
[~2017-07-22] VITALS: Ht 149.9 cm; Wt 59.0 kg
[~2017-07-22 14:35] MED LIST changes: -ARTISOL12 OP; -CHOL1000 PO; +CHOL100010 PO; -CIPR1TAB10 PO; -CLOT-51 TOP; +CLOT1CRE3 TOP; -CRAN500C2 PO; -FLM4 PO; +HYDR-4956 TOP; -HYDR2.5O TOP; +MELA1TAB4 PO; -MELA1TAB5 PO; +METO-479 PO; +NITR-5 PO; +POLY99.0 OPB; -POTA-65 PO; +POTA10CA28 PO; +PSYL48.59 PO; -TPRSR/100 PO; +[UNRECOGNIZED DRUG - CODE] TOP; -[UNRECOGNIZED DRUG - CODE] TOP
--- NOTE | 2017-07-22 15:09 | EMERGENCY ROOM VISIT NOTE ---
History Report prepared by Marcelino: Elaine Canada Under the Supervision of: Dr. Jet Flynn D.O. First contact with patient: 14:40 Chief Complaint: URINARY SYMPTOMS Stated Complaint: UTI,HX OF BLADDER CA History of Present Illness The patient is a 87 year old female who presents to the Emergency Room with complaints of constant difficulty urinating beginning last night. The patient feels like her abdomen is distended. She reports she is "leaking" into her diaper but she is not able to void. The patient was diagnosed with a UTI about two weeks ago and was put on Macrobid the -. She was then renewed Macrobid on the and is still on it. She notes some blood in her urine. She denies any fevers, vomiting, clots in the urine, or back pain. The patient had her bladder scraped June 16 and she was diagnosed with bladder cancer. She is on Lasix. Source of History: patient Onset: last night Position: other (generalized) Quality: other (difficulty urinating ) Timing: constant Associated Symptoms: + urinary symptoms, No fevers, No back pain Review of Systems See HPI for pertinent positives & negatives. A total of 10 systems reviewed and were otherwise negative. Past Medical & Surgical Medical Problems: (1) Aortic stenosis (2) Atrial fibrillation (3) Atrial fibrillation (4) Bladder cancer (5) Diabetes mellitus (6) Diastolic CHF (7) HTN (hypertension) (8) MRSA (methicillin resistant Staphylococcus aureus) (9) Osteoarthritis (10) Rapid atrial fibrillation (11) Sjoegren syndrome Surgical Problems: (1) H/O: hysterectomy (2) resection of bladder tumor Family History Patient reports no known family medical history. Social History Smoking Status: Never Smoker Alcohol Use: none Marital Status: Housing Status: assisted living Occupation Status: retired Current/Historical Medications Scheduled Amiodarone Hcl (Cordarone), 400 MG PO DAILY Ascorbic Acid (Ascorbic Acid), 500 MG PO DAILY Aspirin (Aspirin Ec), 81 MG PO DAILY Cholecalciferol (Vitamin D), 1,000 UNITS PO DAILY Clotrimazole Vaginal (Clotrimazole), 1 APPLN TOP DAILY Cyclosporine (Ophth) (Restasis), 1 DROP OPB BID Emollient (Cerave), 1 APPLN TOP BID Furosemide (Lasix), 20 MG PO QAM Hydrocortisone (Rectal) (Hydrocortisone), 1 APPLN TOP DAILY Melatonin (Melatonin), 1 MG PO HS Metoprolol Succinate (Toprol Xl), 100 MG PO BID Multivitamin (Multivitamin), 1 TAB PO DAILY Nitrofurantoin Monohyd Macrocr (Macrobid), 100 MG PO BID Pantoprazole (Protonix), 40 MG PO DAILY Polyvinyl Alcohol (Artificial Tears), 1 DROP OPB QID Potassium Chloride (Micro-K Ext Rel), 10 MEQ PO DAILY Psyllium (Metamucil), 1 TBS PO MWF [Onglyza], 5 MG PO DAILY Scheduled PRN Acetaminophen (Tylenol), 500 MG PO Q8 PRN for Pain or Fever Diphenoxylate/Atropine (Lomotil), 1 TAB PO DAILY PRN for LOOSE STOOLS Guaifenesin-Codeine (Codeine/Guaifenesin 100-10 mg/5Ml), 10 ML PO Q4 PRN for Cough Tramadol (Ultram), MG PO Q8H PRN for Severe Pain Allergies Coded Allergies: Cephalosporins (Verified Allergy, Intermediate, KEFLEX = HIVES, 07/20/17) Penicillins (Verified Allergy, Mild, HIVES, 07/20/17) JACKY Inhibitors (Verified Allergy, Unknown, Unknown, 07/20/17) Adhesives (Verified Allergy, Unknown, rash, 07/20/17) Amoxicillin (Verified Allergy, Unknown, Unknown, 07/20/17) CI Pigment Blue 63 (Verified Allergy, Unknown, Unknown, 07/20/17) Cephalexin (Verified Allergy, Unknown, Unknown, 07/20/17) Duloxetine (Verified Allergy, Unknown, Unknown, 07/20/17) Gabapentin (Verified Allergy, Unknown, Unknown, 07/20/17) Lisinopril (Verified Allergy, Unknown, Unknown, 07/20/17) Penicillin V (Verified Allergy, Unknown, unknown, hives?, 07/20/17) Simvastatin (Verified Allergy, Unknown, Unknown, 07/20/17) Lactose. (Verified Adverse Reaction, Unknown, GI SYMPTOMS, 07/20/17) pt reports allergic to all diary product - bloated and gas Physical Exam Vital Signs Date Time Temp Pulse Resp B/P (MAP) Pulse Ox O2 Delivery O2 Flow Rate FiO2 07/22/17 17:16 64 16 108/60 07/22/17 16:23 62 110/61 91 Room Air 07/22/17 14:36 37.3 68 20 155/77 96 Physical Exam GENERAL: Patient is awake, alert, and in no acute distress. Patient is resting comfortably and showing no signs of anxiety EYES: The conjunctivae are clear. The pupils are round and reactive. EARS, NOSE, MOUTH AND THROAT: The nose is without any evidence of any deformity. Mucous membranes are moist tongue is midline NECK: The neck is nontender and supple. RESPIRATORY: Normal respiratory effort is noted there is no evidence of wheezing rhonchi or rales CARDIOVASCULAR: Regular rate and rhythm noted there no murmurs rubs or gallops normal S1 normal S2 GASTROINTESTINAL: The abdomen is moderately distended but soft. No guarding or rigidity noted. Bowel sounds are present in all quadrants. Abdomen is nontender BACK: No midline tenderness or or step-off noted range of motion in flexion extension as well as rotation no signs of muscle spasm noted MUSCULOSKELETAL/EXTREMITIES: There is no evidence of gross deformity full range of motion is noted in the hips and shoulders SKIN: There is no obvious evidence of any rash. There are no petechiae, pallor or cyanosis noted. Pedal edema bilaterally. NEUROLOGIC: Patient is awake alert and oriented x3 Medical Decision & Procedures Laboratory Results Test 07/22/17 15:10 07/22/17 15:30 Immature Granulocyte % (Auto) 0.5 % White Blood Count 13.00 K/uL (4.8-10.8) Red Blood Count 4.41 M/uL (4.2-5.4) Hemoglobin 11.6 g/dL (12.0-16.0) Hematocrit 34.4 % (37-47) Mean Corpuscular Volume 78.0 fL (80-100) Mean Corpuscular Hemoglobin 26.3 pg (25-34) Mean Corpuscular Hemoglobin Concent 33.7 g/dl (32-36) Platelet Count 318 K/uL (130-400) Mean Platelet Volume 8.8 fL (7.4-10.4) Neutrophils (%) (Auto) 75.3 % Lymphocytes (%) (Auto) 6.9 % Monocytes (%) (Auto) 11.4 % Eosinophils (%) (Auto) 5.7 % Basophils (%) (Auto) 0.2 % Neutrophils # (Auto) 9.78 K/uL (1.4-6.5) Lymphocytes # (Auto) 0.90 K/uL (1.2-3.4) Monocytes # (Auto) 1.48 K/uL (0.11-0.59) Eosinophils # (Auto) 0.74 K/uL (0-0.5) Basophils # (Auto) 0.03 K/uL (0-0.2) Immature Granulocyte # (Auto) 0.07 K/uL (0.00-0.02) Est Creatinine Clear Calc Drug Dose 30.4 ml/min Total Bilirubin 0.6 mg/dl (0.2-1) Direct Bilirubin 0.2 mg/dl (0-0.2) Aspartate Amino Transf (AST/SGOT) 31 U/L (15-37) Alanine Aminotransferase (ALT/SGPT) 52 U/L (12-78) Alkaline Phosphatase 209 U/L (45-117) Total Protein 6.9 gm/dl (6.4-8.2) Albumin 3.1 gm/dl (3.4-5.0) Lipase 140 U/L (73-393) Urine Color DK YELLOW Urine Appearance TURBID (CLEAR) Urine pH 5.0 (4.5-7.5) Urine Specific [place] 1.013 (1.000-1.030) Urine Protein 1+ (NEG) Urine Glucose (UA) TRACE (NEG) Urine Ketones NEG (NEG) Urine Occult Blood 3+ (NEG) Urine Nitrite NEG (NEG) Urine Bilirubin NEG (NEG) Urine Urobilinogen NEG (NEG) Urine Leukocyte Esterase LARGE (NEG) Urine WBC (Auto) >30 /hpf (0-5) Urine RBC (Auto) >30 /hpf (0-4) Urine Hyaline Casts (Auto) 0 /lpf (0-5) Urine Epithelial Cells (Auto) >30 /lpf (0-5) Urine Bacteria (Auto) 1+ (NEG) Urine Renal Epithelial Cells 0-5 /lpf (0-5) Urine Pathogenic Casts /lpf (0) Urine Yeast (Auto) PRESENT (NONE PRSENT) Laboratory results per my review. Medications Administered Medications (Trade) Dose Ordered Sig/Zoë Route Start Time Stop Time Status Last Admin Dose Admin Levofloxacin 250 mg/Prmx 50 ml @ 50 mls/hr ONE STAT IV 07/22/17 16:00 07/22/17 16:59 DC 2/27/18 16:22 50 MLS/HR Acetaminophen (Tylenol Tab) 650 mg Q4H PRN PO 07/22/17 18:00 08/21/17 17:59 07/23/17 08:23 650 MG ED Course 1443: The patient was evaluated in room C5. A complete history and physical examination were performed. 1536: I discussed the patient's case with Dr. Burnette. He is agreeable with putting a Valerio in the patient. 1600: Ordered Levofloxacin 250 mg/Prmx 50 ml @ 50 mls/hr IV. 1616: I discussed the patient's case with Dr. Navarro. The patient will be evaluated for further management. Medical Decision Differential diagnosis: Etiologies such as appendicitis, diverticulitis, PUD, biliary pathology, UTI, pancreatitis, obstruction, mesenteric ischemia, aortic pathology, infections, inflammatory bowel disease, renal colic, as well as others were entertained. Nursing notes reviewed. Additional history is obtained from the patient's family members. The patient is an 87-year-old female who presented to the emergency department for urinary symptoms. She describes overflow incontinence. She had abdominal distention. She was found to be in urinary retention via bladder scan so Valerio catheter was placed. 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 I discussed her condition with her primary urologist. He was very concerned about her overall condition and given her antibiotic allergy history requested I consider managing the patient with IV antibiotics and discussed the case with the inpatient hospitalist group. I discussed the patient's laboratory results with her and her family members. I also discussed this case with the on-call [facility] hospitalist group. They have agreed to evaluate the patient in the emergency department for further management and disposition. After Valerio catheter placement the patient was significantly improved with her abdominal distention. Medication Reconcilliation Current Medication List: was personally reviewed by me Blood Pressure Screening Patient's blood pressure: Elevated blood pressure Blood pressure disposition: Elevated BP felt to be situational Consults Time Called: 1530 Consulting Physician: Dr. Burnette Returned Call: 1536 I discussed the patient's case with Dr. Burnette. He is agreeable with putting a Valerio in the patient. Additional Consults: Time Called: 161 Consulted Physician: Dr. Navarro Returned Call: 1616 Additional Comments: I discussed the patient's case with Dr. Navarro. The patient will be evaluated for further management. Impression Primary Impression: Urinary retention Additional Impression: Pyelonephritis Scribe Attestation The scribe's documentation has been prepared under my direction and personally reviewed by me in its entirety. I confirm that the note above accurately reflects all work, treatment, procedures, and medical decision making performed by me. Departure Information Dispostion Being Evaluated By Hospitalist Referrals Flores Cosme M.D. (PCP) Patient Instructions [facility] Problem Qualifiers
[2017-07-22 15:27] LABS: BASO % 0.2 %; BASO ABS # 0.03 K/uL (0-0.2); EOS % 5.7 %; EOS ABS # 0.74 K/uL (0-0.5); HEMATOCRIT 34.4 % (37-47); HEMOGLOBIN 11.6 g/dL (12.0-16.0); IG# 0.07 K/uL (0.00-0.02); LYMPH % 6.9 %; MEAN CORPUSCULAR HEMOGLOBIN 26.3 pg (25-34); MEAN CORPUSCULAR HGB CONC 33.7 g/dl (32-36); MEAN PLATELET VOLUME 8.8 fL (7.4-10.4); MONO % 11.4 %; MONO ABS # 1.48 K/uL (0.11-0.59); NEUT % 75.3 %; NEUT ABS # 9.78 K/uL (1.4-6.5); PLATELET COUNT 318 K/uL (130-400); RED CELL DISTRIBUTION WIDTH CV 14.6 % (11.5-14.5); RED CELL DISTRIBUTION WIDTH SD 42.1 fL (36.4-46.3)
[2017-07-22 15:43] LABS: ALBUMIN 3.1 gm/dl (3.4-5.0); CALCIUM 8.9 mg/dl (8.5-10.1); CREATININE 0.98 mg/dl (0.60-1.20); POTASSIUM 3.8 mmol/L (3.5-5.1)
[2017-07-22 15:46] LABS: TOTAL PROTEIN 6.9 gm/dl (6.4-8.2)
[2017-07-22] MEDS ORDERED: LEVOFLOXACIN / D5W 250 MG in PREMIXED IN D5W 50 ML IV STA (16:00)
[2017-07-22] MEDS ORDERED: ACETAMINOPHEN 325 MG TAB PO PRN (18:00)
[2017-07-22] MEDS ORDERED: ONDANSETRON INJ 2 MG/ML 2 ML VIAL IV PRN (18:00)
[2017-07-22] MEDS ORDERED: PROMETHAZINE HCL INJ 12.5 MG in SODIUM CHLORIDE 0.9% 50ML 50 ML IV PRN (18:30)
[2017-07-22] MEDS ORDERED: SODIUM CHLORIDE 0.9% 1000ML 1,000 ML IV SCH (18:30)
[2017-07-22] MEDS ORDERED: TRAMADOL HCL 50 MG TAB PO PRN (18:30)
[2017-07-22] MEDS ORDERED: DEXTROSE 50% 50 ML SYR IV PRN (18:45)
[2017-07-22] MEDS ORDERED: GLUCAGON FOR INJ 1 MG VIAL SQ PRN (18:45)
[2017-07-22] MEDS ORDERED: GLUCOSE 10 TABS/TUBE PO PRN (18:45)
[2017-07-22] MEDS ORDERED: GLUCOSE 40% GEL 15 GM TUBE PO PRN (18:45)
--- NOTE | 2017-07-22 18:49 | History and Physical ---
History & Physical Date & Time of Service: Jul 22, 2017 ~ 17:30 Chief Complaint: UTI Primary Care Physician: Flores Cosme M.D. History of Present Illness 87 year old female who presents to the ED with difficulty urinating. Patient has history of bladder cancer and underwent TURBT May [address] Louis. Patient reports she had been doing well until a couple of weeks ago when she had trouble urinating. Her PCP placed her on Macrobid on 07/12 for suspected UTI. Patient was seen in the ED on 07/20. She was instructed to continue on Macrobid. Culture from that ED visit grew group G beta strep. Patient reports continued urinary hesitancy and retention. She has had chills and episodes of diaphoresis. No documented fevers. She denies chest pain, shortness of breath, and palpitations. She has chronic lower extremity edema and LLE redness which is unchanged from her baseline. No abdominal pain, nausea , or vomiting. She reports chronic occasional loose stools which are unchanged. She denies lightheadedness, dizziness, and syncopal events. In the ED, patient' s U/A suggests UTI. WBC 13K. She is afebrile and vitals are stable. She was given a dose of IV Levaquin. Soni was placed and there is gross hematuria with clots. Past Medical/Surgical History Medical Problems: (1) Aortic stenosis Status: Chronic (2) Atrial fibrillation Status: Chronic (3) Bladder cancer Status: Chronic (4) Diabetes mellitus Status: Chronic (5) Diastolic CHF Status: Chronic (6) HTN (hypertension) Status: Chronic (7) MRSA (methicillin resistant Staphylococcus aureus) Status: Chronic (8) Osteoarthritis Status: Chronic (9) Rapid atrial fibrillation Status: Resolved (10) Sjoegren syndrome Status: Chronic Surgical Problems: (1) H/O: hysterectomy Status: Chronic (2) resection of bladder tumor Status: Chronic Family History non contributory due to patient's advanced age Social History Smoking Status: Never Smoker Alcohol Use: none Housing status: assisted Multi-Drug Resistant Organisms History of MDRO: Yes Type of MDRO: MRSA Allergies Coded Allergies: Cephalosporins (Verified Allergy, Intermediate, KEFLEX = HIVES, 07/20/17) Penicillins (Verified Allergy, Mild, HIVES, 07/20/17) JACKY Inhibitors (Verified Allergy, Unknown, Unknown, 07/20/17) Adhesives (Verified Allergy, Unknown, rash, 07/20/17) Amoxicillin (Verified Allergy, Unknown, Unknown, 07/20/17) CI Pigment Blue 63 (Verified Allergy, Unknown, Unknown, 07/20/17) Cephalexin (Verified Allergy, Unknown, Unknown, 07/20/17) Duloxetine (Verified Allergy, Unknown, Unknown, 07/20/17) Gabapentin (Verified Allergy, Unknown, Unknown, 07/20/17) Lisinopril (Verified Allergy, Unknown, Unknown, 07/20/17) Penicillin V (Verified Allergy, Unknown, unknown, hives?, 07/20/17) Simvastatin (Verified Allergy, Unknown, Unknown, 07/20/17) Lactose. (Verified Adverse Reaction, Unknown, GI SYMPTOMS, 07/20/17) pt reports allergic to all diary product - bloated and gas Home Medications Scheduled Amiodarone Hcl (Cordarone), 400 MG PO DAILY Ascorbic Acid (Ascorbic Acid), 500 MG PO DAILY Aspirin (Aspirin Ec), 81 MG PO DAILY Cholecalciferol (Vitamin D), 1,000 UNITS PO DAILY Clotrimazole Vaginal (Clotrimazole), 1 APPLN TOP DAILY Cyclosporine (Ophth) (Restasis), 1 DROP OPB BID Emollient (Cerave), 1 APPLN TOP BID Furosemide (Lasix), 20 MG PO QAM Hydrocortisone (Rectal) (Hydrocortisone), 1 APPLN TOP DAILY Melatonin (Melatonin), 1 MG PO HS Metoprolol Succinate (Toprol Xl), 100 MG PO BID Multivitamin (Multivitamin), 1 TAB PO DAILY Nitrofurantoin Monohyd Macrocr (Macrobid), 100 MG PO BID Pantoprazole (Protonix), 40 MG PO DAILY Polyvinyl Alcohol (Artificial Tears), 1 DROP OPB QID Potassium Chloride (Micro-K Ext Rel), 10 MEQ PO DAILY Psyllium (Metamucil), 1 TBS PO MWF [Onglyza], 5 MG PO DAILY Scheduled PRN Acetaminophen (Tylenol), 500 MG PO Q8 PRN for Pain or Fever Diphenoxylate/Atropine (Lomotil), 1 TAB PO DAILY PRN for LOOSE STOOLS Guaifenesin-Codeine (Codeine/Guaifenesin 100-10 mg/5Ml), 10 ML PO Q4 PRN for Cough Tramadol (Ultram), MG PO Q8H PRN for Severe Pain Review of Systems ROS per HPI, all other systems reviewed and negative Physical Exam Vital Signs Date Time Temp Pulse Resp B/P (MAP) Pulse Ox O2 Delivery O2 Flow Rate FiO2 07/22/17 17:16 64 16 108/60 07/22/17 16:23 62 110/61 91 Room Air 07/22/17 14:36 37.3 68 20 155/77 96 General Appearance: WD/WN, no apparent distress Head: normocephalic, atraumatic Eyes: normal inspection, EOMI, sclerae normal ENT: hearing grossly normal, + pertinent finding (mucous membranes moist) Neck: supple, no JVD, trachea midline Respiratory/Chest: lungs clear, normal breath sounds, no respiratory distress Cardiovascular: regular rate, rhythm, + systolic murmur, + pertinent finding (+ 1 pitting edema BLLE) Abdomen/GI: normal bowel sounds, non tender, soft, no organomegaly Genitourinary - Female: + pertinent finding (soni in place draining grossly bloody urine with clots) Extremities/Musculoskelatal: normal inspection, no calf tenderness, normal capillary refill Neurologic/Psych: no motor/sensory deficits, alert, normal mood/affect, oriented x 3 Skin: + pertinent finding (redness noted on left proximal juarez - chronic per patient) Diagnostics Laboratory Results Results Past 24 Hours Test 07/22/17 15:10 07/22/17 15:30 Range/Units White Blood Count 13.00 4.8-10.8 K/uL Red Blood Count 4.41 4.2-5.4 M/uL Hemoglobin 11.6 12.0-16.0 g/dL Hematocrit 34.4 37-47 % Mean Corpuscular Volume 78.0 80-100 fL Mean Corpuscular Hemoglobin 26.3 25-34 pg Mean Corpuscular Hemoglobin Concent 33.7 32-36 g/dl Platelet Count 318 130-400 K/uL Mean Platelet Volume 8.8 7.4-10.4 fL Neutrophils (%) (Auto) 75.3 % Lymphocytes (%) (Auto) 6.9 % Monocytes (%) (Auto) 11.4 % Eosinophils (%) (Auto) 5.7 % Basophils (%) (Auto) 0.2 % Neutrophils # (Auto) 9.78 1.4-6.5 K/uL Lymphocytes # (Auto) 0.90 1.2-3.4 K/uL Monocytes # (Auto) 1.48 0.11-0.59 K/uL Eosinophils # (Auto) 0.74 0-0.5 K/uL Basophils # (Auto) 0.03 0-0.2 K/uL RDW Standard Deviation 42.1 36.4-46.3 fL RDW Coefficient of Variation 14.6 11.5-14.5 % Immature Granulocyte % (Auto) 0.5 % Immature Granulocyte # (Auto) 0.07 0.00-0.02 K/uL Sodium Level 131 136-145 mmol/L Potassium Level 3.8 3.5-5.1 mmol/L Chloride Level 94 98-107 mmol/L Carbon Dioxide Level 29 21-32 mmol/L Anion Gap 8.0 3-11 mmol/L Blood Urea Nitrogen 14 7-18 mg/dl Creatinine 0.98 0.60-1.20 mg/dl Est Creatinine Clear Calc Drug Dose 30.4 ml/min Estimated GFR () 59.3 Estimated GFR (Non- 51.1 BUN/Creatinine Ratio 14.7 10-20 Random Glucose 172 70-99 mg/dl Calcium Level 8.9 8.5-10.1 mg/dl Total Bilirubin 0.6 0.2-1 mg/dl Direct Bilirubin 0.2 0-0.2 mg/dl Aspartate Amino Transf (AST/SGOT) 31 15-37 U/L Alanine Aminotransferase (ALT/SGPT) 52 12-78 U/L Alkaline Phosphatase 209 45-117 U/L Total Protein 6.9 6.4-8.2 gm/dl Albumin 3.1 3.4-5.0 gm/dl Lipase 140 73-393 U/L Urine Color DK YELLOW Urine Appearance TURBID CLEAR Urine pH 5.0 4.5-7.5 Urine Specific [place] 1.013 1.000-1.030 Urine Protein 1+ NEG Urine Glucose (UA) TRACE NEG Urine Ketones NEG NEG Urine Occult Blood 3+ NEG Urine Nitrite NEG NEG Urine Bilirubin NEG NEG Urine Urobilinogen NEG NEG Urine Leukocyte Esterase LARGE NEG Urine WBC (Auto) >30 0-5 /hpf Urine RBC (Auto) >30 0-4 /hpf Urine Hyaline Casts (Auto) 0 0-5 /lpf Urine Epithelial Cells (Auto) >30 0-5 /lpf Urine Bacteria (Auto) 1+ NEG Urine Renal Epithelial Cells 0-5 0-5 /lpf Urine Pathogenic Casts 0 /lpf Urine Yeast (Auto) PRESENT NONE PRSENT Microbiology Results 07/22/17 Urine Culture, Received Pending Impression Assessment and Plan UTI HEMATURIA HX BLADDER CANCER - admit to med/surg - patient presenting to the ED with urinary hesitancy and retention; hx of bladder cancer s/p TURBT 05/[address] Louis - patient has been on Macrobid for suspected UTI since 07/12 - urine culture 07/20 - group G beta strep - s/p Levaquin in the ED - given history of prolonged QTC, extensive allergy list, and being on amiodarone, will continue with Ertapenem starting tomorrow - given significant amount of hematuria - will check CT to evaluate bladder - monitor H/H - case discussed with Dr. Jin ATRIAL FIBRILLATION - heart rate auscultates to regular on exam - rhythm controlled on amiodarone and rate controlled on metoprolol - not anticoagulated due to fall risk CHRONIC DIASTOLIC CHF, AORTIC STENOSIS - does not appear to be volume overloaded - giving 1L gentle IVF due to UTI - hold diuretics for now DM - hgb a1c 7.9 04/2017 - hold oral agents and utilize SSI while hospitalized HX + MRSA NASAL SWAB - positive noted from 2009, had negative 04/2017 - will recheck swab DVT PROPHYLAXIS - SCDs due to hematuria CODE STATUS - Patient is a DNR as per my discussion with her. DISPO - In my clinical judgment this beneficiary meets acute admission criteria, established by [facility], that includes being hospitalized through two midnights. - PT/OT, case management; expect d/c back to [facility] once medically stable VTE Prophylaxis VTE Risk Assessment Done? Y/N: Yes Risk Level: Moderate Note ATTENDING ADDENDUM Record reviewed. Patient interviewed and examined. Care coordinated with FREDDY Fairchild. Please refer to her documentation for patient's history. Briefly, 87-year-old female with history of carcinoma of the urinary bladder and other problems noted below. Cystoscopy performed by Dr. Louis about 4 weeks ago. Experiencing suprapubic pressure, hesitancy, and gross hematuria. No fever or dysuria. Seen in the ED on 07/20/17. Urine culture grew group G beta-hemolytic strep. Taking nitrofurantoin without improvement of her symptoms Catheter placed in ED with significant improvement of suprapubic discomfort. EXAM: General-no acute distress VS- as noted Lungs-clear to auscultation Heart-regular rate and rhythm Abdomen-normal bowel sounds, soft, nontender Extremities-no pretibial edema or calf tenderness Neuro-alert, oriented Skin-chronic erythema left lower extremity DATA: Hemoglobin 11.6, white count 13,000. Sodium 131, BUN 14, creatinine 0.98, random glucose 172. Other lab studies as noted. ASSESSMENT AND PLAN: History of carcinoma of the bladder, now with urinary tract infection and gross hematuria. ALLEN Alvarez spoke with Dr. Louis who requested a follow-up CT of the pelvis. Urine culture performed 2 days ago growing group G beta-hemolytic strep. Patient has documented allergies to penicillins and cephalosporins. Her QTC is prolonged. Therefore, we will opt for therapy with ertapenem until her symptoms improve and long-term treatment plans are determined. Please refer to ALLEN Alvarez's documentation for discussion of other issues. Barber Bhakta MD .
--- NOTE | 2017-07-22 19:02 | DIAGNOSTIC IMAGING REPORT ---
CT OF THE ABDOMEN AND PELVIS WITHOUT CONTRAST CLINICAL HISTORY: Hematuria. Urinary tract infection. History of bladder cancer. COMPARISON STUDY: CT of the abdomen and pelvis May 03, 2017. TECHNIQUE: Axial images of the abdomen and pelvis were obtained without IV contrast. Images were reviewed in the axial, sagittal, and coronal planes. A dose lowering technique was utilized adhering to the principles of ALARA. FINDINGS: Visualized portions the lower chest demonstrate trace bilateral pleural fusions with associated segmental opacities. Evaluation of the abdomen and pelvis is suboptimal on this unenhanced exam. A 1.7 cm right hepatic lobe lesion is unchanged from earlier studies. This is benign given stability. Unenhanced images of the spleen, adrenal glands and pancreas are unremarkable. There is a small amount of layering hyperdense material within the gallbladder. Left renal collecting system dilatation is unchanged from earlier studies and probably chronic. There is mild dilatation of the distal left ureter. There is moderate dilatation of the right ureter. There are no ureteral calculi. Ureteral dilatation has increased since CT of May 03, 2017. There is persistent asymmetric right lateral bladder wall thickening. Valerio balloon and small amount of gas are present within the bladder. Apparent material within the bladder dome likely reflects bladder mass. However, clot could appear similar. There is no pelvic or abdominal lymphadenopathy. There are no suspicious osseous lesions. There is no evidence for a bowel obstruction. IMPRESSION: 1. Persistent asymmetric right lateral bladder wall thickening which is consistent with the history of bladder cancer. Apparent thickening of the bladder dome likely reflects urothelial lesion. Adherent blood clot could appear similar. 2. Moderate dilatation of the right ureter and mild dilatation of the left ureter with no ureteral calculi identified. Ureteral dilatation increased since exam of May 03, 2017. 3. No evidence of metastatic disease within the abdomen or pelvis on unenhanced exam. 4. Trace bilateral pleural effusions with associated bilateral lower lobe opacities which favor atelectasis although an infectious process could appear similar. 4. Moderate sized hiatal hernia. Electronically signed by: Giuseppe Clemens M.D. 07/22/2017 7:01 PM Dictated Date/Time: 07/22/2017 6:50 PM
[2017-07-22 19:56] VITALS: BP 114/55; PULSE 64; TEMP 36.8; O2SAT 98
[2017-07-22] MEDS: METOPROLOL SUCC 50MG EXT REL TAB PO SCH (20:00)
[2017-07-22 20:53] VITALS: BP 114/55; PULSE 64; TEMP 36.8; Ht 149.9 cm; Wt 59.0 kg
[2017-07-22] MEDS: INSULIN ASPART 100 UNITS/ML 3 ML PEN SC SCH (21:17)
[2017-07-22 21:18] VITALS: BP 99/44; PULSE 70
[2017-07-23] VITALS: BP 112/49; PULSE 68; TEMP 37.2; O2SAT 92
[2017-07-23] MEDS ORDERED: MAGNESIUM SULFATE 1GM / D5W 1 GM in PREMIXED IN D5W 100 ML IV ONE (00:15)
[2017-07-23 07:47] VITALS: BP 126/68; PULSE 71; TEMP 36.8; O2SAT 91
[2017-07-23] MEDS: ASCORBIC ACID 500 MG TAB PO SCH (08:21)
[2017-07-23] MEDS: METOPROLOL SUCC 50MG EXT REL TAB PO SCH ×2 (08:21→22:13)
[2017-07-23] MEDS: PANTOprazole SOD 40 MG TAB PO SCH (08:21)
[2017-07-23] MEDS: CHOLECALCIFEROL 1000 INTER.UNIT TAB PO SCH (08:21)
[2017-07-23] MEDS: MULTIVITAMIN TAB PO SCH (08:22)
[2017-07-23] MEDS: ASPIRIN 81 MG ECTAB PO SCH (08:22)
[2017-07-23] MEDS: AMIODARONE 200 MG TAB PO SCH (08:22)
[2017-07-23] MEDS: INSULIN ASPART 100 UNITS/ML 3 ML PEN SC SCH ×4 (08:26→22:13)
[2017-07-23] MEDS: ERTAPENEM IV 1 GM in SODIUM CHLOR 0.9% AD-VAN 50ML 50 ML IV SCH (08:32)
[2017-07-23 08:46] LABS: HEMATOCRIT 32.1 % (37-47); HEMOGLOBIN 10.2 g/dL (12.0-16.0); MEAN CELL VOLUME 78.1 fL (80-100); MEAN CORPUSCULAR HEMOGLOBIN 24.8 pg (25-34); MEAN CORPUSCULAR HGB CONC 31.8 g/dl (32-36); MEAN PLATELET VOLUME 8.9 fL (7.4-10.4); PLATELET COUNT 306 K/uL (130-400); RED CELL DISTRIBUTION WIDTH CV 14.9 % (11.5-14.5); RED CELL DISTRIBUTION WIDTH SD 43.1 fL (36.4-46.3); WHITE BLOOD COUNT 13.48 K/uL (4.8-10.8)
[2017-07-23 09:12] LABS: CALCIUM 8.2 mg/dl (8.5-10.1); CREATININE 0.7 mg/dl (0.60-1.20); POTASSIUM 3.6 mmol/L (3.5-5.1)
--- NOTE | 2017-07-23 09:42 | Urology Consultation ---
History General Date of Service: Jul 23, 2017. Chief Complaint: bladder pain and difficulty voiding Primary Care Physician: Flores Cosme M.D. Pt seen a urologist before?: Yes (Dr. Louis) If yes, why?: bladder cancer History of Present Illness 87 yo pleasant female with muscle invasive bladder cancer presents to [facility] with c/o bladder pain and difficulty voiding for several days. The pt has been taking Macrobid for over 1 week, and is still symptomatic. Most recently had a UC&S and fungal UC&S on 07-18, both negative. Repeat UC&S this admission pending. Pt reports her urine looked like ground coffee after soni placement this admission. She reports her bladder pain has resolved since placement, and primary c/o right shoulder pain s/p a fall a few weeks ago and "abdominal and chest spasms." As for her bladder cancer, she is not a candidate for surgery. She has met with Dr. Jovel from oncology, and isn't felt to be a great candidate for chemo either. She is scheduled to meet with him again next week. She has stated to me this morning that she is not interested in chemo at her age. Imaging Imaging: CT Laboratory Last 24 Hours Test 07/22/17 15:10 07/22/17 15:30 07/22/17 20:08 07/22/17 22:07 White Blood Count 13.00 K/uL Red Blood Count 4.41 M/uL Hemoglobin 11.6 g/dL Hematocrit 34.4 % Mean Corpuscular Volume 78.0 fL Mean Corpuscular Hemoglobin 26.3 pg Mean Corpuscular Hemoglobin Concent 33.7 g/dl Platelet Count 318 K/uL Mean Platelet Volume 8.8 fL Neutrophils (%) (Auto) 75.3 % Lymphocytes (%) (Auto) 6.9 % Monocytes (%) (Auto) 11.4 % Eosinophils (%) (Auto) 5.7 % Basophils (%) (Auto) 0.2 % Neutrophils # (Auto) 9.78 K/uL Lymphocytes # (Auto) 0.90 K/uL Monocytes # (Auto) 1.48 K/uL Eosinophils # (Auto) 0.74 K/uL Basophils # (Auto) 0.03 K/uL RDW Standard Deviation 42.1 fL RDW Coefficient of Variation 14.6 % Immature Granulocyte % (Auto) 0.5 % Immature Granulocyte # (Auto) 0.07 K/uL Sodium Level 131 mmol/L Potassium Level 3.8 mmol/L Chloride Level 94 mmol/L Carbon Dioxide Level 29 mmol/L Anion Gap 8.0 mmol/L Blood Urea Nitrogen 14 mg/dl Creatinine 0.98 mg/dl Est Creatinine Clear Calc Drug Dose 30.4 ml/min Estimated GFR () 59.3 Estimated GFR (Non- 51.1 BUN/Creatinine Ratio 14.7 Random Glucose 172 mg/dl Calcium Level 8.9 mg/dl Total Bilirubin 0.6 mg/dl Direct Bilirubin 0.2 mg/dl Aspartate Amino Transf (AST/SGOT) 31 U/L Alanine Aminotransferase (ALT/SGPT) 52 U/L Alkaline Phosphatase 209 U/L Total Protein 6.9 gm/dl Albumin 3.1 gm/dl Lipase 140 U/L Urine Color DK YELLOW Urine Appearance TURBID Urine pH 5.0 Urine Specific [place] 1.013 Urine Protein 1+ Urine Glucose (UA) TRACE Urine Ketones NEG Urine Occult Blood 3+ Urine Nitrite NEG Urine Bilirubin NEG Urine Urobilinogen NEG Urine Leukocyte Esterase LARGE Urine WBC (Auto) >30 /hpf Urine RBC (Auto) >30 /hpf Urine Hyaline Casts (Auto) 0 /lpf Urine Epithelial Cells (Auto) >30 /lpf Urine Bacteria (Auto) 1+ Urine Renal Epithelial Cells 0-5 /lpf Urine Pathogenic Casts /lpf Urine Yeast (Auto) PRESENT Bedside Glucose 177 mg/dl Lactic Acid Level 1.6 mmol/L Test 07/22/17 22:08 07/23/17 07:37 07/23/17 07:59 Magnesium Level 1.7 mg/dl 1.9 mg/dl Bedside Glucose 183 mg/dl White Blood Count 13.48 K/uL Red Blood Count 4.11 M/uL Hemoglobin 10.2 g/dL Hematocrit 32.1 % Mean Corpuscular Volume 78.1 fL Mean Corpuscular Hemoglobin 24.8 pg Mean Corpuscular Hemoglobin Concent 31.8 g/dl RDW Standard Deviation 43.1 fL RDW Coefficient of Variation 14.9 % Platelet Count 306 K/uL Mean Platelet Volume 8.9 fL Sodium Level 132 mmol/L Potassium Level 3.6 mmol/L Chloride Level 97 mmol/L Carbon Dioxide Level 27 mmol/L Anion Gap 8.0 mmol/L Blood Urea Nitrogen 14 mg/dl Creatinine 0.70 mg/dl Est Creatinine Clear Calc Drug Dose 42.6 ml/min Estimated GFR () 89.0 Estimated GFR (Non- 76.8 BUN/Creatinine Ratio 19.8 Random Glucose 152 mg/dl Calcium Level 8.2 mg/dl Problem List Medical Problems: (1) Elevated lactic acid level Status: Acute (2) Liver function abnormality Status: Acute (3) Swelling of lower extremity Status: Acute (4) Symptoms involving urinary system Status: Acute (5) UTI (urinary tract infection) Status: Acute Past History A Fib, cancer (bladder), diabetes, hypertension, osteoarthritis, osteoporosis, other (aortic stenosis, sjoegren syndrome ) Past Surgical History: hysterectomy, other (TURBT May 2017) Family History Patient reports no known family medical history. non contributory d/t pt's advanced age Social History Hx Tobacco Use In Past Year?: No Smoking: non-smoker Alcohol: never Housing status: longterm History of MDRO Yes Type of MDRO: MRSA Allergies Coded Allergies: Cephalosporins (Verified Allergy, Intermediate, KEFLEX = HIVES, 07/20/17) Penicillins (Verified Allergy, Mild, HIVES, 07/20/17) JACKY Inhibitors (Verified Allergy, Unknown, Unknown, 07/20/17) Adhesives (Verified Allergy, Unknown, rash, 07/20/17) Amoxicillin (Verified Allergy, Unknown, Unknown, 07/20/17) CI Pigment Blue 63 (Verified Allergy, Unknown, Unknown, 07/20/17) Cephalexin (Verified Allergy, Unknown, Unknown, 07/20/17) Duloxetine (Verified Allergy, Unknown, Unknown, 07/20/17) Gabapentin (Verified Allergy, Unknown, Unknown, 07/20/17) Lisinopril (Verified Allergy, Unknown, Unknown, 07/20/17) Penicillin V (Verified Allergy, Unknown, unknown, hives?, 07/20/17) Simvastatin (Verified Allergy, Unknown, Unknown, 07/20/17) Lactose. (Verified Adverse Reaction, Unknown, GI SYMPTOMS, 07/20/17) pt reports allergic to all diary product - bloated and gas Medications Home Medications: Home Meds and Scripts Medications Dose Route/Sig Max Daily Dose Days Date Category Dose Instructions Ultram (Tramadol HCl) 50 Mg Tab Mg PO Q8H PRN 07/20/17 Reported PAIN SCALE 5-10 Micro-K Ext Rel (Potassium Chloride) 10 Meq Capcr 10 Meq PO DAILY 07/20/17 Reported GIVE AFTER BREAKFAST Lomotil (Diphenoxylate HCl/Atropine) Tab 1 Tab PO DAILY PRN 07/20/17 Reported Lasix (Furosemide) 20 Mg Tab 20 Mg PO QAM 07/20/17 Reported GIVE BEFORE BREAKFAST Codeine/Guaifenesin 100-10 mg/5Ml (Guaifenesin-Codeine) 1 Negar Negar 10 Ml PO Q4 PRN 07/20/17 Reported Tylenol (Acetaminophen) 500 Mg Tab 500 Mg PO Q8 PRN 07/20/17 Reported Vitamin D (Cholecalciferol) 1,000 Unit Tab 1,000 Units PO DAILY 07/20/17 Reported Restasis (Cyclosporine (Ophth)) 0.05 % Emu 1 Drop OPB BID 07/20/17 Reported Protonix (Pantoprazole Sodium) 40 Mg Tab 40 Mg PO DAILY 07/20/17 Reported [Onglyza] 5 Mg PO DAILY 07/20/17 Reported ANTI-DIABETIC MEDICATION; GENERIC NAME: saxagliptin Multivitamin (Multivitamins) Tab 1 Tab PO DAILY 07/20/17 Reported Toprol Xl (Metoprolol Succinate) 100 Mg Tab 100 Mg PO BID 07/20/17 Reported HOLD IF SYSTOLIC BP 95 OR LESS OR HR 50 OR LESS Metamucil (Psyllium) 48.57 % Pow 1 Tbs PO MWF 07/20/17 Reported Melatonin 1 Mg Tab 1 Mg PO HS 07/20/17 Reported Macrobid (Nitrofurantoin Macrocrystals) 100 Mg Cap 100 Mg PO BID 07/20/17 Reported X 7 DAYS (UTI) . STARTED MED 07/18/17, END 07/25/17 Hydrocortisone (Hydrocortisone (Rectal)) 2.5 % Cre 1 Appln TOP DAILY 07/20/17 Reported APPLY TO LOWER LEGS WITH CLOTRIMAZOLE CREAM DAILY/ ATOPIC DERMATITIS Clotrimazole (Clotrimazole Vaginal) 1 % Cre 1 Appln TOP DAILY 07/20/17 Reported APPLY TOPICALLY TO LOWER LEGS WITH HYDROCORTISONE CRAEM DAILY TO RASH / ATOPIC DERMATITIS Cerave (Emollient) 1 Lot Lot 1 Appln TOP BID 07/20/17 Reported APPLY TO ARMS AND LEGS Aspirin Ec (Aspirin) 81 Mg Tab 81 Mg PO DAILY 07/20/17 Reported Ascorbic Acid 500 Mg Tab 500 Mg PO DAILY 07/20/17 Reported Artificial Tears (Polyvinyl Alcohol) 1.4 % Negar 1 Drop OPB QID 07/20/17 Reported Cordarone (Amiodarone Hcl) 200 Mg Tab 400 Mg PO DAILY 07/20/17 Reported TWO 200 MG TABLETS, PER [facility] MED LIST Inpatient Medications: Current Inpatient Medications Medications (Trade) Dose Ordered Sig/Zoë Route Start Time Stop Time Status Last Admin Dose Admin Acetaminophen (Tylenol Tab) 650 mg Q4H PRN PO 07/22/17 18:00 08/21/17 17:59 07/23/17 08:23 650 MG Amiodarone HCl (Cordarone Tab) 400 mg DAILY PO 07/23/17 08:00 08/22/17 08:59 07/23/17 08:22 400 MG Ascorbic Acid (Vitamin C Tab) 500 mg DAILY PO 07/23/17 08:00 08/22/17 08:59 07/23/17 08:21 500 MG Aspirin (Ecotrin Tab) 81 mg DAILY PO 07/23/17 08:00 08/22/17 08:59 07/23/17 08:22 81 MG Cholecalciferol (Vitamin D Tab) 1,000 inter.unit DAILY PO 07/23/17 08:00 08/22/17 08:59 07/23/17 08:21 1,000 INTER.UNIT Metoprolol Succinate (Toprol Xl Tab) 100 mg BID PO 07/22/17 20:00 08/21/17 20:59 07/23/17 08:21 100 MG Multivitamins (Multivitamin Tab) 1 tab DAILY PO 07/23/17 08:00 08/22/17 08:59 07/23/17 08:22 1 TAB Pantoprazole Sodium (Protonix Tab) 40 mg DAILY PO 07/23/17 08:00 08/22/17 08:59 07/23/17 08:21 40 MG Tramadol HCl (Ultram Tab) 50 mg Q8H PRN PO 07/22/17 18:30 08/21/17 18:29 Promethazine HCl 12.5 mg/Sodium Chloride 50.5 ml @ 204 mls/hr Q6H PRN IV 07/22/17 18:30 08/21/17 18:29 Insulin Aspart (novoLOG ASPART) SLIDING SCALE If C... ACHS SC 07/22/17 21:00 08/21/17 20:59 07/23/17 08:26 2 UNITS Glucose (Glucose 40% Gel) 15-30 GRAMS 15 GRAMS... UD PRN PO 07/22/17 18:45 08/21/17 18:44 Glucose (Glucose Chew Tab) 4-8 Tablets 4 Tabl... UD PRN PO 07/22/17 18:45 08/21/17 18:44 Dextrose (Dextrose 50% 50ML Syringe) 25-50ML OF 50% DW IV FOR... UD PRN IV 07/22/17 18:45 08/21/17 18:44 Glucagon (Glucagon Inj) 1 mg UD PRN SQ 07/22/17 18:45 08/21/17 18:44 Ertapenem 1 gm/ Sodium Chloride 50 ml @ 120 mls/hr Q24H IV 07/23/17 09:00 08/02/17 08:59 07/23/17 08:32 120 MLS/HR Review of Systems Review of Systems Constitutional: No fever, No chills Eyes: No double vision Neurological: No dizzy Endocrine: No excessive thirst Gastrointestinal: + problem reported (upper abdominal and chest spasms), No nausea, No vomiting Cardiovascular: + problem reported (chest spasms), No chest pain Respiratory: No shortness of breath Skin: No rash Musculoskeletal: + arthritis, + problem reported (right shoulder pain ) Female : + blood in urine Physical Exam Vital Signs: Vital Signs Past 12 Hours Date Time Temp Pulse Resp B/P (MAP) Pulse Ox O2 Delivery O2 Flow Rate FiO2 07/23/17 07:47 36.8 71 16 126/68 (87) 91 07/23/17 00:00 Room Air 07/23/17 00:00 37.2 68 20 112/49 (70) 92 Room Air Physical Exam: General Appearance: no apparent distress Eyes: bilateral eyes normal inspection ENT: hearing grossly normal Neck: no JVD Respiratory/Chest: no respiratory distress, no accessory muscle use Cardiovascular: no JVD Extremities: normal inspection Neurologic/Psychiatric: alert, normal mood/affect, oriented x 3 Skin: normal color Assessment & Plan Assessment & Plan A/P: Muscle invasive bladder cancer AFVSS. Suspect the pt's difficulty voiding and LUTS are r/t her irritative voiding symptoms associated with her cancer rather than UTI. Will await final results of repeat culture for further recommendations. Continue soni catheter now for supportive management. Can irrigate soni PRN if clots develop. As for her bladder cancer, she is to keep f/u with Dr. Jovel scheduled for next week. Will discuss goals at that time, although it seems as though the palliative care will be the most likely plan. I have discussed the pt's right shoulder pain and abdominal and chest spasms with Dr. Mclean this morning. Thanks for the consult. Will continue to follow along with primary service.
--- NOTE | 2017-07-23 11:37 | Progress Note ---
Internal Med Progress Note Date of Service: Jul 23, 2017. Provider Documentation: SUBJECTIVE: Seen and examined at bedside Reports B/L shoulder pain R > L, H/O fall 2-3 weeks ago Also has dry cough and chest spasms after coughing Denies chest pain, SOB, abd pain, dizziness Family at bedside OBJECTIVE: Vital Signs-as noted below Physical Exam: General Appearance:Moderately built and nourished, no apparent distress Head: normocephalic, Atraumatic Eyes: normal inspection, EOMI, PERRL Neck: supple, Trachea midline Respiratory/Chest: Decreased breath sounds, CTA Cardiovascular: S1, S2, + systolic murmur Abdomen/GI:Soft, Non tender, Bowel sounds present Extremities/Musculoskelatal:normal inspection, no edema, R shoulder decreased ROM due to pain Neurologic/Psych:AAOX3, grossly no focal neurological deficits Skin: normal color, warm Lab data as noted below. ASSESSMENT & PLAN: Hematuria UTI H/O Bladder Cancer S/P s/p TURBT 05/[address] Louis Urinary Retention CT abd as below Appreciate Urology Input Has a follow up with her Oncologist next week (Son prefers patient to be started on Chemo if patient agrees) Was on Macrobid for suspected UTI since 07/12 prior to admission Urine culture 07/20: group G beta strep Continue Ertapenem Day #1 Avoid QTC prolonging meds Monitor Hb as patient has hematuria Urine culture:pending Shoulder Pain H/O fall 2-3 weeks ago H/O arthritis and injections many years ago Will get X ray to R/O fractures Consult Orthopedics Decreased ROM on exam Atrial Fibrillation: continue amiodarone, metoprolol Not anticoagulated due to fall risk Chronic Diastolic CHF Aortic Stenosis No signs of decompensation Plan to resume diuretics tomorrow DM II Last A1C: 7.9 04/2017 hold oral agents Continue ISS, Lantus DVT Px SCDs Re: Hematuria Code Status: DNR Disposition: Plan to discharge back to [facility] when medically stable PROCEDURES: CT ABD: 1. Persistent asymmetric right lateral bladder wall thickening which is consistent with the history of bladder cancer. Apparent thickening of the bladder dome likely reflects urothelial lesion. Adherent blood clot could appear similar. 2. Moderate dilatation of the right ureter and mild dilatation of the left ureter with no ureteral calculi identified. Ureteral dilatation increased since exam of May 03, 2017. 3. No evidence of metastatic disease within the abdomen or pelvis on unenhanced exam. 4. Trace bilateral pleural effusions with associated bilateral lower lobe opacities which favor atelectasis although an infectious process could appear similar. 4. Moderate sized hiatal hernia. Vital Signs: Date Time Temp Pulse Resp B/P (MAP) Pulse Ox O2 Delivery O2 Flow Rate FiO2 07/23/17 08:00 Room Air 07/23/17 07:47 36.8 71 16 126/68 (87) 91 07/23/17 00:00 Room Air 07/23/17 00:00 37.2 68 20 112/49 (70) 92 Room Air 07/22/17 21:18 70 99/44 (62) 07/22/17 20:53 36.8 64 16 114/55 Room Air 07/22/17 19:56 36.8 64 16 114/55 (74) 98 Room Air 07/22/17 19:28 60 110/61 93 07/22/17 17:16 64 16 108/60 07/22/17 16:23 62 110/61 91 Room Air 07/22/17 14:36 37.3 68 20 155/77 96 Lab Results: Results Past 24 Hours Test 07/22/17 15:10 07/22/17 15:30 07/22/17 20:08 07/22/17 22:07 Range/Units White Blood Count 13.00 4.8-10.8 K/uL Red Blood Count 4.41 4.2-5.4 M/uL Hemoglobin 11.6 12.0-16.0 g/dL Hematocrit 34.4 37-47 % Mean Corpuscular Volume 78.0 80-100 fL Mean Corpuscular Hemoglobin 26.3 25-34 pg Mean Corpuscular Hemoglobin Concent 33.7 32-36 g/dl Platelet Count 318 130-400 K/uL Mean Platelet Volume 8.8 7.4-10.4 fL Neutrophils (%) (Auto) 75.3 % Lymphocytes (%) (Auto) 6.9 % Monocytes (%) (Auto) 11.4 % Eosinophils (%) (Auto) 5.7 % Basophils (%) (Auto) 0.2 % Neutrophils # (Auto) 9.78 1.4-6.5 K/uL Lymphocytes # (Auto) 0.90 1.2-3.4 K/uL Monocytes # (Auto) 1.48 0.11-0.59 K/uL Eosinophils # (Auto) 0.74 0-0.5 K/uL Basophils # (Auto) 0.03 0-0.2 K/uL RDW Standard Deviation 42.1 36.4-46.3 fL RDW Coefficient of Variation 14.6 11.5-14.5 % Immature Granulocyte % (Auto) 0.5 % Immature Granulocyte # (Auto) 0.07 0.00-0.02 K/uL Sodium Level 131 136-145 mmol/L Potassium Level 3.8 3.5-5.1 mmol/L Chloride Level 94 98-107 mmol/L Carbon Dioxide Level 29 21-32 mmol/L Anion Gap 8.0 3-11 mmol/L Blood Urea Nitrogen 14 7-18 mg/dl Creatinine 0.98 0.60-1.20 mg/dl Est Creatinine Clear Calc Drug Dose 30.4 ml/min Estimated GFR () 59.3 Estimated GFR (Non- 51.1 BUN/Creatinine Ratio 14.7 10-20 Random Glucose 172 70-99 mg/dl Calcium Level 8.9 8.5-10.1 mg/dl Total Bilirubin 0.6 0.2-1 mg/dl Direct Bilirubin 0.2 0-0.2 mg/dl Aspartate Amino Transf (AST/SGOT) 31 15-37 U/L Alanine Aminotransferase (ALT/SGPT) 52 12-78 U/L Alkaline Phosphatase 209 45-117 U/L Total Protein 6.9 6.4-8.2 gm/dl Albumin 3.1 3.4-5.0 gm/dl Lipase 140 73-393 U/L Urine Color DK YELLOW Urine Appearance TURBID CLEAR Urine pH 5.0 4.5-7.5 Urine Specific [place] 1.013 1.000-1.030 Urine Protein 1+ NEG Urine Glucose (UA) TRACE NEG Urine Ketones NEG NEG Urine Occult Blood 3+ NEG Urine Nitrite NEG NEG Urine Bilirubin NEG NEG Urine Urobilinogen NEG NEG Urine Leukocyte Esterase LARGE NEG Urine WBC (Auto) >30 0-5 /hpf Urine RBC (Auto) >30 0-4 /hpf Urine Hyaline Casts (Auto) 0 0-5 /lpf Urine Epithelial Cells (Auto) >30 0-5 /lpf Urine Bacteria (Auto) 1+ NEG Urine Renal Epithelial Cells 0-5 0-5 /lpf Urine Pathogenic Casts 0 /lpf Urine Yeast (Auto) PRESENT NONE PRSENT Bedside Glucose 177 70-90 mg/dl Lactic Acid Level 1.6 0.4-2.0 mmol/L Test 07/22/17 22:08 07/23/17 07:37 07/23/17 07:59 Range/Units Magnesium Level 1.7 1.9 1.8-2.4 mg/dl Bedside Glucose 183 70-90 mg/dl White Blood Count 13.48 4.8-10.8 K/uL Red Blood Count 4.11 4.2-5.4 M/uL Hemoglobin 10.2 12.0-16.0 g/dL Hematocrit 32.1 37-47 % Mean Corpuscular Volume 78.1 80-100 fL Mean Corpuscular Hemoglobin 24.8 25-34 pg Mean Corpuscular Hemoglobin Concent 31.8 32-36 g/dl RDW Standard Deviation 43.1 36.4-46.3 fL RDW Coefficient of Variation 14.9 11.5-14.5 % Platelet Count 306 130-400 K/uL Mean Platelet Volume 8.9 7.4-10.4 fL Sodium Level 132 136-145 mmol/L Potassium Level 3.6 3.5-5.1 mmol/L Chloride Level 97 98-107 mmol/L Carbon Dioxide Level 27 21-32 mmol/L Anion Gap 8.0 3-11 mmol/L Blood Urea Nitrogen 14 7-18 mg/dl Creatinine 0.70 0.60-1.20 mg/dl Est Creatinine Clear Calc Drug Dose 42.6 ml/min Estimated GFR () 89.0 Estimated GFR (Non- 76.8 BUN/Creatinine Ratio 19.8 10-20 Random Glucose 152 70-99 mg/dl Calcium Level 8.2 8.5-10.1 mg/dl Microbiology Results 07/22/17 MRSA DNA Surveillance Screen - Final, Complete Specimen Positive for MRSA by DNA Probe 07/22/17 Urine Culture, Received Pending
--- NOTE | 2017-07-23 13:44 | DIAGNOSTIC IMAGING REPORT ---
R SHOULDER MIN 2 VIEWS ROUTINE CLINICAL HISTORY: shoulder pain H/O fall r/o fractures trauma. Pain. COMPARISON: None. DISCUSSION: Moderate generalized degenerative change of the glenohumeral as well as acromioclavicular joint. Soft tissue calcification inferior to the glenoid felt to be secondary to old posttraumatic change. prominent parenchymal markings throughout the right hemithorax. IMPRESSION: Degenerative change. No acute bony abnormality of the right shoulder. The above report was generated using voice recognition software. It may contain grammatical, syntax or spelling errors. Electronically signed by: Brent Cedeño M.D. 07/23/2017 1:43 PM Dictated Date/Time: 07/23/2017 1:42 PM
--- NOTE | 2017-07-23 13:45 | DIAGNOSTIC IMAGING REPORT ---
L SHOULDER MIN 2 VIEWS ROUTINE CLINICAL HISTORY: 87 years-old Female presenting with shoulder pain H/O fall. TECHNIQUE: Internal rotation, external rotation, Grashey views of the left shoulder were obtained. COMPARISON: 05/03/2017. FINDINGS: Effacement of the acromiohumeral interval likely suggests chronic rotator cuff tear. Widening of the acromioclavicular joint may be new from prior. Mild degenerative change at both the acromioclavicular and glenohumeral joints. No acute fracture or change in alignment. Calcification along the superior aspect of the humeral head could indicate calcific tendinitis. IMPRESSION: 1. Widening of the acromioclavicular joint consistent with a.c. separation may be new or worsened from prior. Correlate with point tenderness. 2. Chronic superior subluxation of the humeral head likely implying chronic rotator cuff tear. 3. No acute fracture. Electronically signed by: Carlos A Acevedo M.D. 07/23/2017 1:44 PM Dictated Date/Time: 07/23/2017 1:42 PM
--- NOTE | 2017-07-23 13:48 | DIAGNOSTIC IMAGING REPORT ---
CHEST ONE VIEW PORTABLE HISTORY: 87 years-old Female cough acute cough with bilateral shoulder pain status post fall COMPARISON: Chest radiograph 07/20/2017 TECHNIQUE: Portable AP view the chest FINDINGS: Cardiac silhouette is again enlarged, unchanged. No pneumothorax. Small right and trace left pleural effusions with pulmonary vascular congestion, hazy right perihilar and bibasilar opacities with interstitial coarsening. Hiatal hernia. Degenerative changes of the shoulders and spine with probable loose body of the axillary recess right shoulder, 6 mm. Degenerative changes are noted within the shoulders and spine. IMPRESSION: 1. Cardiomegaly with pulmonary vascular congestion and mild interstitial coarsening suggesting mild pulmonary edema. 2. Small right and trace left pleural effusions. 3. Bibasilar opacities favor atelectasis. Hazy right perihilar opacity suggest asymmetric pulmonary edema or pneumonia. The above report was generated using voice recognition software. It may contain grammatical, syntax or spelling errors. Electronically signed by: Paco Paul M.D. 07/23/2017 1:46 PM Dictated Date/Time: 07/23/2017 1:43 PM
[2017-07-23 16:30] VITALS: BP 117/60; PULSE 72; TEMP 37.2; O2SAT 94
[2017-07-23] MEDS ORDERED: LEVOFLOXACIN / D5W 250 MG in PREMIXED IN D5W 50 ML IV SCH (17:00)
--- NOTE | 2017-07-23 19:32 | Orthopedic Consultation ---
Orthopedic Consultation Date of Consultation: Jul 23, 2017. Attending Physician: De Mclean MD Reason for Consultation: Bilateral shoulder pain History of Present Illness Patient said she had a history of several falls increasing pain right shoulder. History of rotator cuff surgery on her left shoulder in the past. Right shoulder since her most painful at this time. She seen a label press operator in the past had some injections a year ago or so weren't too effective in her opinion. Past Medical/Surgical History Medical Problems: (1) Elevated lactic acid level Status: Acute (2) Liver function abnormality Status: Acute (3) Swelling of lower extremity Status: Acute (4) Symptoms involving urinary system Status: Acute (5) UTI (urinary tract infection) Status: Acute Family History Patient reports no known family medical history. Social History Smoking Status: Never Smoker Alcohol Use: none Housing Status: assisted living Allergies Coded Allergies: Cephalosporins (Verified Allergy, Intermediate, KEFLEX = HIVES, 07/20/17) Penicillins (Verified Allergy, Mild, HIVES, 07/20/17) JACKY Inhibitors (Verified Allergy, Unknown, Unknown, 07/20/17) Adhesives (Verified Allergy, Unknown, rash, 07/20/17) Amoxicillin (Verified Allergy, Unknown, Unknown, 07/20/17) CI Pigment Blue 63 (Verified Allergy, Unknown, Unknown, 07/20/17) Cephalexin (Verified Allergy, Unknown, Unknown, 07/20/17) Duloxetine (Verified Allergy, Unknown, Unknown, 07/20/17) Gabapentin (Verified Allergy, Unknown, Unknown, 07/20/17) Lisinopril (Verified Allergy, Unknown, Unknown, 07/20/17) Penicillin V (Verified Allergy, Unknown, unknown, hives?, 07/20/17) Simvastatin (Verified Allergy, Unknown, Unknown, 07/20/17) Lactose. (Verified Adverse Reaction, Unknown, GI SYMPTOMS, 07/20/17) pt reports allergic to all diary product - bloated and gas Home Medications Scheduled Amiodarone Hcl (Cordarone), 400 MG PO DAILY Ascorbic Acid (Ascorbic Acid), 500 MG PO DAILY Aspirin (Aspirin Ec), 81 MG PO DAILY Cholecalciferol (Vitamin D), 1,000 UNITS PO DAILY Clotrimazole Vaginal (Clotrimazole), 1 APPLN TOP DAILY Cyclosporine (Ophth) (Restasis), 1 DROP OPB BID Emollient (Cerave), 1 APPLN TOP BID Furosemide (Lasix), 20 MG PO QAM Hydrocortisone (Rectal) (Hydrocortisone), 1 APPLN TOP DAILY Melatonin (Melatonin), 1 MG PO HS Metoprolol Succinate (Toprol Xl), 100 MG PO BID Multivitamin (Multivitamin), 1 TAB PO DAILY Nitrofurantoin Monohyd Macrocr (Macrobid), 100 MG PO BID Pantoprazole (Protonix), 40 MG PO DAILY Polyvinyl Alcohol (Artificial Tears), 1 DROP OPB QID Potassium Chloride (Micro-K Ext Rel), 10 MEQ PO DAILY Psyllium (Metamucil), 1 TBS PO MWF [Onglyza], 5 MG PO DAILY Scheduled PRN Acetaminophen (Tylenol), 500 MG PO Q8 PRN for Pain or Fever Diphenoxylate/Atropine (Lomotil), 1 TAB PO DAILY PRN for LOOSE STOOLS Guaifenesin-Codeine (Codeine/Guaifenesin 100-10 mg/5Ml), 10 ML PO Q4 PRN for Cough Tramadol (Ultram), MG PO Q8H PRN for Severe Pain Current Inpatient Medications Current Inpatient Medications Medications (Trade) Dose Ordered Sig/Zoë Route Start Time Stop Time Status Last Admin Dose Admin Acetaminophen (Tylenol Tab) 650 mg Q4H PRN PO 07/22/17 18:00 08/21/17 17:59 07/23/17 08:23 650 MG Amiodarone HCl (Cordarone Tab) 400 mg DAILY PO 07/23/17 08:00 08/22/17 08:59 07/23/17 08:22 400 MG Ascorbic Acid (Vitamin C Tab) 500 mg DAILY PO 07/23/17 08:00 08/22/17 08:59 07/23/17 08:21 500 MG Aspirin (Ecotrin Tab) 81 mg DAILY PO 07/23/17 08:00 08/22/17 08:59 07/23/17 08:22 81 MG Cholecalciferol (Vitamin D Tab) 1,000 inter.unit DAILY PO 07/23/17 08:00 08/22/17 08:59 07/23/17 08:21 1,000 INTER.UNIT Metoprolol Succinate (Toprol Xl Tab) 100 mg BID PO 07/22/17 20:00 08/21/17 20:59 07/23/17 08:21 100 MG Multivitamins (Multivitamin Tab) 1 tab DAILY PO 07/23/17 08:00 08/22/17 08:59 07/23/17 08:22 1 TAB Pantoprazole Sodium (Protonix Tab) 40 mg DAILY PO 07/23/17 08:00 08/22/17 08:59 07/23/17 08:21 40 MG Tramadol HCl (Ultram Tab) 50 mg Q8H PRN PO 07/22/17 18:30 08/21/17 18:29 Promethazine HCl 12.5 mg/Sodium Chloride 50.5 ml @ 204 mls/hr Q6H PRN IV 07/22/17 18:30 08/21/17 18:29 Insulin Aspart (novoLOG ASPART) SLIDING SCALE If C... ACHS SC 07/22/17 21:00 08/21/17 20:59 07/23/17 17:58 4 UNITS Glucose (Glucose 40% Gel) 15-30 GRAMS 15 GRAMS... UD PRN PO 07/22/17 18:45 08/21/17 18:44 Glucose (Glucose Chew Tab) 4-8 Tablets 4 Tabl... UD PRN PO 07/22/17 18:45 08/21/17 18:44 Dextrose (Dextrose 50% 50ML Syringe) 25-50ML OF 50% DW IV FOR... UD PRN IV 07/22/17 18:45 08/21/17 18:44 Glucagon (Glucagon Inj) 1 mg UD PRN SQ 07/22/17 18:45 08/21/17 18:44 Ertapenem 1 gm/ Sodium Chloride 50 ml @ 120 mls/hr Q24H IV 07/23/17 09:00 08/02/17 08:59 07/23/17 08:32 120 MLS/HR Insulin Glargine (Lantus Solostar Pen) 5 units HS SC 07/23/17 22:00 08/22/17 21:59 Physical Exam Date Time Temp Pulse Resp B/P (MAP) Pulse Ox O2 Delivery O2 Flow Rate FiO2 07/23/17 16:30 37.2 72 16 117/60 (79) 94 2.0 07/23/17 16:00 Nasal Cannula 2.0 07/23/17 08:00 Room Air 07/23/17 07:47 36.8 71 16 126/68 (87) 91 07/23/17 00:00 Room Air 07/23/17 00:00 37.2 68 20 112/49 (70) 92 Room Air 07/22/17 21:18 70 99/44 (62) 07/22/17 20:53 36.8 64 16 114/55 Room Air 07/22/17 19:56 36.8 64 16 114/55 (74) 98 Room Air 07/22/17 19:28 60 110/61 93 General Appearance: no apparent distress Head: normocephalic Extremities/Musculoskelatal: + pertinent finding (right shoulder difficulty raising above shoulder height. When arm posted of her head she can hold her arm well with functional deltoid. Her weakness is very more pain related as she does have reasonable isometric strength in all planes. Left shoulder skin raise overhead with substitution and has weakness with abduction she has good internal rotation strength but a 3+ over 5 abduction strength on the left. She has less pain in her low shoulder with range of motion and right. Neurological exams intact situations intact.) Laboratory Results Last 24 Hours Test 07/22/17 20:08 07/22/17 22:07 07/22/17 22:08 07/23/17 07:37 Bedside Glucose 177 mg/dl 183 mg/dl Lactic Acid Level 1.6 mmol/L Magnesium Level 1.7 mg/dl Test 07/23/17 07:59 07/23/17 11:36 07/23/17 16:55 White Blood Count 13.48 K/uL Red Blood Count 4.11 M/uL Hemoglobin 10.2 g/dL Hematocrit 32.1 % Mean Corpuscular Volume 78.1 fL Mean Corpuscular Hemoglobin 24.8 pg Mean Corpuscular Hemoglobin Concent 31.8 g/dl RDW Standard Deviation 43.1 fL RDW Coefficient of Variation 14.9 % Platelet Count 306 K/uL Mean Platelet Volume 8.9 fL Sodium Level 132 mmol/L Potassium Level 3.6 mmol/L Chloride Level 97 mmol/L Carbon Dioxide Level 27 mmol/L Anion Gap 8.0 mmol/L Blood Urea Nitrogen 14 mg/dl Creatinine 0.70 mg/dl Est Creatinine Clear Calc Drug Dose 42.6 ml/min Estimated GFR () 89.0 Estimated GFR (Non- 76.8 BUN/Creatinine Ratio 19.8 Random Glucose 152 mg/dl Calcium Level 8.2 mg/dl Magnesium Level 1.9 mg/dl Bedside Glucose 163 mg/dl 195 mg/dl Assessment & Plan I reviewed her x-rays which demonstrates that she had decompression and likely distal clavicle excision left shoulder and proximal migration humerus consistent with a failed rotator cuff repair and rotator cuff arthropathy right shoulder has some proximal migration humerus likely related to rotator cuff tendinopathy and probable full-thickness rotator cuff tear. No major arthritic changes in the right shoulder. There are some chronic degenerative changes consistent with rotator cuff tendinopathy. Small round cascades and possible loose body. Her assessment is bilateral shoulder rotator cuff tendinopathy failed rotator cuff repair left painful right shoulder symptomatic likely aggravated by recent falls. Patient not a candidate for rotator cuff repair at this age and likely not a great candidate for reverse shoulder replacement due to her advanced age and medical issues. Treatment options of physical therapy modalities to the shoulder and subacromial steroid injection right shoulder if medical team feels this will not effect her treatment of her recent infection and hospitalization reason.
[2017-07-23 22:12] VITALS: BP 139/78; PULSE 69
[2017-07-23] MEDS: INSULIN GLARGINE SOLOSTAR 100 UNITS/ML 3 ML PEN SC SCH (22:14)
[2017-07-24] VITALS (7 sets, daily range): BP systolic 89–107; BP diastolic 56–74; PULSE 64–109; TEMP 36.6–37.2; O2SAT 94–97
[2017-07-24 08:07] LABS: HEMATOCRIT 32.2 % (37-47); HEMOGLOBIN 10.9 g/dL (12.0-16.0); MEAN CORPUSCULAR HEMOGLOBIN 26.1 pg (25-34); MEAN CORPUSCULAR HGB CONC 33.9 g/dl (32-36); MEAN PLATELET VOLUME 8.5 fL (7.4-10.4); PLATELET COUNT 292 K/uL (130-400); RED CELL DISTRIBUTION WIDTH CV 14.8 % (11.5-14.5); RED CELL DISTRIBUTION WIDTH SD 42.2 fL (36.4-46.3); WHITE BLOOD COUNT 16.31 K/uL (4.8-10.8)
--- NOTE | 2017-07-24 08:07 | Progress Note ---
Subjective Date of Service: Jul 24, 2017. Subjective Pt evaluation today including: conversation w/ patient, chart review, lab review Voiding: soni catheter in place (patent, draining clear, yellow urine ) 87 yo female with muscle invasive bladder cancer. All bladder symptoms have resolved since soni placement. UC&S growing group B beta strep preliminarily. Pt primarily c/o knee and shoulder pain this morning. Problem List Medical Problems: (1) Elevated lactic acid level Status: Acute (2) Liver function abnormality Status: Acute (3) Swelling of lower extremity Status: Acute (4) Symptoms involving urinary system Status: Acute (5) UTI (urinary tract infection) Status: Acute Review of Systems Constitutional: No fever, No chills Respiratory: No shortness of breath Cardiac: No chest pain Abdomen: No pain, No nausea, No vomiting Female : No dysuria, No hematuria Heme: No abnormal bleeding/bruising Objective Vital Signs Date Time Temp Pulse Resp B/P (MAP) Pulse Ox O2 Delivery O2 Flow Rate FiO2 07/24/17 07:12 36.7 88 16 99/64 (76) 96 2.0 07/24/17 00:33 37.2 64 18 105/66 (79) 97 Room Air 07/24/17 00:00 94 Nasal Cannula 2.0 07/23/17 22:12 69 139/78 (98) 07/23/17 16:30 37.2 72 16 117/60 (79) 94 2.0 07/23/17 16:00 Nasal Cannula 2.0 Physical Exam General Appearance: no apparent distress Eyes: normal inspection ENT: hearing grossly normal Neck: no JVD Respiratory/Chest: no respiratory distress, no accessory muscle use Cardiovascular: no JVD Extremities: normal inspection Neurologic/Psychiatric: alert, normal mood/affect, oriented x 3 Skin: normal color Laboratory Results Last 24 Hours Test 07/23/17 11:36 07/23/17 16:55 07/23/17 19:44 07/24/17 07:26 Bedside Glucose 163 mg/dl 195 mg/dl 198 mg/dl 138 mg/dl Test 07/24/17 07:45 Assessment and Plan A/P: Muscle invasive bladder cancer with irritative voiding symptoms and incomplete bladder emptying AFVSS. UC&S essentially negative. Suspect her symptoms were more likely r/t irritative symptoms and incomplete emptying. Will plan to leave soni catheter in place for ~1 week. Outpatient trial of void at that time. Keep f/u with Dr. Jovel as scheduled for the . Will plan for f/u with Dr. Louis a few weeks after. No further management at this time. Thanks for allowing us to participate in this pt's care.
[2017-07-24] MEDS: ASPIRIN 81 MG ECTAB PO SCH (08:34)
[2017-07-24] MEDS: CHOLECALCIFEROL 1000 INTER.UNIT TAB PO SCH (08:34)
[2017-07-24] MEDS: ASCORBIC ACID 500 MG TAB PO SCH (08:34)
[2017-07-24] MEDS: PANTOprazole SOD 40 MG TAB PO SCH (08:35)
[2017-07-24] MEDS: MULTIVITAMIN TAB PO SCH (08:35)
[2017-07-24] MEDS: METOPROLOL SUCC 50MG EXT REL TAB PO SCH ×2 (08:36→20:00)
[2017-07-24] MEDS: AMIODARONE 200 MG TAB PO SCH (08:37)
[2017-07-24] MEDS: INSULIN ASPART 100 UNITS/ML 3 ML PEN SC SCH ×4 (08:43→21:03)
[2017-07-24] MEDS: ERTAPENEM IV 1 GM in SODIUM CHLOR 0.9% AD-VAN 50ML 50 ML IV SCH (08:43)
[2017-07-24 08:45] LABS: CALCIUM 8.1 mg/dl (8.5-10.1); CREATININE 0.58 mg/dl (0.60-1.20); POTASSIUM 3.4 mmol/L (3.5-5.1)
[2017-07-24] MEDS ORDERED: MAGNESIUM SULFATE 1GM / D5W 1 GM in PREMIXED IN D5W 100 ML IV STA (15:52)
[2017-07-24] MEDS ORDERED: POTASSIUM CHLORIDE 10 MEQ TABCR PO STA (15:53)
--- NOTE | 2017-07-24 15:53 | Progress Note ---
Internal Med Progress Note Date of Service: Jul 24, 2017. Provider Documentation: SUBJECTIVE: Seen and examined at bedside States shoulder pain is better today Less cough Overall feels better today Denies chest pain, SOB, abd pain, dizziness Family at bedside OBJECTIVE: Vital Signs-as noted below Physical Exam: General Appearance:Moderately built and nourished, no apparent distress Head: normocephalic, Atraumatic Eyes: normal inspection, EOMI, PERRL Neck: supple, Trachea midline Respiratory/Chest: Decreased breath sounds, CTA Cardiovascular: S1, S2, + systolic murmur Abdomen/GI:Soft, Non tender, Bowel sounds present Extremities/Musculoskelatal:normal inspection, no edema, R shoulder decreased ROM due to pain Neurologic/Psych:AAOX3, grossly no focal neurological deficits Skin: normal color, warm Lab data as noted below. ASSESSMENT & PLAN: Hematuria UTI: less likely H/O Bladder Cancer S/P s/p TURBT 05/[address] Louis Urinary Retention CT abd as below Appreciate Urology Input Has a follow up with her Oncologist next week (Son prefers patient to be started on Chemo if patient agrees) Was on Macrobid for suspected UTI since 07/12 prior to admission Urine culture 07/20: group G beta strep Continue Ertapenem Day #2/3 Avoid QTC prolonging meds Monitor Hb as patient has hematuria Urine culture:Group B strep B/L shoulder rotator cuff tendinopathy failed rotator cuff repair H/O fall 2-3 weeks ago H/O arthritis and injections many years ago X ray: No acute fractures Appreciate Orthopedics Input PT/OT Patient agreeable to steroid injections Atrial Fibrillation: continue amiodarone, metoprolol Not anticoagulated due to fall risk Chronic Diastolic CHF Aortic Stenosis No signs of decompensation Plan to resume diuretics when BP more stable DM II Last A1C: 7.9 04/2017 hold oral agents Continue ISS, Lantus Constipation: Started bowel regimen DVT Px SCDs Re: Hematuria Code Status: DNR Disposition: Plan to discharge back to [facility] when medically stable PROCEDURES: CT ABD: 1. Persistent asymmetric right lateral bladder wall thickening which is consistent with the history of bladder cancer. Apparent thickening of the bladder dome likely reflects urothelial lesion. Adherent blood clot could appear similar. 2. Moderate dilatation of the right ureter and mild dilatation of the left ureter with no ureteral calculi identified. Ureteral dilatation increased since exam of May 03, 2017. 3. No evidence of metastatic disease within the abdomen or pelvis on unenhanced exam. 4. Trace bilateral pleural effusions with associated bilateral lower lobe opacities which favor atelectasis although an infectious process could appear similar. 4. Moderate sized hiatal hernia. Vital Signs: Date Time Temp Pulse Resp B/P (MAP) Pulse Ox O2 Delivery O2 Flow Rate FiO2 07/24/17 15:22 36.9 99 16 89/59 (69) 97 2.0 07/24/17 08:43 80 107/74 (85) 07/24/17 08:00 Nasal Cannula 2.0 07/24/17 07:12 36.7 88 16 99/64 (76) 96 2.0 07/24/17 00:33 37.2 64 18 105/66 (79) 97 Room Air 07/24/17 00:00 94 Nasal Cannula 2.0 07/23/17 22:12 69 139/78 (98) 07/23/17 16:30 37.2 72 16 117/60 (79) 94 2.0 Lab Results: Results Past 24 Hours Test 07/23/17 16:55 07/23/17 19:44 07/24/17 07:26 07/24/17 07:45 Range/Units Bedside Glucose 195 198 138 70-90 mg/dl White Blood Count 16.31 4.8-10.8 K/uL Red Blood Count 4.18 4.2-5.4 M/uL Hemoglobin 10.9 12.0-16.0 g/dL Hematocrit 32.2 37-47 % Mean Corpuscular Volume 77.0 80-100 fL Mean Corpuscular Hemoglobin 26.1 25-34 pg Mean Corpuscular Hemoglobin Concent 33.9 32-36 g/dl RDW Standard Deviation 42.2 36.4-46.3 fL RDW Coefficient of Variation 14.8 11.5-14.5 % Platelet Count 292 130-400 K/uL Mean Platelet Volume 8.5 7.4-10.4 fL Sodium Level 133 136-145 mmol/L Potassium Level 3.4 3.5-5.1 mmol/L Chloride Level 97 98-107 mmol/L Carbon Dioxide Level 27 21-32 mmol/L Anion Gap 9.0 3-11 mmol/L Blood Urea Nitrogen 13 7-18 mg/dl Creatinine 0.58 0.60-1.20 mg/dl Est Creatinine Clear Calc Drug Dose 51.4 ml/min Estimated GFR () 94.7 Estimated GFR (Non- 81.7 BUN/Creatinine Ratio 23.3 10-20 Random Glucose 129 70-99 mg/dl Calcium Level 8.1 8.5-10.1 mg/dl Magnesium Level 1.7 1.8-2.4 mg/dl Test 07/24/17 11:29 Range/Units Bedside Glucose 222 70-90 mg/dl
[2017-07-24] MEDS ORDERED: POLYETHYLENE (MIRALAX) 17 GM PACK PO PRN (16:15)
[2017-07-24] MEDS: INSULIN GLARGINE SOLOSTAR 100 UNITS/ML 3 ML PEN SC SCH (21:02)
[2017-07-25] VITALS: O2SAT 94
[2017-07-25 07:27] VITALS: BP 117/75; PULSE 97; TEMP 36.5; O2SAT 92
[2017-07-25] MEDS ORDERED: DOCUSATE SODIUM 100 MG CAP PO SCH (08:00)
--- NOTE | 2017-07-25 08:39 | Progress Note ---
Subjective Date of Service: Jul 25, 2017. Subjective Pt evaluation today including: conversation w/ patient, chart review, lab review Voiding: soni catheter in place (patent, draining yellow urine ) 87 yo female with muscle invasive bladder cancer. Feels well from perspective. Soni remains in place draining yellow urine. Pt continues to c/o shoulder and knee pain, and is requesting injections for arthritis prior to leaving the hospital. Problem List Medical Problems: (1) Elevated lactic acid level Status: Acute (2) Liver function abnormality Status: Acute (3) Swelling of lower extremity Status: Acute (4) Symptoms involving urinary system Status: Acute (5) UTI (urinary tract infection) Status: Acute Review of Systems Constitutional: No fever, No chills Respiratory: No shortness of breath Cardiac: No chest pain Abdomen: No pain, No nausea, No vomiting Musculoskeletal: + joint pain (right shoulder and knees) Female : No hematuria Heme: No abnormal bleeding/bruising Objective Vital Signs Date Time Temp Pulse Resp B/P (MAP) Pulse Ox O2 Delivery O2 Flow Rate FiO2 07/25/17 07:27 36.5 97 18 117/75 (89) 92 Room Air 07/25/17 00:00 94 Room Air 07/24/17 23:06 36.6 108 18 107/56 (73) 94 Room Air 07/24/17 20:55 109 96/62 (73) 07/24/17 16:00 Room Air 07/24/17 15:22 36.9 99 16 89/59 (69) 97 2.0 07/24/17 08:43 80 107/74 (85) Physical Exam General Appearance: no apparent distress Eyes: normal inspection ENT: hearing grossly normal Neck: no JVD Respiratory/Chest: no respiratory distress, no accessory muscle use Cardiovascular: no JVD Extremities: normal inspection Neurologic/Psychiatric: alert, normal mood/affect, oriented x 3 Skin: normal color Laboratory Results Last 24 Hours Test 07/24/17 11:29 07/24/17 16:19 07/24/17 20:23 07/25/17 04:44 Bedside Glucose 222 mg/dl 133 mg/dl 189 mg/dl Test 07/25/17 07:40 Bedside Glucose 133 mg/dl Assessment and Plan A/P: Muscle invasive bladder cancer with irritative voiding symptoms and incomplete bladder emptying AFVSS. UC&S essentially negative. Suspect her symptoms were more likely r/t irritative symptoms and incomplete emptying. Will plan to leave soni catheter in place for ~1 week. Outpatient trial of void at that time. Will arrange. Keep f/u with Dr. Jovel as scheduled for the . Will plan for f/u with Dr. Louis a few weeks after. No further management at this time. Thanks for allowing us to participate in this pt's care. Recall PRN issues.
[2017-07-25] MEDS: AMIODARONE 200 MG TAB PO SCH (08:45)
[2017-07-25] MEDS: CHOLECALCIFEROL 1000 INTER.UNIT TAB PO SCH (08:45)
[2017-07-25] MEDS: METOPROLOL SUCC 50MG EXT REL TAB PO SCH (08:45)
[2017-07-25] MEDS: PANTOprazole SOD 40 MG TAB PO SCH (08:46)
[2017-07-25] MEDS: ASCORBIC ACID 500 MG TAB PO SCH (08:46)
[2017-07-25] MEDS: MULTIVITAMIN TAB PO SCH (08:46)
[2017-07-25] MEDS: ASPIRIN 81 MG ECTAB PO SCH (08:46)
[2017-07-25] MEDS: INSULIN ASPART 100 UNITS/ML 3 ML PEN SC SCH ×3 (08:49→18:09)
[2017-07-25 09:10] LABS: HEMATOCRIT 38.6 % (37-47); HEMOGLOBIN 12.9 g/dL (12.0-16.0); MEAN CELL VOLUME 77.2 fL (80-100); MEAN CORPUSCULAR HEMOGLOBIN 25.8 pg (25-34); MEAN CORPUSCULAR HGB CONC 33.4 g/dl (32-36); MEAN PLATELET VOLUME 8.8 fL (7.4-10.4); PLATELET COUNT 390 K/uL (130-400); RED CELL DISTRIBUTION WIDTH CV 14.9 % (11.5-14.5); WHITE BLOOD COUNT 14.88 K/uL (4.8-10.8)
[2017-07-25] MEDS: ERTAPENEM IV 1 GM in SODIUM CHLOR 0.9% AD-VAN 50ML 50 ML IV SCH (09:22)
[2017-07-25 09:51] LABS: CALCIUM 8.7 mg/dl (8.5-10.1); CREATININE 0.76 mg/dl (0.60-1.20); POTASSIUM 4.1 mmol/L (3.5-5.1)
[2017-07-25 16:08] VITALS: BP 102/67; PULSE 99; TEMP 36.3; O2SAT 96
--- NOTE | 2017-07-25 17:03 | Progress Note ---
Internal Med Progress Note Date of Service: Jul 25, 2017. Provider Documentation: SUBJECTIVE: Seen and examined at bedside Doing well today Shoulder pain improved Denies chest pain, SOB, abd pain, dizziness Family at bedside OBJECTIVE: Vital Signs-as noted below Physical Exam: General Appearance:Moderately built and nourished, no apparent distress Head: normocephalic, Atraumatic Eyes: normal inspection, EOMI, PERRL Neck: supple, Trachea midline Respiratory/Chest: Decreased breath sounds, CTA Cardiovascular: S1, S2, + systolic murmur Abdomen/GI:Soft, Non tender, Bowel sounds present Extremities/Musculoskelatal:normal inspection, no edema, R shoulder decreased ROM due to pain Neurologic/Psych:AAOX3, grossly no focal neurological deficits Skin: normal color, warm Lab data as noted below. ASSESSMENT & PLAN: Hematuria UTI: less likely H/O Bladder Cancer S/P s/p TURBT 05/[address] Louis Urinary Retention CT abd as below Appreciate Urology Input Has a follow up with her Oncologist next week (Son prefers patient to be started on Chemo if patient agrees) Was on Macrobid for suspected UTI since 07/12 prior to admission Urine culture 07/20: group G beta strep Continue Ertapenem Day #3/ Avoid QTC prolonging meds Monitor Hb as patient has hematuria Urine culture:Group B strep B/L shoulder rotator cuff tendinopathy failed rotator cuff repair H/O fall 2-3 weeks ago H/O arthritis and injections many years ago X ray: No acute fractures Appreciate Orthopedics Input PT/OT Patient agreeable to steroid injections Discussed with Orthopedics, Needs follow up as outpatient for possible injections Atrial Fibrillation: continue amiodarone, metoprolol Not anticoagulated due to fall risk Chronic Diastolic CHF Aortic Stenosis No signs of decompensation Plan to resume diuretics when BP more stable DM II Last A1C: 7.9 04/2017 hold oral agents Continue ISS, Lantus Constipation: Started bowel regimen DVT Px SCDs Re: Hematuria Code Status: DNR Disposition: Plan to discharge back to [facility] today Follow up with your PCP in 1 week as advised Follow up with Dr. Jovel as scheduled on July 30, 2017 Also follow up with Dr. Louis in 2-4 weeks as advised Follow up with your Orthopedics Surgeon for possible Shoulder Injections as advised Seek immediate medical attention if your symptoms reoccur or worsen PROCEDURES: CT ABD: 1. Persistent asymmetric right lateral bladder wall thickening which is consistent with the history of bladder cancer. Apparent thickening of the bladder dome likely reflects urothelial lesion. Adherent blood clot could appear similar. 2. Moderate dilatation of the right ureter and mild dilatation of the left ureter with no ureteral calculi identified. Ureteral dilatation increased since exam of May 03, 2017. 3. No evidence of metastatic disease within the abdomen or pelvis on unenhanced exam. 4. Trace bilateral pleural effusions with associated bilateral lower lobe opacities which favor atelectasis although an infectious process could appear similar. 4. Moderate sized hiatal hernia. Vital Signs: Date Time Temp Pulse Resp B/P (MAP) Pulse Ox O2 Delivery O2 Flow Rate FiO2 07/25/17 16:08 36.3 99 18 102/67 (79) 96 Room Air 07/25/17 16:00 Room Air 07/25/17 08:00 Room Air 07/25/17 07:27 36.5 97 18 117/75 (89) 92 Room Air 07/25/17 00:00 94 Room Air 07/24/17 23:06 36.6 108 18 107/56 (73) 94 Room Air 07/24/17 20:55 109 96/62 (73) Lab Results: Results Past 24 Hours Test 07/24/17 20:23 07/25/17 07:40 07/25/17 08:39 07/25/17 11:27 Range/Units Bedside Glucose 189 133 204 70-90 mg/dl White Blood Count 14.88 4.8-10.8 K/uL Red Blood Count 5.00 4.2-5.4 M/uL Hemoglobin 12.9 12.0-16.0 g/dL Hematocrit 38.6 37-47 % Mean Corpuscular Volume 77.2 80-100 fL Mean Corpuscular Hemoglobin 25.8 25-34 pg Mean Corpuscular Hemoglobin Concent 33.4 32-36 g/dl RDW Standard Deviation 42.0 36.4-46.3 fL RDW Coefficient of Variation 14.9 11.5-14.5 % Platelet Count 390 130-400 K/uL Mean Platelet Volume 8.8 7.4-10.4 fL Sodium Level 133 136-145 mmol/L Potassium Level 4.1 3.5-5.1 mmol/L Chloride Level 97 98-107 mmol/L Carbon Dioxide Level 28 21-32 mmol/L Anion Gap 8.0 3-11 mmol/L Blood Urea Nitrogen 14 7-18 mg/dl Creatinine 0.76 0.60-1.20 mg/dl Est Creatinine Clear Calc Drug Dose 39.2 ml/min Estimated GFR () 80.6 Estimated GFR (Non- 69.5 BUN/Creatinine Ratio 18.1 10-20 Random Glucose 175 70-99 mg/dl Calcium Level 8.7 8.5-10.1 mg/dl Magnesium Level 1.9 1.8-2.4 mg/dl Procalcitonin 0.07 0-0.5 ng/ml
[2017-07-25] MEDS ORDERED: MRLP17X PO (17:08)
[2017-07-25] MEDS ORDERED: CLC100 PO (17:08)
--- NOTE | 2017-07-25 17:10 | Discharge Summary ---
Discharge Summary Date of Service Jul 25, 2017. Discharge Summary Admission Date: Jul 22, 2017 at 18:02 Discharge Date: Jul 25, 2017 Discharge Disposition: Personal care Principal Diagnosis: Hematuria, shoulder rotator cuff tendinopathy Procedures: CT ABD: 1. Persistent asymmetric right lateral bladder wall thickening which is consistent with the history of bladder cancer. Apparent thickening of the bladder dome likely reflects urothelial lesion. Adherent blood clot could appear similar. 2. Moderate dilatation of the right ureter and mild dilatation of the left ureter with no ureteral calculi identified. Ureteral dilatation increased since exam of May 03, 2017. 3. No evidence of metastatic disease within the abdomen or pelvis on unenhanced exam. 4. Trace bilateral pleural effusions with associated bilateral lower lobe opacities which favor atelectasis although an infectious process could appear similar. 4. Moderate sized hiatal hernia. L shoulder X ray: 1. Widening of the acromioclavicular joint consistent with a.c. separation may be new or worsened from prior. Correlate with point tenderness. 2. Chronic superior subluxation of the humeral head likely implying chronic rotator cuff tear. 3. No acute fracture. R shoulder X ray: Degenerative change. No acute bony abnormality of the right shoulder. CXR: 1. Cardiomegaly with pulmonary vascular congestion and mild interstitial coarsening suggesting mild pulmonary edema. 2. Small right and trace left pleural effusions. 3. Bibasilar opacities favor atelectasis. Hazy right perihilar opacity suggest asymmetric pulmonary edema or pneumonia. Consultations: Urology, Orthopedics Pending Studies/Follow-Up: Follow up with your PCP in 1 week as advised Follow up with Dr. Jovel as scheduled on July 30, 2017 Also follow up with Dr. Louis in 2-4 weeks as advised Follow up with your Orthopedics Surgeon for possible Shoulder Injections as advised Seek immediate medical attention if your symptoms reoccur or worsen Medication Reconciliation New Medications: Docusate Sodium (Docusate Sodium) 100 Mg Cap 100 MG PO BID for 7 Days, #14 CAP Polyethylene (Miralax) 17 Gm Pow 17 GM PO DAILY PRN for Constipation for 7 Days, #7 EA Continued Medications: Acetaminophen (Tylenol) 500 Mg Tab 500 MG PO Q8 PRN for Pain or Fever Amiodarone Hcl (Cordarone) 200 Mg Tab 400 MG PO DAILY TWO 200 MG TABLETS, PER DAY [facility] MED LIST Ascorbic Acid (Ascorbic Acid) 500 Mg Tab 500 MG PO DAILY Aspirin (Aspirin Ec) 81 Mg Tab 81 MG PO DAILY Cholecalciferol (Vitamin D) 1,000 Unit Tab 1000 UNITS PO DAILY Clotrimazole Vaginal (Clotrimazole) 1 % Cre 1 APPLN TOP DAILY APPLY TOPICALLY TO LOWER LEGS WITH HYDROCORTISONE CRAEM DAILY TO RASH / ATOPIC DERMATITIS Cyclosporine (Ophth) (Restasis) 0.05 % Emu 1 DROP OPB BID Diphenoxylate/Atropine (Lomotil) Tab 1 TAB PO DAILY PRN for LOOSE STOOLS, TAB Emollient (Cerave) 1 Lot Lot 1 APPLN TOP BID APPLY TO ARMS AND LEGS Furosemide (Lasix) 20 Mg Tab 20 MG PO QAM, TAB GIVE BEFORE BREAKFAST Guaifenesin-Codeine (Codeine/Guaifenesin 100-10 mg/5Ml) 1 Negar Negar 10 ML PO Q4 PRN for Cough Hydrocortisone (Rectal) (Hydrocortisone) 2.5 % Cre 1 APPLN TOP DAILY APPLY TO LOWER LEGS WITH CLOTRIMAZOLE CREAM DAILY/ ATOPIC DERMATITIS Melatonin (Melatonin) 1 Mg Tab 1 MG PO HS Metoprolol Succinate (Toprol Xl) 100 Mg Tab 100 MG PO BID HOLD IF SYSTOLIC BP 95 OR LESS OR HR 50 OR LESS Multivitamin (Multivitamin) Tab 1 TAB PO DAILY Pantoprazole (Protonix) 40 Mg Tab 40 MG PO DAILY Polyvinyl Alcohol (Artificial Tears) 1.4 % Negar 1 DROP OPB QID Potassium Chloride (Micro-K Ext Rel) 10 Meq Capcr 10 MEQ PO DAILY GIVE AFTER BREAKFAST Psyllium (Metamucil) 48.57 % Pow 1 TBS PO MWF Tramadol (Ultram) 50 Mg Tab MG PO Q8H PRN for Severe Pain PAIN SCALE 5-10 [Onglyza] () 5 MG PO DAILY ANTI-DIABETIC MEDICATION; GENERIC NAME: saxagliptin Discontinued Medications: Nitrofurantoin Monohyd Macrocr (Macrobid) 100 Mg Cap 100 MG PO BID X 7 DAYS (UTI) . STARTED MED 07/18/17, END 07/25/17 Admission Information HPI (per Admitting provider): 87 year old female who presents to the ED with difficulty urinating. Patient has history of bladder cancer and underwent TURBT May [address] Louis. Patient reports she had been doing well until a couple of weeks ago when she had trouble urinating. Her PCP placed her on Macrobid on 07/12 for suspected UTI. Patient was seen in the ED on 07/20. She was instructed to continue on Macrobid. Culture from that ED visit grew group G beta strep. Patient reports continued urinary hesitancy and retention. She has had chills and episodes of diaphoresis. No documented fevers. She denies chest pain, shortness of breath, and palpitations. She has chronic lower extremity edema and LLE redness which is unchanged from her baseline. No abdominal pain, nausea , or vomiting. She reports chronic occasional loose stools which are unchanged. She denies lightheadedness, dizziness, and syncopal events. In the ED, patient' s U/A suggests UTI. WBC 13K. She is afebrile and vitals are stable. She was given a dose of IV Levaquin. Osni was placed and there is gross hematuria with clots. Physical Exam (per Admitting): General Appearance: WD/WN, no apparent distress Head: normocephalic, atraumatic Eyes: normal inspection, EOMI, sclerae normal ENT: hearing grossly normal, + pertinent finding (mucous membranes moist) Neck: supple, no JVD, trachea midline Respiratory/Chest: lungs clear, normal breath sounds, no respiratory distress Cardiovascular: regular rate, rhythm, + systolic murmur, + pertinent finding (+1 pitting edema BLLE) Abdomen/GI: normal bowel sounds, non tender, soft, no organomegaly Genitourinary - Female: + pertinent finding (soni in place draining grossly bloody urine with clots) Extremities/Musculoskelatal: normal inspection, no calf tenderness, normal capillary refill Neurologic/Psych: no motor/sensory deficits, alert, normal mood/affect, oriented x 3 Skin: + pertinent finding (redness noted on left proximal juarez - chronic per patient) Hospital Course Hematuria UTI: less likely H/O Bladder Cancer S/P s/p TURBT 05/[address] Louis Urinary Retention CT abd as below Appreciate Urology Input Has a follow up with her Oncologist next week (Son prefers patient to be started on Chemo if patient agrees) Was on Macrobid for suspected UTI since 07/12 prior to admission Urine culture 07/20: group G beta strep Continue Ertapenem Day #3/3 Avoid QTC prolonging meds Monitor Hb as patient has hematuria Urine culture:Group B strep B/L shoulder rotator cuff tendinopathy failed rotator cuff repair H/O fall 2-3 weeks ago H/O arthritis and injections many years ago X ray: No acute fractures Appreciate Orthopedics Input PT/OT Patient agreeable to steroid injections Discussed with Orthopedics, Needs follow up as outpatient for possible injections Atrial Fibrillation: continue amiodarone, metoprolol Not anticoagulated due to fall risk Chronic Diastolic CHF Aortic Stenosis No signs of decompensation Plan to resume diuretics when BP more stable DM II Last A1C: 7.9 04/2017 hold oral agents Continue ISS, Lantus Constipation: Started bowel regimen DVT Px SCDs Re: Hematuria Code Status: DNR Disposition: Plan to discharge back to [facility] today Follow up with your PCP in 1 week as advised Follow up with Dr. Jovel as scheduled on July 30, 2017 Also follow up with Dr. Louis in 2-4 weeks as advised Follow up with your Orthopedics Surgeon for possible Shoulder Injections as advised Seek immediate medical attention if your symptoms reoccur or worsen PROCEDURES: CT ABD: 1. Persistent asymmetric right lateral bladder wall thickening which is consistent with the history of bladder cancer. Apparent thickening of the bladder dome likely reflects urothelial lesion. Adherent blood clot could appear similar. 2. Moderate dilatation of the right ureter and mild dilatation of the left ureter with no ureteral calculi identified. Ureteral dilatation increased since exam of May 03, 2017. 3. No evidence of metastatic disease within the abdomen or pelvis on unenhanced exam. 4. Trace bilateral pleural effusions with associated bilateral lower lobe opacities which favor atelectasis although an infectious process could appear similar. 4. Moderate sized hiatal hernia. Total time spent on discharge = 35 minutes This includes examination of the patient, discharge planning, medication reconciliation, and communication with other providers. Discharge Instructions Discharge Instructions Date of Service Jul 25, 2017. Admission Reason for Admission: UTI Discharge Discharge Diagnosis / Problem: Hematuria, shoulder rotator cuff tendinopathy Discharge Goals Goal(s): Decrease discomfort, Improve function Activity Recommendations Activity Limitations: resume your previous activity Exercise/Sports Limitations: as tolerated . Instructions / Follow-Up Instructions / Follow-Up Follow up with your PCP in 1 week as advised Follow up with Dr. Jovel as scheduled on July 30, 2017 Also follow up with Dr. Louis in 2-4 weeks as advised Follow up with your Orthopedics Surgeon for possible Shoulder Injections as advised Seek immediate medical attention if your symptoms reoccur or worsen Current Hospital Diet Patient's current hospital diet: AHA Diet (Heart Healthy), Diabetes Type 2 Diet Discharge Diet Recommended Diet: AHA Diet (Heart Healthy), Diabetes Type 2 Diet Pending Studies Studies pending at discharge: no Laboratory Results Hemoglobin A1c Test 05/04/17 04:05 Range/Units Estimated Average Glucose 180 mg/dl Hemoglobin A1c 7.9 H 4.5-5.6 % Medical Emergencies . Who to Call and When: Medical Emergencies: If at any time you feel your situation is an emergency, please call 911 immediately. . Non-Emergent Contact Non-Emergency issues call your: Primary Care Provider, Oncologist, Surgeon, Urologist Call Non-Emergent contact if: you have a fever, your pain is not controlled, your pain is worsening, your pain is unusual for you, your pain is concerning you, you have any medication questions Seek immediate medical attention if your symptoms reoccur or worsen . . "Provider Documentation" section prepared by De Mclean. . <Electronically signed by De Mclean MD> Signed: 07/25/17 [id number] Signed: The status of this report is Signed * If report status is Draft, the document has not been finalized by the responsible provider.
[2017-07-25 17:39] VITALS: BP 102/67; PULSE 99; TEMP 36.3; O2SAT 96
== END 2017-07-25 19:08 | disposition home or self-care (01) | DRG 690 ==
LOC: C.EDB 14:36 → C.MS4W 18:02 → ENRESERV 18:30 → CANRESERV 18:30 → ENRESERV 18:43
PROVIDERS: ADMIT Hospitalist; ATTEND Internal Medicine
DX: N39.0 Urinary tract infection, site not specified (principal); I50.32 Chronic diastolic (congestive) heart failure; I48.91 Unspecified atrial fibrillation; I35.0 Nonrheumatic aortic (valve) stenosis; Z85.51 Personal history of malignant neoplasm of bladder; E11.9 Type 2 diabetes mellitus without complications; Z86.14 Personal history of Methicillin resistant Staphylococcus aureus infection; M19.90 Unspecified osteoarthritis, unspecified site; M35.00 Sjogren syndrome, unspecified; Z88.0 Allergy status to penicillin; Z88.1 Allergy status to other antibiotic agents; Z88.8 Allergy status to other drugs, medicaments and biological substances; R33.9 Retention of urine, unspecified; R31.0 Gross hematuria

== ENCOUNTER 2017-09-21 14:46 | Emergency (ER) | payer OTHER, MEDICARE ==
[~2017-09-21] VITALS: Ht 151.1 cm; Wt 56.7 kg
[~2017-09-21 14:46] MED LIST changes: +CLC100 PO; +MRLP17X PO; -NITR-5 PO
[2017-09-21 14:50] VITALS: TEMP 36.8; Ht 151.1 cm; Wt 56.7 kg
[2017-09-21] MEDS ORDERED: CLOTRIMAZOLE 10 MG TROCHE LOZ STA ×2 (15:10→17:23)
[2017-09-21] MEDS ORDERED: SODIUM CHLORIDE 0.9% 500ML 500 ML IV STA (15:10)
[2017-09-21 15:50] LABS: BASO % 0.2 %; BASO ABS # 0.02 K/uL (0-0.2); EOS % 2.6 %; EOS ABS # 0.32 K/uL (0-0.5); HEMATOCRIT 34.8 % (37-47); HEMOGLOBIN 11.2 g/dL (12.0-16.0); IG# 0.04 K/uL (0.00-0.02); LYMPH % 10.8 %; LYMPH ABS # 1.34 K/uL (1.2-3.4); MEAN CELL VOLUME 76.5 fL (80-100); MEAN CORPUSCULAR HEMOGLOBIN 24.6 pg (25-34); MEAN CORPUSCULAR HGB CONC 32.2 g/dl (32-36); MEAN PLATELET VOLUME 8.6 fL (7.4-10.4); MONO % 10.5 %; NEUT % 75.6 %; NEUT ABS # 9.35 K/uL (1.4-6.5); PLATELET COUNT 203 K/uL (130-400); RED CELL DISTRIBUTION WIDTH CV 19.1 % (11.5-14.5); RED CELL DISTRIBUTION WIDTH SD 53.1 fL (36.4-46.3); WHITE BLOOD COUNT 12.37 K/uL (4.8-10.8)
--- NOTE | 2017-09-21 15:51 | EMERGENCY ROOM VISIT NOTE ---
History Report prepared by Marcelino: Maynor Mathew Under the Supervision of: Dr. Cristian Calabrese M.D. First contact with patient: 15:03 Chief Complaint: URINARY SYMPTOMS Stated Complaint: URINARY TRACT ISSUES,BLOOD IN URINE History of Present Illness The patient is an 87 year old female who presents to the Emergency Room with complaints of intermittent blood in her urine beginning four days ago. She currently rates her discomfort a 4/10 in severity. The patient states she had her bladder scraped three months ago. She reports she was recovering well until she was not able to void. The patient notes she had a catheter placed in the end of May. She states she still has a catheter in place because she is still having trouble voiding. The patient reports she had her catheter replaced four days ago, and since then, she has had blood in her urine. She notes she will have short periods where it is clear, but it is mostly bloody. The patient states it was replaced at home by a home health service. She reports it hurts to sit down, she has pain in her lower back, and she feels like she needs to go to the restroom constantly. The patient notes she has had two bladder infections since her surgery. She states she was evaluated for a follow-up appointment two days ago. The patient reports she had a large amount of blood work performed for a suspected UTI. She notes she was not placed on antibiotics. The patient states she has been off antibiotics for a week. She reports she developed a sorethroat for the past few weeks and is uncomfortable when eating. The patient notes she had diarrhea a few nights ago. She states she takes three aspirins a week and takes an iron tablet for anemia. The patient denies fevers, nausea, and dizziness. Source of History: patient Onset: four days ago Symptom Intensity: 4/10 Quality: other (blood in urine) Timing: intermittent Associated Symptoms: + back pain (lower), No fevers, No nausea Note: Associated symptoms: felling of needing to urinate, pain when sitting down Denies: dizziness Review of Systems See HPI for pertinent positives & negatives. A total of 10 systems reviewed and were otherwise negative. Past Medical & Surgical Medical Problems: (1) Aortic stenosis (2) Atrial fibrillation (3) Atrial fibrillation (4) Bladder cancer (5) Diabetes mellitus (6) Diastolic CHF (7) HTN (hypertension) (8) MRSA (methicillin resistant Staphylococcus aureus) (9) Osteoarthritis (10) Rapid atrial fibrillation (11) Sjoegren syndrome Surgical Problems: (1) H/O: hysterectomy (2) resection of bladder tumor Family History Cancer FH: heart disease Hypertension Social History Smoking Status: Never Smoker Smokeless Tobacco Use: No Alcohol Use: none Marital Status: Housing Status: penitentiary Occupation Status: retired Current/Historical Medications Scheduled Amiodarone Hcl (Cordarone), 400 MG PO DAILY Ascorbic Acid (Ascorbic Acid), 500 MG PO DAILY Aspirin (Aspirin Ec), 81 MG PO 3XWK Cholecalciferol (Vitamin D), 1,000 UNITS PO DAILY Clotrimazole (Mycelex), 10 MG OR 5XD Cyclosporine (Ophth) (Restasis), 1 DROP OPB BID Docusate Sodium (Docusate Sodium), 100 MG PO BID Ferrous Sulfate (Kp Ferrous Sulfate), 325 MG PO QDL Furosemide (Lasix), 20 MG PO 3XWK Melatonin (Melatonin), 1 MG PO HS Metoprolol Succinate (Toprol Xl), 100 MG PO BID Multivitamin (Multivitamin), 1 TAB PO DAILY Nitrofurantoin Monohyd Macrocr (Macrobid), 100 MG PO BID Pantoprazole (Protonix), 40 MG PO DAILY Polyethylene Glycol 3350 (Miralax), 17 GM PO 2XWK Polyvinyl Alcohol (Artificial Tears), 1 DROP OPB QID Potassium Chloride (Micro-K Ext Rel), 10 MEQ PO 3XWK [Onglyza], 5 MG PO DAILY Scheduled PRN Acetaminophen (Tylenol), 500 MG PO Q8 PRN for Pain or Fever Diphenoxylate/Atropine (Lomotil), 1 TAB PO DAILY PRN for LOOSE STOOLS Emollient (Cerave), 1 APPLN TOP BID PRN for RASH Hydrocortisone (Rectal) (Hydrocortisone), 1 APPLN TOP BID PRN for DRYNESS Allergies Coded Allergies: Cephalosporins (Verified Allergy, Intermediate, KEFLEX = HIVES, 09/21/17) Penicillins (Verified Allergy, Mild, HIVES, 09/21/17) JACKY Inhibitors (Verified Allergy, Unknown, Unknown, 09/21/17) Adhesives (Verified Allergy, Unknown, rash, 09/21/17) Amoxicillin (Verified Allergy, Unknown, Unknown, 09/21/17) CI Pigment Blue 63 (Verified Allergy, Unknown, Unknown, 09/21/17) Cephalexin (Verified Allergy, Unknown, Unknown, 09/21/17) Duloxetine (Verified Allergy, Unknown, Unknown, 09/21/17) Gabapentin (Verified Allergy, Unknown, Unknown, 09/21/17) Lettuce (Verified Allergy, Unknown, Rockets[place]ates LIST, 09/21/17) Lisinopril (Verified Allergy, Unknown, Unknown, 09/21/17) Penicillin V (Verified Allergy, Unknown, unknown, hives?, 09/21/17) Simvastatin (Verified Allergy, Unknown, Unknown, 09/21/17) Lactose. (Verified Adverse Reaction, Unknown, GI SYMPTOMS, 09/21/17) pt reports allergic to all diary product - bloated and gas Physical Exam Vital Signs Date Time Temp Pulse Resp B/P (MAP) Pulse Ox O2 Delivery O2 Flow Rate FiO2 09/21/17 16:36 68 18 120/51 92 Room Air 09/21/17 14:50 36.8 121 18 145/71 99 Room Air Physical Exam GENERAL: Patient is in no acute distress. HEENT: No acute trauma, normocephalic atraumatic, mucous membranes moist, no nasal congestion, no scleral icterus. No throat erythema. White patches across the underside of the tongue and on the cheeks - consistent with thrush. NECK: No stridor, no adenopathy, no meningismus, trachea is midline. LUNGS: Clear to auscultation bilaterally, no wheeze, no rhonchi, breath sounds equal. HEART: Tachycardic rate and regular rhythm. 2/6 systolic murmur. GROIN: Valerio catheter in place with dark/bloody urine in the bag. ABDOMEN: Soft, nontender, bowel sounds positive, no hernias, no peritonitis. EXTREMITIES: No cyanosis or edema, full range of motion of all the joints without pain or difficulty, no signs for acute trauma. NEUROLOGIC: Oriented x 3, no acute motor or sensory deficits, no focal weakness. SKIN: No rash, no jaundice, no diaphoresis. Medical Decision & Procedures Laboratory Results 09/21/17 15:39 Red Blood Count 4.55, Mean Corpuscular Volume 76.5, Mean Corpuscular Hemoglobin 24.6, Mean Corpuscular Hemoglobin Concent 32.2, Mean Platelet Volume 8.6, Neutrophils (%) (Auto) 75.6, Lymphocytes (%) (Auto) 10.8, Monocytes (%) (Auto) 10.5, Eosinophils (%) (Auto) 2.6, Basophils (%) (Auto) 0.2, Neutrophils # (Auto ) 9.35, Lymphocytes # (Auto) 1.34, Monocytes # (Auto) 1.30, Eosinophils # (Auto ) 0.32, Basophils # (Auto) 0.02 09/21/17 15:39 Test 09/21/17 15:39 09/21/17 15:58 09/21/17 17:19 White Blood Count 12.37 K/uL (4.8-10.8) Red Blood Count 4.55 M/uL (4.2-5.4) Hemoglobin 11.2 g/dL (12.0-16.0) Hematocrit 34.8 % (37-47) Mean Corpuscular Volume 76.5 fL (80-100) Mean Corpuscular Hemoglobin 24.6 pg (25-34) Mean Corpuscular Hemoglobin Concent 32.2 g/dl (32-36) Platelet Count 203 K/uL (130-400) Mean Platelet Volume 8.6 fL (7.4-10.4) Neutrophils (%) (Auto) 75.6 % Lymphocytes (%) (Auto) 10.8 % Monocytes (%) (Auto) 10.5 % Eosinophils (%) (Auto) 2.6 % Basophils (%) (Auto) 0.2 % Neutrophils # (Auto) 9.35 K/uL (1.4-6.5) Lymphocytes # (Auto) 1.34 K/uL (1.2-3.4) Monocytes # (Auto) 1.30 K/uL (0.11-0.59) Eosinophils # (Auto) 0.32 K/uL (0-0.5) Basophils # (Auto) 0.02 K/uL (0-0.2) RDW Standard Deviation 53.1 fL (36.4-46.3) RDW Coefficient of Variation 19.1 % (11.5-14.5) Immature Granulocyte % (Auto) 0.3 % Immature Granulocyte # (Auto) 0.04 K/uL (0.00-0.02) Prothrombin Time 10.3 SECONDS (9.0-12.0) Prothromb Time International Ratio 1.0 (0.9-1.1) Activated Partial Thromboplast Time 28.1 SECONDS (21.0-31.0) Partial Thromboplastin Ratio 1.1 Anion Gap 5.0 mmol/L (3-11) Est Creatinine Clear Calc Drug Dose 36.6 ml/min Estimated GFR () 74.6 Estimated GFR (Non- 64.4 BUN/Creatinine Ratio 15.4 (10-20) Lactic Acid Level 1.7 mmol/L (0.4-2.0) Calcium Level 8.6 mg/dl (8.5-10.1) Total Bilirubin 0.6 mg/dl (0.2-1) Alanine Aminotransferase (ALT/SGPT) 26 U/L (12-78) Alkaline Phosphatase 88 U/L (45-117) Total Protein 6.6 gm/dl (6.4-8.2) Albumin 2.6 gm/dl (3.4-5.0) Globulin 4.0 gm/dl (2.5-4.0) Albumin/Globulin Ratio 0.7 (0.9-2) Urine Color RED Urine Appearance TURBID (CLEAR) Urine pH (4.5-7.5) Urine Specific Basalt 1.010 (1.000-1.030) Urine Protein POS (NEG) Urine Glucose (UA) (NEG) Urine Ketones (NEG) Urine Occult Blood (NEG) Urine Nitrite (NEG) Urine Bilirubin (NEG) Urine Urobilinogen (NEG) Urine Leukocyte Esterase (NEG) Urine RBC >30 /hpf (0-4) Urine WBC >30 /hpf (0-5) Urine Epithelial Cells >30 /lpf (0-5) Urine Bacteria 4+ (NEG) Laboratory results reviewed by me. Medications Administered Medications (Trade) Dose Ordered Sig/Zoë Route Start Time Stop Time Status Last Admin Dose Admin Clotrimazole (Mycelex 10MG Dominic) 1 dominic NOW STAT ERLINDA 09/21/17 15:10 09/21/17 15:15 DC 09/21/17 15:33 1 DOMINIC Sodium Chloride 500 ml @ 999 mls/hr Q31M STAT IV 09/21/17 15:10 09/21/17 15:40 DC 09/21/17 15:42 999 MLS/HR Nitrofurantoin Macrocrystals (Macrobid Cap) 100 mg ONE ONCE PO 09/21/17 17:30 09/21/17 17:31 DC 09/21/17 17:49 100 MG Clotrimazole (Mycelex 10MG Dominic) 1 dominic NOW STAT ERLINDA 09/21/17 17:23 09/21/17 17:24 DC 09/21/17 17:50 1 DOMINIC ECG Per My Interpretation Indication: tachycardia Rate (beats per minute): 63 Rhythm: normal sinus Findings: no ectopy, other (No ST elevation. No PVC.) ED Course 1503: The patient was evaluated in room C09. A complete history and physical exam was performed. 1510: Ordered Sodium Chloride 500 ml @ 999 mls/hr IV, Clotrimazole 1 dominic ERLINDA 1719: Reevaluated the patient. She is feeling better and excited to go home. Discussed results and discharge instructions: she verbalized understanding and agreement. The patient is ready for discharge when she receives her medication. 1723: Ordered Clotrimazole 1 dominic ERLINDA 1730: Ordered Nitrofurantoin Macrocrystals 100 mg PO Medical Decision The patient is an 87 year old female who presents to the ED with complaints of intermittent blood in her urine. Differential diagnoses considered include thrush, anemia, UTI, malpositioned Valerio catheter, coagulopathy, electrolyte imbalance, dehydration, dysrhythmia, sepsis. There is a mild leukocytosis, the patient has a history of this. No concerning anemia. No significant electrolyte abnormality, kidney failure or hepatitis. There is no coagulopathy. Urinalysis is suspicious for infection, urine culture is pending. Lactic acid level is not elevated making sepsis less likely. Blood cultures are pending. I did have the nursing staff remove the Valerio catheter. The nursing staff did believe the catheter had been malpositioned. A new catheter was placed without difficulty and the patient felt improvement with the newer catheter. The patient received IV saline, she was given an oral clotrimazole dominic, she received a second dominic during her stay. She was given a dose of oral Macrobid. Patient is doing well, she is resting comfortably. She is being discharged with a new Valerio catheter. I will have her on a week of Macrobid as she has so many other allergies. She can continue with the clotrimazole troches for the thrush. She will see urology and her family doctor this week, she can return for fever, vomiting or worsening symptoms. Medication Reconcilliation Current Medication List: was personally reviewed by me Blood Pressure Screening Patient's blood pressure: Normal blood pressure Blood pressure disposition: Did not require urgent referral Impression Primary Impression: Dislodged Valerio catheter Additional Impressions: Hematuria UTI (urinary tract infection) Thrush Scribe Attestation The scribe's documentation has been prepared under my direction and personally reviewed by me in its entirety. I confirm that the note above accurately reflects all work, treatment, procedures, and medical decision making performed by me. Departure Information Dispostion Home / Self-Care Prescriptions Clotrimazole (Mycelex) 10 Mg Tro 10 MG OR 5XD for 14 Days, #70 DOMINIC 2 Refills Prov: Cristian Calabrese M.D. 09/21/17 Nitrofurantoin Monohyd Macrocr (Macrobid) 100 Mg Cap 100 MG PO BID, #14 CAP Prov: Cristian Calabrese M.D. 09/21/17 Referrals Flores Cosme M.D. (PCP) Forms HOME CARE DOCUMENTATION FORM, IMPORTANT VISIT INFORMATION Patient Instructions My [facility] [employer] Additional Instructions stay well hydrated clotrimazole trouches 5x per day for 2 weeks for thrush macrobid 2x per day for 1 week see abdullahi nguyen and urology this week return for fever or if worsening as we discussed Problem Qualifiers
[2017-09-21] MEDS ORDERED: CLC100X PO (15:53)
[2017-09-21] MEDS ORDERED: FERR1TAB13 PO (15:53)
[2017-09-21] MEDS ORDERED: POLY335019 PO (15:53)
[2017-09-21 16:00] LABS: PTT PATIENT 28.1 SECONDS (21.0-31.0)
[2017-09-21 17:17] LABS: ALBUMIN 2.6 gm/dl (3.4-5.0); CALCIUM 8.6 mg/dl (8.5-10.1); CREATININE 0.81 mg/dl (0.60-1.20); TOTAL PROTEIN 6.6 gm/dl (6.4-8.2)
[2017-09-21] MEDS ORDERED: CLOT10TR2 OR (17:28)
[2017-09-21] MEDS ORDERED: NITR-5 PO (17:28)
[2017-09-21] MEDS ORDERED: NITROFURANTOIN MONOHYDRATE 100 MG CAP PO ONE (17:30)
[2017-09-21 17:50] VITALS: BP 164/78; PULSE 68; O2SAT 96
== END 2017-09-21 17:50 | disposition home or self-care (01) ==
LOC: C.EDB 14:47 → C.EDC 17:50
DX: Z46.6 Encounter for fitting and adjustment of urinary device (principal); R31.9 Hematuria, unspecified; N39.0 Urinary tract infection, site not specified; B37.9 Candidiasis, unspecified; I48.91 Unspecified atrial fibrillation; E11.9 Type 2 diabetes mellitus without complications; Z85.51 Personal history of malignant neoplasm of bladder; I11.0 Hypertensive heart disease with heart failure; I50.32 Chronic diastolic (congestive) heart failure; M19.90 Unspecified osteoarthritis, unspecified site; Z90.710 Acquired absence of both cervix and uterus; Z98.890 Other specified postprocedural states; Z86.14 Personal history of Methicillin resistant Staphylococcus aureus infection; M35.00 Sjogren syndrome, unspecified; Z82.49 Family history of ischemic heart disease and other diseases of the circulatory system; Z79.82 Long term (current) use of aspirin; Z79.899 Other long term (current) drug therapy; Z88.8 Allergy status to other drugs, medicaments and biological substances; Z88.0 Allergy status to penicillin; Z91.09 Other allergy status, other than to drugs and biological substances; Z91.018 Allergy to other foods; Z88.1 Allergy status to other antibiotic agents

== ENCOUNTER 2017-09-22 17:35 | Emergency (ER) | payer OTHER, MEDICARE ==
[~2017-09-22] VITALS: Ht 151.1 cm; Wt 57.0 kg
[~2017-09-22 17:35] MED LIST changes: -CLC100 PO; +CLC100X PO; +CLOT10TR2 OR; -CLOT1CRE3 TOP; +FERR1TAB13 PO; -GUAI1SOL5 PO; -MRLP17X PO; +NITR-5 PO; +POLY335019 PO; -PSYL48.59 PO; -TRAM-10 PO
[2017-09-22 17:39] VITALS: TEMP 36.4; Ht 151.1 cm; Wt 57.0 kg
[2017-09-22] MEDS ORDERED: OXYCODONE HCL IR 5 MG TAB (IMMEDIATE RELEASE) PO STA (17:57)
[2017-09-22] MEDS ORDERED: NITROFURANTOIN MONOHYDRATE 100 MG CAP PO ONE (18:00)
--- NOTE | 2017-09-22 18:29 | EMERGENCY ROOM VISIT NOTE ---
History Report prepared by Marcelino: Penny Olivarez Under the Supervision of: Priyanka FerrerO. First contact with patient: 17:40 Chief Complaint: CATHETER REPLACEMENT Stated Complaint: CATHERTER INST WORKING History of Present Illness The patient is a 87 year old female who presents to the Emergency Room with complaints of a catheter malfunction which occurred today. Her son reports that the patient had a catheter put in place 5 days ago, noting that it was not placed properly and they had to come to the Emergency Department one day ago to have it replaced. During her visit, the patient was diagnosed with a bladder infection. Her son states that the patient was not able to start the medication prescribed yesterday until about 3 hours ago. Today, the patient began feeling pressure in her bladder, noting that it was not empting properly at first with some blood in the urine and now it is not emptying at all. He states that the patient had her bladder scraped about 6 weeks ago. The patient has a follow up appointment with Dr. Louis, urology, on October 02. Source of History: patient, family (son) Onset: today Position: other (genitourinary) Quality: other (catheter malfunction) Timing: other (persistent) Note: Associated symptoms include: pressure in bladder, blood in urine, and unable to urinate. Review of Systems See HPI for pertinent positives & negatives. A total of 10 systems reviewed and were otherwise negative. Past Medical & Surgical Medical Problems: (1) Aortic stenosis (2) Atrial fibrillation (3) Atrial fibrillation (4) Bladder cancer (5) Diabetes mellitus (6) Diastolic CHF (7) HTN (hypertension) (8) MRSA (methicillin resistant Staphylococcus aureus) (9) Osteoarthritis (10) Rapid atrial fibrillation (11) Sjoegren syndrome Surgical Problems: (1) H/O: hysterectomy (2) resection of bladder tumor Family History Cancer FH: heart disease Hypertension Social History Smoking Status: Unknown if Ever Smoked Alcohol Use: none Drug Use: none Marital Status: Housing Status: long term Occupation Status: retired Current/Historical Medications Scheduled Amiodarone Hcl (Cordarone), 400 MG PO DAILY Ascorbic Acid (Ascorbic Acid), 500 MG PO DAILY Aspirin (Aspirin Ec), 81 MG PO 3XWK Cholecalciferol (Vitamin D), 1,000 UNITS PO DAILY Clotrimazole (Mycelex), 10 MG OR 5XD Cyclosporine (Ophth) (Restasis), 1 DROP OPB BID Docusate Sodium (Docusate Sodium), 100 MG PO BID Ferrous Sulfate (Kp Ferrous Sulfate), 325 MG PO QDL Furosemide (Lasix), 20 MG PO 3XWK Melatonin (Melatonin), 1 MG PO HS Metoprolol Succinate (Toprol Xl), 100 MG PO BID Multivitamin (Multivitamin), 1 TAB PO DAILY Nitrofurantoin Monohyd Macrocr (Macrobid), 100 MG PO BID Pantoprazole (Protonix), 40 MG PO DAILY Polyethylene Glycol 3350 (Miralax), 17 GM PO 2XWK Polyvinyl Alcohol (Artificial Tears), 1 DROP OPB QID Potassium Chloride (Micro-K Ext Rel), 10 MEQ PO 3XWK [Onglyza], 5 MG PO DAILY Scheduled PRN Acetaminophen (Tylenol), 500 MG PO Q8 PRN for Pain or Fever Diphenoxylate/Atropine (Lomotil), 1 TAB PO DAILY PRN for LOOSE STOOLS Emollient (Cerave), 1 APPLN TOP BID PRN for RASH Hydrocortisone (Rectal) (Hydrocortisone), 1 APPLN TOP BID PRN for DRYNESS Allergies Coded Allergies: Cephalosporins (Verified Allergy, Intermediate, KEFLEX = HIVES, 09/21/17) Penicillins (Verified Allergy, Mild, HIVES, 09/21/17) JACKY Inhibitors (Verified Allergy, Unknown, Unknown, 09/21/17) Adhesives (Verified Allergy, Unknown, rash, 09/21/17) Amoxicillin (Verified Allergy, Unknown, Unknown, 09/21/17) CI Pigment Blue 63 (Verified Allergy, Unknown, Unknown, 09/21/17) Cephalexin (Verified Allergy, Unknown, Unknown, 09/21/17) Duloxetine (Verified Allergy, Unknown, Unknown, 09/21/17) Gabapentin (Verified Allergy, Unknown, Unknown, 09/21/17) Lettuce (Verified Allergy, Unknown, [place] LIST, 09/21/17) Lisinopril (Verified Allergy, Unknown, Unknown, 09/21/17) Penicillin V (Verified Allergy, Unknown, unknown, hives?, 09/21/17) Simvastatin (Verified Allergy, Unknown, Unknown, 09/21/17) Lactose. (Verified Adverse Reaction, Unknown, GI SYMPTOMS, 09/21/17) pt reports allergic to all diary product - bloated and gas Physical Exam Vital Signs Date Time Temp Pulse Resp B/P (MAP) Pulse Ox O2 Delivery O2 Flow Rate FiO2 09/22/17 19:55 72 16 113/76 99 Room Air 09/22/17 17:39 36.4 67 24 99 Room Air Physical Exam GENERAL: Patient is awake, alert, and in no acute distress. Patient is anxious and uncomfortable appearing. EYES: The conjunctivae are clear. The pupils are round and reactive. EARS, NOSE, MOUTH AND THROAT: The nose is without any evidence of any deformity. Mucous membranes are moist tongue is midline NECK: The neck is nontender and supple. RESPIRATORY: Normal respiratory effort is noted there is no evidence of wheezing rhonchi or rales CARDIOVASCULAR: Regular rate and rhythm noted there no murmurs rubs or gallops normal S1 normal S2 GASTROINTESTINAL: Abdomen is mildly distended with suprapubic tenderness to palpation, but no guarding or rigidity. Bowel sounds are present in all quadrants. PELVIS: The Pelvis is stable. No tenderness to palpation is noted. BACK: No midline tenderness or or step-off noted range of motion in flexion extension as well as rotation no signs of muscle spasm noted MUSCULOSKELETAL/EXTREMITIES: There is no evidence of gross deformity full range of motion is noted in the hips and shoulders SKIN: There is no obvious evidence of any rash. There are no petechiae, pallor or cyanosis noted. NEUROLOGIC: Patient is awake alert and oriented x3 Medical Decision & Procedures Medications Administered Medications (Trade) Dose Ordered Sig/Zoë Route Start Time Stop Time Status Last Admin Dose Admin Nitrofurantoin Macrocrystals (Macrobid Cap) 100 mg ONE ONCE PO 09/22/17 18:00 09/22/17 18:01 DC 09/22/17 18:18 100 MG Oxycodone HCl (Roxicodone Immediate Rel Tab) 5 mg NOW STAT PO 09/22/17 17:57 09/22/17 17:58 DC 09/22/17 18:18 5 MG Clotrimazole (Mycelex 10MG Dominic) 1 dominic ONE STAT ERLINDA 09/22/17 19:02 09/22/17 19:03 DC 09/22/17 19:02 1 DOMINIC ED Course 175: The patient was evaluated in room A9. A complete history and physical examination were performed. 1756: Ordered Oxycodone HCl 5mg PO. 1799: Ordered Macrobid Cap 100mg PO. 1858: I reevaluated the patient, who was resting with her son at bedside. Updated them on test findings and they verbalized complete understanding. 1901: Ordered Clotrimazole 1 dominic. 1999: Upon reevaluation, the patient is resting. I discussed the results and treatment plan with her and her son. They verbalized agreement of the treatment plan. The patient was discharged home. Medical Decision Prior records/ancillary studies reviewed. Triage Nursing notes reviewed. The patient's history was concerning for abdominal pain. Differential diagnosis: Etiologies such as appendicitis, diverticulitis, PUD, biliary pathology, UTI, pancreatitis, obstruction, mesenteric ischemia, aortic pathology, infections, inflammatory bowel disease, renal colic, as well as others were entertained. The patient is an 87-year-old female who presented to the emergency department with her son for an evaluation of urinary retention. The patient had a Valerio catheter placed recently for bladder dysfunction. She was having problems with hematuria and appears to have a history of bladder cancer. She was in urinary retention. Her Valerio catheter was replaced. She had significant improvement of her symptoms. The patient was also started on antibiotic for urinary tract infection. She was given a dose of her antibiotic here. She was encouraged to follow-up with her primary urologist as soon as possible but return to the emergency department immediately if symptoms change worsening the need arises. Medication Reconcilliation Current Medication List: was personally reviewed by me Blood Pressure Screening Patient's blood pressure: Normal blood pressure Blood pressure disposition: Did not require urgent referral Impression Primary Impression: Urinary retention Additional Impression: Malfunction of Valerio catheter Scribe Attestation The scribe's documentation has been prepared under my direction and personally reviewed by me in its entirety. I confirm that the note above accurately reflects all work, treatment, procedures, and medical decision making performed by me. Departure Information Dispostion Home / Self-Care Referrals Flores Cosme M.D. (PCP) Forms HOME CARE DOCUMENTATION FORM, IMPORTANT VISIT INFORMATION Patient Instructions My [facility] Additional Instructions Continue all medications as prescribed. Follow-up with the urologist as soon as possible. Problem Qualifiers Additional Impression: Malfunction of Valerio catheter Encounter type: subsequent encounter Qualified Codes: T83.011D - Breakdown ( mechanical) of indwelling urethral catheter, subsequent encounter
[2017-09-22] MEDS ORDERED: CLOTRIMAZOLE 10 MG TROCHE LOZ STA (19:02)
[2017-09-22 19:55] VITALS: BP 113/76; PULSE 72; O2SAT 99
== END 2017-09-22 20:10 | disposition home or self-care (01) ==
LOC: C.EDB 17:36 → C.EDA 20:10
DX: T83.011A Breakdown (mechanical) of indwelling urethral catheter, initial encounter (principal); Y84.6 Urinary catheterization as the cause of abnormal reaction of the patient, or of later complication, without mention of misadventure at the time of the procedure; Z98.890 Other specified postprocedural states; R33.9 Retention of urine, unspecified; I35.0 Nonrheumatic aortic (valve) stenosis; I48.91 Unspecified atrial fibrillation; Z85.51 Personal history of malignant neoplasm of bladder; E11.9 Type 2 diabetes mellitus without complications; Z86.14 Personal history of Methicillin resistant Staphylococcus aureus infection; M19.90 Unspecified osteoarthritis, unspecified site; M35.00 Sjogren syndrome, unspecified; Z90.710 Acquired absence of both cervix and uterus; Z80.9 Family history of malignant neoplasm, unspecified; Z82.49 Family history of ischemic heart disease and other diseases of the circulatory system; Z79.899 Other long term (current) drug therapy; Z79.82 Long term (current) use of aspirin; Z88.0 Allergy status to penicillin; Z88.1 Allergy status to other antibiotic agents; Z88.8 Allergy status to other drugs, medicaments and biological substances; Z91.018 Allergy to other foods

== ENCOUNTER 2017-09-29 16:43 | Inpatient (IN) | payer OTHER, MEDICARE ==
[~2017-09-29] VITALS: Ht 149.9 cm; Wt 59.2 kg
[2017-09-29 03:33] VITALS: BP 135/71; PULSE 56; TEMP 36.6; O2SAT 91
[2017-09-29] MEDS ORDERED: SODIUM CHLORIDE 0.9% 1000ML 500 ML IV ONE (17:55)
[2017-09-29] MEDS ORDERED: DAPTOmycin IV 500 MG in SODIUM CHLORIDE 0.9% 50ML 50 ML IV STA (17:55)
[2017-09-29] MEDS ORDERED: OPTIRAY 320 IV PRN (18:15)
--- NOTE | 2017-09-29 18:20 | EMERGENCY ROOM VISIT NOTE ---
History Report prepared by Marcelino: Jordan Mooney Under the Supervision of: Dr. Cristian Calabrese M.D. 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 ems reports soni irrigated 3 times at [facility] [employer]. History of Present Illness The patient is an 87 year old female who presents to the Emergency Room with complaints of on and off hematuria for the past week. The patient has a history of bladder cancer, and she currently has a Soni catheter in place, and it was irrigated 3 times prior to arrival. The patient states that she has a pressure feeling in her bladder. The family notes that the patient was in the ED for catheter problems a week ago, and he has been having constant clogging for the past week after having the Soni replaced. The family states that the patient is now having slurred speech and confusion, and she has been coughing up fluid from her lungs. The patient denies any nausea, fever, chills, and headache. Per review of the EMR, the patient's urine culture on 09/21 grew out staph aureus that was MRSA, and on the she had a white count of 12. She is currently on Macrobid. Source of History: patient, family Onset: the past week Position: other (bladder) Quality: pressure, other (hematuria) Timing: other (on and off) Associated Symptoms: + cough, No fevers, No chills, No headache, No nausea Note: Associated symptoms: confusion and slurred speech. Review of Systems See HPI for pertinent positives & negatives. A total of 10 systems reviewed and were otherwise negative. Past Medical & Surgical Medical Problems: (1) Aortic stenosis (2) Atrial fibrillation (3) Atrial fibrillation (4) Bladder cancer (5) Diabetes mellitus (6) Diastolic CHF (7) HTN (hypertension) (8) MRSA (methicillin resistant Staphylococcus aureus) (9) Osteoarthritis (10) Rapid atrial fibrillation (11) Sjoegren syndrome Surgical Problems: (1) H/O: hysterectomy (2) resection of bladder tumor Family History Cancer FH: heart disease Hypertension Social History Smoking Status: Never Smoker Alcohol Use: none Drug Use: none Marital Status: Housing Status: penitentiary Occupation Status: retired Current/Historical Medications Scheduled Amiodarone Hcl (Cordarone), 400 MG PO DAILY Ascorbic Acid (Ascorbic Acid), 500 MG PO DAILY Aspirin (Aspirin Ec), 81 MG PO 3XWK Cholecalciferol (Vitamin D), 1,000 UNITS PO DAILY Clotrimazole (Mycelex), 10 MG OR 5XD Cyclosporine (Ophth) (Restasis), 1 DROP OPB BID Docusate Sodium (Docusate Sodium), 100 MG PO BID Ferrous Sulfate (Kp Ferrous Sulfate), 325 MG PO QDL Furosemide (Lasix), 20 MG PO 3XWK Melatonin (Melatonin), 1 MG PO HS Metoprolol Succinate (Toprol Xl), 100 MG PO BID Multivitamin (Multivitamin), 1 TAB PO DAILY Nitrofurantoin Monohyd Macrocr (Macrobid), 100 MG PO BID Pantoprazole (Protonix), 40 MG PO DAILY Polyethylene Glycol 3350 (Miralax), 17 GM PO 2XWK Polyvinyl Alcohol (Artificial Tears), 1 DROP OPB QID Potassium Chloride (Micro-K Ext Rel), 10 MEQ PO 3XWK [Onglyza], 5 MG PO DAILY Scheduled PRN Acetaminophen (Tylenol), 500 MG PO Q8 PRN for Pain or Fever Diphenoxylate/Atropine (Lomotil), 1 TAB PO DAILY PRN for LOOSE STOOLS Emollient (Cerave), 1 APPLN TOP BID PRN for RASH Hydrocortisone (Rectal) (Hydrocortisone), 1 APPLN TOP BID PRN for DRYNESS Allergies Coded Allergies: Cephalosporins (Verified Allergy, Intermediate, KEFLEX = HIVES, 09/21/17) Penicillins (Verified Allergy, Mild, HIVES, 09/21/17) JACKY Inhibitors (Verified Allergy, Unknown, Unknown, 09/21/17) Adhesives (Verified Allergy, Unknown, rash, 09/21/17) Amoxicillin (Verified Allergy, Unknown, Unknown, 09/21/17) CI Pigment Blue 63 (Verified Allergy, Unknown, Unknown, 09/21/17) Cephalexin (Verified Allergy, Unknown, Unknown, 09/21/17) Duloxetine (Verified Allergy, Unknown, Unknown, 09/21/17) Gabapentin (Verified Allergy, Unknown, Unknown, 09/21/17) Lettuce (Verified Allergy, Unknown, [facility], 09/21/17) Lisinopril (Verified Allergy, Unknown, Unknown, 09/21/17) Penicillin V (Verified Allergy, Unknown, unknown, hives?, 09/21/17) Simvastatin (Verified Allergy, Unknown, Unknown, 09/21/17) Lactose. (Verified Adverse Reaction, Unknown, GI SYMPTOMS, 09/21/17) pt reports allergic to all diary product - bloated and gas Physical Exam Vital Signs Date Time Temp Pulse Resp B/P (MAP) Pulse Ox O2 Delivery O2 Flow Rate FiO2 09/29/17 19:17 58 16 137/60 96 Room Air 09/29/17 18:10 97 Room Air 09/29/17 16:52 36.7 61 16 160/88 97 Room Air Physical Exam GENERAL: Patient is in no acute distress. HEENT: No acute trauma, normocephalic atraumatic, mucous membranes moist, no nasal congestion, no scleral icterus. NECK: No stridor, no adenopathy, no meningismus, trachea is midline. LUNGS: Clear to auscultation bilaterally, no wheeze, no rhonchi, breath sounds equal. HEART: 3/6 systolic murmur, regular rate and rhythm. ABDOMEN: Soft, nontender, bowel sounds positive, no hernias, no peritonitis. GROIN: Soni catheter in place draining dark bloody urine. EXTREMITIES: No cyanosis or edema, full range of motion of all the joints without pain or difficulty, no signs for acute trauma. NEUROLOGIC: Oriented x 3, no acute motor or sensory deficits, no focal weakness. SKIN: Pale. No rash, no jaundice, no diaphoresis. Medical Decision & Procedures ER Provider Diagnostic Interpretation: Radiology results as stated below per my review and radiologist interpretation: CHEST ONE VIEW PORTABLE CLINICAL HISTORY: Sepsis dyspnea COMPARISON STUDY: 07/23/2017. FINDINGS: Interval decrease in cardiac size. Persistent hiatal hernia. Small faint parenchymal infiltrate right base. Mild chronic pulmonary aspirate congestion or IMPRESSION: Chronic pulmonary vascular congestion. Mild superimposed infiltrate right base. The above report was generated using voice recognition software. It may contain grammatical, syntax or spelling errors. Electronically signed by: Brent Cedeño M.D. 09/29/2017 7:49 PM Dictated Date/Time: 09/29/2017 7:48 PM ABD/PELVIS IV CONTRAST ONLY CT DOSE: 432.98 mGy.cm HISTORY: ABD PAIN, POSS pelvic or bladder mass, IV CONTRAST ONLY TECHNIQUE: Multiaxial CT images of the abdomen and pelvis were performed following the use of intravenous contrast. A dose lowering technique was utilized adhering to the principles of ALARA. COMPARISON STUDY: 07/22/2017 FINDINGS: Chronic bibasilar parenchymal infiltrative change. Trace amount pleural fluid both lung bases. Fixed hiatal hernia unchanged. Liver is generally uniform. Pancreas shows mild atrophy. Kidneys demonstrate somewhat progressive bilateral hydronephrosis. There is air within the upper left renal collecting system. This is most likely is secondary to placement of Soni catheter. There is be some progression of the patient's bladder wall thickening as compared to the prior study. Underlying etiology potentially relates to the dilatation of the ureters bilaterally. The bowel pattern overall is nonobstructive. Several inguinal nodes are present which are somewhat progressive compared to the prior study. The left inguinal region these measure up to 1.8 cm. There is a trace amount of right perihepatic ascites. IMPRESSION: 1. Progressive somewhat irregular wall thickening of the bladder. 2. Cystoscopy is again recommended to exclude neoplastic process. 3. Trace perihepatic ascites. 4. Progressive bilateral hydroureteronephrosis most likely relating to develop an obstructive changes in the region of the bladder. 5. Developing inguinal adenopathy. 6. Bibasilar parenchymal infiltrates combined with small bilateral pleural effusions similar overall compared to the prior exam. The above report was generated using voice recognition software. It may contain grammatical, syntax or spelling errors. Electronically signed by: Brent Cedeño M.D. 09/29/2017 8:22 PM Dictated Date/Time: 09/29/2017 8:17 PM HEAD WITHOUT CONTRAST (CT) CT DOSE: 537.48 mGy.cm HISTORY: Mental status change confusion TECHNIQUE: Multiaxial CT images of the head were performed without the use of intravenous contrast. A dose lowering technique was utilized adhering to the principles of ALARA. Comparison: 05/03/2017 Findings: Moderate mucosal thickening of the sphenoid air cells. The remaining sinuses appear clear. Brain appears to be unremarkable for age. There is a component of age-related chronic small vessel change as well as atrophy. There is no acute intracranial abnormality. There is no midline shift. The calvarium and skull base are intact. The ventricles and sulci are within normal limits. There is no mass, hematoma, midline shift, or acute infarct. Impression: No acute intracranial abnormality. Age-related change. Near complete opacification sphenoid air cells The above report was generated using voice recognition software. It may contain grammatical, syntax or spelling errors. Electronically signed by: Brent Cedeño M.D. 09/29/2017 8:17 PM Dictated Date/Time: 09/29/2017 8:15 PM Laboratory Results 09/29/17 18:58 Red Blood Count 4.02, Mean Corpuscular Volume 74.9, Mean Corpuscular Hemoglobin 25.1, Mean Corpuscular Hemoglobin Concent 33.6, Mean Platelet Volume 8.3, Neutrophils (%) (Auto) 78.7, Lymphocytes (%) (Auto) 10.0, Monocytes (%) (Auto) 8.3, Eosinophils (%) (Auto) 2.3, Basophils (%) (Auto) 0.2, Neutrophils # (Auto) 9.64, Lymphocytes # (Auto) 1.22, Monocytes # (Auto) 1.01, Eosinophils # (Auto) 0.28, Basophils # (Auto) 0.03 09/29/17 18:58 Test 09/29/17 18:36 09/29/17 18:58 09/29/17 19:04 Urine Color RED Urine Appearance CLOUDY (CLEAR) Urine pH (4.5-7.5) Urine Specific [place] 1.012 (1.000-1.030) Urine Protein (NEG) Urine Glucose (UA) (NEG) Urine Ketones (NEG) Urine Occult Blood (NEG) Urine Nitrite (NEG) Urine Bilirubin (NEG) Urine Urobilinogen (NEG) Urine Leukocyte Esterase (NEG) Urine RBC >30 /hpf (0-4) Urine WBC >30 /hpf (0-5) Urine Epithelial Cells >30 /lpf (0-5) Urine Bacteria 3+ (NEG) White Blood Count 12.24 K/uL (4.8-10.8) Red Blood Count 4.02 M/uL (4.2-5.4) Hemoglobin 10.1 g/dL (12.0-16.0) Hematocrit 30.1 % (37-47) Mean Corpuscular Volume 74.9 fL (80-100) Mean Corpuscular Hemoglobin 25.1 pg (25-34) Mean Corpuscular Hemoglobin Concent 33.6 g/dl (32-36) Platelet Count 257 K/uL (130-400) Mean Platelet Volume 8.3 fL (7.4-10.4) Neutrophils (%) (Auto) 78.7 % Lymphocytes (%) (Auto) 10.0 % Monocytes (%) (Auto) 8.3 % Eosinophils (%) (Auto) 2.3 % Basophils (%) (Auto) 0.2 % Neutrophils # (Auto) 9.64 K/uL (1.4-6.5) Lymphocytes # (Auto) 1.22 K/uL (1.2-3.4) Monocytes # (Auto) 1.01 K/uL (0.11-0.59) Eosinophils # (Auto) 0.28 K/uL (0-0.5) Basophils # (Auto) 0.03 K/uL (0-0.2) RDW Standard Deviation 51.7 fL (36.4-46.3) RDW Coefficient of Variation 18.7 % (11.5-14.5) Immature Granulocyte % (Auto) 0.5 % Immature Granulocyte # (Auto) 0.06 K/uL (0.00-0.02) Prothrombin Time 10.5 SECONDS (9.0-12.0) Prothromb Time International Ratio 1.0 (0.9-1.1) Activated Partial Thromboplast Time 27.3 SECONDS (21.0-31.0) Partial Thromboplastin Ratio 1.1 Anion Gap 7.0 mmol/L (3-11) Est Creatinine Clear Calc Drug Dose 51.9 ml/min Estimated GFR () 94.2 Estimated GFR (Non- 81.3 BUN/Creatinine Ratio 14.0 (10-20) Calcium Level 7.9 mg/dl (8.5-10.1) Magnesium Level 1.7 mg/dl (1.8-2.4) Total Bilirubin 0.4 mg/dl (0.2-1) Aspartate Amino Transf (AST/SGOT) 33 U/L (15-37) Alanine Aminotransferase (ALT/SGPT) 26 U/L (12-78) Alkaline Phosphatase 103 U/L (45-117) Total Protein 5.8 gm/dl (6.4-8.2) Albumin 2.2 gm/dl (3.4-5.0) Globulin 3.6 gm/dl (2.5-4.0) Albumin/Globulin Ratio 0.6 (0.9-2) Bedside Lactic Acid Venous 0.98 mmol/L (0.90-1.70) Laboratory results reviewed by me. Medications Administered Medications (Trade) Dose Ordered Sig/Zoë Route Start Time Stop Time Status Last Admin Dose Admin Sodium Chloride 500 ml @ 999 mls/hr Q31M ONCE IV 09/29/17 17:55 09/29/17 18:25 DC 09/29/17 19:16 999 MLS/HR Daptomycin 500 mg/ Sodium Chloride 60 ml @ 100 mls/hr NOW STAT IV 09/29/17 17:55 09/29/17 18:30 DC 09/29/17 19:09 100 MLS/HR Magnesium Sulfate (Magnesium Sulfate 1gm / D5W) 1 gm NOW STAT IV 09/29/17 19:58 09/29/17 20:00 DC 09/29/17 20:18 1 GM ECG Per My Interpretation Indication: weakness Rate (beats per minute): 57 Rhythm: sinus bradycardia Findings: nonspecific-ST abn (diffuse), other (No ST elevation or PVC) ED Course 1746: The patient was evaluated in room A12. A complete history and physical exam was performed. The patient had 17ml of urine on bladder scan. 1754: Daptomycin 500mg/ Sodium Chloride 60ml @ 100mls/hr IV, Sodium Chloride 500 ml @ 999 mls/hr IV 1957: Magnesium Sulfate 1 gm IV 2031: Upon reexamination the patient is doing okay. I discussed results and treatment plan with the patient, and her family. They verbalizes agreement and understanding. The patient will be evaluated for further management. 2035: Discussed the patient's case with Dr. Сергей Terry Hospitalist. The patient will be evaluated for further management. Medical Decision Differential diagnosis include: sepsis, bacteremia, failed outpatient treatment , anemia, electrolyte imbalance, dehydration, UTI, stroke. There is a mild leukocytosis at 12,000. This has been documented before and appears baseline for the patient. The patient is anemic today with a hemoglobin of around 10, this is a slight drop for her. No kidney failure. Magnesium somewhat low at 1.7. No hepatitis. Urinalysis is consistent with infection or just the hematuria. Urine culture and blood cultures are pending. Lactic acid level is not elevated making sepsis less likely. EKG shows a sinus rhythm, no acute ischemia. Chest film shows a potential infiltrate with some fluid on the right-this appears unchanged compared to previous films. Brain CT shows potential sinusitis, no acute bleed or mass-effect. Abdominal and pelvis CT shows potential progression of her bladder cancer. There was some progressive hydronephrosis and inguinal adenopathy. No bowel obstruction. Patient received IV saline, she was given IV magnesium. She received IV daptomycin as antibiotic coverage. The patient presents with increasing weakness and fatigue. She appears to have progression of her bladder cancer. She likely has failed treatment for her UTI- -she had been on Macrobid orally. Bacteria are still noted on urinalysis. She has become progressively more weak and is now slurring her speech slightly. She appears dehydrated. Her family is concerned. I do think a hospital stay is warranted. I spoke to case management and the on-call hospitalist. The patient is aware of her findings. Medication Reconcilliation Current Medication List: was personally reviewed by me Blood Pressure Screening Patient's blood pressure: Elevated blood pressure Monitored by the hospitalist Consults Time Called: 2029 Consulting Physician: Dr. Сергей Terry Hospitalist Returned Call: 2035 Discussed the patient's case with Dr. Сергей Barron. The patient will be evaluated for further management. Impression Primary Impression: UTI (urinary tract infection) Additional Impressions: Failure of outpatient treatment Hematuria Weakness Hydronephrosis Scribe Attestation The scribe's documentation has been prepared under my direction and personally reviewed by me in its entirety. I confirm that the note above accurately reflects all work, treatment, procedures, and medical decision making performed by me. Departure Information Dispostion Being Evaluated By Hospitalist Referrals Flores Cosme M.D. (PCP) Patient Instructions My [facility] Problem Qualifiers
[2017-09-29 19:26] LABS: BASO % 0.2 %; BASO ABS # 0.03 K/uL (0-0.2); EOS % 2.3 %; EOS ABS # 0.28 K/uL (0-0.5); HEMATOCRIT 30.1 % (37-47); HEMOGLOBIN 10.1 g/dL (12.0-16.0); IG# 0.06 K/uL (0.00-0.02); LYMPH ABS # 1.22 K/uL (1.2-3.4); MEAN CELL VOLUME 74.9 fL (80-100); MEAN CORPUSCULAR HEMOGLOBIN 25.1 pg (25-34); MEAN CORPUSCULAR HGB CONC 33.6 g/dl (32-36); MEAN PLATELET VOLUME 8.3 fL (7.4-10.4); MONO % 8.3 %; MONO ABS # 1.01 K/uL (0.11-0.59); NEUT % 78.7 %; NEUT ABS # 9.64 K/uL (1.4-6.5); PLATELET COUNT 257 K/uL (130-400); RED CELL DISTRIBUTION WIDTH CV 18.7 % (11.5-14.5); RED CELL DISTRIBUTION WIDTH SD 51.7 fL (36.4-46.3); WHITE BLOOD COUNT 12.24 K/uL (4.8-10.8)
[2017-09-29 19:42] LABS: PTT PATIENT 27.3 SECONDS (21.0-31.0)
[2017-09-29 19:49] LABS: ALBUMIN 2.2 gm/dl (3.4-5.0); CALCIUM 7.9 mg/dl (8.5-10.1); CREATININE 0.59 mg/dl (0.60-1.20); POTASSIUM 3.5 mmol/L (3.5-5.1)
--- NOTE | 2017-09-29 19:50 | DIAGNOSTIC IMAGING REPORT ---
CHEST ONE VIEW PORTABLE CLINICAL HISTORY: Sepsis dyspnea COMPARISON STUDY: 07/23/2017. FINDINGS: Interval decrease in cardiac size. Persistent hiatal hernia. Small faint parenchymal infiltrate right base. Mild chronic pulmonary aspirate congestion or IMPRESSION: Chronic pulmonary vascular congestion. Mild superimposed infiltrate right base. The above report was generated using voice recognition software. It may contain grammatical, syntax or spelling errors. Electronically signed by: Brent Cedeño M.D. 09/29/2017 7:49 PM Dictated Date/Time: 09/29/2017 7:48 PM
[2017-09-29 19:52] LABS: TOTAL PROTEIN 5.8 gm/dl (6.4-8.2)
[2017-09-29] MEDS ORDERED: MAGNESIUM SULFATE 1GM / D5W 1 GM BAG IV STA (19:58)
--- NOTE | 2017-09-29 20:18 | DIAGNOSTIC IMAGING REPORT ---
HEAD WITHOUT CONTRAST (CT) CT DOSE: 537.48 mGy.cm HISTORY: Mental status change confusion TECHNIQUE: Multiaxial CT images of the head were performed without the use of intravenous contrast. A dose lowering technique was utilized adhering to the principles of ALARA. Comparison: 05/03/2017 Findings: Moderate mucosal thickening of the sphenoid air cells. The remaining sinuses appear clear. Brain appears to be unremarkable for age. There is a component of age-related chronic small vessel change as well as atrophy. There is no acute intracranial abnormality. There is no midline shift. The calvarium and skull base are intact. The ventricles and sulci are within normal limits. There is no mass, hematoma, midline shift, or acute infarct. Impression: No acute intracranial abnormality. Age-related change. Near complete opacification sphenoid air cells The above report was generated using voice recognition software. It may contain grammatical, syntax or spelling errors. Electronically signed by: Brent Cedeño M.D. 09/29/2017 8:17 PM Dictated Date/Time: 09/29/2017 8:15 PM
--- NOTE | 2017-09-29 20:24 | DIAGNOSTIC IMAGING REPORT ---
ABD/PELVIS IV CONTRAST ONLY CT DOSE: 432.98 mGy.cm HISTORY: ABD PAIN, POSS pelvic or bladder mass, IV CONTRAST ONLY TECHNIQUE: Multiaxial CT images of the abdomen and pelvis were performed following the use of intravenous contrast. A dose lowering technique was utilized adhering to the principles of ALARA. COMPARISON STUDY: 07/22/2017 FINDINGS: Chronic bibasilar parenchymal infiltrative change. Trace amount pleural fluid both lung bases. Fixed hiatal hernia unchanged. Liver is generally uniform. Pancreas shows mild atrophy. Kidneys demonstrate somewhat progressive bilateral hydronephrosis. There is air within the upper left renal collecting system. This is most likely is secondary to placement of Valerio catheter. There is be some progression of the patient's bladder wall thickening as compared to the prior study. Underlying etiology potentially relates to the dilatation of the ureters bilaterally. The bowel pattern overall is nonobstructive. Several inguinal nodes are present which are somewhat progressive compared to the prior study. The left inguinal region these measure up to 1.8 cm. There is a trace amount of right perihepatic ascites. IMPRESSION: 1. Progressive somewhat irregular wall thickening of the bladder. 2. Cystoscopy is again recommended to exclude neoplastic process. 3. Trace perihepatic ascites. 4. Progressive bilateral hydroureteronephrosis most likely relating to develop an obstructive changes in the region of the bladder. 5. Developing inguinal adenopathy. 6. Bibasilar parenchymal infiltrates combined with small bilateral pleural effusions similar overall compared to the prior exam. The above report was generated using voice recognition software. It may contain grammatical, syntax or spelling errors. Electronically signed by: Brent Cedeño M.D. 09/29/2017 8:22 PM Dictated Date/Time: 09/29/2017 8:17 PM
[2017-09-29 22:16] LABS: HEMATOCRIT 29.9 % (37-47); HEMOGLOBIN 9.7 g/dL (12.0-16.0)
[2017-09-29 22:25] VITALS: BP 146/78; PULSE 64; TEMP 36.6; O2SAT 95; BMI 26.6
[2017-09-30] VITALS (10 sets, daily range): BP systolic 91–137; BP diastolic 56–83; PULSE 64–108; TEMP 36.3–37.2; O2SAT 90–97; Ht 149.9 cm; Wt 59.2 kg
[2017-09-30] MEDS ORDERED: MAGNESIUM SULFATE 1GM / D5W 100 ML IV STA (00:02)
[2017-09-30] MEDS ORDERED: ASPIRIN 81 MG ECTAB PO ONE (00:02)
[2017-09-30] MEDS ORDERED: ACETAMINOPHEN 325 MG TAB PO PRN (00:15)
[2017-09-30] MEDS ORDERED: PROCHLORPERAZINE INJ 5 MG in SYRINGE 4 ML IV PRN (00:15)
[2017-09-30] MEDS ORDERED: HYDROmorphone INJ 0.5 MG/0.5 ML SYR IV PRN (00:15)
[2017-09-30] MEDS ORDERED: NITROGLYCERIN 0.4 MG SL PER TAB CHARGE SL PRN (00:15)
[2017-09-30] MEDS ORDERED: TRAMADOL HCL 50 MG TAB PO PRN (00:15)
[2017-09-30] MEDS ORDERED: NSS + 20MEQ KCL 1000ML 1,000 ML IV ONE (00:30)
[2017-09-30] MEDS ORDERED: AZTREONAM IV 2,000 MG in DEXTROSE 5% 100ML 100 ML IV ONE (05:15)
[2017-09-30] MEDS ORDERED: AZTREONAM CONSULT ACTIVE PRN (05:15)
[2017-09-30 05:39] LABS: BASO % 0.1 %; BASO ABS # 0.02 K/uL (0-0.2); EOS % 0.2 %; EOS ABS # 0.04 K/uL (0-0.5); HEMOGLOBIN 10.4 g/dL (12.0-16.0); IG# 0.06 K/uL (0.00-0.02); LYMPH % 3.6 %; MEAN CELL VOLUME 75.5 fL (80-100); MEAN CORPUSCULAR HEMOGLOBIN 24.5 pg (25-34); MEAN CORPUSCULAR HGB CONC 32.5 g/dl (32-36); MONO % 7.6 %; MONO ABS # 1.47 K/uL (0.11-0.59); NEUT % 88.2 %; NEUT ABS # 17.08 K/uL (1.4-6.5); PLATELET COUNT 233 K/uL (130-400); RED CELL DISTRIBUTION WIDTH CV 18.7 % (11.5-14.5); RED CELL DISTRIBUTION WIDTH SD 51.7 fL (36.4-46.3); WHITE BLOOD COUNT 19.37 K/uL (4.8-10.8)
[2017-09-30 06:11] LABS: CALCIUM 7.9 mg/dl (8.5-10.1); CREATININE 0.82 mg/dl (0.60-1.20); POTASSIUM 3.8 mmol/L (3.5-5.1)
[2017-09-30] MEDS ORDERED: INSULIN GLARGINE SOLOSTAR 100 UNITS/ML 3 ML PEN SC STA (06:48)
[2017-09-30] MEDS ORDERED: VANCOMYCIN CONSULT ACTIVE PRN (07:00)
[2017-09-30] MEDS ORDERED: VANCOMYCIN IV 1,500 MG in SODIUM CHLORIDE 0.9% 500ML 500 ML IV ONE (07:15)
--- NOTE | 2017-09-30 07:34 | DIAGNOSTIC IMAGING REPORT ---
MRA HEAD WITHOUT CONTRAST HISTORY: 87 years-old Female slurred speech acute strokelike symptoms with history of uterus and skin cancer COMPARISON: MRI brain of same day TECHNIQUE: MRA of the head was obtained with 3-D [id number] sequencing and MIP reformats. No IV contrast was administered. 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 The imaged bilateral internal carotid arteries are widely patent. The bilateral anterior cerebral arteries, anterior communicating and right middle cerebral artery are widely patent and within normal limits. There is a focal area of severe luminal narrowing involving the distal aspect of the left M1 segment, image 97 series 4 with normal trifurcation. The imaged bilateral vertebral arteries and basilar artery appear widely patent and unremarkable. There is a focal area of moderate stenosis involving the left P1 Segment on image 102 series 4. Mild to moderate luminal narrowing of the mid right P1 segment is also noted with tapering of the vessel seen distally, image 100 series 4. No aneurysm, dissection or proximal branch occlusion identified. IMPRESSION: 1. No aneurysm, dissection or proximal branch occlusion. 2. Severe luminal narrowing involves the distal aspect of the left M1 segment with normal trifurcation. 3. Unremarkable vertebral and basilar arteries with luminal narrowing of the posterior cerebral arteries as above. The above report was generated using voice recognition software. It may contain grammatical, syntax or spelling errors. Electronically signed by: Paco Paul M.D. 09/30/2017 7:32 AM Dictated Date/Time: 09/30/2017 7:25 AM
[2017-09-30 07:40] LABS: HEMOGLOBIN A1C 7.2 % (4.5-5.6)
[2017-09-30] MEDS: RESTASIS~ORDER AWAITING ACTION SCH ×2 (08:00→16:00)
--- NOTE | 2017-09-30 08:41 | DIAGNOSTIC IMAGING REPORT ---
BRAIN WITHOUT CONTRAST CLINICAL HISTORY: 87 years-old Female presenting with slurred speech. TECHNIQUE: Multisequence, multiplanar MR imaging of the brain was performed without the use of intravenous contrast. IV contrast: None. COMPARISON: Noncontrast CT head from the previous day and MR brain from 03/31/2011. FINDINGS: Proportional ventricular and sulcal prominence, likely age-related parenchymal volume loss. Periventricular and subcortical white matter T2/FLAIR hyperintensity, nonspecific but likely indicative of chronic small vessel ischemic change. Prominent perivascular spaces noted in the waterman radiata and centrum semiovale white matter. 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 No mass effect or midline shift. No restricted diffusion to suggest acute ischemia. No hemorrhage. No extra-axial fluid collection. T2 skull base flow voids preserved. Mucosal thickening in the sphenoid sinuses. T2 hyperintense 13 mm mass in the left parotid gland is new since 2010. Bone marrow signal intensity within the calvarium within normal limits. IMPRESSION: 1. Chronic small vessel ischemic change. 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 No acute intracranial abnormality. 2. T2 hyperintense 13 mm mass in the left broad gland, new since 2010. Dedicated nonurgent ultrasound could be obtained for further evaluation if clinically indicated. Electronically signed by: Carlos A Acevedo M.D. 09/30/2017 8:40 AM Dictated Date/Time: 09/30/2017 6:58 AM
[2017-09-30] MEDS: MULTIVITAMIN TAB PO SCH (09:00)
[2017-09-30] MEDS: AMIODARONE 200 MG TAB PO SCH (09:00)
[2017-09-30] MEDS: FERROUS SULFATE 325 MG TAB PO SCH (09:00)
[2017-09-30] MEDS: PANTOprazole SOD 40 MG TAB PO SCH (09:00)
[2017-09-30] MEDS: DOCUSATE SODIUM 100 MG CAP PO SCH ×2 (09:00→20:00)
--- NOTE | 2017-09-30 09:24 | Clinical Documentation Query ---
QUERY 1 OF [address] CEDILLO, In your clinical opinion is this patient being managed for: ( X ) UTI likely due to other chronic soni catheter and bladder cancer ( ) Not Agree ( ) Other explanation of clinical findings (Please Explain. If no explanation given, this would be considered a no response.) ( ) Unable to determine ( ) Need to Discuss (Please call CDS via extension or qliq. If no interaction occurs this is considered a no response.) The medical record reflects the following clinical findings, treatment, and risk factors. Clinical Indicators: 87 yo female presenting with intermittent hematuria, now with slurred speech and confusion. Treatment: IV fluids including bolus, IV daptomycin, IV aztreonam, IV vancomycin Risk Factors:age, DM, hx bladder cancer, chronic soni catheter QUERY 2 OF 2 In your clinical opinion is this patient being managed for: ( X ) Metabolic encephalopathy ( ) Not Agree ( ) Other explanation of clinical findings (Please Explain. If no explanation given, this would be considered a no response.) ( ) Unable to determine ( ) Need to Discuss (Please call CDS via extension or qliq. If no interaction occurs this is considered a no response.) The medical record reflects the following clinical findings, treatment, and risk factors. Clinical Indicators: 87 yo female described by family as having slurred speech and confusion. CT head showed no acute abnormalities. WBC 12.24, mag 1.7 Treatment: UA cx and blood cx, IV daptomycin, IV aztreonam, IV vancomycin, IV fluids Risk Factors: UTI, DM, low mag Please clarify and document your clinical opinion in the progress notes and discharge summary. Terms such as "probable", "suspected", "likely", "questionable", "possible", or "still to be ruled out" are acceptable. IF IN AGREEMENT, YOU MUST DOCUMENT ABOVE DIAGNOSTIC STATEMENT IN DAILY PROGRESS NOTES AND DISCHARGE SUMMARY. This document is not part of the patient's record. Thank You, Ethel Armstrong, RN [phone]
--- NOTE | 2017-09-30 10:02 | HISTORY & PHYSICAL EXAMINATION ---
DATE OF ADMISSION: 09/29/2017 PRIMARY CARE DOCTOR: Dr. Cleopatra Cosme The patient was seen on 09/29/2017. CHIEF COMPLAINT: Hematuria, bladder pain. HISTORY OF PRESENT ILLNESS: History obtained from the patient, son and records. Medical history is significant for bladder cancer sp surgery, chronic indwelling Valerio catheter, paroxysmal atrial fibrillation, not on Coumadin, DM2, on oral meds, aortic stenosis, chronic anemia (baseline hemoglobin of 10-11, uterine cancer, status post surgery, radiation, history of MRSA as per records. Recent confinement in June 2017 for hematuria, shoulder rotator cuff tendinopathy. Patient seen by [facility] urology during confinement. Supportive management, Valerio catheter irrigation p.r.n. if clot develops as per notes. Patient was referred to [facility] Oncology outpatient on discharge. Chemotherapy recommended, but the patient refused. Since then last week the patient had 2 ER visits for Valerio catheter issues due to assisted living facility's inability to deal with issue. Subsequently discharged back to [facility]. Patient/family instructed to follow up with urologist. Calls to Urology office unreturned as per family. Urine cultures from 09/21/17 ER visit showed group beta strep and MRSA. Patient started on Macrodantin course outpatient. In the last 2 days, the patient noted bladder pain, hematuria, slurred speech, confusion, dry cough, no chest pain, no shortness of breath. Patient was brought to the Emergency Room. Given daptomycin for UTI. MEDICAL HISTORY: As above. SURGERIES: Hysterectomy, urologic procedures. HOME MEDICATIONS: Include Toprol, multivitamins, Onglyza, MiraLax, artificial tears, Protonix, potassium, Lomotil, docusate sodium, ferrous sulfate, Lasix, hydrocortisone topical, melatonin, amiodarone, ascorbic acid, aspirin, Tylenol, Restasis, vitamin D. ALLERGIES: MULTIPLE ALLERGIES. JACKY INHIBITORS, ADHESIVE, AMOXICILLIN, CI PIGMENT, CEPHALEXIN, GABAPENTIN, LACTOSE, LISINOPRIL, PENICILLIN. FAMILY HISTORY: Hypertension, lung cancer, stroke. PERSONAL AND SOCIAL HISTORY: Nonsmoker, no chronic intake of alcoholic beverages. 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 [facility] resident. REVIEW OF SYSTEMS: As per HPI, all 10 systems reviewed, all other ROS negative. PHYSICAL EXAMINATION: VITAL SIGNS: Blood pressure was noted to be 130/60, pulse rate 56, temperature 36.6, sats 96 on room air. GENERAL: Noted to be anxious, comfortable. no respiratory distress. dysarthric. SKIN: Pallor, warm. HEENT: Pale palpebral conjunctivae. No ptosis. Dry buccal mucosa. NECK: Supple, nontender. CHEST: Decreased effort, no tenderness. HEART: Bradycardic, systolic murmur. ABDOMEN: Hypogastric tenderness. No distention. GENITOURINARY: Valerio in place. EXTREMITIES: No edema noted. No gross deformities. No tenderness NEUROLOGIC EXAMINATION: Coherent. dysarthric, no facial asymmetry, slightly hard of hearing. LABORATORIES: Hemoglobin was noted to be 10.1, hematocrit 30, white cell count 12.4, platelet 257. Sodium noted to be 135, potassium 3.5, chloride 98, CO2 28, BUN 8, creatinine 0.5, glucose 136. Ammonia level was normal. Hemoglobin A1c from April 2017 was 7.9. UA, rbc/wbc/epithelial cells greater than 30, cloudy. EKG as per my interpretation, rate 55, sinus bradycardia, low voltage, T-wave flattening in the inferior leads, PRWP. CT head, no acute pathology. CT abdomen and pelvis, progressive irregular wall thickening of the bladder, cystoscopy recommended, trace perihepatic ascites, progressive bilateral hydronephrosis, most likely related to the bladder changes, inguinal adenopathy. ASSESSMENT: 1. Encephalopathy, slurred speech 2 to complicated urinary tract infection, history indwelling Valerio cath hx bladder tumor status post surgery (progressive disease, patient refused chemotherapy) failed outpatient Macrodantin treatment (MRSA, GBS 09/21/17) No sepsis. ro cerebrovascular accident (Hx AF sp PPM not on Coumadin) 2. HTN, stable 3. DM2, reasonable control as of recent outpatient HgA1c 4. Aortic stenosis per records. 5. Chronic anemia, hemoglobin baseline. 6. Uterine cancer sp surgery PLAN: PCU, neuro checks until stroke ruled out w/ MRI/MRA of brain May need additional stroke workup pending MRI results. Follow urine cultures. IV Azactam and Vancomycin for now. Urology consult. RE hematuria, followup evaluation by [facility] (Patient's family wants to discuss plan of care for patient's progressive bladder cancer. Family frustrated by multiple ER visits for Valerio catheter issues. Family claims [facility] Urology office has not returned their multiple calls.) basal insulin. ISS BG goal 140-180. patient due for hemoglobin A1c check. DVT prophylaxis, SCDs RE hematuria. DNR. Patient's son requesting updates from providers. Mee Strauss Capo, contact numbers : [phone], . [facility]
--- NOTE | 2017-09-30 11:31 | Pharmacy Progress Note ---
Pharmacy Abx Initial Consult Date of Service September 30, 2017. Pharmacy Dosing Scope Date of Consult: 09/30/17 Consultation requested by: Dr. Rushing Pharmacy is consulted to initiate Vancomycin & Aztreonam IV dosing therapy, order appropriate labs and adjust drug dose/frequency. Subjective The patient is a 87 year old female admitted on September 29, 2017 at 21:53. Objective Height (Feet): 4 Height (Inches): 11.00 Weight (Kilograms): 59.700 (BMI 26.6) Vital Signs (Past 12Hrs) Vital Signs Past 12 Hours Date Time Temp Pulse Resp B/P (MAP) Pulse Ox O2 Delivery O2 Flow Rate FiO2 09/30/17 07:07 36.6 67 17 137/69 (91) 95 Room Air 09/30/17 04:00 94 Room Air 09/30/17 03:33 36.3 64 17 134/72 (92) 97 Room Air 09/30/17 00:01 94 Room Air Lab Results (24Hrs) Laboratory Tests (24 Hours) Test 09/29/17 18:58 09/30/17 05:23 Procalcitonin < 0.05 ng/ml (0-0.5) White Blood Count 19.37 K/uL (4.8-10.8) H Red Blood Count 4.24 M/uL (4.2-5.4) Hemoglobin 10.4 g/dL (12.0-16.0) L Hematocrit 32.0 % (37-47) L Mean Corpuscular Volume 75.5 fL (80-100) L Mean Corpuscular Hemoglobin 24.5 pg (25-34) L Mean Corpuscular Hemoglobin Concent 32.5 g/dl (32-36) Platelet Count 233 K/uL (130-400) Mean Platelet Volume 8.0 fL (7.4-10.4) Neutrophils (%) (Auto) 88.2 % Lymphocytes (%) (Auto) 3.6 % Monocytes (%) (Auto) 7.6 % Eosinophils (%) (Auto) 0.2 % Basophils (%) (Auto) 0.1 % Neutrophils # (Auto) 17.08 K/uL (1.4-6.5) H Lymphocytes # (Auto) 0.70 K/uL (1.2-3.4) L Monocytes # (Auto) 1.47 K/uL (0.11-0.59) H Eosinophils # (Auto) 0.04 K/uL (0-0.5) Basophils # (Auto) 0.02 K/uL (0-0.2) Micro Results Date/Time Source Procedure Growth Status 09/29/17 18:58 Blood Blood Culture Pending Received 09/29/17 18:48 Blood Blood Culture Pending Received 09/29/17 18:36 Urine,Catheterized Urine Culture Pending Received Risk Factors for Resistance * Resident in a retirement or extended-care facility * Hospitalization for 48 hours or more within the past 90 days * Antimicrobial use within the last 90 days Macrobid/Levaquin Assessment & Plan Assessment 87 year old female admitted for complicated UTI. To be started on Vancomycin and Azactam as an inpatient. Received Daptomycin 500mg IV x1 and Aztreonam 2gm IV x1 in ED. Pertinent PMH: HX of bladder Cancer, Has indwelling soni catheter. HX of MRSA (06/2017) Plan Vancomycin IV * Loading dose: 1500 mg (~25 mg/kg) * Maintenance dose: 1000 mg IV (~16.8 mg/kg) every 24 hours * Goal trough level : 15 to 20 mcg/mL * Trough level ordered for 10/02/17 @ 0830 * Obtaining trough level with 3rd dose prior to steady state. Pharmacy will continue to follow and will adjust dose/frequency as necessary. Thank you.
--- NOTE | 2017-09-30 12:07 | Progress Note ---
Internal Med Progress Note Date of Service: September 30, 2017. Provider Documentation: SUBJECTIVE: Seen and examined at bedside Reports generalized weakness and bladder pressure +Hematuria Denies chest pain, SOB, dizziness, abd pain Mental status /Speech seemed to be back to baseline Patient prefers no blood transfusion Discussed with patient's son in detail: Would like to involve palliative care Very poor appetite OBJECTIVE: Vital Signs-as noted below Physical Exam: General Appearance:Moderately built and nourished, no apparent distress Head: normocephalic, Atraumatic Eyes: normal inspection, EOMI, PERRL Neck: supple, Trachea midline Respiratory/Chest: decreased Normal breath sounds, CTA Cardiovascular: S1, S2, + murmur Abdomen/GI:Soft, Non tender, Bowel sounds present Extremities/Musculoskelatal:normal inspection, no edema Neurologic/Psych:AAOX3, grossly no focal neurological deficits Skin: normal color, warm Lab data as noted below. ASSESSMENT & PLAN: Metabolic Encephalopathy: Likely secondary to UTI Mental status seemed to be back to baseline Slurred speech resolved MRI Brain: Chronic small vessel ischemic change. 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 No acute intracranial abnormality. Head MRA:Severe luminal narrowing involves the distal aspect of the left M1 segment with normal trifurcation. Complicated UTI: In setting of Chronic Valerio use, H/O Bladder cancer Failed outpatient Macrobid therapy Continue Vanco, Azactam Follow up cultures Left Parotid Mass: Incidental finding on MRI 13 mm mass in the left parotid gland is new since 2010. work up as outpatient if patient prefers H/O Bladder Cancer Hematuria Obstructive Uropathy CT ABD suggestive of progression of disease Patient refused chemotherapy in the past Follows with Oncology as outpatient Urology consulted Patient refuses Blood transfusions Palliative Care consulted to address goals of care H/O Afib S/P PPM Not on chronic anticoagulation continue amiodarone Metoprolol decreased to 50mg BID 2/2 relative bradycardia HTN: Stable Continue current meds DM II: A1C:7.2 Continue ISS, lantus monitor BGs H/O Aortic stenosis continue current meds Chronic anemia hemoglobin baseline monitor H/O CVA:as per MRI Hold Aspirin 2/2 hematuria DVT Px: SCDs RE hematuria. Code Status: DNR/DNI Disposition: To be determined Patient's son requesting updates from providers Mr. Carlos A Scanlon, contact numbers : [phone], . PROCEDURES: CT ABD: 1. Progressive somewhat irregular wall thickening of the bladder. 2. Cystoscopy is again recommended to exclude neoplastic process. 3. Trace perihepatic ascites. 4. Progressive bilateral hydroureteronephrosis most likely relating to develop an obstructive changes in the region of the bladder. 5. Developing inguinal adenopathy. 6. Bibasilar parenchymal infiltrates combined with small bilateral pleural effusions similar overall compared to the prior exam. Vital Signs: Date Time Temp Pulse Resp B/P (MAP) Pulse Ox O2 Delivery O2 Flow Rate FiO2 09/30/17 11:36 36.7 72 20 131/76 (94) 92 Room Air 09/30/17 08:00 Room Air 09/30/17 07:07 36.6 67 17 137/69 (91) 95 Room Air 09/30/17 04:00 94 Room Air 09/30/17 03:33 36.3 64 17 134/72 (92) 97 Room Air 09/30/17 00:01 94 Room Air 09/29/17 22:25 36.6 64 17 146/78 95 Room Air 09/29/17 22:15 56 16 137/60 96 09/29/17 19:17 58 16 137/60 96 Room Air 09/29/17 18:10 97 Room Air 09/29/17 16:52 36.7 61 16 160/88 97 Room Air Lab Results: Results Past 24 Hours Test 09/29/17 18:36 09/29/17 18:58 09/29/17 19:04 09/29/17 22:02 Range/Units Urine Color RED Urine Appearance CLOUDY CLEAR Urine pH 4.5-7.5 Urine Specific [place] 1.012 1.000-1.030 Urine Protein NEG Urine Glucose (UA) NEG Urine Ketones NEG Urine Occult Blood NEG Urine Nitrite NEG Urine Bilirubin NEG Urine Urobilinogen NEG Urine Leukocyte Esterase NEG Urine RBC >30 0-4 /hpf Urine WBC >30 0-5 /hpf Urine Epithelial Cells >30 0-5 /lpf Urine Bacteria 3+ NEG White Blood Count 12.24 4.8-10.8 K/uL Red Blood Count 4.02 4.2-5.4 M/uL Hemoglobin 10.1 12.0-16.0 g/dL Hematocrit 30.1 37-47 % Mean Corpuscular Volume 74.9 80-100 fL Mean Corpuscular Hemoglobin 25.1 25-34 pg Mean Corpuscular Hemoglobin Concent 33.6 32-36 g/dl Platelet Count 257 130-400 K/uL Mean Platelet Volume 8.3 7.4-10.4 fL Neutrophils (%) (Auto) 78.7 % Lymphocytes (%) (Auto) 10.0 % Monocytes (%) (Auto) 8.3 % Eosinophils (%) (Auto) 2.3 % Basophils (%) (Auto) 0.2 % Neutrophils # (Auto) 9.64 1.4-6.5 K/uL Lymphocytes # (Auto) 1.22 1.2-3.4 K/uL Monocytes # (Auto) 1.01 0.11-0.59 K/uL Eosinophils # (Auto) 0.28 0-0.5 K/uL Basophils # (Auto) 0.03 0-0.2 K/uL RDW Standard Deviation 51.7 36.4-46.3 fL RDW Coefficient of Variation 18.7 11.5-14.5 % Immature Granulocyte % (Auto) 0.5 % Immature Granulocyte # (Auto) 0.06 0.00-0.02 K/uL Prothrombin Time 10.5 9.0-12.0 SECONDS Prothromb Time International Ratio 1.0 0.9-1.1 Activated Partial Thromboplast Time 27.3 21.0-31.0 SECONDS Partial Thromboplastin Ratio 1.1 Sodium Level 133 136-145 mmol/L Potassium Level 3.5 3.5-5.1 mmol/L Chloride Level 98 98-107 mmol/L Carbon Dioxide Level 28 21-32 mmol/L Anion Gap 7.0 3-11 mmol/L Blood Urea Nitrogen 8 7-18 mg/dl Creatinine 0.59 0.60-1.20 mg/dl Est Creatinine Clear Calc Drug Dose 51.9 ml/min Estimated GFR () 94.2 Estimated GFR (Non- 81.3 BUN/Creatinine Ratio 14.0 10-20 Random Glucose 136 70-99 mg/dl Calcium Level 7.9 8.5-10.1 mg/dl Magnesium Level 1.7 1.8-2.4 mg/dl Total Bilirubin 0.4 0.2-1 mg/dl Aspartate Amino Transf (AST/SGOT) 33 15-37 U/L Alanine Aminotransferase (ALT/SGPT) 26 12-78 U/L Alkaline Phosphatase 103 45-117 U/L Pro-B-Type Natriuretic Peptide 1237 0-1800 pg/ml Total Protein 5.8 6.4-8.2 gm/dl Albumin 2.2 3.4-5.0 gm/dl Globulin 3.6 2.5-4.0 gm/dl Albumin/Globulin Ratio 0.6 0.9-2 Procalcitonin < 0.05 0-0.5 ng/ml Bedside Lactic Acid Venous 0.98 0.90-1.70 mmol/L Ammonia 22.2 11-32 umol/L Test 09/29/17 22:06 09/30/17 05:23 09/30/17 07:16 09/30/17 07:39 Range/Units Hemoglobin 9.7 10.4 12.0-16.0 g/dL Hematocrit 29.9 32.0 37-47 % White Blood Count 19.37 4.8-10.8 K/uL Red Blood Count 4.24 4.2-5.4 M/uL Mean Corpuscular Volume 75.5 80-100 fL Mean Corpuscular Hemoglobin 24.5 25-34 pg Mean Corpuscular Hemoglobin Concent 32.5 32-36 g/dl Platelet Count 233 130-400 K/uL Mean Platelet Volume 8.0 7.4-10.4 fL Neutrophils (%) (Auto) 88.2 % Lymphocytes (%) (Auto) 3.6 % Monocytes (%) (Auto) 7.6 % Eosinophils (%) (Auto) 0.2 % Basophils (%) (Auto) 0.1 % Neutrophils # (Auto) 17.08 1.4-6.5 K/uL Lymphocytes # (Auto) 0.70 1.2-3.4 K/uL Monocytes # (Auto) 1.47 0.11-0.59 K/uL Eosinophils # (Auto) 0.04 0-0.5 K/uL Basophils # (Auto) 0.02 0-0.2 K/uL RDW Standard Deviation 51.7 36.4-46.3 fL RDW Coefficient of Variation 18.7 11.5-14.5 % Immature Granulocyte % (Auto) 0.3 % Immature Granulocyte # (Auto) 0.06 0.00-0.02 K/uL Sodium Level 134 136-145 mmol/L Potassium Level 3.8 3.5-5.1 mmol/L Chloride Level 98 98-107 mmol/L Carbon Dioxide Level 26 21-32 mmol/L Anion Gap 10.0 3-11 mmol/L Blood Urea Nitrogen 9 7-18 mg/dl Creatinine 0.82 0.60-1.20 mg/dl Est Creatinine Clear Calc Drug Dose 36.6 ml/min Estimated GFR () 73.5 Estimated GFR (Non- 63.4 BUN/Creatinine Ratio 10.5 10-20 Random Glucose 190 70-99 mg/dl Calcium Level 7.9 8.5-10.1 mg/dl Magnesium Level 2.1 1.8-2.4 mg/dl Thyroid Stimulating Hormone (TSH) 2.350 0.300-4.500 uIu/ml Estimated Average Glucose 160 mg/dl Hemoglobin A1c 7.2 4.5-5.6 % Bedside Glucose 196 70-90 mg/dl Microbiology Results 09/29/17 Blood Culture, Received Pending 09/29/17 Blood Culture, Received Pending 09/29/17 Urine Culture, Received Pending
[2017-09-30] MEDS ORDERED: GLUCOSE 40% GEL 15 GM TUBE PO PRN (12:15)
[2017-09-30] MEDS ORDERED: CARBOHYDRATES FOR HYPOGLYCEMIA PO PRN (12:15)
[2017-09-30] MEDS ORDERED: DEXTROSE 50% 50 ML SYR IV PRN (12:15)
[2017-09-30] MEDS ORDERED: GLUCOSE 10 TABS/TUBE PO PRN (12:15)
[2017-09-30] MEDS ORDERED: GLUCAGON FOR INJ 1 MG VIAL SQ PRN (12:15)
[2017-09-30] MEDS: AZTREONAM IV 1,000 MG in DEXTROSE 5% 100ML 100 ML IV SCH ×2 (14:50→22:33)
--- NOTE | 2017-09-30 15:08 | Progress Note ---
Progress Note Date of Service September 30, 2017. Progress Note ID Consult Dictated #[id number] A/P: 1. GPC Sepsis - likely due to source -Continue abx, follow cultures, await final -Repeat blood cultures x 2 -Will follow, thank you
[2017-09-30] MEDS ORDERED: ACETAMINOPHEN IV 650 MG in EMPTY BAG 0 ML IV PRN (16:00)
--- NOTE | 2017-09-30 16:26 | Urology Consultation ---
History General Date of Service: September 30, 2017. Primary Care Physician: Flores Cosme M.D. 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 -She unfortunately is not a candidate for further radiation secondary to past radiation of the pelvis -She refused chemotherapy -She refused cystectomy -She has chronic urinary retention -She has chronic hematuria secondary to the tumor -She has had increasingly frequent problems with her Valerio catheter secondary to clot obstruction as well as necrotic tumor obstruction of the catheter Fortunately, she has not experienced renal failure She also has not previously shown imaging evidence of widespread metastatic disease Her son reports she has been in the emergency room at least 6 times in the past 2 months She now presents with hematuria, obstructed catheter, sepsis Preliminary blood culture showing gram positive cocci in both blood and urine Infectious diseases been consulted, and have her on aztreonam and vancomycin at present Laboratory Labs were reviewed and are within normal limits unless listed below. Labs are available in the chart and at [facility] Problem List Medical Problems: (1) Dislodged Valerio catheter Status: Acute (2) Elevated lactic acid level Status: Acute (3) Failure of outpatient treatment Status: Acute (4) Hematuria Status: Acute (5) Hematuria Status: Acute (6) Hydronephrosis Status: Acute (7) Liver function abnormality Status: Acute (8) Malfunction of Valerio catheter Status: Acute (9) Swelling of lower extremity Status: Acute (10) Symptoms involving urinary system Status: Acute (11) Thrush Status: Acute (12) Urinary retention Status: Acute (13) UTI (urinary tract infection) Status: Acute (14) UTI (urinary tract infection) Status: Acute (15) UTI (urinary tract infection) Status: Acute (16) Weakness Status: Acute Past History A Fib, cancer (Bladder), diabetes, hypertension, osteoarthritis, osteoporosis, other Past Surgical History: hysterectomy, other Family History Cancer FH: heart disease Hypertension Social History Hx Tobacco Use In Past Year?: No Smoking: non-smoker Alcohol: never Marital status: Housing status: half-way Occupation status: retired History of MDRO Yes Type of MDRO: MRSA Allergies Coded Allergies: Cephalosporins (Verified Allergy, Intermediate, KEFLEX = HIVES, 09/21/17) Penicillins (Verified Allergy, Mild, HIVES, 09/21/17) JACKY Inhibitors (Verified Allergy, Unknown, Unknown, 09/21/17) Adhesives (Verified Allergy, Unknown, rash, 09/21/17) Amoxicillin (Verified Allergy, Unknown, Unknown, 09/21/17) CI Pigment Blue 63 (Verified Allergy, Unknown, Unknown, 09/21/17) Cephalexin (Verified Allergy, Unknown, Unknown, 09/21/17) Duloxetine (Verified Allergy, Unknown, Unknown, 09/21/17) Gabapentin (Verified Allergy, Unknown, Unknown, 09/21/17) Lettuce (Verified Allergy, Unknown, [employer] LIST, 09/21/17) Lisinopril (Verified Allergy, Unknown, Unknown, 09/21/17) Penicillin V (Verified Allergy, Unknown, unknown, hives?, 09/21/17) Simvastatin (Verified Allergy, Unknown, Unknown, 09/21/17) Lactose. (Verified Adverse Reaction, Unknown, GI SYMPTOMS, 09/21/17) pt reports allergic to all diary product - bloated and gas Medications Home Medications: Home Meds and Scripts Medications Dose Route/Sig Max Daily Dose Days Date Category Dose Instructions Mycelex (Clotrimazole) 10 Mg Tro 10 Mg OR 5XD 14 09/21/17 Rx Macrobid (Nitrofurantoin Macrocrystals) 100 Mg Cap 100 Mg PO BID 09/21/17 Rx Kp Ferrous Sulfate (Ferrous Sulfate) 325 Mg Tab 325 Mg PO QDL 30 09/21/17 Reported Miralax (Polyethylene Glycol 3350) 1 Pow Pow 17 Gm PO 2XWK 09/21/17 Reported TAKES ON MONDAYS & THURSDAYS. Docusate Sodium 100 Mg Cap 100 Mg PO BID 09/21/17 Reported Micro-K Ext Rel (Potassium Chloride) 10 Meq Capcr 10 Meq PO 3XWK 07/20/17 Reported TAKES ON MON, WED, & FRI. Lomotil (Diphenoxylate HCl/Atropine) Tab 1 Tab PO DAILY PRN 07/20/17 Reported Lasix (Furosemide) 20 Mg Tab 20 Mg PO 3XWK 07/20/17 Reported TAKES MON, WED, & FRI. Tylenol (Acetaminophen) 500 Mg Tab 500 Mg PO Q8 PRN 07/20/17 Reported Vitamin D (Cholecalciferol) 1,000 Unit Tab 1,000 Units PO DAILY 07/20/17 Reported Restasis (Cyclosporine (Ophth)) 0.05 % Emu 1 Drop OPB BID 07/20/17 Reported Protonix (Pantoprazole Sodium) 40 Mg Tab 40 Mg PO DAILY 07/20/17 Reported [Onglyza] 5 Mg PO DAILY 07/20/17 Reported ANTI-DIABETIC MEDICATION; GENERIC NAME: saxagliptin Multivitamin (Multivitamins) Tab 1 Tab PO DAILY 07/20/17 Reported Toprol Xl (Metoprolol Succinate) 100 Mg Tab 100 Mg PO BID 07/20/17 Reported HOLD IF SYSTOLIC BP 95 OR LESS OR HR 50 OR LESS Melatonin 1 Mg Tab 1 Mg PO HS 07/20/17 Reported Hydrocortisone (Hydrocortisone (Rectal)) 2.5 % Cre 1 Appln TOP BID PRN 07/20/17 Reported APPLY TO LEGS Cerave (Emollient) 1 Lot Lot 1 Appln TOP BID PRN 07/20/17 Reported APPLY TO ARMS AND LEGS Aspirin Ec (Aspirin) 81 Mg Tab 81 Mg PO 3XWK 07/20/17 Reported TAKES ON MON, WED, & FRI. Ascorbic Acid 500 Mg Tab 500 Mg PO DAILY 07/20/17 Reported Artificial Tears (Polyvinyl Alcohol) 1.4 % Negar 1 Drop OPB QID 07/20/17 Reported Cordarone (Amiodarone Hcl) 200 Mg Tab 400 Mg PO DAILY 07/20/17 Reported TWO 200 MG TABLETS, PER DAY [facility] MED LIST Inpatient Medications: Current Inpatient Medications Medications (Trade) Dose Ordered Sig/Zoë Route Start Time Stop Time Status Last Admin Dose Admin Ioversol (Optiray 320) 125 ml UD PRN IV 09/29/17 18:15 10/03/17 18:14 Acetaminophen (Tylenol Tab) 650 mg Q4H PRN PO 09/30/17 00:15 10/30/17 00:14 Nitroglycerin (Nitrostat Tab) 0.4 mg UD PRN SL 09/30/17 00:15 10/30/17 00:14 Amiodarone HCl (Cordarone Tab) 400 mg DAILY PO 09/30/17 09:00 10/30/17 08:59 09/30/17 09:00 400 MG Docusate Sodium (coLACE CAP) 100 mg BID PO 09/30/17 09:00 10/30/17 08:59 Multivitamins (Multivitamin Tab) 1 tab DAILY PO 09/30/17 09:00 10/30/17 08:59 09/30/17 09:00 1 TAB Pantoprazole Sodium (Protonix Tab) 40 mg DAILY PO 09/30/17 09:00 10/30/17 08:59 09/30/17 09:00 40 MG Miscellaneous Information (Order Awaiting Action) 1 ea QS N/A 09/30/17 08:00 10/30/17 07:59 Ferrous Sulfate (Feosol Tab) 325 mg QDL PO 09/30/17 11:30 10/30/17 11:29 09/30/17 09:00 325 MG Polyethylene (Miralax Powder Packet) 17 gm MoTh@0900 PO 10/02/17 09:00 11/01/17 08:59 Hydromorphone HCl (Dilaudid Inj) 0.5 mg Q3H PRN IV 09/30/17 00:15 10/14/17 00:14 Tramadol HCl (Ultram Tab) 25 mg Q6H PRN PO 09/30/17 00:15 10/30/17 00:14 09/30/17 09:34 25 MG Prochlorperazine Edisylate 5 mg/ Syringe 5 ml @ 5 mls/min Q6H PRN IV 09/30/17 00:15 10/30/17 00:14 09/30/17 15:12 5 MLS/MIN Potassium Chloride/Sodium Chloride 1,000 ml @ 50 mls/hr Q20H ONCE IV 09/30/17 00:30 09/30/17 20:29 09/30/17 00:59 50 MLS/HR Aztreonam (Consult) 1 ea UD PRN N/A 09/30/17 05:15 10/30/17 05:14 Aztreonam 1000 mg/ Dextrose 110 ml @ 100 mls/hr Q8H IV 09/30/17 14:00 10/10/17 13:59 09/30/17 14:50 100 MLS/HR Insulin Glargine (Lantus Solostar Pen) 5 units DAILY SC 10/01/17 08:00 10/31/17 08:59 Miscellaneous Information (Consult) 1 ea UD PRN N/A 09/30/17 07:00 10/30/17 06:59 Vancomycin HCl 1000 mg/Sodium Chloride 270 ml @ 125 mls/hr Q24H IV 10/01/17 09:00 10/10/17 08:59 Insulin Aspart (novoLOG ASPART) SLIDING SCALE If C... ACHS SC 09/30/17 16:15 10/30/17 16:14 Glucose (Glucose 40% Gel) 15-30 GRAMS 15 GRAMS... UD PRN PO 09/30/17 12:15 10/30/17 12:14 Glucose (Glucose Chew Tab) 4-8 Tablets 4 Tabl... UD PRN PO 09/30/17 12:15 10/30/17 12:14 Dextrose (Dextrose 50% 50ML Syringe) 25-50ML 25ML FOR ... UD PRN IV 09/30/17 12:15 10/30/17 12:14 Glucagon (Glucagon Inj) 1 mg UD PRN SQ 09/30/17 12:15 10/30/17 12:14 Carbohydrates (Carbohydrates For Hypoglycemia) 15-30 GRAMS 15 grams if BSG 54-69... UD PRN PO 09/30/17 12:15 10/30/17 12:14 Metoprolol Succinate (Toprol Xl Tab) 50 mg BID PO 09/30/17 20:00 10/30/17 20:59 Acetaminophen 650 mg/Empty Bag 65 ml @ 260 mls/hr Q6H PRN IV 09/30/17 16:00 10/30/17 15:59 Review of Systems Review of Systems Constitutional: + fever, + chills, + problem reported Eyes: No see HPI, No blurred vision, No double vision, No eye pain, No loss of night vision, No problem reported Neurological: No see HPI, No dizzy, No passing out, No numbness/tingling, No seizures, No problem reported Endocrine: No see HPI, No excessive thirst, No too hot, No too cold, No tired/ sluggish, No problem reported Gastrointestinal: + abdominal pain, + nausea Cardiovascular: No see HPI, No heart murmur, No chest pain, No angina, No irregular heartbeat, No palpitations, No swelling ankles/feet, No problem reported Respiratory: No see HPI, No shortness of breath, No wheezing, No coughing up blood, No chronic cough, No problem reported Skin: No see HPI, No rash, No boils, No dry skin, No problem reported Musculoskeletal: No see HPI, No joint pain, No neck pain, No back pain, No arthritis, No problem reported Blood / Lymphatic: No see HPI, No bleed easily, No bruise easily, No swollen glands, No problem reported Ears / Nose / Throat: No see HPI, No hearing loss, No sinus, No hoarse voice, No sore throat, No problem reported Psychologic / Mental: + problem reported (Presented with some encephalopathy) Female : + problem reported All Other Systems: Reviewed and Negative Physical Exam Vital Signs: Vital Signs Past 12 Hours Date Time Temp Pulse Resp B/P (MAP) Pulse Ox O2 Delivery O2 Flow Rate FiO2 09/30/17 15:49 37.2 108 18 90 Room Air 09/30/17 14:13 36.7 72 20 92 09/30/17 12:00 Room Air 09/30/17 11:36 36.7 72 20 131/76 (94) 92 Room Air 09/30/17 08:00 Room Air 09/30/17 07:07 36.6 67 17 137/69 (91) 95 Room Air Physical Exam: General Appearance: + moderate distress (Visible Reiger's, and not interactive when I was in the room -son present other family present) Eyes: bilateral eyes normal inspection ENT: hearing grossly normal Neck: no adenopathy Respiratory/Chest: no respiratory distress, no accessory muscle use Cardiovascular: no edema Gastrointestinal: Bladder: normal bladder Renal: normal renal Extremities: no pedal edema Neurologic/Psychiatric: + pertinent finding Skin: warm/dry Lymphatic: no adenopathy Assessment & Plan Assessment & Plan 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 She is thus far refused treatments Fortunately, she is highly symptomatic from intermittent catheter obstruction and currently recovering dealing with an acute infection/septicemia Unfortunately, I do not think we have a tremendous number of options At present, continued antibiotic seems to be the most logical choice If she prefers to avoid any further treatments of her bladder cancer, I think palliative care involvement makes tremendous sense As part of the palliative plan, I think she could consider percutaneous nephrostomy placement with the hope of avoiding the intermittent catheter obstruction and emergency room visit Intervention of this nature would certainly be done only if she recovers appropriately from her acute illness and I do not feel it is appropriate to transfer her acutely for percutaneous nephrostomies placements Additionally, I do not think that it would be a lea move to place a three-way Valerio catheter -she has a bladder filled with necrotic tumor, she is status post a very large TURBT, and she has a previously radiated bladder all posing increased risk of catheter obstruction and/or bladder rupture After lengthy discussion with the family, I think we will observe her for the next 24-48 hours on antibiotics to make further determinations based on her recovery/ improvement
[2017-09-30] MEDS: INSULIN ASPART 100 UNITS/ML 3 ML PEN SC SCH ×2 (16:30→21:09)
--- NOTE | 2017-09-30 16:50 | INFECT. DISEASE CONSULTATION ---
DATE OF CONSULTATION: 09/30/2017 HISTORY OF PRESENT ILLNESS: This is an 87-year-old female who was admitted after she had hematuria. Her son is at the bedside and provides the majority of her history. He states that the patient recently had a urologic procedure secondary to bladder cancer and subsequently has been with a Valerio catheter for the past month or so. She has had difficulty and multiple complications with her Valerio catheters including incorrect placement, bleeding, blood clots, and obstruction of her Valerio secondary to this. She did have a new Valerio catheter placed upon this admission and she is complaining of pain in the urethral area. She also admits to some abdominal pressure, but denies any pain. She was admitted to the hospital for hematuria. Her urinalysis had greater than 30 wbc's, greater than 30 rbc's, and 3+ bacteria. Urine culture is growing group C strep and blood cultures from the Emergency Room now are growing Gram positive cocci in 1 out of 2 sets. She denies any fevers, but states she feels cold. She denies any rigors, but states she has occasional chills. She was placed on vancomycin and aztreonam and appears to be tolerating this well. She has been afebrile since admission. She did have a CAT scan of the abdomen and pelvis done in the ER overnight, which did show an irregular bladder wall suspicious for neoplastic etiology. She currently denies any chest pain, cough, shortness of breath, nausea, vomiting, or diarrhea. She does have a history of group G strep and MRSA in her urine per the H and P and she was previously on Macrobid. Her remaining review of systems are reviewed and are unremarkable. PAST MEDICAL HISTORY: Significant for bladder cancer with Valerio catheter, paroxysmal atrial fibrillation, on Coumadin, type 2 diabetes, aortic stenosis, anemia, history of uterine cancer with a history of surgery and radiation. PAST SURGICAL HISTORY: Significant for hysterectomy and urologic procedures surrounding her bladder cancer. FAMILY HISTORY: Noncontributory. SOCIAL HISTORY: Significant for a resident at [facility]. She denies any tobacco use, alcohol use, or drug use. ALLERGIES: INCLUDE JACKY INHIBITORS, ADHESIVE TAPE, PENICILLIN, IODINE, CEPHALEXIN, GABAPENTIN, LISINOPRIL. CURRENT MEDICATIONS: MiraLax, vancomycin, Lantus, Toprol-XL, insulin, aztreonam, glucagon, iron, amiodarone, Colace, multivitamin, Protonix, Tylenol, Dilaudid, Ultram. PHYSICAL EXAMINATION: VITAL SIGNS: She is afebrile, pulse 72, respiratory rate 20, blood pressure 131/76, oxygen saturation is 92% on room air. GENERAL: She is awake, alert, and oriented. She is somewhat lethargic, but appropriate. HEENT: Mucous membranes are moist. There is an area of blistering in the middle of her bottom lip. There is no bleeding or tenderness. HEART: Regular. LUNGS: Clear, but decreased bilaterally at the bases. ABDOMEN: Mildly distended, but nontender. SKIN: Without rash. LABORATORY STUDIES: CBC today reveals a white blood cell count of 19.3, hemoglobin 10.4 and platelets are 233. Chemistry panel, sodium 134, potassium 3.8, chloride 98, bicarbonate 26, BUN 9, creatinine 0.8, glucose 196. UA is as above. Blood cultures 1 out of 2 bottles is growing Gram positive cocci. Urine culture is growing group G strep. Sensitivities are pending. CT of the abdomen is as above. She did have an MRI of her brain overnight which was unremarkable for acute change. ASSESSMENT AND PLAN: Gram-positive septicemia, likely secondary to urinary source. She will remain on empiric antibiotics. Repeat blood cultures will be obtained today and final recommendations will be made based microdata. Thank you for this consultation.
[2017-09-30] MEDS: METOPROLOL SUCC 50MG EXT REL TAB PO SCH (20:00)
[2017-10-01] VITALS (7 sets, daily range): BP systolic 88–113; BP diastolic 47–67; PULSE 58–146; TEMP 36.1–37.2; O2SAT 96–100
[2017-10-01] MEDS: AZTREONAM IV 1,000 MG in DEXTROSE 5% 100ML 100 ML IV SCH (05:54)
[2017-10-01 06:52] LABS: HEMATOCRIT 28.4 % (37-47); HEMOGLOBIN 9.4 g/dL (12.0-16.0); MEAN CELL VOLUME 75.5 fL (80-100); MEAN CORPUSCULAR HGB CONC 33.1 g/dl (32-36); MEAN PLATELET VOLUME 8.6 fL (7.4-10.4); PLATELET COUNT 217 K/uL (130-400); RED CELL DISTRIBUTION WIDTH CV 19.2 % (11.5-14.5); RED CELL DISTRIBUTION WIDTH SD 52.9 fL (36.4-46.3); WHITE BLOOD COUNT 32.94 K/uL (4.8-10.8)
[2017-10-01 06:59] LABS: BASO % 0.1 %; BASO ABS # 0.03 K/uL (0-0.2); EOS ABS # 0.01 K/uL (0-0.5); IG# 0.17 K/uL (0.00-0.02); LYMPH % 2.7 %; LYMPH ABS # 0.89 K/uL (1.2-3.4); MONO % 4.5 %; MONO ABS # 1.49 K/uL (0.11-0.59); NEUT % 92.2 %; NEUT ABS # 30.35 K/uL (1.4-6.5)
--- NOTE | 2017-10-01 06:59 | Clinical Documentation Query ---
QUERY 1 OF [address] CEDILLO,, In your clinical opinion is this patient being managed for: ( X ) Sepsis, POA ( ) Sepsis, not POA ( ) Not Agree ( ) Other explanation of clinical findings (Please Explain. If no explanation given, this would be considered a no response.) ( ) Unable to determine ( ) Need to Discuss (Please call CDS via extension or qliq. If no interaction occurs this is considered a no response.) The medical record reflects the following clinical findings, treatment, and risk factors. Clinical Indicators: 87 yo female presenting with UTI and metabolic encephalopathy in an immunocompromised pt. Pt has had recurrent UTI's. WBC 12.24. Blood cultures with gram + cocci and group G beta strep Treatment: IV fluids, IV daptomycin, IV aztreonam, IV vancomycin, IV tylenol Risk Factors: age, DM, UTI, bladder cancer QUERY 2 OF 2 In your clinical opinion is this patient being managed for: (X ) Unstageable pressure ulcer of sacral, POA ( ) Unstageable pressure ulcer of sacral, not POA ( ) Not Agree ( ) Other explanation of clinical findings (Please Explain. If no explanation given, this would be considered a no response.) ( ) Unable to determine ( ) Need to Discuss (Please call CDS via extension or qliq. If no interaction occurs this is considered a no response.) The medical record reflects the following clinical findings, treatment, and risk factors. Clinical Indicators: Noted physician order for WOCN consult for sacral wound. WOCN consult documents small open area unstageable pressure ulcer that, per son, "had been there". Treatment:WOCN consult, accumax mattress, adhesive foam dressing Risk Factors: age, increasing debility, bladder cancer Please clarify and document your clinical opinion in the progress notes and discharge summary. Terms such as "probable", "suspected", "likely", "questionable", "possible", or "still to be ruled out" are acceptable. IF IN AGREEMENT, YOU MUST DOCUMENT ABOVE DIAGNOSTIC STATEMENT IN DAILY PROGRESS NOTES AND DISCHARGE SUMMARY. This document is not part of the patient's record. Thank You, Ethel Armstrong RN [phone]
[2017-10-01 07:11] LABS: CALCIUM 7.7 mg/dl (8.5-10.1); CREATININE 1.58 mg/dl (0.60-1.20); POTASSIUM 3.6 mmol/L (3.5-5.1)
[2017-10-01] MEDS: METOPROLOL SUCC 50MG EXT REL TAB PO SCH (08:00)
[2017-10-01] MEDS: RESTASIS~ORDER AWAITING ACTION SCH ×3 (08:00→17:49)
[2017-10-01] MEDS: DOCUSATE SODIUM 100 MG CAP PO SCH ×2 (08:00→20:00)
[2017-10-01] MEDS: INSULIN GLARGINE SOLOSTAR 100 UNITS/ML 3 ML PEN SC SCH (08:40)
[2017-10-01] MEDS: INSULIN ASPART 100 UNITS/ML 3 ML PEN SC SCH ×4 (08:45→21:00)
--- NOTE | 2017-10-01 08:46 | Progress Note ---
Subjective Date of Service: October 01, 2017. Subjective Pt evaluation today including: conversation w/ patient, physical exam Voiding: soni catheter in place Subjectively slightly improved overnight, no further rigors or chills Still having some difficulty with standard mentation Catheter remains in place Extremely weak appearing Having a very hard time forming words Problem List Medical Problems: (1) Dislodged Soni catheter Status: Acute (2) Elevated lactic acid level Status: Acute (3) Failure of outpatient treatment Status: Acute (4) Hematuria Status: Acute (5) Hematuria Status: Acute (6) Hydronephrosis Status: Acute (7) Liver function abnormality Status: Acute (8) Malfunction of Soni catheter Status: Acute (9) Swelling of lower extremity Status: Acute (10) Symptoms involving urinary system Status: Acute (11) Thrush Status: Acute (12) Urinary retention Status: Acute (13) UTI (urinary tract infection) Status: Acute (14) UTI (urinary tract infection) Status: Acute (15) UTI (urinary tract infection) Status: Acute (16) Weakness Status: Acute Review of Systems Constitutional: + chills, + sweats, + problem reported Abdomen: No pain Female : + hematuria Objective Vital Signs Date Time Temp Pulse Resp B/P (MAP) Pulse Ox O2 Delivery O2 Flow Rate FiO2 10/01/17 06:39 36.1 66 17 88/47 (61) 96 Nasal Cannula 2.0 88/51 (63) 10/01/17 05:13 93/57 (69) 10/01/17 00:00 Nasal Cannula 2.0 09/30/17 22:56 37.1 79 16 91/56 (68) 94 Nasal Cannula 2.0 09/30/17 17:57 122/83 (96) 09/30/17 16:00 90 Nasal Cannula 2.0 09/30/17 15:49 37.2 108 18 90 Room Air 09/30/17 14:13 36.7 72 20 92 09/30/17 12:00 Room Air 09/30/17 11:36 36.7 72 20 131/76 (94) 92 Room Air Physical Exam General Appearance: + moderate distress Eyes: normal inspection Abdomen: non tender, soft Neurologic/Psychiatric: + pertinent finding (Arousable, minimally interactive smiles in response, but having a hard time forming words) Skin: warm/dry Lymphatic: no adenopathy Laboratory Results Last 24 Hours Test 09/30/17 16:46 09/30/17 20:26 10/01/17 06:07 Bedside Glucose 251 mg/dl 186 mg/dl White Blood Count 32.94 K/uL Red Blood Count 3.76 M/uL Hemoglobin 9.4 g/dL Hematocrit 28.4 % Mean Corpuscular Volume 75.5 fL Mean Corpuscular Hemoglobin 25.0 pg Mean Corpuscular Hemoglobin Concent 33.1 g/dl Platelet Count 217 K/uL Mean Platelet Volume 8.6 fL Neutrophils (%) (Auto) 92.2 % Lymphocytes (%) (Auto) 2.7 % Monocytes (%) (Auto) 4.5 % Eosinophils (%) (Auto) 0.0 % Basophils (%) (Auto) 0.1 % Neutrophils # (Auto) 30.35 K/uL Lymphocytes # (Auto) 0.89 K/uL Monocytes # (Auto) 1.49 K/uL Eosinophils # (Auto) 0.01 K/uL Basophils # (Auto) 0.03 K/uL RDW Standard Deviation 52.9 fL RDW Coefficient of Variation 19.2 % Immature Granulocyte % (Auto) 0.5 % Immature Granulocyte # (Auto) 0.17 K/uL Dohle Bodies 1+ Ovalocytes 1+ Sodium Level 136 mmol/L Potassium Level 3.6 mmol/L Chloride Level 103 mmol/L Carbon Dioxide Level 26 mmol/L Anion Gap 7.0 mmol/L Blood Urea Nitrogen 20 mg/dl Creatinine 1.58 mg/dl Est Creatinine Clear Calc Drug Dose 18.7 ml/min Estimated GFR () 33.3 Estimated GFR (Non- 28.7 BUN/Creatinine Ratio 12.8 Random Glucose 149 mg/dl Calcium Level 7.7 mg/dl Magnesium Level 2.0 mg/dl Assessment and Plan 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
[2017-10-01] MEDS ORDERED: ASPIRIN 81 MG ECTAB PO SCH (09:00)
[2017-10-01] MEDS ORDERED: VANCOMYCIN IV 1,000 MG in SODIUM CHLORIDE 0.9% 250ML 250 ML IV SCH (09:00)
[2017-10-01] MEDS ORDERED: SODIUM CHLORIDE 0.9% 1000ML 1,000 ML IV ONE (09:30)
--- NOTE | 2017-10-01 11:27 | Progress Note ---
Subjective Date of Service: October 01, 2017. Subjective tolerating abx, urine with group g strep, sensitivity pending. blood culture with gpc 1/2 bottles, repeat pending. afebrile overnight. wbc increased today, creat increased as well to 1.5. s/p urology eval, no plans for surgery at this time. Problem List Medical Problems: (1) Dislodged Soni catheter Status: Acute (2) Elevated lactic acid level Status: Acute (3) Failure of outpatient treatment Status: Acute (4) Hematuria Status: Acute (5) Hematuria Status: Acute (6) Hydronephrosis Status: Acute (7) Liver function abnormality Status: Acute (8) Malfunction of Soni catheter Status: Acute (9) Swelling of lower extremity Status: Acute (10) Symptoms involving urinary system Status: Acute (11) Thrush Status: Acute (12) Urinary retention Status: Acute (13) UTI (urinary tract infection) Status: Acute (14) UTI (urinary tract infection) Status: Acute (15) UTI (urinary tract infection) Status: Acute (16) Weakness Status: Acute Objective Vital Signs Date Time Temp Pulse Resp B/P (MAP) Pulse Ox O2 Delivery O2 Flow Rate FiO2 10/01/17 08:30 96 Nasal Cannula 2.0 10/01/17 06:39 36.1 66 17 88/47 (61) 96 Nasal Cannula 2.0 88/51 (63) 10/01/17 05:13 93/57 (69) 10/01/17 00:00 Nasal Cannula 2.0 09/30/17 22:56 37.1 79 16 91/56 (68) 94 Nasal Cannula 2.0 09/30/17 17:57 122/83 (96) 09/30/17 16:00 90 Nasal Cannula 2.0 09/30/17 15:49 37.2 108 18 90 Room Air 09/30/17 14:13 36.7 72 20 92 09/30/17 12:00 Room Air 09/30/17 11:36 36.7 72 20 131/76 (94) 92 Room Air Laboratory Results Item Value Date Time Urine Culture - Preliminary Resulted 09/29/17 1836 Urine,Catheterized Group G Beta Strep Blood Culture - Preliminary Resulted 09/29/17 1848 Blood Coag Neg Staph Not Lugdunensis Last 24 Hours Test 09/30/17 16:46 09/30/17 20:26 10/01/17 06:07 10/01/17 08:35 Bedside Glucose 251 mg/dl 186 mg/dl 151 mg/dl White Blood Count 32.94 K/uL Red Blood Count 3.76 M/uL Hemoglobin 9.4 g/dL Hematocrit 28.4 % Mean Corpuscular Volume 75.5 fL Mean Corpuscular Hemoglobin 25.0 pg Mean Corpuscular Hemoglobin Concent 33.1 g/dl Platelet Count 217 K/uL Mean Platelet Volume 8.6 fL Neutrophils (%) (Auto) 92.2 % Lymphocytes (%) (Auto) 2.7 % Monocytes (%) (Auto) 4.5 % Eosinophils (%) (Auto) 0.0 % Basophils (%) (Auto) 0.1 % Neutrophils # (Auto) 30.35 K/uL Lymphocytes # (Auto) 0.89 K/uL Monocytes # (Auto) 1.49 K/uL Eosinophils # (Auto) 0.01 K/uL Basophils # (Auto) 0.03 K/uL RDW Standard Deviation 52.9 fL RDW Coefficient of Variation 19.2 % Immature Granulocyte % (Auto) 0.5 % Immature Granulocyte # (Auto) 0.17 K/uL Dohle Bodies 1+ Ovalocytes 1+ Sodium Level 136 mmol/L Potassium Level 3.6 mmol/L Chloride Level 103 mmol/L Carbon Dioxide Level 26 mmol/L Anion Gap 7.0 mmol/L Blood Urea Nitrogen 20 mg/dl Creatinine 1.58 mg/dl Est Creatinine Clear Calc Drug Dose 18.7 ml/min Estimated GFR () 33.3 Estimated GFR (Non- 28.7 BUN/Creatinine Ratio 12.8 Random Glucose 149 mg/dl Calcium Level 7.7 mg/dl Magnesium Level 2.0 mg/dl Assessment and Plan (1) Streptococcal sepsis Assessment & Plan: will continue with vanco for now, await final sensitivities , multiple allergies. with increased creat, suggest trough. will stop aztreonam as no gnr found. follow repeat blood cultures. (2) UTI (urinary tract infection) (3) Leukocytosis Assessment & Plan: unclear if related to infection, recent soni or underlying cancer. will follow. if diarrhea, check c diff. (4) Bladder cancer
[2017-10-01] MEDS: MULTIVITAMIN TAB PO SCH (12:56)
[2017-10-01] MEDS: FERROUS SULFATE 325 MG TAB PO SCH (12:57)
--- NOTE | 2017-10-01 13:54 | Palliative Care Consultation ---
Consultation Date of Consultation: October 01, 2017. Requesting Physician: Dr. Mclean Attending Physician: Dr. Mclean Reason for Consultation: GOALS OF CARE History of Present Illness This patient is a 87 year old female who is a resident of [facility] who presented to the hospital on September 29 with hematuria and was diagnosed with a UTI and urinary retention. She has a PMH of Squamous Cell Carcinoma of the bladder that has been managed conservatively by Urology - chemotherapy has been discussed in the past; however, the patient has declined treatment. The patient has had multiple readmissions to the hospital over the past year for urinary problems. Additional PMH includes Aortic stenosis, pAF ( not on anticoagulation), DM2, MRSA. Lengthy discussion regarding GOALS OF CARE was held with the patient's son, Carlos A , who has stated that she has been clear in the past that she does not want aggressive measures taken with her cancer. He stated that he is feeling guilty about bringing her to the hospital this time, but he stated he wanted to know what was going on and now he says "he knows". We talked at length regarding her quality of life and how the infection may not improve. She was just started on Vancomycin 1,000 mg daily and the expectation was discussed with the son that we would determine how she responds over the next 24-48 hours and determine if she was responding. Her current WBC is 32.94 and her renal function is worsening with her BUN/creatinine going from 9-20/0.82-1.58 in a 24 hour period. Upon assessment, she is frail, with shallow breathing, and is tachycardic with a weak pulse. She did open her eyes for me, but wasn't able to really answer questions. Her son has been present most of the day - he is the only child. He has stated this transition will be challenging for him, but he believes that she would not want to pursue any additional interventions. Questions were answered and a POLST form was filled out with the patient's son and the original and a copy was placed on the chart. Social History Smoking Status: Never Smoker History of Alcohol Use: No Drug Use: none Marital Status: Housing Status: halfway Occupation Status: retired Review of Systems Pt opens her eyes, but is pretty frail and unable to participate in ROS. Patient does deny pain. Allergies Coded Allergies: Cephalosporins (Verified Allergy, Intermediate, KEFLEX = HIVES, 09/21/17) Penicillins (Verified Allergy, Mild, HIVES, 09/21/17) JACKY Inhibitors (Verified Allergy, Unknown, Unknown, 09/21/17) Adhesives (Verified Allergy, Unknown, rash, 09/21/17) Amoxicillin (Verified Allergy, Unknown, Unknown, 09/21/17) CI Pigment Blue 63 (Verified Allergy, Unknown, Unknown, 09/21/17) Cephalexin (Verified Allergy, Unknown, Unknown, 09/21/17) Duloxetine (Verified Allergy, Unknown, Unknown, 09/21/17) Gabapentin (Verified Allergy, Unknown, Unknown, 09/21/17) Lettuce (Verified Allergy, Unknown, Relive LIST, 09/21/17) Lisinopril (Verified Allergy, Unknown, Unknown, 09/21/17) Penicillin V (Verified Allergy, Unknown, unknown, hives?, 09/21/17) Simvastatin (Verified Allergy, Unknown, Unknown, 09/21/17) Lactose. (Verified Adverse Reaction, Unknown, GI SYMPTOMS, 09/21/17) pt reports allergic to all diary product - bloated and gas Medications Current Inpatient Medications Medications (Trade) Dose Ordered Sig/Zoë Route Start Time Stop Time Status Last Admin Dose Admin Ioversol (Optiray 320) 125 ml UD PRN IV 09/29/17 18:15 10/03/17 18:14 Acetaminophen (Tylenol Tab) 650 mg Q4H PRN PO 09/30/17 00:15 10/30/17 00:14 Nitroglycerin (Nitrostat Tab) 0.4 mg UD PRN SL 09/30/17 00:15 10/30/17 00:14 Amiodarone HCl (Cordarone Tab) 400 mg DAILY PO 09/30/17 09:00 10/30/17 08:59 09/30/17 09:00 400 MG Docusate Sodium (coLACE CAP) 100 mg BID PO 09/30/17 09:00 10/30/17 08:59 Multivitamins (Multivitamin Tab) 1 tab DAILY PO 09/30/17 09:00 10/30/17 08:59 09/30/17 09:00 1 TAB Pantoprazole Sodium (Protonix Tab) 40 mg DAILY PO 09/30/17 09:00 10/30/17 08:59 09/30/17 09:00 40 MG Miscellaneous Information (Order Awaiting Action) 1 ea QS N/A 09/30/17 08:00 10/30/17 07:59 Ferrous Sulfate (Feosol Tab) 325 mg QDL PO 09/30/17 11:30 10/30/17 11:29 09/30/17 09:00 325 MG Polyethylene (Miralax Powder Packet) 17 gm MoTh@0900 PO 10/02/17 09:00 11/01/17 08:59 Hydromorphone HCl (Dilaudid Inj) 0.5 mg Q3H PRN IV 09/30/17 00:15 10/14/17 00:14 Tramadol HCl (Ultram Tab) 25 mg Q6H PRN PO 09/30/17 00:15 10/30/17 00:14 09/30/17 09:34 25 MG Prochlorperazine Edisylate 5 mg/ Syringe 5 ml @ 5 mls/min Q6H PRN IV 09/30/17 00:15 10/30/17 00:14 09/30/17 15:12 5 MLS/MIN Aztreonam (Consult) 1 ea UD PRN N/A 09/30/17 05:15 10/30/17 05:14 Insulin Glargine (Lantus Solostar Pen) 5 units DAILY SC 10/01/17 08:00 10/31/17 08:59 10/01/17 08:40 5 UNITS Miscellaneous Information (Consult) 1 UD PRN N/A 09/30/17 07:00 10/30/17 06:59 Vancomycin HCl 1000 mg/Sodium Chloride 270 ml @ 125 mls/hr Q24H IV 10/01/17 09:00 10/10/17 08:59 10/01/17 08:33 125 MLS/HR Insulin Aspart (novoLOG ASPART) SLIDING SCALE If C... ACHS SC 09/30/17 16:15 10/30/17 16:14 09/30/17 21:09 1 UNITS Glucose (Glucose 40% Gel) 15-30 GRAMS 15 GRAMS... UD PRN PO 09/30/17 12:15 10/30/17 12:14 Glucose (Glucose Chew Tab) 4-8 Tablets 4 Tabl... UD PRN PO 09/30/17 12:15 10/30/17 12:14 Dextrose (Dextrose 50% 50ML Syringe) 25-50ML 25ML FOR ... UD PRN IV 09/30/17 12:15 10/30/17 12:14 Glucagon (Glucagon Inj) 1 mg UD PRN SQ 09/30/17 12:15 10/30/17 12:14 Carbohydrates (Carbohydrates For Hypoglycemia) 15-30 GRAMS 15 grams if BSG 54-69... UD PRN PO 09/30/17 12:15 10/30/17 12:14 Metoprolol Succinate (Toprol Xl Tab) 50 mg BID PO 09/30/17 20:00 10/30/17 20:59 Acetaminophen 650 mg/Empty Bag 65 ml @ 260 mls/hr Q6H PRN IV 09/30/17 16:00 10/30/17 15:59 09/30/17 16:30 260 MLS/HR Aztreonam 500 mg/ Dextrose 105 ml @ 110 mls/hr Q8H IV 10/01/17 14:00 10/10/17 13:59 Sodium Chloride 1,000 ml @ 100 mls/hr Q10H ONCE IV 10/01/17 09:30 10/01/17 19:29 10/01/17 11:05 100 MLS/HR Physical Exam Date Time Temp Pulse Resp B/P (MAP) Pulse Ox O2 Delivery O2 Flow Rate FiO2 10/01/17 08:30 96 Nasal Cannula 2.0 10/01/17 06:39 36.1 66 17 88/47 (61) 96 Nasal Cannula 2.0 88/51 (63) 10/01/17 05:13 93/57 (69) 10/01/17 00:00 Nasal Cannula 2.0 09/30/17 22:56 37.1 79 16 91/56 (68) 94 Nasal Cannula 2.0 09/30/17 17:57 122/83 (96) 09/30/17 16:00 90 Nasal Cannula 2.0 09/30/17 15:49 37.2 108 18 90 Room Air 09/30/17 14:13 36.7 72 20 92 General Appearance: no apparent distress Respiratory: chest non-tender, lungs clear, normal breath sounds, no respiratory distress, no accessory muscle use Cardiovascular: + tachycardia (weak pulse, both radially and pedal), + systolic murmur Abdomen: normal bowel sounds, non tender, soft, + pertinent finding ( indwelling soni in place -tea colored urine, intermittent clots) Neurologic/Psychiatric: oriented x 3 Skin: warm/dry Laboratory Results Last 24 Hours Test 09/30/17 16:46 09/30/17 20:26 10/01/17 06:07 10/01/17 08:35 Bedside Glucose 251 mg/dl 186 mg/dl 151 mg/dl White Blood Count 32.94 K/uL Red Blood Count 3.76 M/uL Hemoglobin 9.4 g/dL Hematocrit 28.4 % Mean Corpuscular Volume 75.5 fL Mean Corpuscular Hemoglobin 25.0 pg Mean Corpuscular Hemoglobin Concent 33.1 g/dl Platelet Count 217 K/uL Mean Platelet Volume 8.6 fL Neutrophils (%) (Auto) 92.2 % Lymphocytes (%) (Auto) 2.7 % Monocytes (%) (Auto) 4.5 % Eosinophils (%) (Auto) 0.0 % Basophils (%) (Auto) 0.1 % Neutrophils # (Auto) 30.35 K/uL Lymphocytes # (Auto) 0.89 K/uL Monocytes # (Auto) 1.49 K/uL Eosinophils # (Auto) 0.01 K/uL Basophils # (Auto) 0.03 K/uL RDW Standard Deviation 52.9 fL RDW Coefficient of Variation 19.2 % Immature Granulocyte % (Auto) 0.5 % Immature Granulocyte # (Auto) 0.17 K/uL Dohle Bodies 1+ Ovalocytes 1+ Sodium Level 136 mmol/L Potassium Level 3.6 mmol/L Chloride Level 103 mmol/L Carbon Dioxide Level 26 mmol/L Anion Gap 7.0 mmol/L Blood Urea Nitrogen 20 mg/dl Creatinine 1.58 mg/dl Est Creatinine Clear Calc Drug Dose 18.7 ml/min Estimated GFR () 33.3 Estimated GFR (Non- 28.7 BUN/Creatinine Ratio 12.8 Random Glucose 149 mg/dl Calcium Level 7.7 mg/dl Magnesium Level 2.0 mg/dl Test 10/01/17 11:43 Bedside Glucose 135 mg/dl Assessment & Plan Palliative Performance Scale: 20 % Palliative Care Encounter Goals of Care Bladder Cancer paroxysmal A-fib Uterine cancer Palliative Care Recommendations: -Bladder cancer: -Continue conservative management. -Patient son ok to continue antibiotics for another 24 hours and assess if patient improving or declining -leaning towards comfort measures. -Patient son expressed that even if she improves from this infection, he does not want to pursue nephrostomy tube placement. (will defer to Urology for additional comment or conversation re: nephrostomy tube placement) -Patient has Dilaudid 0.5 mg IV Q3 PRN and Tramadol 25 mg Q6 po PRN. Would consider ordering Morphine 1 mg IV Q2 PRN for pain. Counseling and Coordination Total time spent 70 minutes with > 50% of that time reviewing the chart, assessing the patient, discussing GOALS OF CARE with the patients son and filling out a POLST at the bedside.
[2017-10-01] MEDS ORDERED: AZTREONAM IV 500 MG in DEXTROSE 5% 100ML 100 ML IV SCH (14:00)
--- NOTE | 2017-10-01 14:41 | Progress Note ---
Internal Med Progress Note Date of Service: October 01, 2017. Provider Documentation: SUBJECTIVE: Seen and examined at bedside Feels very weak and tired Denies chest pain, SOB, dizziness, abd pain Mental status /Speech seemed to be back to baseline Discussed with patient's son in detail: No aggressive measures: ok with IV antibiotics Very poor appetite OBJECTIVE: Vital Signs-as noted below Physical Exam: General Appearance:Moderately built and nourished, no apparent distress Head: normocephalic, Atraumatic Eyes: normal inspection, EOMI, PERRL Neck: supple, Trachea midline Respiratory/Chest: decreased Normal breath sounds, CTA Cardiovascular: S1, S2, + murmur Abdomen/GI:Soft, Non tender, Bowel sounds present Extremities/Musculoskelatal:normal inspection, no edema Neurologic/Psych:AAOX3, grossly no focal neurological deficits Skin: normal color, warm Lab data as noted below. ASSESSMENT & PLAN: Metabolic Encephalopathy: Likely secondary to UTI Mental status seemed to be back to baseline Slurred speech resolved MRI Brain: Chronic small vessel ischemic change. 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 No acute intracranial abnormality. Head MRA:Severe luminal narrowing involves the distal aspect of the left M1 segment with normal trifurcation. monitor Complicated UTI: In setting of Chronic Vlaerio use, H/O Bladder cancer Failed outpatient Macrobid therapy Continue Vancomycin DC Azactam Urine culture: group B strep Blood culture: 05/27:Coagulase negative staph Appreciate ID Input Repeat blood cultures:pending Leukocytosis worsened??? Cancer Vs Infection Will check Stool for C.diff if patient develops diarrhea LJ: Monitor renal function IV fluids Left Parotid Mass: Incidental finding on MRI 13 mm mass in the left parotid gland is new since 2010. work up as outpatient if patient prefers H/O Bladder Cancer Hematuria Obstructive Uropathy CT ABD suggestive of progression of disease Patient refused chemotherapy in the past Follows with Oncology as outpatient Appreciate Urology Input Patient refuses Blood transfusions Palliative Care consulted to address goals of care No aggressive measures as per patient's son H/O Afib S/P PPM Not on chronic anticoagulation continue amiodarone Hold Metoprolol 2/2 to bradycardia and Hypotension HTN: Currently Hypotensive Hold Metoprolol DM II: A1C:7.2 Continue ISS, lantus monitor BGs H/O Aortic stenosis continue current meds Chronic anemia hemoglobin baseline monitor H/O CVA:as per MRI Hold Aspirin 2/2 hematuria DVT Px: SCDs RE hematuria. Code Status: DNR/DNI Disposition: To be determined Patient's son requesting updates from providers Mr. Carlos A Scanlon, contact numbers : [phone], . PROCEDURES: CT ABD: 1. Progressive somewhat irregular wall thickening of the bladder. 2. Cystoscopy is again recommended to exclude neoplastic process. 3. Trace perihepatic ascites. 4. Progressive bilateral hydroureteronephrosis most likely relating to develop an obstructive changes in the region of the bladder. 5. Developing inguinal adenopathy. 6. Bibasilar parenchymal infiltrates combined with small bilateral pleural effusions similar overall compared to the prior exam. Vital Signs: Date Time Temp Pulse Resp B/P (MAP) Pulse Ox O2 Delivery O2 Flow Rate FiO2 10/01/17 17:00 69 18 98 Room Air 10/01/17 16:00 96 Nasal Cannula 2.0 10/01/17 14:32 37.2 146 18 112/61 (78) 96 Room Air 10/01/17 08:30 96 Nasal Cannula 2.0 10/01/17 06:39 36.1 66 17 88/47 (61) 96 Nasal Cannula 2.0 88/51 (63) 10/01/17 05:13 93/57 (69) 10/01/17 00:00 Nasal Cannula 2.0 09/30/17 22:56 37.1 79 16 91/56 (68) 94 Nasal Cannula 2.0 Lab Results: Results Past 24 Hours Test 09/30/17 20:26 10/01/17 06:07 10/01/17 08:35 10/01/17 11:43 Range/Units Bedside Glucose 186 151 135 70-90 mg/dl White Blood Count 32.94 4.8-10.8 K/uL Red Blood Count 3.76 4.2-5.4 M/uL Hemoglobin 9.4 12.0-16.0 g/dL Hematocrit 28.4 37-47 % Mean Corpuscular Volume 75.5 80-100 fL Mean Corpuscular Hemoglobin 25.0 25-34 pg Mean Corpuscular Hemoglobin Concent 33.1 32-36 g/dl Platelet Count 217 130-400 K/uL Mean Platelet Volume 8.6 7.4-10.4 fL Neutrophils (%) (Auto) 92.2 % Lymphocytes (%) (Auto) 2.7 % Monocytes (%) (Auto) 4.5 % Eosinophils (%) (Auto) 0.0 % Basophils (%) (Auto) 0.1 % Neutrophils # (Auto) 30.35 1.4-6.5 K/uL Lymphocytes # (Auto) 0.89 1.2-3.4 K/uL Monocytes # (Auto) 1.49 0.11-0.59 K/uL Eosinophils # (Auto) 0.01 0-0.5 K/uL Basophils # (Auto) 0.03 0-0.2 K/uL RDW Standard Deviation 52.9 36.4-46.3 fL RDW Coefficient of Variation 19.2 11.5-14.5 % Immature Granulocyte % (Auto) 0.5 % Immature Granulocyte # (Auto) 0.17 0.00-0.02 K/uL Dohle Bodies 1+ Ovalocytes 1+ Sodium Level 136 136-145 mmol/L Potassium Level 3.6 3.5-5.1 mmol/L Chloride Level 103 98-107 mmol/L Carbon Dioxide Level 26 21-32 mmol/L Anion Gap 7.0 3-11 mmol/L Blood Urea Nitrogen 20 7-18 mg/dl Creatinine 1.58 0.60-1.20 mg/dl Est Creatinine Clear Calc Drug Dose 18.7 ml/min Estimated GFR () 33.3 Estimated GFR (Non- 28.7 BUN/Creatinine Ratio 12.8 10-20 Random Glucose 149 70-99 mg/dl Calcium Level 7.7 8.5-10.1 mg/dl Magnesium Level 2.0 1.8-2.4 mg/dl Test 10/01/17 17:47 Range/Units Bedside Glucose 129 70-90 mg/dl Microbiology Results 09/30/17 Blood Culture, Received Pending 09/30/17 Blood Culture, Received Pending
[2017-10-01] MEDS ORDERED: METOPROLOL TARTRATE 50 MG TAB PO ONE (16:00)
[2017-10-01] MEDS: PANTOprazole SOD 40 MG TAB PO SCH (17:40)
[2017-10-01] MEDS: AMIODARONE 200 MG TAB PO SCH (17:41)
[2017-10-02 08:00] VITALS: BP 119/65; PULSE 60; TEMP 36.7; O2SAT 95
[2017-10-02] MEDS: MULTIVITAMIN TAB PO SCH (08:00)
[2017-10-02] MEDS: RESTASIS~ORDER AWAITING ACTION SCH ×4 (08:00→23:45)
[2017-10-02] MEDS: AMIODARONE 200 MG TAB PO SCH (08:18)
[2017-10-02] MEDS: PANTOprazole SOD 40 MG TAB PO SCH (08:18)
[2017-10-02 08:30] VITALS: O2SAT 95
[2017-10-02] MEDS ORDERED: VANCOMYCIN TROUGH ONE (08:30)
[2017-10-02 08:54] LABS: HEMATOCRIT 30.3 % (37-47); HEMOGLOBIN 9.8 g/dL (12.0-16.0); MEAN CELL VOLUME 76.5 fL (80-100); MEAN CORPUSCULAR HEMOGLOBIN 24.7 pg (25-34); MEAN CORPUSCULAR HGB CONC 32.3 g/dl (32-36); MEAN PLATELET VOLUME 8.4 fL (7.4-10.4); PLATELET COUNT 208 K/uL (130-400); RED CELL DISTRIBUTION WIDTH CV 19.5 % (11.5-14.5); RED CELL DISTRIBUTION WIDTH SD 55.6 fL (36.4-46.3)
[2017-10-02] MEDS ORDERED: POLYETHYLENE (MIRALAX) 17 GM PACK PO SCH (09:00)
[2017-10-02] MEDS: INSULIN ASPART 100 UNITS/ML 3 ML PEN SC SCH ×4 (09:03→20:54)
[2017-10-02] MEDS: DOCUSATE SODIUM 100 MG CAP PO SCH ×2 (09:07→20:00)
[2017-10-02] MEDS: INSULIN GLARGINE SOLOSTAR 100 UNITS/ML 3 ML PEN SC SCH (09:07)
[2017-10-02 09:17] LABS: BASO % 0.1 %; BASO ABS # 0.02 K/uL (0-0.2); EOS % 1.8 %; EOS ABS # 0.38 K/uL (0-0.5); IG# 0.05 K/uL (0.00-0.02); LYMPH ABS # 1.03 K/uL (1.2-3.4); MONO % 5.9 %; MONO ABS # 1.22 K/uL (0.11-0.59)
[2017-10-02 09:27] LABS: CALCIUM 8.1 mg/dl (8.5-10.1); CREATININE 0.87 mg/dl (0.60-1.20); POTASSIUM 3.7 mmol/L (3.5-5.1)
[2017-10-02] MEDS ORDERED: VANCOMYCIN IV 750 MG in SODIUM CHLORIDE 0.9% 250ML 250 ML IV SCH (10:00)
--- NOTE | 2017-10-02 10:29 | Pharmacy Progress Note ---
Pharmacy Abx Dose Progress Nt Date of Service October 02, 2017. Pharmacy Dosing Scope The patient is currently receiving the following antimicrobial agents per Pharmacy consult: Vanco and Aztreonam stopped 10/01/17 Objective Height (Feet): 4 Height (Inches): 11.00 Weight (Kilograms): 59.800 Vital Signs (Past 12Hrs) Vital Signs Past 12 Hours Date Time Temp Pulse Resp B/P (MAP) Pulse Ox O2 Delivery O2 Flow Rate FiO2 10/02/17 08:30 95 Nasal Cannula 2.0 10/02/17 08:00 36.7 60 18 119/65 (83) 95 Room Air 10/02/17 00:00 Nasal Cannula 2.0 10/01/17 23:20 36.7 58 18 113/67 (82) 100 Nasal Cannula 2.0 Lab Results (24Hrs) Laboratory Tests (24 Hours) Test 10/02/17 08:31 White Blood Count 20.60 K/uL (4.8-10.8) H Red Blood Count 3.96 M/uL (4.2-5.4) L Hemoglobin 9.8 g/dL (12.0-16.0) L Hematocrit 30.3 % (37-47) L Mean Corpuscular Volume 76.5 fL (80-100) L Mean Corpuscular Hemoglobin 24.7 pg (25-34) L Mean Corpuscular Hemoglobin Concent 32.3 g/dl (32-36) Platelet Count 208 K/uL (130-400) Mean Platelet Volume 8.4 fL (7.4-10.4) Neutrophils (%) (Auto) 87.0 % Lymphocytes (%) (Auto) 5.0 % Monocytes (%) (Auto) 5.9 % Eosinophils (%) (Auto) 1.8 % Basophils (%) (Auto) 0.1 % Neutrophils # (Auto) 17.90 K/uL (1.4-6.5) H Lymphocytes # (Auto) 1.03 K/uL (1.2-3.4) L Monocytes # (Auto) 1.22 K/uL (0.11-0.59) H Eosinophils # (Auto) 0.38 K/uL (0-0.5) Basophils # (Auto) 0.02 K/uL (0-0.2) Micro Results Date/Time Source Procedure Growth Status 09/30/17 21:25 Blood Blood Culture - Preliminary NO GROWTH TO DATE. Resulted 09/30/17 21:24 Blood Blood Culture - Preliminary NO GROWTH TO DATE. Resulted 09/29/17 18:58 Blood Blood Culture - Preliminary NO GROWTH TO DATE. Resulted 09/29/17 18:48 Blood Blood Culture - Preliminary Coag Neg Staph Not Lugdunensis Resulted 09/29/17 18:36 Urine,Catheterized Urine Culture - Final Group G Beta Strep Complete Risk Factors for Resistance * Resident in a intermediate or extended-care facility * Antimicrobial use within the last 90 days: macrobid Assessment & Plan Assessment Ms. Scanlon is an 87yo F being treated with vancomycin for a complicated UTI. At this juncture she is growing Group G strep (resulted 10/01 ~1099) in her UC. On 10/01/17 she developed an LJ: Scr 0.82-->1.58. eCrCl: 36cc/min-->19cc/min. Possible etiologies of LJ include: hypoperfusion of kidneys (her BPs were running low the evening of 09/30/17 - am of 10/01/17) and vancomycin and aztreonam. Afternoon of 10/01/17 I spoke with the ID specialist to weigh the risk:benefit of vanco/aztreonam to her allergies in treating a Group G strep with sharply declining renal fxn. ID specialist was OK with me d/c'ing the aztreonam but wished to continue vancomycin. I recommended a change of vancomycin to rocephin due to it's significantly lower nephrotoxic burden and excellent coverage of Group G strep despite her mild allergies to cephalosporins. I was told to continue vancomycin until all c/s's result. This AM after cutting aztreonam and having vancomycin on hold, her renal fxn has returned to baseline. Trough after just one maintenance dose is supratherapeutic at 9.7 mcg/mL. I feel that continued doses of 1000mg q24 would result in an elevated lvl at Css. Plan Vancomycin * Will decrease dose of vancomycin to 750mg (~13mg/kg) q24 * Goal trough: 15-20mcg/mL * Trough ordered for 10/04/17, prior to the third maintenance dose Pharmacy will continue to follow and will adjust dose/frequency as necessary. Thank you.
--- NOTE | 2017-10-02 11:19 | Progress Note ---
Subjective Date of Service: October 02, 2017. Subjective Patient urine is growing group G strep. No sensitivities to follow. Her initial blood culture is growing coag-negative staph in 1/2 sets her repeat blood cultures from the remain negative. This likely represents skin contamination. [place] [id number] but this has improved to 20,000 thousand today. She also had a transient increase in her creatinine however it is back to at 0.8 today. She remains afebrile. She was being treated with vancomycin secondary to multiple antibiotic allergies to beta lactam antibiotics with hives as her reaction her vancomycin was held by pharmacy yesterday and a trough was checked today. Her trough is subtherapeutic at 9.7. Id in the patient and family did meet with palliative care yesterday and there is some consideration hospice if she does not improve. Also met with Urology and there was some discussion regarding a percutaneous nephrostomy tube family does not wish to pursue any aggressive measures at this. They are agreeable to treating her current infection IV antibiotics if needed. Problem List Medical Problems: (1) Dislodged Valerio catheter Status: Acute (2) Elevated lactic acid level Status: Acute (3) Failure of outpatient treatment Status: Acute (4) Hematuria Status: Acute (5) Hematuria Status: Acute (6) Hydronephrosis Status: Acute (7) Liver function abnormality Status: Acute (8) Malfunction of Valerio catheter Status: Acute (9) Swelling of lower extremity Status: Acute (10) Symptoms involving urinary system Status: Acute (11) Thrush Status: Acute (12) Urinary retention Status: Acute (13) UTI (urinary tract infection) Status: Acute (14) UTI (urinary tract infection) Status: Acute (15) UTI (urinary tract infection) Status: Acute (16) Weakness Status: Acute Objective Vital Signs Date Time Temp Pulse Resp B/P (MAP) Pulse Ox O2 Delivery O2 Flow Rate FiO2 10/02/17 08:30 95 Nasal Cannula 2.0 10/02/17 08:00 36.7 60 18 119/65 (83) 95 Room Air 10/02/17 00:00 Nasal Cannula 2.0 10/01/17 23:20 36.7 58 18 113/67 (82) 100 Nasal Cannula 2.0 10/01/17 17:00 69 18 98 Room Air 10/01/17 16:00 96 Nasal Cannula 2.0 10/01/17 14:32 37.2 146 18 112/61 (78) 96 Room Air Laboratory Results Item Value Date Time Urine Culture - Final Complete 09/29/17 1836 Urine,Catheterized Group G Beta Strep Blood Culture - Preliminary Resulted 09/30/172123 Blood NO GROWTH TO DATE. Blood Culture - Preliminary Resulted 09/29/17 1858 Blood NO GROWTH TO DATE. Blood Culture - Preliminary Resulted 09/30/172124 Blood NO GROWTH TO DATE. Blood Culture - Preliminary Resulted 09/29/17 1848 Blood Coag Neg Staph Not Lugdunensis Vancomycin Level Trough 9.7 mcg/ml 10/02/17 0831 Last 24 Hours Test 10/01/17 11:43 10/01/17 17:47 10/01/17 20:39 10/02/17 07:37 Bedside Glucose 135 mg/dl 129 mg/dl 143 mg/dl 100 mg/dl Test 10/02/17 08:31 White Blood Count 20.60 K/uL Red Blood Count 3.96 M/uL Hemoglobin 9.8 g/dL Hematocrit 30.3 % Mean Corpuscular Volume 76.5 fL Mean Corpuscular Hemoglobin 24.7 pg Mean Corpuscular Hemoglobin Concent 32.3 g/dl Platelet Count 208 K/uL Mean Platelet Volume 8.4 fL Neutrophils (%) (Auto) 87.0 % Lymphocytes (%) (Auto) 5.0 % Monocytes (%) (Auto) 5.9 % Eosinophils (%) (Auto) 1.8 % Basophils (%) (Auto) 0.1 % Neutrophils # (Auto) 17.90 K/uL Lymphocytes # (Auto) 1.03 K/uL Monocytes # (Auto) 1.22 K/uL Eosinophils # (Auto) 0.38 K/uL Basophils # (Auto) 0.02 K/uL RDW Standard Deviation 55.6 fL RDW Coefficient of Variation 19.5 % Immature Granulocyte % (Auto) 0.2 % Immature Granulocyte # (Auto) 0.05 K/uL Anisocytosis PRESENT Microcytosis PRESENT Echinocytes 1+ Sodium Level 139 mmol/L Potassium Level 3.7 mmol/L Chloride Level 107 mmol/L Carbon Dioxide Level 26 mmol/L Anion Gap 6.0 mmol/L Blood Urea Nitrogen 24 mg/dl Creatinine 0.87 mg/dl Est Creatinine Clear Calc Drug Dose 34.5 ml/min Estimated GFR () 68.5 Estimated GFR (Non- 59.1 BUN/Creatinine Ratio 27.4 Random Glucose 129 mg/dl Calcium Level 8.1 mg/dl Magnesium Level 2.2 mg/dl Vancomycin Level Trough 9.7 mcg/ml Assessment and Plan (1) UTI (urinary tract infection) Assessment & Plan: This is day 4 of antibiotic therapy. She did receive a dose of daptomycin on the and been on vancomycin since . Would prefer to treat her with the 7 days total of antibiotics. If she is to be discharged to when he will she could discharged to complete an additional 3 days of vancomycin. An alternative agent would be oral Zyvox if IV antibiotics are not desired however I would avoid beta-lactam antibiotics as she does have a reported allergy of hives with these medications. Her repeat blood cultures are negative and I suspect the coag-negative staph in her initial blood culture does represent skin contamination (2) Leukocytosis (3) Bladder cancer
[2017-10-02] MEDS: FERROUS SULFATE 325 MG TAB PO SCH (12:40)
--- NOTE | 2017-10-02 14:49 | Progress Note ---
Internal Med Progress Note Date of Service: October 02, 2017. Provider Documentation: SUBJECTIVE: Seen and examined at bedside Still very weak, follows minimal commands Minimally verbal Discussed with family in detail Ate better today per family No aggressive measures per family OBJECTIVE: Vital Signs-as noted below Physical Exam: General Appearance:Moderately built and nourished, no apparent distress Head: normocephalic, Atraumatic Eyes: normal inspection, EOMI, PERRL Neck: supple, Trachea midline Respiratory/Chest: decreased Normal breath sounds, CTA Cardiovascular: S1, S2, + murmur Abdomen/GI:Soft, Non tender, Bowel sounds present Extremities/Musculoskelatal:normal inspection, no edema Neurologic/Psych:AAOX3, grossly no focal neurological deficits Skin: normal color, warm Lab data as noted below. ASSESSMENT & PLAN: Metabolic Encephalopathy: Likely secondary to UTI Slurred speech resolved MRI Brain: Chronic small vessel ischemic change. 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 No acute intracranial abnormality. Head MRA:Severe luminal narrowing involves the distal aspect of the left M1 segment with normal trifurcation. monitor Complicated UTI: In setting of Chronic Valerio use, H/O Bladder cancer Failed outpatient Macrobid therapy Continue Vancomycin to complete 7 day course per ID recommendations DC Azactam Urine culture: group B strep Blood culture: 05/27:Coagulase negative staph: Likely contamination. Repeat blood cultures Negative Appreciate ID Input Leukocytosis improved today Will check Stool for C.diff if patient develops diarrhea LJ: Cr back to baseline Monitor renal function Left Parotid Mass: Incidental finding on MRI 13 mm mass in the left parotid gland is new since 2010. work up as outpatient if patient prefers H/O Bladder Cancer Hematuria Obstructive Uropathy CT ABD suggestive of progression of disease Patient refused chemotherapy in the past Follows with Oncology as outpatient Appreciate Urology Input Patient refuses Blood transfusions Palliative Care consulted to address goals of care No aggressive measures as per patient's son H/O Afib S/P PPM Not on chronic anticoagulation continue amiodarone Hold Metoprolol 2/2 to bradycardia and Hypotension HTN: Stable Hold Metoprolol for now DM II: A1C:7.2 Continue ISS, lantus monitor BGs H/O Aortic stenosis continue current meds Chronic anemia hemoglobin baseline monitor H/O CVA:as per MRI Hold Aspirin 2/2 hematuria DVT Px: SCDs RE hematuria. Code Status: DNR/DNI Disposition: To be determined Patient's son requesting updates from providers Mr. Carlos A Scanlon, contact numbers : [phone], . PROCEDURES: CT ABD: 1. Progressive somewhat irregular wall thickening of the bladder. 2. Cystoscopy is again recommended to exclude neoplastic process. 3. Trace perihepatic ascites. 4. Progressive bilateral hydroureteronephrosis most likely relating to develop an obstructive changes in the region of the bladder. 5. Developing inguinal adenopathy. 6. Bibasilar parenchymal infiltrates combined with small bilateral pleural effusions similar overall compared to the prior exam. Vital Signs: Date Time Temp Pulse Resp B/P (MAP) Pulse Ox O2 Delivery O2 Flow Rate FiO2 10/02/17 08:30 95 Nasal Cannula 2.0 10/02/17 08:00 36.7 60 18 119/65 (83) 95 Room Air 10/02/17 00:00 Nasal Cannula 2.0 10/01/17 23:20 36.7 58 18 113/67 (82) 100 Nasal Cannula 2.0 10/01/17 17:00 69 18 98 Room Air 10/01/17 16:00 96 Nasal Cannula 2.0 Lab Results: Results Past 24 Hours Test 10/01/17 17:47 10/01/17 20:39 10/02/17 07:37 10/02/17 08:31 Range/Units Bedside Glucose 129 143 100 70-90 mg/dl White Blood Count 20.60 4.8-10.8 K/uL Red Blood Count 3.96 4.2-5.4 M/uL Hemoglobin 9.8 12.0-16.0 g/dL Hematocrit 30.3 37-47 % Mean Corpuscular Volume 76.5 80-100 fL Mean Corpuscular Hemoglobin 24.7 25-34 pg Mean Corpuscular Hemoglobin Concent 32.3 32-36 g/dl Platelet Count 208 130-400 K/uL Mean Platelet Volume 8.4 7.4-10.4 fL Neutrophils (%) (Auto) 87.0 % Lymphocytes (%) (Auto) 5.0 % Monocytes (%) (Auto) 5.9 % Eosinophils (%) (Auto) 1.8 % Basophils (%) (Auto) 0.1 % Neutrophils # (Auto) 17.90 1.4-6.5 K/uL Lymphocytes # (Auto) 1.03 1.2-3.4 K/uL Monocytes # (Auto) 1.22 0.11-0.59 K/uL Eosinophils # (Auto) 0.38 0-0.5 K/uL Basophils # (Auto) 0.02 0-0.2 K/uL RDW Standard Deviation 55.6 36.4-46.3 fL RDW Coefficient of Variation 19.5 11.5-14.5 % Immature Granulocyte % (Auto) 0.2 % Immature Granulocyte # (Auto) 0.05 0.00-0.02 K/uL Anisocytosis PRESENT Microcytosis PRESENT Echinocytes 1+ Sodium Level 139 136-145 mmol/L Potassium Level 3.7 3.5-5.1 mmol/L Chloride Level 107 98-107 mmol/L Carbon Dioxide Level 26 21-32 mmol/L Anion Gap 6.0 3-11 mmol/L Blood Urea Nitrogen 24 7-18 mg/dl Creatinine 0.87 0.60-1.20 mg/dl Est Creatinine Clear Calc Drug Dose 34.5 ml/min Estimated GFR () 68.5 Estimated GFR (Non- 59.1 BUN/Creatinine Ratio 27.4 10-20 Random Glucose 129 70-99 mg/dl Calcium Level 8.1 8.5-10.1 mg/dl Magnesium Level 2.2 1.8-2.4 mg/dl Vancomycin Level Trough 9.7 SEE COMMENT mcg/ml Test 10/02/17 11:23 Range/Units Bedside Glucose 163 70-90 mg/dl
[2017-10-02 16:00] VITALS: O2SAT 95
[2017-10-02 21:03] VITALS: BP 112/70; PULSE 69
--- NOTE | 2017-10-02 21:47 | Progress Note ---
Subjective Date of Service: October 02, 2017. Subjective Pt asleep soni draining bloody urine that requires periodic irrigation per nurse Pt has refused curative measures and family does not want aggressive measures per hospitalist note Problem List Medical Problems: (1) Dislodged Soni catheter Status: Acute (2) Elevated lactic acid level Status: Acute (3) Failure of outpatient treatment Status: Acute (4) Hematuria Status: Acute (5) Hematuria Status: Acute (6) Hydronephrosis Status: Acute (7) Liver function abnormality Status: Acute (8) Malfunction of Soni catheter Status: Acute (9) Swelling of lower extremity Status: Acute (10) Symptoms involving urinary system Status: Acute (11) Thrush Status: Acute (12) Urinary retention Status: Acute (13) UTI (urinary tract infection) Status: Acute (14) UTI (urinary tract infection) Status: Acute (15) UTI (urinary tract infection) Status: Acute (16) Weakness Status: Acute Objective Vital Signs Date Time Temp Pulse Resp B/P (MAP) Pulse Ox O2 Delivery O2 Flow Rate FiO2 10/02/17 21:03 69 112/70 (84) 10/02/17 16:00 95 Nasal Cannula 2.0 10/02/17 08:30 95 Nasal Cannula 2.0 10/02/17 08:00 36.7 60 18 119/65 (83) 95 Room Air 10/02/17 00:00 Nasal Cannula 2.0 10/01/17 23:20 36.7 58 18 113/67 (82) 100 Nasal Cannula 2.0 Laboratory Results Last 24 Hours Test 10/02/17 07:37 10/02/17 08:31 10/02/17 11:23 10/02/17 16:56 Bedside Glucose 100 mg/dl 163 mg/dl 145 mg/dl White Blood Count 20.60 K/uL Red Blood Count 3.96 M/uL Hemoglobin 9.8 g/dL Hematocrit 30.3 % Mean Corpuscular Volume 76.5 fL Mean Corpuscular Hemoglobin 24.7 pg Mean Corpuscular Hemoglobin Concent 32.3 g/dl Platelet Count 208 K/uL Mean Platelet Volume 8.4 fL Neutrophils (%) (Auto) 87.0 % Lymphocytes (%) (Auto) 5.0 % Monocytes (%) (Auto) 5.9 % Eosinophils (%) (Auto) 1.8 % Basophils (%) (Auto) 0.1 % Neutrophils # (Auto) 17.90 K/uL Lymphocytes # (Auto) 1.03 K/uL Monocytes # (Auto) 1.22 K/uL Eosinophils # (Auto) 0.38 K/uL Basophils # (Auto) 0.02 K/uL RDW Standard Deviation 55.6 fL RDW Coefficient of Variation 19.5 % Immature Granulocyte % (Auto) 0.2 % Immature Granulocyte # (Auto) 0.05 K/uL Anisocytosis PRESENT Microcytosis PRESENT Echinocytes 1+ Sodium Level 139 mmol/L Potassium Level 3.7 mmol/L Chloride Level 107 mmol/L Carbon Dioxide Level 26 mmol/L Anion Gap 6.0 mmol/L Blood Urea Nitrogen 24 mg/dl Creatinine 0.87 mg/dl Est Creatinine Clear Calc Drug Dose 34.5 ml/min Estimated GFR () 68.5 Estimated GFR (Non- 59.1 BUN/Creatinine Ratio 27.4 Random Glucose 129 mg/dl Calcium Level 8.1 mg/dl Magnesium Level 2.2 mg/dl Vancomycin Level Trough 9.7 mcg/ml Test 10/02/17 20:06 Bedside Glucose 170 mg/dl Assessment and Plan Consider 3 way irrigation to keep catheter patent if clotting persists
[2017-10-02 23:58] VITALS: BP 144/70; PULSE 68; TEMP 36.6; O2SAT 96
[2017-10-03] MEDS: RESTASIS~ORDER AWAITING ACTION SCH (07:14)
[2017-10-03 07:33] VITALS: BP 169/81; PULSE 77; TEMP 36.7; O2SAT 94
[2017-10-03] MEDS: INSULIN ASPART 100 UNITS/ML 3 ML PEN SC SCH (09:26)
[2017-10-03] MEDS: MULTIVITAMIN TAB PO SCH (09:27)
[2017-10-03] MEDS: DOCUSATE SODIUM 100 MG CAP PO SCH (09:27)
[2017-10-03] MEDS: AMIODARONE 200 MG TAB PO SCH (09:27)
[2017-10-03] MEDS: PANTOprazole SOD 40 MG TAB PO SCH (09:27)
[2017-10-03] MEDS: INSULIN GLARGINE SOLOSTAR 100 UNITS/ML 3 ML PEN SC SCH (09:27)
--- NOTE | 2017-10-03 09:36 | Palliative Care Progress Note ---
Palliative Care Progress Note Date of Service October 03, 2017. Subjective Pt evaluation today including: conversation w/ patient, conversation w/ family , physical exam Pain: appears comfortable PO Intake: swabs Voiding: soni catheter in place (continue to flush for comfort) Patient was evaluated for follow up. Patients son and grand-daughter at the bedside. Patient now resting comfortably. Patient not opening eyes, but does nod and shake her head appropriately to questions. Son and grand-daughter notice significant decline over past 48 hours. We discussed pursuing hospice support at [facility], and they have decided they want to stop the antibiotics and move forward with comfort measures only. I support this decision as I agree she has declined over the past two days. The attending physician made aware and will stop all non- essential medications, including antibiotics, vital signs and blood draws. The patient will continue to receive flushing of the soni catheter for comfort. I spoke with Makayla in case management and transportation is arranged for 1500 today back to [facility]. She will notify [facility] (already chosen by the family). The patient initially was resistant to pain medication, but did agree to take Roxanol since she would not have to swallow a pill. Nursing updated as well. Review of Systems Patient denies pain. Pt unable to participate in ROS otherwise due to Objective Vital Signs Date Time Temp Pulse Resp B/P (MAP) Pulse Ox O2 Delivery O2 Flow Rate FiO2 10/03/17 07:33 36.7 77 16 169/81 (110) 94 Nasal Cannula 2.0 10/03/17 00:00 Nasal Cannula 2.0 10/02/17 23:58 36.6 68 18 144/70 (94) 96 Nasal Cannula 3.0 10/02/17 21:03 69 112/70 (84) 10/02/17 16:00 95 Nasal Cannula 2.0 Physical Exam General Appearance: no apparent distress Respiratory/Chest: no respiratory distress, no accessory muscle use, + decreased breath sounds Cardiovascular: regular rate, rhythm, no edema, no murmur Abdomen: normal bowel sounds, non tender, soft Neurologic/Psychiatric: + pertinent finding (pt does not open eyes, nods and shakes her head appropriately) Skin: warm/dry Laboratory Results Last 24 Hours Test 10/02/17 11:23 10/02/17 16:56 10/02/17 20:06 10/03/17 04:44 Bedside Glucose 163 mg/dl 145 mg/dl 170 mg/dl Test 10/03/17 07:44 Bedside Glucose 184 mg/dl Assessment and Plan Palliative Care Encounter Goals of Care Bladder Cancer paroxysmal A-fib Uterine cancer Palliative Care Recommendations: -Bladder cancer: -Stop all non-essential medications, blood draws, -Comfort measures initiated -Comfort management -Patient has oral blisters and thrush which is painful. Roxanol 5mg/mL poQ3 PRN for comfort but she refuses to allow the syringe to enter her mouth. Decided for more consistent pain control and comfort -Fentanyl patch (opioid naive ) 12mcg TD Q 72 hours. -Secretions: if patient starts to have secretions, Atropine gtts 1%. Administer 4 gtts Q2 PRN secretions Palliative Performance Scale: 10 % Discharge planning: senior care facility (with Hospice) Counseling and Coordination Total time spent 35 minutes with > 50% of that time discussing comfort care with the patient and family
[2017-10-03] MEDS ORDERED: MoRPHine SULFATE 5 MG/0.25 ML UDP PO PRN (09:45)
[2017-10-03] MEDS ORDERED: FENTANYL 12 MCG/HR TDSY TD SCH (09:45)
[2017-10-03] MEDS ORDERED: ATROPINE SULFATE 1% OP SOLN 2 ML BTL OP PRN (10:15)
--- NOTE | 2017-10-03 10:29 | Progress Note ---
Internal Med Progress Note Date of Service: October 03, 2017. Provider Documentation: SUBJECTIVE: Seen and examined at bedside Patient non verbal Clinically deteriorated Family preferred the patient to be transitioned to Comfort measures only with Hospice services Discussed with Palliative Care Family at bedside OBJECTIVE: Vital Signs-as noted below Physical Exam: General Appearance:Moderately built and nourished, no apparent distress Head: normocephalic, Atraumatic Eyes: normal inspection, EOMI, PERRL Neck: supple, Trachea midline Respiratory/Chest: decreased Normal breath sounds, CTA Cardiovascular: S1, S2, + murmur Abdomen/GI:Soft, Non tender, Bowel sounds present Extremities/Musculoskelatal:normal inspection, no edema Neurologic/Psych:AAOX3, grossly no focal neurological deficits Skin: normal color, warm Lab data as noted below. ASSESSMENT & PLAN: Metabolic Encephalopathy: Likely secondary to UTI Slurred speech resolved MRI Brain: Chronic small vessel ischemic change. 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 No acute intracranial abnormality. Head MRA:Severe luminal narrowing involves the distal aspect of the left M1 segment with normal trifurcation. monitor Complicated UTI: In setting of Chronic Valerio use, H/O Bladder cancer Failed outpatient Macrobid therapy Continue Vancomycin to complete 7 day course per ID recommendations DC Azactam Urine culture: group B strep Blood culture: 1/2:Coagulase negative staph: Likely contamination. Repeat blood cultures Negative Appreciate ID Input Leukocytosis improved yesterday Will check Stool for C.diff if patient develops diarrhea Patient transitioned to Comfort measures only and being transitioned to Hospice services Family in agreement Palliative care on board Will DC antibiotics LJ: Cr back to baseline Monitor renal function Left Parotid Mass: Incidental finding on MRI 13 mm mass in the left parotid gland is new since 2010. H/O Bladder Cancer Hematuria Obstructive Uropathy CT ABD suggestive of progression of disease Patient refused chemotherapy in the past Follows with Oncology as outpatient Appreciate Urology Input Patient refuses Blood transfusions Palliative Care consulted to address goals of care: On comfort measures currently No aggressive measures as per patient's son H/O Afib S/P PPM Not on chronic anticoagulation continue amiodarone Hold Metoprolol 2/2 to bradycardia and Hypotension Will DC medications as patient transitioned to comfort measures only HTN: Stable DM II: A1C:7.2 Continue ISS, lantus monitor BGs H/O Aortic stenosis continue current meds Chronic anemia hemoglobin baseline monitor H/O CVA:as per MRI Hold Aspirin 2/2 hematuria DVT Px: SCDs RE hematuria. Code Status: DNR/DNI Disposition: Plan to discharge to SNF with Hospice services in place PROCEDURES: CT ABD: 1. Progressive somewhat irregular wall thickening of the bladder. 2. Cystoscopy is again recommended to exclude neoplastic process. 3. Trace perihepatic ascites. 4. Progressive bilateral hydroureteronephrosis most likely relating to develop an obstructive changes in the region of the bladder. 5. Developing inguinal adenopathy. 6. Bibasilar parenchymal infiltrates combined with small bilateral pleural effusions similar overall compared to the prior exam. Vital Signs: Date Time Temp Pulse Resp B/P (MAP) Pulse Ox O2 Delivery O2 Flow Rate FiO2 10/03/17 07:33 36.7 77 16 169/81 (110) 94 Nasal Cannula 2.0 10/03/17 00:00 Nasal Cannula 2.0 10/02/17 23:58 36.6 68 18 144/70 (94) 96 Nasal Cannula 3.0 10/02/17 21:03 69 112/70 (84) 10/02/17 16:00 95 Nasal Cannula 2.0 Lab Results: Results Past 24 Hours Test 10/02/17 11:23 10/02/17 16:56 10/02/17 20:06 10/03/17 04:44 Range/Units Bedside Glucose 163 145 170 70-90 mg/dl Test 10/03/17 07:44 Range/Units Bedside Glucose 184 70-90 mg/dl
[2017-10-03] MEDS ORDERED: ATRO1SOL13 OP (10:33)
[2017-10-03] MEDS ORDERED: RXNS10 PO (10:33)
[2017-10-03] MEDS ORDERED: DRGTP12 TD (10:33)
--- NOTE | 2017-10-03 10:36 | Discharge Summary ---
Discharge Summary Date of Service October 03, 2017. Discharge Summary Admission Date: September 29, 2017 at 21:53 Discharge Date: October 03, 2017 [facility] Services) Principal Diagnosis: Encephalopathy, Bladder Cancer, Complicated UTI Procedures: MRI Brain: 1. Chronic small vessel ischemic change. 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 No acute intracranial abnormality. 2. T2 hyperintense 13 mm mass in the left broad gland, new since 2010. Dedicated nonurgent ultrasound could be obtained for further evaluation if clinically indicated. Head MRA: v1. No aneurysm, dissection or proximal branch occlusion. 2. Severe luminal narrowing involves the distal aspect of the left M1 segment with normal trifurcation. 3. Unremarkable vertebral and basilar arteries with luminal narrowing of the posterior cerebral arteries as above. CT ABD: 1. Progressive somewhat irregular wall thickening of the bladder. 2. Cystoscopy is again recommended to exclude neoplastic process. 3. Trace perihepatic ascites. 4. Progressive bilateral hydroureteronephrosis most likely relating to develop an obstructive changes in the region of the bladder. 5. Developing inguinal adenopathy. 6. Bibasilar parenchymal infiltrates combined with small bilateral pleural effusions similar overall compared to the prior exam. CXR: Chronic pulmonary vascular congestion. Mild superimposed infiltrate right base. Consultations: Urology, ID, Palliative care, Pending Studies/Follow-Up: Follow up with your Physician at SNF for further management Medication Reconciliation New Medications: Atropine Sulfate (Atropine Sulfate) 1 % Negar 4 DROPS OP Q2R PRN for secretions for 3 Days Fentanyl (Fentanyl) 12 Mcg Tdsy 12 MCG TD Q72H for 9 Days, #3 EA Morphine Sulfate (Morphine Sulfate) 10 Mg/0.5 Ml Soln 5 MG PO Q3H PRN for Pain for 3 Days Continued Medications: Acetaminophen (Tylenol) 500 Mg Tab 500 MG PO Q8 PRN for Pain or Fever Discontinued Medications: Amiodarone Hcl (Cordarone) 200 Mg Tab 400 MG PO DAILY TWO 200 MG TABLETS, PER [facility] MED LIST Ascorbic Acid (Ascorbic Acid) 500 Mg Tab 500 MG PO DAILY Aspirin (Aspirin Ec) 81 Mg Tab 81 MG PO 3XWK TAKES ON MON, WED, & FRI. Cholecalciferol (Vitamin D) 1,000 Unit Tab 1000 UNITS PO DAILY Clotrimazole (Mycelex) 10 Mg Tro 10 MG OR 5XD for 14 Days, #70 ASHUTOSH 2 Refills Cyclosporine (Ophth) (Restasis) 0.05 % Emu 1 DROP OPB BID Diphenoxylate/Atropine (Lomotil) Tab 1 TAB PO DAILY PRN for LOOSE STOOLS, TAB Docusate Sodium (Docusate Sodium) 100 Mg Cap 100 MG PO BID Emollient (Cerave) 1 Lot Lot 1 APPLN TOP BID PRN for RASH APPLY TO ARMS AND LEGS Ferrous Sulfate (Kp Ferrous Sulfate) 325 Mg Tab 325 MG PO QDL for 30 Days, TAB 3 Refills Furosemide (Lasix) 20 Mg Tab 20 MG PO 3XWK, TAB TAKES MON, WED, & FRI. Hydrocortisone (Rectal) (Hydrocortisone) 2.5 % Cre 1 APPLN TOP BID PRN for DRYNESS APPLY TO LEGS Melatonin (Melatonin) 1 Mg Tab 1 MG PO HS Metoprolol Succinate (Toprol Xl) 100 Mg Tab 100 MG PO BID HOLD IF SYSTOLIC BP 95 OR LESS OR HR 50 OR LESS Multivitamin (Multivitamin) Tab 1 TAB PO DAILY Nitrofurantoin Monohyd Macrocr (Macrobid) 100 Mg Cap 100 MG PO BID, #14 CAP Pantoprazole (Protonix) 40 Mg Tab 40 MG PO DAILY Polyethylene Glycol 3350 (Miralax) 1 Pow Pow 17 GM PO 2XWK, #527 GM TAKES ON MONDAYS & THURSDAYS. Polyvinyl Alcohol (Artificial Tears) 1.4 % Negar 1 DROP OPB QID Potassium Chloride (Micro-K Ext Rel) 10 Meq Capcr 10 MEQ PO 3XWK TAKES ON FRI, FRI, & FRI. [Onglyza] () 5 MG PO DAILY ANTI-DIABETIC MEDICATION; GENERIC NAME: [email or web address] Admission Information HPI (per Admitting provider): CHIEF COMPLAINT: Hematuria, bladder pain. HISTORY OF PRESENT ILLNESS: History obtained from the patient, son and records. Medical history is significant for bladder cancer sp surgery, chronic indwelling Valerio catheter, paroxysmal atrial fibrillation, not on Coumadin, DM2, on oral meds, aortic stenosis, chronic anemia (baseline hemoglobin of 10-11, uterine cancer, status post surgery, radiation, history of MRSA as per records. Recent confinement in June 2017 for hematuria, shoulder rotator cuff tendinopathy. Patient seen by [facility] urology during confinement. Supportive management, Valerio catheter irrigation p.r.n. if clot develops as per notes. Patient was [facility] to [facility] on discharge. Chemotherapy recommended, but the patient refused. Since then last week the patient had 2 ER visits for Valerio catheter issues due to assisted living facility's inability to deal with issue. Subsequently discharged back to [facility]. Patient/family instructed to follow up with urologist. Calls to Urology office unreturned as per family. Urine cultures from 09/21/17 ER visit showed group beta strep and MRSA. Patient started on Macrodantin course outpatient. In the last 2 days, the patient noted bladder pain, hematuria, slurred speech, confusion, dry cough, no chest pain, no shortness of breath. Patient was brought to the Emergency Room. Given daptomycin for UTI. Physical Exam (per Admitting): PHYSICAL EXAMINATION: VITAL SIGNS: Blood pressure was noted to be 130/60, pulse rate 56, temperature 36.6, sats 96 on room air. GENERAL: Noted to be anxious, comfortable. no respiratory distress. dysarthric. SKIN: Pallor, warm. HEENT: Pale palpebral conjunctivae. No ptosis. Dry buccal mucosa. NECK: Supple, nontender. CHEST: Decreased effort, no tenderness. HEART: Bradycardic, systolic murmur. ABDOMEN: Hypogastric tenderness. No distention. GENITOURINARY: Valerio in place. EXTREMITIES: No edema noted. No gross deformities. No tenderness NEUROLOGIC EXAMINATION: Coherent. dysarthric, no facial asymmetry, slightly hard of hearing. Hospital Course Metabolic Encephalopathy: Likely secondary to UTI Slurred speech resolved MRI Brain: Chronic small vessel ischemic change. 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 No acute intracranial abnormality. Head MRA:Severe luminal narrowing involves the distal aspect of the left M1 segment with normal trifurcation. monitor Complicated UTI: In setting of Chronic Valerio use, H/O Bladder cancer Failed outpatient Macrobid therapy Continue Vancomycin to complete 7 day course per ID recommendations DC Azactam Urine culture: group B strep Blood culture: 05/27:Coagulase negative staph: Likely contamination. Repeat blood cultures Negative Appreciate ID Input Leukocytosis improved yesterday Will check Stool for C.diff if patient develops diarrhea Patient transitioned to Comfort measures only and being transitioned to Hospice services Family in agreement Palliative care on board Will DC antibiotics LJ: Cr back to baseline Monitor renal function Left Parotid Mass: Incidental finding on MRI 13 mm mass in the left parotid gland is new since 2010. H/O Bladder Cancer Hematuria Obstructive Uropathy CT ABD suggestive of progression of disease Patient refused chemotherapy in the past Follows with Oncology as outpatient Appreciate Urology Input Patient refuses Blood transfusions Palliative Care consulted to address goals of care: On comfort measures currently No aggressive measures as per patient's son H/O Afib S/P PPM Not on chronic anticoagulation continue amiodarone Hold Metoprolol 2/2 to bradycardia and Hypotension Will DC medications as patient transitioned to comfort measures only HTN: Stable DM II: A1C:7.2 Continue ISS, lantus monitor BGs H/O Aortic stenosis continue current meds Chronic anemia hemoglobin baseline monitor H/O CVA:as per MRI Hold Aspirin 2/2 hematuria DVT Px: SCDs RE hematuria. Code Status: DNR/DNI Disposition: Plan to discharge to SNF with Hospice services in place PROCEDURES: CT ABD: 1. Progressive somewhat irregular wall thickening of the bladder. 2. Cystoscopy is again recommended to exclude neoplastic process. 3. Trace perihepatic ascites. 4. Progressive bilateral hydroureteronephrosis most likely relating to develop an obstructive changes in the region of the bladder. 5. Developing inguinal adenopathy. 6. Bibasilar parenchymal infiltrates combined with small bilateral pleural effusions similar overall compared to the prior exam. Total time spent on discharge = 35 minutes This includes examination of the patient, discharge planning, medication reconciliation, and communication with other providers. Discharge Instructions Discharge Instructions Date of Service October 03, 2017. Admission Reason for Admission: Encephalopathy Discharge Discharge Diagnosis / Problem: Encephalopathy, Bladder Cancer, Complicated UTI Discharge Goals Goal(s): Decrease discomfort, Improve function Activity Recommendations Activity Limitations: per Instructions/Follow-up section Lifting Limitations: gradually increase as tolerated . Instructions / Follow-Up Instructions / Follow-Up Follow up with your Physician at SNF for further management Current Hospital Diet Patient's current hospital diet: AHA Diet (Heart Healthy), Diabetes Type 2 Diet Discharge Diet Recommended Diet: AHA Diet (Heart Healthy), Diabetes Type 2 Diet Pending Studies Studies pending at discharge: no Laboratory Results Hemoglobin A1c Test 09/30/17 07:16 Range/Units Estimated Average Glucose 160 mg/dl Hemoglobin A1c 7.2 H 4.5-5.6 % Medical Emergencies . Who to Call and When: Medical Emergencies: If at any time you feel your situation is an emergency, please call 911 immediately. . Non-Emergent Contact Non-Emergency issues call your: Primary Care Provider Call Non-Emergent contact if: you have a fever, your pain is not controlled, your pain is worsening, your pain is unusual for you, your pain is concerning you, you have any medication questions Seek immediate medical attention if your symptoms reoccur or worsen . . "Provider Documentation" section prepared by De Mclean. .
[2017-10-03] MEDS: FERROUS SULFATE 325 MG TAB PO SCH (11:56)
[2017-10-03 15:09] VITALS: BP 169/81; PULSE 77; TEMP 36.7; O2SAT 94
[2017-10-03] MEDS ORDERED: CHECK FENTANYL PATCH PLACEMENT SCH ×2 (16:00)
[2017-10-04] MEDS ORDERED: VANCOMYCIN TROUGH ONE (09:30)
[2017-10-06] MEDS ORDERED: FENTANYL PATCH REMOVE & WASTE SCH (09:45)
== END 2017-10-03 16:15 | DRG 698 ==
LOC: EDBD 16:43 → C.EDA 16:44 → C.2T 21:53 → ENRESERV 22:03 → C.4E 09-30 14:40
PROVIDERS: ADMIT Internal Medicine; ATTEND Internal Medicine
DX: T83.518A Infection and inflammatory reaction due to other urinary catheter, initial encounter (principal); G93.40 Encephalopathy, unspecified; I50.32 Chronic diastolic (congestive) heart failure; N17.9 Acute kidney failure, unspecified; N39.0 Urinary tract infection, site not specified; Z82.49 Family history of ischemic heart disease and other diseases of the circulatory system; Z79.82 Long term (current) use of aspirin; Z88.0 Allergy status to penicillin; Z88.2 Allergy status to sulfonamides; Z88.8 Allergy status to other drugs, medicaments and biological substances; I48.0 Paroxysmal atrial fibrillation; E11.9 Type 2 diabetes mellitus without complications; Z79.84 Long term (current) use of oral hypoglycemic drugs; D64.9 Anemia, unspecified; Z86.14 Personal history of Methicillin resistant Staphylococcus aureus infection; I11.0 Hypertensive heart disease with heart failure; Z51.5 Encounter for palliative care; C67.9 Malignant neoplasm of bladder, unspecified; M35.00 Sjogren syndrome, unspecified